=== PATIENT | female | born 1990 | race Caucasian/White ===

== ENCOUNTER → 2017-08-26 13:34 | Outpatient (CLI) | payer MEDICAID, SELFPAY ==
--- NOTE | 2017-08-26 13:40 | HPBI_ITS ---
MAMMOGRAPHY - BILATERAL DIAGNOSTIC REASON FOR EXAM: Female, 27 years old. Baseline examination. Bilateral nonspecific breast pain. PERTINENT HISTORY: Non-contributory. TECHNIQUE: Digital bilateral breast brant (3D mammographic acquisition) in the CC and MLO projections. 2-D mediolateral oblique (MLO) and craniocaudad (CC) views of both breasts were obtained. CAD: Full Field Digital Mammography with Computer Added Detection was performed. COMPARISON: None. Baseline examination. FINDINGS: Breast Composition: The breasts are heterogeneously dense, which may obscure small masses. There are no dominant masses or suspicious calcifications. No other significant abnormalities are identified. HPBI/DIAG MAMM W/CAD, BILAT IMPRESSION: Negative diagnostic mammogram. Yearly followup mammogram recommended. (A) ASSESSMENT CATEGORY: BIRADS Category 1: Negative. A letter regarding these results will be sent to the patient by the facility within 30 days. Approximately 10% of breast cancers are not detected by mammography. A normal mammogram should not delay biopsy of a clinically suspicious abnormality. Electronically Signed: Hang Velasquez MD at 15:01 EST Tel [phone], Service support ,
== END ==
PROVIDERS: Visit Provider Nurse Practitioner Family
DX: N60.19 Diffuse cystic mastopathy of unspecified breast (principal); N64.4 Mastodynia
CPT/HCPCS: 77063; 77066

== ENCOUNTER 2018-09-21 17:03 | Emergency (ER) | payer MEDICAID, SELFPAY ==
[2018-09-21 17:04] VITALS: BP 123/70; PULSE 89; RESP 18; TEMP 36.5; O2SAT 99; BMI 35.9
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
== END 2018-09-21 18:23 | disposition home or self-care (01) ==
PROVIDERS: Emergency Provider Emergency Medicine; Family Provider Internal Medicine; PCP Internal Medicine
DX: S16.1XXA Strain of muscle, fascia and tendon at neck level, initial encounter (principal); V43.52XA Car driver injured in collision with other type car in traffic accident, initial encounter; Y93.89 Activity, other specified; Y92.9 Unspecified place or not applicable
CPT/HCPCS: 72040; 99282

== ENCOUNTER 2018-10-31 12:29 | Emergency (ER) | payer MEDICAID, SELFPAY ==
[2018-10-31 12:30] VITALS: BP 101/59; PULSE 67; RESP 16; TEMP 36; O2SAT 99; BMI 34.2
--- NOTE | 2018-10-31 12:40 | RAD_ITS ---
STUDY: X-RAY CHEST REASON FOR EXAM: Female, 28 years old. Chest pain TECHNIQUE: PA and lateral views of the chest. COMPARISON: None. FINDINGS: The lungs are clear and expanded. There is no demonstrated pleural abnormality. Normal size heart. Normal mediastinum and faizan. Normal visualized pulmonary arteries. Normal visualized aortic arch and descending thoracic aorta. Normal visualized thoracic spine. Normal visualized ribs, clavicles, and shoulders. There is no demonstrated abnormality of the visualized soft tissue structures of the upper abdomen. RAD/Chest PA and Lateral IMPRESSION: Normal x-ray examination of the chest. Electronically Signed: Fer Greenwood, at 13:11 EDT Tel , Service support ,
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
== END 2018-10-31 13:24 | disposition home or self-care (01) ==
PROVIDERS: Emergency Provider Emergency Medicine; Family Provider Internal Medicine; PCP Internal Medicine
DX: R07.89 Other chest pain (principal); Z87.891 Personal history of nicotine dependence; Y92.410 Unspecified street and highway as the place of occurrence of the external cause; V89.2XXA Person injured in unspecified motor-vehicle accident, traffic, initial encounter; Y93.9 Activity, unspecified; Y99.9 Unspecified external cause status
CPT/HCPCS: 71046; 99283

== ENCOUNTER → 2019-06-30 08:14 | Outpatient (CLI) | payer MEDICAID, SELFPAY ==
--- NOTE | 2019-06-30 08:18 | RAD_ITS ---
STUDY: AIR-CONTRAST UPPER GI SERIES. REASON FOR EXAM: Female, 29 years old. Altered bowel function, functional diarrhea -- pt states diarrhea x years FLUOROSCOPY TIME (if supplied): ( 46 seconds ) minutes/seconds TECHNIQUE: The patient ingested barium. Multiple images of the esophagus stomach and duodenum were obtained. COMPARISON: None. FINDINGS: The esophagus is unremarkable. No evidence of obstruction. No evidence of gas of reflux. The stomach and duodenum are unremarkable. IMPRESSION: Unremarkable air-contrast upper GI series. Electronically Signed: Hang Velasquez, at 15:14 EST , Service support , PROCEDURE: SMALL BOWEL SERIES DATE OF EXAMINATION: June 30, 2019. INDICATION: Female, 29 years old. Abnormal bowel function. Diarrhea. PHYSICIAN: Hang Velasquez M.D. FLUOROSCOPY TIME (if supplied): (0:13) minutes/seconds TECHNIQUE: Radiographic and fluoroscopic images were taken of the small intestine following the ingestion of barium. COMPARISON: None. FINDINGS: A preliminary supine KUB was obtained. There is an unremarkable bowel gas pattern. Fecal material is present throughout the colon. Phleboliths are present within the pelvis. The lung bases are unremarkable. The osseous structures are normal. The patient orally ingested approximately 12 ounces of thin barium Normal visualized fundus, body, and antrum of the stomach. Normal duodenal bulb, C-loop, and proximal jejunum. Normal visualized mucosal folds of the jejunum and ileum. There are no demonstrated dilatations, strictures, or masses of the small intestine. There is no mass displacement of the loops of small intestine. There is a normal motor pattern with barium reaching the colon within approximately 30 minutes. Spot films under fluoroscopic observation demonstrated a normal terminal ileum and ileocecal valve. RAD/Upper GI/w Small Bowel IMPRESSION: Normal small bowel series. Electronically Signed: Hang Velasquez, at 15:16 EST , Service support ,
== END ==
PROVIDERS: Family Provider Internal Medicine; PCP Internal Medicine; Referring Provider Nurse Practitioner Adult Health; Visit Provider Nurse Practitioner Adult Health
DX: K59.1 Functional diarrhea (principal); R11.0 Nausea
CPT/HCPCS: 74246; 74248

== ENCOUNTER 2019-11-09 02:07 | Emergency (ER) | payer MEDICAID, SELFPAY ==
[2019-11-09 02:07] VITALS: BP 122/73; PULSE 115; RESP 16; TEMP 36.9; O2SAT 93; BMI 39.0
--- NOTE | 2019-11-09 02:37 | RAD_ITS ---
STUDY: X-RAY - RIGHT FOOT CLINICAL: Female, 29 years old. PT WAS DOING YARD WORK AND FELL OFF A BRICK AND INJURED HER RIGHT ANKLE/FOOT TECHNIQUE: 3 view(s) of the foot. COMPARISON: None. FINDINGS: Normal talus, calcaneus, and tarsal bones. Normal visualized subtalar, talonavicular, calcaneocuboid, tarsal and tarsometatarsal articulations. Normal metatarsi. Normal metatarsophalangeal joint of the great toe. Normal tibial and fibular sesamoid bones. Normal interphalangeal joint of the great toe. Normal phalanges of the great toe. Normal second through fifth metatarsophalangeal joints. Normal interphalangeal joints and phalanges of the lesser toes. The soft tissue structures are unremarkable. RAD/Foot min 3 Views IMPRESSION: Normal x-ray examination of the foot. Electronically Signed: Sushil Berry MD at 2:58 EDT , Service support ,
--- NOTE | 2019-11-09 02:37 | ED.DCSUM_ITS ---
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 Timing: Continuous Quality of Pain: Aching Location: Right ankle Current Severity: Moderate Maximum Severity: Severe Worsened by: Trying to bear weight which she is unable to do Relieved by: Remaining still/rest Associated Symptoms: Negative for: Parasthesia, Weakness Past Medical History - Allergies and Home Meds Allergies/Adverse Reactions: Allergies No Known Allergies Allergy (Verified 11/09/19 02:09) Primary Care Physician: Misha Cespedes MD [Primary Care Provider] - Past Medical History: None Smoking Status: Former smoker Review of Systems Musculoskeletal: Reports: Extremity Pain Skin: Denies: Rash, Wounds Neurological: Denies: Headache, Weakness, Numbness Physical Exam Vital Signs/Narrative: Vital Signs Temp Pulse Resp BP Pulse Ox 11/09/19 02:07 98.4 F 115 H 16 122/73 H 93 Inital Vital Signs reviewed: Yes - Extremity Exam Right Ankle: Limited ROM, - - Tender right lateral malleolus and base of the fifth metatarsal. No deformities. Nontender medial malleolus, fibular head, rest of the foot and right lower extremity. General: Well nourished, Well developed, Obese, - - nad Head: Normocephalic, Atraumatic Skin: Normal color, No rash, No Trauma - Right lateral malleolus swollen, skin intact Neurological: Alert, Oriented x3, Cranial nerves II-XII grossly intact, Normal Strength, Normal Sensation Psychological: Normal affect, Normal Mood Diagnostic/Tx/Re-eval Impressions Foot X-Ray 11/09/19 02:37 IMPRESSION: Normal x-ray examination of the foot. Electronically Signed: Sushil Berry MD at 2:58 EDT , Service support , Ankle X-Ray 11/09/19 02:40 IMPRESSION: Normal x-ray examination of the ankle. Electronically Signed: Sushil Berry MD at 2:59 EDT , Service support , 11/09/19 02:37 Foot min 3 Views [RAD] Stat 11/09/19 02:40 Ankle min 3 Views [RAD] Stat - Medical Decision Making X-rays unremarkable as above. Consistent with a sprain. Will be placed in an Aircast, given anti-inflammatories, offered crutches, and provided with outpatient follow-up. ED Disposition - Plan for ED Patient: Disposition: Home or Assisted Living Diagnosis: Right ankle sprain Instructions: ED Sprain Ankle W X Ray Prescriptions: Naproxen [Naprosyn] 500 mg PO BID PRN #20 tab Transmission Status: [facility] to [id number] Referrals: Misha Cespedes MD [Primary Care Provider] - 1-2 Weeks (If not improving and able to walk on foot without crutches)
--- NOTE | 2019-11-09 02:40 | RAD_ITS ---
STUDY: X-RAY - RIGHT ANKLE REASON FOR EXAM: Female, 29 years old. PT WAS DOING YARD WORK AND FELL OFF A BRICK AND INJURED HER RIGHT ANKLE/FOOT TECHNIQUE: 3 view(s) of the ankle. COMPARISON: None. FINDINGS: Normal visualized distal tibia and fibula. Normal medial and lateral malleoli. Normal tibiotalar articulation and ankle mortise. Normal visualized talus and calcaneus. The visualized subtalar, talonavicular, calcaneocuboid and tarsal articulations are normal. The soft tissue structures are unremarkable. RAD/Ankle min 3 Views IMPRESSION: Normal x-ray examination of the ankle. Electronically Signed: Sushil Berry MD at 2:59 EDT , Service support ,
[2019-11-09] MEDS: Naproxen 250 MG Tablet 500 MG PO (03:50)
[2019-11-09 03:52] VITALS: BP 118/60; PULSE 90; RESP 16; O2SAT 98
== END 2019-11-09 03:53 | disposition home or self-care (01) ==
PROVIDERS: Emergency Provider Emergency Medicine; PCP Internal Medicine
DX: S93.401A Sprain of unspecified ligament of right ankle, initial encounter (principal); X50.1XXA Overexertion from prolonged static or awkward postures, initial encounter; Z87.891 Personal history of nicotine dependence; E66.9 Obesity, unspecified
CPT/HCPCS: 73610; 73630; 99284

== ENCOUNTER 2021-03-13 13:17 | Emergency (ER) | payer MEDICAID, SELFPAY ==
[2021-03-13 13:18] VITALS: BP 124/85; PULSE 83; RESP 16; TEMP 36.6; O2SAT 100; BMI 38.4
--- NOTE | 2021-03-13 13:37 | RAD_ITS ---
STUDY: X-RAY - LEFT HAND REASON FOR EXAM: Female, 31 years old. Trauma TECHNIQUE: 3 view(s) of the hand. COMPARISON: None. FINDINGS: Normal radiocarpal articulation. Normal distal radioulnar joint. Normal visualized carpal bones. Normal carpal articulations Normal carpometacarpal articulation of the thumb. Normal second through fifth carpometacarpal joints. Normal metacarpi. Normal metacarpophalangeal joint of the thumb. Normal interphalangeal joint of the thumb. Normal proximal and distal phalanges of the thumb. Normal metacarpophalangeal joints of the second through fifth fingers. Normal proximal and distal interphalangeal joints of the second through fifth fingers. Normal phalanges of the second through fifth fingers. Soft tissue swelling involving the third and fourth digits. No radiopaque foreign body is seen. RAD/Hand Min 3 Views IMPRESSION: Soft tissue swelling. No radiopaque foreign body is seen. Electronically Signed: Hang Velasquez MD at 14:18 EDT , Service support ,
--- NOTE | 2021-03-13 13:41 | EDS_ITS ---
HPI History of Present Illness Chief Complaint: Upper Extremity Injury Informant: patient Occured/Mechanism Mechanism/Context: Yes injury Onset/Context/Timing Onset: Today and Hours Context: Sudden Onset Timing: Continuous Quality of Pain: Sharp Current Severity: Mild Maximum Severity: Mild Associated Symptoms Associated Symptoms: Negative for Parasthesia Narrative Narrative: 31-year-old female history of hypertension and seizures. Patient states she was using a log splitter when she accidentally got her left hand injured she has a laceration to the left ring finger that will need to be repaired and minor laceration that will not need to be repaired of the left long finger. She is right-hand dominant. Her tetanus is up-to-date. She denies any other injuries. Tetanus Immunization: 5-10 years Prior similar symptoms: No Recent Illness/Hospitalization: No [facility] Medical History (Updated 03/13/21 @ 15:[address] Abiodun Scott MD) Anxiety Depression Irregular heart beat Seizures Home Medications gabapentin 600 mg PO QHS 11/09/19 [History Last Taken Unknown] levetiracetam 750 mg PO BID 11/09/19 [History Last Taken Unknown] metoprolol tartrate 25 mg PO BID 11/09/19 [History Last Taken Unknown] Allergy/AdvReac Type Severity Reaction Status Date / Time No Known Allergies Allergy Verified 03/13/21 13:20 Social History Smoking Status: Current every day smoker tobacco type: cigarettes ROS ROS ED ROS Narrative Denies recent illness. Review of Systems ROS Unobtainable: Denies due to encephalopathy Constitutional Constitutional ED: Denies frequent falls Eyes Eyes: Denies change in vision ENT ENT ED: Denies ear pain Cardiovascular Cardiovascular: Denies chest pain Respiratory/Chest Respiratory/Chest: Denies dyspnea Gastrointestinal Gastrointestinal: Reports diarrhea; Denies abdominal pain, nausea or vomiting Genitourinary Genitourinary ED: Denies dysuria Musculoskeletal Musculoskeletal: Denies myalgias Integumentary Denies rash Neurologic Neurologic: Denies headache(s) Psychiatric Psychiatric: Denies depression Endocrine Endocrinology: Denies polyuria Hematologic/Lymphatic Hematologic/Lymphatic: Denies easy bruising Allergic/Immunologic Allergic/Immunologic ED: Denies urticaria EXAM Physical Exam Narrative Exam Narrative: 31 female no acute distress vital signs stable afebrile. Lungs clear. Heart regular rate and rhythm. Left hand left ring finger there is a laceration approximately 2-1/2 to 3 cm on the palmar aspect. That will need to be repaired. There are some superficial abrasions lacerations on the long and ring finger that do not need to be repaired. She has normal touch sensation and cap refill to all digits. She has limited flexion of the PIP on the left long finger. Otherwise exam unremarkable. Const Vital Signs: 03/13/21 13:18 Temperature 97.8 F Temperature Source Temporal Pulse Rate 83 Respiratory Rate 16 Blood Pressure 124/85 H Blood Pressure Mean 98 Pulse Ox 100 Oxygen Delivery Method Room Air Positive well nourished and well developed; Negative for cachectic, contractures or unkempt General Appearance ED: well developed and NAD; Negative for unkempt, cachectic or contractures Nutritional Appearance: Negative for cachectic HEENT Reports moist mucous membranes normocephalic and atraumatic; Negative for trauma or tenderness Eyes PERRL and EOMs intact bilaterally Neck full ROM and supple Chest Wall inspection of chest normal and palpation of chest normal Resp clear to auscultation bilaterally Cardio regular rate, regular rhythm, S1 normal heart sound, S2 normal heart sound and no murmurs GI non-tender, non-distended and no masses Auscultation: normoactive bowel sounds Palpation: soft Back/Spine no CVA tenderness Extremity Extremity Narrative: Left hand laceration palmar aspect left ring finger. Normal touch sensation normal cap refill no bony deformity. Limited flexion of the PIP. Also some minor abrasions that do not need to be repaired of the left ring and long finger. Neuro oriented x3 and moves all extremities Sensorium / Orientation: alert, oriented to person, oriented to place and oriented to time Motor Exam: strength 5/5 throughout Psych mental status grossly normal Appearance: Negative for unkempt Skin Lesions: no lesions Rashes: no rashes Trauma: laceration; Negative for no lacerations or abrasions MDM MDM MDM Narrative Medical decision making narrative: 31-year-old female laceration left ring finger that will need to be x-rayed, explored, washed out and repaired. Tetanus is already up-to-date. Repeat exam patient is doing well at 330. Procedure note: Right ring finger palmar laceration almost 3 cm. Digital block performed. Proper anesthetic obtained. Wound was cleaned with Shur-Clens. Copiously irrigated and washed. Explored I did not feel or see any obvious foreign body discussed that with the patient. Closed using 4 simple interrupted 4-0 Ethilon sutures. Proper hemostasis and wound closure is obtained. Patient was instructed on wound care ice and elevate. To decrease pain and swelling. Watch for any signs of infection. Suture removal in 14 days. Radiography Diagnostic Testing: X-ray left hand 3 views interpreted by myself shows no acute abnormality. No fracture. No foreign body. Interpreted both by the radiologist and myself. Procedures Lacerations Right ring finger palmar laceration: Length: 1.18 in Shape: Linear Prep: Sterile Conditions and Shure-Clens Laceration repair: Digital block, Irrigated, Lidocaine, Nerve block and Skin sutures Irrigated (ml): 200 Number of Sutures/Diana: 4 Suture Information: Ethilon and 4-0 Comment: 4 4-0 simple interrupted sutures. Proper hemostasis wound closure obtained. Patient tolerated procedure well. Discharge Plan Triage Chief Complaint: Upper Extremity Injury ED Provider: Abiodun Scott Dx/Rx/DC Orders Clinical Impression: Finger laceration Instructions: ED Laceration, Hand: All Closures Prescriptions: No Action gabapentin 600 MG tablet 600 mg PO QHS RF: 0 levetiracetam 750 MG tablet 750 mg PO BID RF: 0 metoprolol tartrate 25 MG tablet 25 mg PO BID RF: 0 Primary Care Provider: Misha Cespedes Referrals: Misha Cespedes MD [Primary Care Provider] - 10-14 Days suture removal Activity Restrictions/Additional Instructions: Ice and elevate your left hand to decrease pain and swelling. Do it at least 5 times a day for 30 minutes at a time the next 2 to 3 days Tylenol and Motrin for pain and swelling. Leave our dressing on for the next 4 days. Then begin changing it daily. Wash it well each day with soap and water or peroxide and water. Watch for any signs of infection such as redness, pus, streaks or fever or significant swelling is seen return. Stitches out in 14 days. Disposition Disposition: Home, Self Care
[2021-03-13] MEDS: Lidocaine 1% (20 ml mdv) 20 ML Vial 6 ML INFILT (15:08)
== END 2021-03-13 15:46 | disposition home or self-care (01) ==
PROVIDERS: Emergency Provider Emergency Medicine; PCP Internal Medicine
DX: S61.411A Laceration without foreign body of right hand, initial encounter (principal); S69.92XA Unspecified injury of left wrist, hand and finger(s), initial encounter; W31.9XXA Contact with unspecified machinery, initial encounter; Y93.89 Activity, other specified; Y92.9 Unspecified place or not applicable; Y99.9 Unspecified external cause status; I10 Essential (primary) hypertension; F32.9 Major depressive disorder, single episode, unspecified; F41.9 Anxiety disorder, unspecified; G40.909 Epilepsy, unspecified, not intractable, without status epilepticus; F17.210 Nicotine dependence, cigarettes, uncomplicated
CPT/HCPCS: 12002; 73130; 99284; J7030

== ENCOUNTER 2021-05-07 17:18 | Emergency (ER) | payer MEDICAID, SELFPAY ==
[2021-05-07 17:19] VITALS: BP 125/79; PULSE 71; RESP 18; TEMP 36.4; O2SAT 100; BMI 39.4
--- NOTE | 2021-05-07 19:54 | EX.ED.VIS.HA ---
HPI History of Present Illness Chief Complaint: Headache Informant: patient Onset/Context/Timing Onset: Weeks (1) Context: Gradual Timing: Continuous Quality -Headache: Positive for Similar Prior Headaches and Throbbing Location: Frontal Worsened by: Nothing Relieved by: Nothing Associated Symptoms/Injury Associated Symptoms: Positive for Fever, Nausea and Vomiting; Negative for Sore Throat, Sinus Pressure, Numbness, Tingling, Preceding Aura, Visual Changes, Blurred Vision, Photophobia and Visual Loss Injury - SHANNON: Negative for Direct Trauma Narrative Narrative: Patient presents with migraine headache that has been getting worse for the past week. Patient states it is similar to prior migraine headaches. Patient states that over the frontal area. Patient describes it as throbbing. Patient denies any head injury. Patient admits to some fever at home of 102.4. Patient admits to some nausea and vomiting. Patient denies any sore throat or sinus pressure. Patient denies any paresthesias or weakness. Patient denies any photophobia, blurred vision, or scotoma. [facility] Medical History Anxiety Depression Irregular heart beat Seizures Home Medications gabapentin 600 mg PO QHS 11/09/19 [History Last Taken Unknown] levetiracetam 750 mg PO BID 11/09/19 [History Last Taken Unknown] metoprolol tartrate 25 mg PO BID 11/09/19 [History Last Taken Unknown] Allergy/AdvReac Type Severity Reaction Status Date / Time No Known Allergies Allergy Verified 05/07/21 17:20 Surgical History (Updated 05/08/21 @ 01:[address] Nasir Hall DO) Hx of dilation and curettage Social History Smoking Status: Current every day smoker tobacco type: cigarettes ROS ROS ED Constitutional Constitutional ED: Reports fever(s); Denies chills Eyes Eyes: Denies blurry vision or change in vision ENT ENT ED: Denies rhinorrhea or sore throat Cardiovascular Cardiovascular: Denies chest pain or palpitations Respiratory/Chest Respiratory/Chest: Denies cough or dyspnea Gastrointestinal Gastrointestinal: Reports diarrhea, nausea and vomiting Genitourinary Genitourinary ED: Denies dysuria or hematuria Musculoskeletal Musculoskeletal: Reports back pain; Denies neck pain Integumentary Denies abscess or rash Neurologic Neurologic: Reports headache(s); Denies weakness Allergic/Immunologic Allergic/Immunologic ED: Denies mouth swelling or urticaria EXAM Physical Exam Const Vital Signs: 05/07/21 17:19 05/07/21 21:39 05/07/21 22:15 Temperature 97.6 F L Temperature Source Temporal Pulse Rate 71 62 Respiratory Rate 18 15 18 Blood Pressure 125/79 H 134/77 H Blood Pressure Mean 94 96 Pulse Ox 100 98 Oxygen Delivery Method Room Air Room Air Positive well nourished and well developed General Appearance ED: well developed HEENT Reports moist mucous membranes Neck supple and no JVD Resp normal respiratory effort and clear to auscultation bilaterally Cardio regular rate, regular rhythm and no murmurs GI normal to inspection, nondistended, normoactive bowel sounds and non-tender Palpation: soft Extremity normal to inspection General Extremety ED: Negative for edema or tenderness General Extremity: Negative for edema Neuro oriented x3, CN's II-XII intact bilaterally and no sensory deficits noted Sensorium / Orientation: alert Motor Exam: strength 5/5 throughout Psych mental status grossly normal Skin no rashes or lesions noted MDM MDM MDM Narrative Medical decision making narrative: 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 Because of this, CT scan of the brain was obtained. There is no acute intracranial abnormality. Patient was given IV fluids, Compazine, and Benadryl. Patient states her headache has resolved after this. Patient was instructed to rest in a dark quiet room. Patient was instructed to drink plenty of fluids. Patient was instructed to follow-up with her primary care physician in 5 to 7 days. Patient understood and was agreeable with the plan. All questions were answered. Radiography Diagnostic Testing: Clinical Impression(s) from Imaging Studies Brain CT 05/07/21 20:12 IMPRESSION: 1. Normal CT brain. Electronically Signed: Francesca Tamayo MD at 20:32 EST Tel , Service support , Discharge Plan Triage Chief Complaint: Headache ED Provider: Nasir Hall Dx/Rx/DC Orders Clinical Impression: Migraine headache Instructions: ED Headache Unspecified Prescriptions: No Action gabapentin 600 MG tablet 600 mg PO QHS RF: 0 levetiracetam 750 MG tablet 750 mg PO BID RF: 0 metoprolol tartrate 25 MG tablet 25 mg PO BID RF: 0 Primary Care Provider: Misha Cespedes Referrals: Misha Cespedes MD [Primary Care Provider] - 3-5 Days Disposition Disposition: Home, Self Care Discharge Date/Time: 05/07/21 22:16
--- NOTE | 2021-05-07 20:12 | CT_ITS ---
STUDY: CT BRAIN WITHOUT CONTRAST REASON FOR EXAM: Female, 31 years old. Pain RADIATION DOSAGE (If Supplied By Facility): CTDIvol = ( 44.99 ) mGy, DLP = ( 762.36 ) mGycm TECHNIQUE: Transaxial CT imaging of the brain was performed without administration of intravenous contrast material. Individualized dose optimization techniques were used for this CT. COMPARISON: No relevant priors. FINDINGS: Brain parenchyma is without focal lesions, mass effect, acute intracranial hemorrhage, extra parenchymal fluid collections, hydrocephalus or herniation. 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 Corpus callosum is fully formed. The skull is intact. CT/Brain/Head without Contrast IMPRESSION: 1. Normal CT brain. Electronically Signed: Francesca Tamayo MD at 20:32 EST Tel , Service support ,
[2021-05-07] MEDS: 0.9% Normal Saline 1,000 ML 999 ML IV (20:22)
[2021-05-07] MEDS: DiphenhydrAMINE 50 MG/ML Syringe 25 MG IV (20:22)
[2021-05-07] MEDS: proCHLORPERazine 10 MG/2 ML Vial IV (20:22)
[2021-05-07 21:39] VITALS: BP 134/77; PULSE 62; RESP 15; O2SAT 98
[2021-05-07 22:15] VITALS: RESP 18
== END 2021-05-07 22:16 | disposition home or self-care (01) ==
PROVIDERS: Emergency Provider Emergency Medicine; PCP Internal Medicine
DX: G43.909 Migraine, unspecified, not intractable, without status migrainosus (principal); F17.210 Nicotine dependence, cigarettes, uncomplicated
CPT/HCPCS: 70450; 96361; 96374; 96375; 99283; J7030; A4216

== ENCOUNTER 2021-10-20 17:30 | Outpatient (RCR) | payer MEDICAID, SELFPAY ==
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
== END 2021-10-20 19:00 | disposition home or self-care (01) ==
LOC: PT 17:30
PROVIDERS: PCP Internal Medicine; Visit Provider Nurse Practitioner
DX: M54.17 Radiculopathy, lumbosacral region (principal); M54.50 Low back pain, unspecified
CPT/HCPCS: 97110; 97162; 97164

== ENCOUNTER → 2022-09-04 | Outpatient (CLI) | payer MEDICAID, SELFPAY ==
[2022-09-04 15:05] LABS: Absolute Lymphocyte Count 1.41 X10^3/uL (0.83-4.51); Basophil# 0.03 X10^3/uL; Basophil% 0.5 % (0-1); Eosinophil# 0.09 X10^3/uL; Eosinophils% 1.5 % (0-5); Hematocrit 40.3 % (37-47); Hemoglobin 13.3 g/dL (12.0-15.0); Lymphocyte # 1.41 X10^3/ul (0.83-4.51); Mean Corpuscular Hgb 30.7 pg (27.0-32.0); Mean Corpuscular Volume 93.1 fL (81-99); Mean Platelet Vol. 11.7 fl (6.2-12.0); Monocyte# 0.33 X10^3/uL; Monocyte% 5.6 % (0-10); NRBC Flagged by Analyzer 0 % (0-5); Neutrophil % 68.1 % (47-70); Platelet Count 225 K/mm3 (150-450); RBC Distribution Width CV 11.8 % (11.6-14.6); RBC Distribution Width SD 40.1 fl (35.1-43.9); Red Blood Count 4.33 M/mm3 (4.2-5.4); White Blood Count 5.9 K/mm3 (4.4-11.0)
[2022-09-04 16:05] LABS: Vitamin B12 295 pg/mL (211-911); Vitamin D,25 Hydroxy 30.1 ng/mL
[2022-09-04 16:36] LABS: AST(SGOT) 9 U/L (15-37); Alanine Aminotransfer ALT/SGPT 18 U/L (13-56); Albumin, Serum 3.3 g/dL (3.2-5.0); Alkaline Phosphatase 39 U/L (45-117); Anion Gap 5 (5-15); BUN 15 mg/dL (7-18); BUN/Creat Ratio 21.2 RATIO (10-20); CRP < 2.90 mg/L (0.0-3.0); Calcium,Total 8.6 mg/dL (8.5-10.1); Chloride 113 mmol/L (98-107); Creatinine, Serum 0.71 mg/dL (0.55-1.02); EST Glomerular Filtration Rate 100 mL/min (>60); Est Glom Filt Rate - Afr Amer 121 mL/min (>60); Free T3 1.9 pg/mL (2.18-3.98); Globulin 3.2 g/dL (2.2-4.2); Glucose 88 mg/dL (74-106); Magnesium 2.3 mg/dL (1.6-2.6); Phosphorus 2.9 mg/dL (2.5-4.9); Potassium 3.4 mmol/L (3.5-5.1); Protein, Total 6.5 g/dL (6.4-8.2); Sodium Level 145 mmol/L (136-145); T4 Free Direct 0.84 ng/dL (0.76-1.46); Thyroid Stim Hormone (TSH) 1.62 uIU/mL (0.358-3.74)
[2022-09-04 16:39] LABS: Erythrocyte Sedimentation Rate 2 mm/hr (0-30)
[2022-09-07 15:08] LABS: Endomysial Antibody IgA Negative (Negative)
[2022-09-07 16:26] LABS: Immunoglobulin A 124 mg/dL (87-352); t-Transglutaminase IgA <2 U/mL (0-3)
[2022-09-08 13:07] LABS: Anti-Centromere B Ab <0.2 AI (0.0-0.9); Anti-Chromatin <0.2 AI (0.0-0.9); Anti-Jo <0.2 AI (0.0-0.9); Anti-Scleroderma-70 AB <0.2 AI (0.0-0.9); RNP Ab 0.3 AI (0.0-0.9); SJOGREN'S Anti-SS-A test < 0.2 AI (0.0-0.9); SJOGREN'S Anti-SS-B test < 0.2 AI (0.0-0.9); Smith Ab <0.2 AI (0.0-0.9)
[2022-09-08 15:50] LABS: Anti-dsDNA Ab <1 IU/mL (0-9); Vitamin D 1,25-Dihydroxy 49.4 pg/mL (24.8-81.5)
[2022-09-09 04:07] LABS: Albumin 3.6 g/dL (2.9-4.4); Alpha-1-Globulins 0.3 g/dL (0.0-0.4); Alpha-2-Globulins 0.7 g/dL (0.4-1.0); Cytoplasmic Ab (C-ANCA) <1:20 titer (Neg:<1:20); Gamma Globulin 0.8 g/dL (0.4-1.8); HEPATITIS B SURFACE AG Negative (Negative); Hep C Antibodies Non Reactive (Non Reactive); Hepatitis A IgM Antibody Negative (Negative); Hepatitis B Core AB IgM Negative (Negative); Immunoglobulin A 121 mg/dL (87-352); Immunoglobulin G 896 mg/dL (586-1602); Immunoglobulin M 106 mg/dL (26-217); PROEL- TOTAL PROTEIN 6.3 g/dL (6.0-8.5)
[2022-09-09 10:39] LABS: Immunoglobulin E 14 IU/mL (6-495); Perinuclear Ab (P-ANCA) <1:20 titer (Neg:<1:20)
== END | disposition home or self-care (01) ==
PROVIDERS: PCP Internal Medicine; Referring Provider Internal Medicine Gastroenterology; Visit Provider Internal Medicine Gastroenterology
DX: R11.2 Nausea with vomiting, unspecified (principal); R19.7 Diarrhea, unspecified
CPT/HCPCS: 36415; 80053; 80074; 82306; 82607; 82652; 82746; 82784; 82785; 83516; 83735; 84100; 84165; 84439; 84443; 84481; 85025; 85652; 86140; 86225; 86235; 86255; 86256; 86334

== ENCOUNTER → 2022-09-05 | Outpatient (CLI) | payer MEDICAID, SELFPAY ==
[2022-09-10 13:05] LABS: Calprotectin, Stool <16 ug/g (0-120); Fats, Neutral Normal (.); Fats, Total Normal (.)
[2022-09-12 08:54] LABS: Pancreatic Elastase, Fecal 198 (>200)
== END | disposition home or self-care (01) ==
LOC: LABSPEC 16:04
PROVIDERS: PCP Internal Medicine; Visit Provider Internal Medicine Gastroenterology
DX: K58.9 Irritable bowel syndrome, unspecified (principal); R11.2 Nausea with vomiting, unspecified; R19.7 Diarrhea, unspecified
CPT/HCPCS: 82274; 82653; 82705; 83630; 83993; 87177; 87209; 87329; 87493; 87506

== ENCOUNTER → 2022-12-21 | Outpatient (CLI) | payer MEDICAID, SELFPAY ==
--- NOTE | 2022-12-21 10:21 | NM_ITS ---
CLINICAL: 32-year-old female with history of clinical gastroparesis. SEMI-SOLID PHASE 99m Tc SULFUR COLLOID GASTRIC EMPTYING STUDY COMPARISON: None available FINDINGS: The patient was administered 1.0 mCi of 99m Tc sulfur colloid mixed with oatmeal and consumed per os. Image acquisitions in the anterior -posterior projections were obtained for 60 minutes. There is prompt visualization of the stomach. There is no gastroesophageal reflux identified. There is no visualized emptying of the gastric contents. The T ? raw data emptying was not calculable, (Normal: 12-56 minutes). NM/Gastric Emptying Study IMPRESSION: 1. ABNORMAL 99m Tc sulfur colloid semi-solid phase (oatmeal) gastric emptying imaging examination. A. There is markedly delayed semi-solid phase gastric emptying compared to normal controls. (Dat et al, J Nucl Med Tech 38: 186, 2010). Electronically Signed: Brice Kelly, at 9:37 EDT ,
== END | disposition home or self-care (01) ==
LOC: NM 10:18
PROVIDERS: PCP Internal Medicine; Referring Provider Internal Medicine Gastroenterology; Visit Provider Internal Medicine Gastroenterology
DX: R11.2 Nausea with vomiting, unspecified (principal); R19.7 Diarrhea, unspecified
CPT/HCPCS: 78264; A9541

== ENCOUNTER → 2023-01-01 | Outpatient (CLI) | payer MEDICAID, SELFPAY ==
--- NOTE | 2023-01-01 11:04 | US_ITS ---
STUDY: ABDOMINAL ULTRASOUND REASON FOR EXAM: Female, 32 years old. Nausea and Vomiting, Diarrhea TECHNIQUE: Transabdominal ultrasound was performed with real-time and static lucero scale imaging. TECHNICAL QUALITY: Adequate. COMPARISON: None. FINDINGS: Liver: The liver is enlarged and measures 18.3 cm. There is increased echogenicity consistent with fatty infiltration. The bile ducts are within normal limits. There is hepatic color flow. The direction of portal flow is hepatopetal. There is no demonstrated mass lesion. Portal vein measurement: Gallbladder: Normal distended gallbladder. The gallbladder wall measures 2 mm. There is a negative sonographic Javed''s sign. There is no pericholecystic fluid. There are no gallstones. Common Bile Duct (C.B.D.): The common bile duct measures 3 mm. Pancreas: Normal size of the head, body and tail of the pancreas. There is normal echogenicity of the pancreas. There is no demonstrated pancreatic mass or cyst. Spleen: Normal size of the spleen. The spleen measures 11.4 cm x 4.5 cm x 4.8 cm. 1.3 cm x 1.6 x 1.6 cm cluster of cysts is seen along the lateral margin of the spleen. Right Kidney: Normal size of the right kidney. The right kidney measures 9.9 cm x 3.8 x 3.5 cm. Normal renal cortex. The right cortex measures 1.0 cm. There is no demonstrated renal mass or cyst. There is no right hydronephrosis. Left Kidney: Normal size of the left kidney. The left kidney measures 10.4 cm x 5.1 cm x 5.2 cm. Normal renal cortex. The left cortex measures 1.3 cm. There is no demonstrated renal mass or cyst. There is no left hydronephrosis. Aorta: Unremarkable I.V.C.: The IVC is patent. There is no ascites. US/Abdomen Complete IMPRESSION: Hepatomegaly and fatty infiltration of the liver. Small cluster of cysts in the lateral margin of the spleen. Electronically Signed: Hang Velasquez MD at 13:01 EDT ,
== END | disposition home or self-care (01) ==
LOC: US 11:00
PROVIDERS: PCP Internal Medicine; Referring Provider Internal Medicine Gastroenterology; Visit Provider Internal Medicine Gastroenterology
DX: R11.2 Nausea with vomiting, unspecified (principal); R19.7 Diarrhea, unspecified
CPT/HCPCS: 76700

== ENCOUNTER → 2023-01-11 | Outpatient (CLI) | payer MEDICAID, SELFPAY ==
[2023-01-11 15:22] LABS: Absolute Lymphocyte Count 1.11 X10^3/uL (0.83-4.51); Absolute Neutrophil Count 3.9 X10^3/uL (2.0-7.7); Basophil# 0.02 X10^3/uL; Basophil% 0.4 % (0-1); Eosinophil# 0.05 X10^3/uL; Eosinophils% 0.9 % (0-5); Hematocrit 41.3 % (37-47); Hemoglobin 13.4 g/dL (12.0-15.0); Lymphocyte # 1.11 X10^3/ul (0.83-4.51); Lymphocyte % 20.3 % (19-41); Mean Corp Hgb Conc 32.4 g/dL (32-36); Mean Corpuscular Hgb 30.6 pg (27.0-32.0); Mean Corpuscular Volume 94.3 fL (81-99); Mean Platelet Vol. 11.1 fl (6.2-12.0); Monocyte# 0.37 X10^3/uL; Monocyte% 6.8 % (0-10); NRBC Flagged by Analyzer 0 % (0-5); Neutrophil # 3.92 X10^3/uL (2.7-7.7); Neutrophil % 71.4 % (47-70); Platelet Count 267 K/mm3 (150-450); RBC Distribution Width CV 11.9 % (11.6-14.6); RBC Distribution Width SD 41.8 fl (35.1-43.9); Red Blood Count 4.38 M/mm3 (4.2-5.4); White Blood Count 5.5 K/mm3 (4.4-11.0)
[2023-01-11 15:45] LABS: Erythrocyte Sedimentation Rate 5 mm/hr (0-30)
[2023-01-11 15:46] LABS: International Normalized Ratio 0.9; Prothrombin Time (Protime)PT. 12.1 SECONDS (11.7-14.9)
[2023-01-11 16:19] LABS: Hemoglobin A1c 4.9 % (3.8-5.6)
[2023-01-11 16:30] LABS: ALB/GLOB Ratio 0.8 RATIO (0.9-2.4); AST(SGOT) 11 U/L (15-37); Alanine Aminotransfer ALT/SGPT 15 U/L (13-56); Albumin, Serum 3.1 g/dL (3.2-5.0); Alkaline Phosphatase 46 U/L (45-117); Anion Gap 3 (5-15); BUN 18 mg/dL (7-18); BUN/Creat Ratio 17.8 RATIO (10-20); CRP < 2.90 mg/L (0.0-3.0); Calcium,Total 8.7 mg/dL (8.5-10.1); Chloride 112 mmol/L (98-107); Creatinine, Serum 1.01 mg/dL (0.55-1.02); EST Glomerular Filtration Rate 66 mL/min (>60); Est Glom Filt Rate - Afr Amer 80 mL/min (>60); Ferritin 17 ng/mL (8-252); Globulin 3.7 g/dL (2.2-4.2); Glucose 87 mg/dL (74-106); LDH 170 U/L (84-246); Protein, Total 6.8 g/dL (6.4-8.2); Sodium Level 141 mmol/L (136-145)
[2023-01-11 16:42] LABS: HIV - WCH Non-Reactive (Nonreactive)
[2023-01-13 16:14] LABS: Anti-Mitochondrial AB <20.0 Units (0.0-20.0)
[2023-01-15 18:07] LABS: AFP, Tumor Marker 2.1 ng/mL (0.0-6.4); Angiotensin Convert Enzyme 50 U/L (14-82); Anti-Smooth Muscle ABS 8 Units (0-19); Ceruloplasmin 44.8 mg/dL (19.0-39.0); Copper, Serum or Plasma 206 ug/dL (80-158); HEPATITIS B SURFACE AG Negative (Negative); Haptoglobin 68 mg/dL (33-278); Hep C Antibodies Non Reactive (Non Reactive); Hepatitis A IgM Antibody Negative (Negative); Hepatitis B Core AB IgM Negative (Negative)
== END | disposition home or self-care (01) ==
LOC: LAB 14:51
PROVIDERS: PCP Internal Medicine; Referring Provider Internal Medicine Gastroenterology; Visit Provider Internal Medicine Gastroenterology
DX: K76.0 Fatty (change of) liver, not elsewhere classified (principal)
CPT/HCPCS: 36415; 80053; 80074; 82105; 82140; 82164; 82390; 82525; 82728; 83010; 83036; 83516; 83615; 85025; 85610; 85652; 86140; 86703

== ENCOUNTER → 2023-01-12 | Outpatient (CLI) | payer MEDICAID, SELFPAY ==
--- NOTE | 2023-01-12 08:54 | US_ITS ---
STUDY: ABDOMINAL ULTRASOUND - ELASTOGRAPHY REASON FOR VISIT: Female, 32 years old. Fatty infiltration of the liver. TECHNIQUE: Liver stiffness measurements were obtained on a ArrayComm RS 85 ultrasound machine using a CA 1-7 probe following the SRU guidelines. 3 measurements were obtained using a 2-D-SWE method. TheIQR/M was 15% suggesting a quality data set. TECHNICAL QUALITY: Adequate. COMPARISON: None. FINDINGS: Liver: There is no demonstrated mass lesion. Median liver stiffness measured 5.8 kPa. Abdomen: There is no demonstrated mass lesion. US/Elastography Parenchyma/Organ IMPRESSION: Liver stiffness measures 5.8 kPa compatible with F2-F3 (Mild to moderate liver fibrosis) Metavir score. Electronically Signed: Hang Velasquez MD at 11:02 EDT ,
== END | disposition home or self-care (01) ==
LOC: US 08:53
PROVIDERS: PCP Internal Medicine; Referring Provider Internal Medicine Gastroenterology; Visit Provider Internal Medicine Gastroenterology
DX: K76.0 Fatty (change of) liver, not elsewhere classified (principal)
CPT/HCPCS: 76981

== ENCOUNTER → 2023-01-22 | Outpatient (CLI) | payer MEDICAID, SELFPAY ==
--- NOTE | 2023-01-22 18:50 | CT_ITS ---
INDICATION: N/V/D A radiation dose optimization technique was used for this scan. COMPARISON: Abdominal ultrasound 01/01/2023. IV Contrast dosage and agent: 100mL Isovue-300 Radiation CTDIvol 14.96 Radiation DLP 826.02 FINDINGS: Contrast enhanced serial CT axial images through the abdomen and pelvis with coronal and sagittal reformatted series. PANCREAS: No peripancreatic fat stranding. BOWEL/MESENTERY: No dilated bowel loops. No significant free fluid. No free air. GALLBLADDER: No pericholecystic fat stranding. LIVER/STOMACH: No obvious abnormality. URINARY COLLECTING SYSTEM/ KIDNEYS: No obstructing ureteral calculus. No significant renal parenchymal abnormality. APPENDIX: Normal caliber appendix. UTERUS/ADNEXA: Likely Nuvaring in place. Bilateral Essure devices. SPLEEN: 16 mm posterolateral splenic hypoattenuating lesion. LUNG BASES: Unremarkable. BONES: Unremarkable for age. CT/Abdomen/Pelvis WITH Contrast IMPRESSION: No acute abdominal abnormality is identified, to include normal appendix and no evidence of obstructing ureteral calculus. 16 mm posterolateral splenic hypoattenuating lesion. Recommend comparison with previous imaging to document long-term stability versus follow-up evaluation as neoplastic process is not excluded. Electronically Signed: Cody Varela MD at 5:15 EDT ,
== END | disposition home or self-care (01) ==
LOC: CT 18:48
PROVIDERS: PCP Internal Medicine; Referring Provider Internal Medicine Gastroenterology; Visit Provider Internal Medicine Gastroenterology
DX: R11.2 Nausea with vomiting, unspecified (principal); R19.7 Diarrhea, unspecified
CPT/HCPCS: 74177; Q9967

== ENCOUNTER → 2023-03-18 | Outpatient (CLI) | payer MEDICAID, SELFPAY ==
--- NOTE | 2023-03-18 08:53 | US_ITS ---
STUDY: ABDOMINAL ULTRASOUND -left upper QUADRANT REASON FOR VISIT: Female, 33 years old splenic lesion TECHNIQUE: Ultrasound evaluation of the right upper quadrant was performed with real-time and static lucero-scale imaging. TECHNICAL QUALITY: Very limited exam-only the left upper quadrant was evaluated. COMPARISON: CT scan 01/22/2023, ultrasound 01/01/2023, CT scan 07/21/2008 FINDINGS: Spleen measures 11.2 x 4.9 x 4.1 cm. There is a stable complex 1.9 cm cyst which has been present on all prior exams as far back as 2008 and needs no further evaluation or follow-up. Left Kidney: Normal size of the left kidney. The last kidney measures 11.4 x 5.2 x 5.4 cm. Normal renal cortex. The right cortex measures 1.3 cm. 1.3 cm probable cyst. There is no right hydronephrosis. US/Abdomen Limited IMPRESSION: Very limited as above. Stable appearance of cyst in the spleen. This has been stable as far back as 2008 and no further evaluation or follow-up is indicated. Electronically Signed: Shady Mcmullen MD at 17:21 EDT ,
== END | disposition home or self-care (01) ==
LOC: US 08:52
PROVIDERS: PCP Internal Medicine; Referring Provider Internal Medicine Gastroenterology; Visit Provider Internal Medicine Gastroenterology
DX: D73.89 Other diseases of spleen (principal)
CPT/HCPCS: 76705

== ENCOUNTER → 2023-05-18 | Outpatient (CLI) | payer MEDICAID, SELFPAY ==
--- NOTE | 2023-05-18 11:21 | NEURO ---
NCS and/or EMG Patient Report Ordering Doctor: Paulina Girard DATE OF SERVICE: 05/18/23 Clinical Summary: This is a 33 year old female presenting with complaints of numbness in the right hand. Symptoms are present in the medial fingers of the right hand. This EMG/NCS was performed to evaluate for right ulnar mononeuropathy. Nerve Conduction Studies Summary: Nerve conduction studies in the right upper extremity were normal. Needle Examination Summary: Needle examination of select muscles of the right upper extremity was normal. Impression: This is a normal study. There is no electrodiagnostic evidence of a right ulnar mononeuropathy or other nerve entrapment such as carpal tunnel syndrome in the right upper extremity. Multi Select Codes Neurology Neurology Interp Codes: 09334-10 Musc test done w/n test comp (interp) (1) and 33995-16 Nrv cndj test 7-8 studies (interp)
== END | disposition home or self-care (01) ==
LOC: PSN 10:40
PROVIDERS: PCP Internal Medicine
DX: R20.0 Anesthesia of skin (principal)
CPT/HCPCS: 95886; 95910

== ENCOUNTER 2023-06-09 16:00 | Outpatient (RCR) | payer MEDICAID, SELFPAY ==
--- NOTE | 2023-05-05 09:44 | HP.PTEVAL_ITS ---
Patient's Visit Information Visit Information Visit Information: JALEEL ZURITA is a 33 year old F referred to Physical Therapy by CAMILLE DUONG with a diagnosis of cervical stenosis, radiculopathy. Date of Evaluation: 05/05/23 Physical Therapist: Nasir Vasques, DPT, OCS, CSCS Visit Plan Frequency: 2x /Week Duration: 4 Weeks Plan: 2x/week for 4 weeks for 1. stretch chest and upper cervical flexors, ROM thoracic extension , mobs to upper thoracic spine. 2. strength posture and cervical area including deep cervical flexors to I HEP Postural focus Subjective Subjective: R hand keeps going numb(last two fingers). has minor neck pain chronically. Hand has been going numb for 3 months. It goes numb a few times per week for a couple seconds. happens peeling potatoes. happens with her using her hand. Can happen at times without reason. neck pain [id number] to 3/10 worse with activity and turning neck. No previous neck treatment. Comfortable at rest. Did x rays. Sleep is fine. Not employed, has heart problems and brain cyst and is on SSI. Spends day doing laundry and cleaning house and taking care of cats/dogs. Able to do basic ADLS but can cause transient numbness. Pain neck pain: Pain Intensity (Out of 10): 0 Pain Intensity Range: 0 and 3 Objective Objective: Posture is extreme protracted scapula and max FW head causing max kyphosis in lower cervical and upper thoracic spine and max extension in upper cervical region. cervical aROM is full with postural problems and without pain except end range retraction. rotations are full and painfree. SB full and painfree, Flexion feels tight but no pain. Scap AROM is full but depressiona dn retraction are tight. shoulder elbow and wrist and thumb arom is full and without pain. Strength in these tissues is 3+ and without pain. reflexes 1'3 biceps and triceps Sensation UE WNL to gross light touch today. - nerve tapping to ulnar nerve. - nerve root stretches UE median, ulnar and radial Balance/Special Test Scores Oswestry Neck Score: 10 Goals Goal 1:: Patient sit with straight spine posture 75% of time without cues Goal Time Frame: 2-4 Weeks Goal 2:: patinet state neck pain and tingling in 4/5 digit R hand 80% improved and manageable. Goal Time Frame: 2-4 Weeks Goal 3:: i appropriate HEP to minimize future problems Goal Time Frame: 2-4 Weeks Goal 4:: oswestry neck 1 or better Goal Time Frame: 2-4 Weeks Rehabilitation Potential Physical Therapy Diagnosis: Intermittent pain and tingling likely posturall related causing discomfort. Rehabilitation Potential: Fair Anticipated Interventions Patient/Client Instruction: Educate patient on: Condition and Risk Factors For the Purpose of:: To decrease pain, To increase ROM, To improve nutrient delivery to tissue, To improve muscle performance and motor function and To improve ability of physical actions for home/community/work/leisure Therapeutic Exercise to Include: Strength training, Postural training, Fl exibilty training, Passive ROM and Active ROM For the Purpose of:: To decrease pain, To increase ROM, To improve nutrient delivery to tissue, To improve muscle performance and motor function, To increase tolerance to activity/condition/position and To improve ability of physical actions for home/community/work/leisure Manual Therapy Techniques to Include: Mobilization For the Purpose of:: To increase ROM Text: Thank you for the opportunity to evaluate your patient. For Medicare and Medicare HMO plans, please review the plan of care and approve it. It will need to be FAXED BACK to us at [phone] for Medicare purposes. For Medicare only, by signing this I certify the plan of care. Please let me know if there are questions or concerns regarding this plan of care. Physician Signature: Date:
--- NOTE | 2023-06-09 16:15 | HP.PTDCSUM ---
Discharge Summary D/C summary: It has been my pleasure to treat JALEEL ZURITA referred by CAMILLE DUONG, with the diagnosis of cervical stenosis, radiculopathy for a total of 9 visit(s). Discharge Date: 06/09/23 Please see the following information for a summary of their discharge status. Subjective Subjective: Ready to be done. Sore when she leaves with exercises. pain is better than what it was. still gets neck pain at times. Neck pain 3/10 intermittently with turning head transiently. No activities effected with this. No f/u with doctor. Doing exercises at home. Only got tingling 2x since started for 5 seconds. Pain neck pain: Pain Intensity (Out of 10): 0 SHOULDERS: Pain Intensity (Out of 10): 0 Overall Improvement % Improvement: 85 Objective Objective/Function: Full cervical aROM without pain, 85 rotations and 85 extension. UE AROM full and strength 4/5 without pain. Goals Goal 1:: Patient sit with straight spine posture 75% of time without cues Goal Progress: Goal Met Goal 2:: patinet state neck pain and tingling in 4/5 digit R hand 80% improved and manageable. Goal Progress: Goal Met Goal 3:: i appropriate HEP to minimize future problems Goal Progress: Goal Met Goal 4:: oswestry neck 1 or better Goal Progress: Progressing Plan Plan: d/c to HEP D/C Information d/c sentence: If there are questions or concerns regarding this patient's physical therapy, please feel free to call me at [phone]. Thank you for the referral of this patient. Sincerely, Nasir Vasques, DPT, OCS, CSCS Balance/Gait/Functional tests Balance/Special Test Scores Oswestry Neck Score: 6 Improvement % Improvement: 85
== END 2023-06-09 19:00 | disposition home or self-care (01) ==
LOC: PT 16:00
PROVIDERS: PCP Internal Medicine
DX: M48.02 Spinal stenosis, cervical region (principal); M54.12 Radiculopathy, cervical region
CPT/HCPCS: 97110; 97140; 97161; 97164

== ENCOUNTER → 2023-06-18 | Outpatient (CLI) | payer MEDICAID, SELFPAY ==
--- OUTSIDE RECORDS SUMMARY | 2023-06-18 15:02 | XMS RPT_ITS | CCD ---
Author Name Unknown Address [address] [place] [address] Organization [facility] Care Team Providers Care Operations Research Director Name Role Phone Rasheeda Dave LPN Unavailable Socorro Sutton LPN Unavailable Unavailab KANDIS Kat Unavailable Unavailable KANDIS CARDOZO Unavailable Unavailable Misha Cespedes Unavailable Unavailable KANDIS CARDOZO Unavailable Unavailable KANDIS CARDOZO Unavailable Unavailable Misha Cespedes Unavailable Unavailable Roberto Fowler (Historic) Unavailable Misha Cespedes MD Primary Care Provider [facility], [place] Unavailable Roberto Fowler (Historic) Unavailable Misha Cespedes MD Primary Care Provider [facility] [place] Unavailable Roberto Fowler (Historic) Unavailable Misha Cespedes MD Primary Care Provider [facility] [place] Unavailable AZZAM, RAED H Admitting Unavailable AZZAM, RAED H Attending Unavailable NEETUM, RAED H Referring Unavailable MISHA CESPEDES Primary Care Unavailable AZZAM, RAED H Attending Unavailable ANGELES BRYANT Referring Unavailable MISHA CESPEDES Primary Care Unavailable [facility], [place] Unavailable Justin Mccain MD Unavailable JUSTIN MCCAIN Attending Unavailable JUSTIN MCCAIN Admitting Unavailable CESPEDES, MISHA Crawford Primary Care Unavailable CESPEDES, MISHA Crawford Primary Care Unavailable JUSTIN MCCAIN Attending Unavailable JUSTIN MCCAIN Admitting Unavailable CESPEDES, MISHA Crawford Attending Unavailable CESPEDES, MISHA Crawford Primary Care Unavailable CESPEDES, MISHA Crawford Attending Unavailable CESPEDES, MISHA Crawford Primary Care Unavailable MIHAELA PAIGE Attending Unavailable CESPEDES, MISHA Crawford Primary Care Unavailable CESPEDES, MISHA Crawford Primary Care Unavailable CAROLA COHEN Attending Unavailable CESPEDES, MISHA Crawford Primary Care Unavailable CESPEDES, LORENZO Primary Care Unavailable JUSTIN MCCAIN Attending Unavailable CESPEDES, MISHA Crawford Primary Care Unavailable CESPEDES, MISHA Crawford Primary Care Unavailable JUSTIN MCCAIN Attending Unavailable PAULINA DUONG Attending Unavailable CESPEDES, MISHA Crawford Primary Care Unavailable VETOPAULINA AGGARWAL Referring Unavailable CESPEDES, MISHA Crawford Primary Care Unavailable VETOPAULINA AGGARWAL Referring Unavailable CESPEDES, MISHA Crawford Primary Care Unavailable CESPEDES, MISHA Crawford Primary Care Unavailable CESPEDES, MISHA Crawford Referring Unavailable CESPEDES, MISHA Crawford Primary Care Unavailable PAULINA DUONG Attending Unavailable CESPEDES, MISHA Crawford Primary Care Unavailable VETOPAULINA AGGARWAL Referring Unavailable CESPEDES, MISHA Crawford Primary Care Unavailable CESPEDES, MISHA Crawford Primary Care Unavailable JUSTIN MCCAIN Attending Unavailable PAULINA DUONG Referring Unavailable CESPEDES, MISHA Crawford Primary Care Unavailable JUSTIN MCCAIN Referring Unavailable CESPEDES, MISHA Crawford Primary Care Unavailable MERYL CALLE Referring Unavailab MERYL May Attending Unavailab le CESPEDES, LORENZO Primary Care Unavailable JUSTIN MCCAIN Attending Unavailable JUSTIN MCCAIN Referring Unavailable CESPEDES, LORENZO Attending Unavailable CESPEDES, MISHA Crawford Primary Care Unavailable ADILIA CONTRERAS Referring Unavailable CESPEDES, LORENZO Primary Care Unavailable CESPEDES, MISHA Crawford Primary Care Unavailable MIHAELA DE LEON Attending Unavailable CESPEDES, MISHA Crawford Referring Unavailable BEVERLY BABIN Attending Unavailable CESPEDES, MISHA Crawford Primary Care Unavailable CESPEDES, MISHA Crawford Primary Care Unavailable PAULINA DUONG Attending Unavailable JUSTIN MCCAIN Referring Unavailable CESPEDES, LORENZO Attending Unavailable CESPEDES, LORENZO Primary Care Unavailable MISHA CESPEDES Primary Care Unavailable ANGELES BRYANT Attending Unavailable MISHA CESPEDES Primary Care Unavailable MERYL CALLE Attending Unavailab le MISHA CESPEDES Attending Unavailable MISHA CESPEDES Primary Care Unavailable PAULINA UDONG Referring Unavailable MISHA CESPEDES Primary Care Unavailable QUIQUETOERIN AGGARWALDRA Referring Unavailable MISHA CESPEDES Primary Care Unavailable Medications Current Medications Medication Drug Class(es) Dates Sig (Normalized) Sig (Original) acetaminophen 325 mg / HYDROcodone bitartrate 5 mg oral tablet (5 sources) Opioid Agonist Start: 02-12-2023 End: 02-19-2023 take 1 tablet by mouth every six hours as needed for pain HYDROcodone-aceta minophen (NORCO) 5-325 mg per tablet Indications: Acute medial meniscus tear of right knee, initial encounter Take 1 tablet by mouth every 6 hours as needed for pain for up to 7 days. 28 tablet 0 02/12/2023 02/19/2023 Active Completed/Discontinued Medications Medication Drug Class(es) Dates Sig (Normalized) Sig (Original) amylase 269586 unt / lipase 93985 unt / protease [id number] unt delayed release oral capsule (15 sources) Start: 09-21-2022 End: 01-15-2023 CREON 36,000-114,000- 180,000 unit delayed release capsule Take by mouth once daily. 0 09/21/2022 01/15/2023 Discontinued Problems Active Problems Problem Classification Problem Date Documented Da te Episodic/Chronic Anal and rectal conditions (1 source) Perineal irritation; Translations: [Other specified diseases of anus and rectum] Episodic Anxiety disorders (20 sources) Anxiety; Translations: [Anxiety disorder, unspecified] Onset: 3 Chronic Anxiety disorders (2 sources) Difficulty controlling anger; Translations: [Irritability and anger] 04-28-2023 Episodic Cardiac dysrhythmias (20 sources) Nonsustained ventricular tachycardia ; Translations: [Ventricular tachycardia] Onset: 2 08-14-2015 Chronic Cardiac dysrhythmias (2 sources) Palpitations; Translations: [Palpitations] Episodic Conditions associated with dizziness or vertigo (1 source) Lightheadedness; Translations: [Dizziness and giddiness] 06-02-2023 Episodic Epilepsy; convulsions (4 sources) Refractory epilepsy; Translations: [Epilepsy, unspecified, intractable, without status epilepticus] Onset: 3 Chronic Esophageal disorders (20 sources) Gastroesophageal reflux disease; Translations: [Gastro-esophageal reflux disease without esophagitis] Onset: 1 09-27-2020 Chronic Essential hypertension (2 sources) Essential hypertension; Translations: [Essential (primary) hypertension] Chronic Fracture of lower limb (1 source) Avulsion of tibial tuberosity; Translations: [Displaced fracture of unspecified tibial tuberosity, initial encounter for closed fracture] Episodic Headache; including migraine (20 sources) Migraine without aura, not refractory ; Translations: [Migraine without aura, not intractable, without status migrainosus] Onset: 8 04-16-2018 Chronic Headache; including migraine (2 sources) Headache; Translations: [Chronic intractable headache, unspecified headache type] Episodic Immunizations and screening for infectious disease (3 sources) Patient encounter status; Translations: [Encounter for screening for infections with a predominantly sexual mode of transmission] Episodic Intestinal infection (1 source) Viral gastroenteritis; Translations: [Viral intestinal infection, unspecified] Episodic Joint disorders and dislocations; trauma-related (1 source) Loose body in left knee joint; Translations: [Loose body in knee, left knee] Chronic Joint disorders and dislocations; trauma-related (3 sources) Acute tear of medial meniscus of left knee; Translations: [Other tear of medial meniscus, current injury, left knee, subsequent encounter] Onset: 3 Episodic Menstrual disorders (20 sources) Irregular periods; Translations: [Irregular menstruation, unspecified] Onset: 9 09-09-2018 Chronic Mood disorders (20 sources) Depressive disorder; Translations: [Depressive disorder] Onset: 8 01-30-2018 Chronic Other connective tissue disease (1 source) Pain in right hand; Translations: [Pain in right hand] 04-13-2023 Episodic Other connective tissue disease (1 source) Pain in right hand; Translations: [Right hand pain] Onset: 3 Episodic Other ear and sense organ disorders (1 source) Impacted cerumen in right ear; Translations: [Impacted cerumen, right ear] 02-24-2023 Episodic Other female genital disorders (1 source) Vaginal discharge; Translations: [Other specified noninflammatory disorders of vagina] Episodic Other gastrointestinal disorders (2 sources) Diarrhea; Translations: [Diarrhea, unspecified] Episodic Other hematologic conditions (2 sources) Other diseases of spleen; Translations: [Other diseases of spleen] Onset: 3 Episodic Other hereditary and degenerative nervous system conditions (20 sources) Restless legs; Translations: [Restless legs syndrome] Chronic Other liver diseases (15 sources) Fatty (change of) liver, not elsewhere classified; Translations: [Other chronic nonalcoholic liver disease] Onset: 3 02-03-2023 Chronic Other nervous system disorders (1 source) Cerebral cyst; Translations: [Cerebral cysts] Chronic Other nervous system disorders (1 source) Other chronic pain; Translations: [Chronic pain of left knee] Onset: 3 Chronic Other nervous system disorders (1 source) Numbness of hand; Translations: [Anesthesia of skin] 04-20-2023 Episodic Other nervous system disorders (1 source) Anesthesia of skin; Translations: [Numbness of right hand] Onset: 3 Episodic Other nutritional; endocrine; and metabolic disorders (20 sources) Body mass index 40+ - severely obese; Translations: [Morbid (severe) obesity due to excess calories] Onset: 1 08-29-2020 Chronic Other nutritional; endocrine; and metabolic disorders (20 sources) Obese class I; Translations: [Obesity, unspecified] Onset: 3 Chronic Other nutritional; endocrine; and metabolic disorders (1 source) Weight gain; Translations: [Abnormal weight gain] 04-28-2023 Episodic Residual codes; unclassified (1 source) Tobacco use and exposure - finding; Translations: [Tobacco use] 06-02-2023 Episodic Spondylosis; intervertebral disc disorders; other back problems (2 sources) Lumbosacral radiculopathy; Translations: [Radiculopathy, lumbosacral region] Episodic Unclassified (1 source) Unknown / UNK(Unknown) Onset: 8 Unclassified (1 source) NSVT (nonsustained ventricular tachycardia) (HCC); Translations: [NSVT (nonsustained ventricular tachycardia) (HCC)] Onset: 6 Past or Other Problems Problem Classification Problem Date Documented Da te Episodic/Chronic Blindness and vision defects (20 sources) Visual field defect of left eye; Translations: [Unspecified visual field defects] Onset: 12-26-2018 12-26-2018 Episodic Epilepsy; convulsions (20 sources) Seizure; Translations: [Unspecified convulsions] Onset: 08-24-2022 06-16-2021 Episodic Joint disorders and dislocations; trauma-related (6 sources) Acute tear of medial meniscus of right knee; Translations: [Other tear of medial meniscus, current injury, right knee, initial encounter] Onset: 01-05-2023 01-19-2023 Episodic Nausea and vomiting (16 sources) Nausea, vomiting and diarrhea; Translations: [Nausea with vomiting, unspecified] Onset: 02-03-2023 02-03-2023 Episodic Nonspecific chest pain (1 source) Other chest pain Onset: 08-10-2017 Episodic Other gastrointestinal disorders (16 sources) Functional diarrhea; Translations: [Functional diarrhea] Onset: 02-03-2023 02-03-2023 Episodic Other non-traumatic joint disorders (20 sources) Pain in left knee; Translations: [Pain in joint, lower leg] Onset: 07-14-2022 Episodic Other screening for suspected conditions (not mental disorders or infectious disease) (3 sources) Cancer cervix screening status; Translations: [Encounter for screening for malignant neoplasm of cervix] Onset: 07-17-2022 Episodic Other upper respiratory infections (4 sources) Upper respiratory infection; Translations: [Pharyngitis] Onset: 03-03-2017 03-03-2017 Episodic Pancreatic disorders (not diabetes) (15 sources) Pancreatic insufficiency; Translations: [Other specified diseases of pancreas] Onset: 02-03-2023 02-03-2023 Episodic Screening and history of mental health and substance abuse codes (20 sources) Ex-smoker; Translations: [Personal history of nicotine dependence] Onset: 12-21-2011 11-10-2022 Episodic Results Test Name Value Interpretation Reference Range Facil ity Vital Signs Date Time Vital Sign Value Performing Clinician Rula renee 06-02-2023 12:32-0500 Body weight 86.64 kg Carola Cohen APRN.CNP Work Phone: [facility] 06-02-2023 12:32-0500 Diastolic blood pressure 88 mm[Hg] Carola QuigleyMaciej ELECTRONIC PREPRESS TECHNICIAN.PROGRAM AND RESEARCH COORDINATOR Work Phone: [facility] 06-02-2023 12:32-0500 Heart rate 77 /min Carola Cohen ELECTRONIC PREPRESS TECHNICIAN.PROGRAM AND RESEARCH COORDINATOR Work Phone: [facility] 06-02-2023 12:32-0500 Respiratory rate 16 /min Carola Cohen ELECTRONIC PREPRESS TECHNICIAN.PROGRAM AND RESEARCH COORDINATOR Work Phone: [facility] 06-02-2023 12:32-0500 SaO2% (BldA) [Mass fraction] 99 % Carola Cohen ELECTRONIC PREPRESS TECHNICIAN.PROGRAM AND RESEARCH COORDINATOR Work Phone: [facility] 06-02-2023 12:32-0500 Systolic blood pressure 118 mm[Hg] Carola Cohen ELECTRONIC PREPRESS TECHNICIAN.PROGRAM AND RESEARCH COORDINATOR Work Phone: [facility] 05-07-2023 15:07-0500 Body height 157.5 cm Mihaela Paige APRN.PROGRAM AND RESEARCH COORDINATOR Work Phone: [facility] 05-07-2023 15:07-0500 Body weight 85.7 kg Mihaela Paige APRN.PROGRAM AND RESEARCH COORDINATOR Work Phone: [facility] 05-07-2023 15:07-0500 Diastolic blood pressure 60 mm[Hg] Mihaela Paige APRN.PROGRAM AND RESEARCH COORDINATOR Work Phone: [facility] 05-07-2023 15:07-0500 Heart rate 75 /min Mihaela Paige APRN.PROGRAM AND RESEARCH COORDINATOR Work Phone: [facility] 05-07-2023 15:07-0500 SaO2% (BldA) [Mass fraction] 99 % Mihaela aPige APRN.PROGRAM AND RESEARCH COORDINATOR Work Phone: [facility] 05-07-2023 15:07-0500 Systolic blood pressure 90 mm[Hg] Mihaela Paige APRN.PROGRAM AND RESEARCH COORDINATOR Work Phone: [facility] 04-28-2023 15:30-0500 Body temperature 98.01 [degF] Misha Cespedes MD Work Phone: [facility] 04-28-2023 15:30-0500 Body weight 84.37 kg Misha Cespedes MD Work Phone: [facility] 04-28-2023 15:30-0500 Diastolic blood pressure 64 mm[Hg] Misha Cespedes MD Work Phone: [facility] 04-28-2023 15:30-0500 Heart rate 80 /min Misha Cespedes MD Work Phone: [facility] 04-28-2023 15:30-0500 Respiratory rate 18 /min Misha Cespedes MD Work Phone: [facility] 04-28-2023 15:30-0500 Systolic blood pressure 108 mm[Hg] Misha Cespedse MD Work Phone: [facility] 01-29-2023 13:41-0400 Body height 162.6 cm Pacc 1 Work Phone: [facility] 01-29-2023 13:41-0400 Body temperature 98.29 [degF] Pacc 1 Work Phone: [facility] 01-29-2023 13:41-0400 Body weight 79.92 kg Pacc 1 Work Phone: [facility] 01-29-2023 13:41-0400 Diastolic blood pressure 70 mm[Hg] Pacc 1 Work Phone: [facility] 01-29-2023 13:41-0400 Heart rate 38 /min Pacc 1 Work Phone: [facility] 01-29-2023 13:41-0400 Respiratory rate 17 /min Pacc 1 Work Phone: [facility] 01-29-2023 13:41-0400 SaO2% (BldA) [Mass fraction] 98 % Pacc 1 Work Phone: [facility] 01-29-2023 13:41-0400 Systolic blood pressure 98 mm[Hg] Pacc 1 Work Phone: [facility] 01-18-2023 13:49-0400 Body weight 81.19 kg Misha Cespedes MD Work Phone: [facility] 01-18-2023 13:49-0400 Diastolic blood pressure 60 mm[Hg] Misha Cespdees MD Work Phone: [facility] 01-18-2023 13:49-0400 Heart rate 80 /min Misha Cespedes MD Work Phone: [facility] 01-18-2023 13:49-0400 Respiratory rate 16 /min Misha Cespedes MD Work Phone: [facility] 01-18-2023 13:49-0400 Systolic blood pressure 104 mm[Hg] Misha Cespedes MD Work Phone: [facility] 11-18-2022 09:30-0400 Diastolic blood pressure 59 mm[Hg] Justin Mccain MD Work Phone: [facility] 11-18-2022 09:30-0400 Heart rate 58 /min Justin Mccain MD Work Phone: [facility] 11-18-2022 09:30-0400 Respiratory rate 24 /min Justin Mccain MD Work Phone: [facility] 11-18-2022 09:30-0400 SaO2% (BldA) [Mass fraction] 100 % Justin Mccain MD Work Phone: [facility] 11-18-2022 09:30-0400 Systolic blood pressure 98 mm[Hg] Justin Mccain MD Work Phone: [facility] 11-18-2022 09:00-0400 Body temperature 97.2 [degF] Justin Mccain MD Work Phone: [facility] 11-18-2022 06:30-0400 Body height 162.6 cm Justin Mccain MD Work Phone: [facility] 11-18-2022 06:30-0400 Body weight 76.66 kg Justin Mccain MD Work Phone: [facility] 10-12-2022 13:37-0400 Body height 157.5 cm Meryl Calle DO Work Phone: [facility] 10-12-2022 13:37-0400 Body weight 77.11 kg Meryl Calle DO Work Phone: [facility] 10-12-2022 13:37-0400 Diastolic blood pressure 58 mm[Hg] Meryl Calle DO Work Phone: [facility] 10-12-2022 13:37-0400 Heart rate 61 /min Meryl Calle DO Work Phone: [facility] 10-12-2022 13:37-0400 SaO2% (BldA) [Mass fraction] 100 % Meryl Calle DO Work Phone: [facility] 10-12-2022 13:37-0400 Systolic blood pressure 100 mm[Hg] Meryl Calle DO Work Phone: [facility] 07-20-2022 18:28-0500 Body temperature 97.81 [degF] Misha Cespedes MD Work Phone: [facility] 07-20-2022 18:28-0500 Body weight 79.38 kg Misha Cespedes MD Work Phone: [facility] 07-20-2022 18:28-0500 Diastolic blood pressure 58 mm[Hg] Misha Cespedes MD Work Phone: [facility] 07-20-2022 18:28-0500 Heart rate 68 /min Misha Cespedes MD Work Phone: [facility] 07-20-2022 18:28-0500 Respiratory rate 16 /min Misha Cespedes MD Work Phone: [facility] 07-20-2022 18:28-0500 Systolic blood pressure 96 mm[Hg] Misha Cespedes MD Work Phone: [facility] 07-17-2022 09:27-0500 Body height 160 cm Beverly Babin APRN.CNP Work Phone: [facility] 07-17-2022 09:27-0500 Body weight 81.19 kg Beverly Babin APRN.PROGRAM AND RESEARCH COORDINATOR Work Phone: [facility] 07-17-2022 09:27-0500 Diastolic blood pressure 62 mm[Hg] Beverly Babin APRN.PROGRAM AND RESEARCH COORDINATOR Work Phone: [facility] 07-17-2022 09:27-0500 Systolic blood pressure 92 mm[Hg] Beverly Babin ELECTRONIC PREPRESS TECHNICIAN.PROGRAM AND RESEARCH COORDINATOR Work Phone: [facility] 07-14-2022 11:42-0500 Body weight 83.46 kg Misha Cespedes MD Work Phone: [facility] 07-14-2022 11:42-0500 Diastolic blood pressure 64 mm[Hg] Misha Cespedes MD Work Phone: [facility] 07-14-2022 11:42-0500 Heart rate 72 /min Misha Cespedes MD Work Phone: [facility] 07-14-2022 11:42-0500 Respiratory rate 16 /min Misha Cespedes MD Work Phone: [facility] 07-14-2022 11:42-0500 Systolic blood pressure 96 mm[Hg] Misha Cespedes MD Work Phone: [facility] 09-25-2021 12:48-0400 Body height 162.6 cm Heaven Reyes APRN.PROGRAM AND RESEARCH COORDINATOR Work Phone: [facility] 09-25-2021 12:48-0400 Body weight 91.99 kg Heaven Reyes ELECTRONIC PREPRESS TECHNICIAN.PROGRAM AND RESEARCH COORDINATOR Work Phone: [facility] 09-25-2021 12:48-0400 Diastolic blood pressure 62 mm[Hg] Heaven Reyes ELECTRONIC PREPRESS TECHNICIAN.PROGRAM AND RESEARCH COORDINATOR Work Phone: [facility] 09-25-2021 12:48-0400 Heart rate 94 /min Heaven Reyes ELECTRONIC PREPRESS TECHNICIAN.PROGRAM AND RESEARCH COORDINATOR Work Phone: [facility] 09-25-2021 12:48-0400 Systolic blood pressure 103 mm[Hg] Heaven Riverachristina ELECTRONIC PREPRESS TECHNICIAN.PROGRAM AND RESEARCH COORDINATOR Work Phone: [facility] 09-04-2021 15:37-0400 Body temperature 98.49 [degF] Jenelle Dahlhausen ELECTRONIC PREPRESS TECHNICIAN.PROGRAM AND RESEARCH COORDINATOR Work Phone: [facility] 09-04-2021 15:37-0400 Body weight 92.53 kg Jenelle Dacarrillohausen ELECTRONIC PREPRESS TECHNICIAN.PROGRAM AND RESEARCH COORDINATOR Work Phone: [facility] 09-04-2021 15:37-0400 Diastolic blood pressure 62 mm[Hg] Jenelle Dahlhausen ELECTRONIC PREPRESS TECHNICIAN.PROGRAM AND RESEARCH COORDINATOR Work Phone: [facility] 09-04-2021 15:37-0400 Heart rate 96 /min Jenelle Dacarrillohausen ELECTRONIC PREPRESS TECHNICIAN.PROGRAM AND RESEARCH COORDINATOR Work Phone: [facility] 09-04-2021 15:37-0400 Respiratory rate 18 /min Jenelle Dacarirllohausen ELECTRONIC PREPRESS TECHNICIAN.PROGRAM AND RESEARCH COORDINATOR Work Phone: [facility] 09-04-2021 15:37-0400 SaO2% (BldA) [Mass fraction] 100 % Jenelle Peñalozahausen ELECTRONIC PREPRESS TECHNICIAN.PROGRAM AND RESEARCH COORDINATOR Work Phone: [facility] 09-04-2021 15:37-0400 Systolic blood pressure 102 mm[Hg] Jenelle Dahlhausen ELECTRONIC PREPRESS TECHNICIAN.PROGRAM AND RESEARCH COORDINATOR Work Phone: [facility] 03-03-2017 10:25-0400 BMI (Body Mass Index) 30.1 kg/m2 Socorro Sutton LPN [facility] Work Phone: 03-03-2017 10:25-0400 Body Temperature 97.8 [degF] Socorro Sutton LPN [facility] Work Phone: 03-03-2017 10:25-0400 BP Diastolic 58 mm[Hg] Socorro Sutton LPN [facility] Work Phone: 03-03-2017 10:25-0400 BP Systolic 98 mm[Hg] Socorro Sutton LPN [facility] Work Phone: 03-03-2017 10:25-0400 Height 162.56 cm Socorro Sutton LPN [facility] Work Phone: 03-03-2017 10:25-0400 Pulse (Heart Rate) 85 /min Socorro Sutton LPN [facility] Work Phone: 03-03-2017 10:25-0400 Respiratory Rate 12 /min Socorro Sutton LPN [facility] Work Phone: 03-03-2017 10:25-040 Weight 79.56 kg Socorro Sutton LPN [facility] Work Phone: Encounters Encounter Date Encounter Type Care Provider Facility Start: 06-04-2023 End: 06-04-2023 [facility] Mihaela De Leon [facility] Work Phone: Psychology Procedures Date Procedure Procedure Detail Performing Clinician Start: 04-28-2023 [facility] COVI D-19 VACCINE () AGE 12+ YR Misha Cespedes MD Work Phone: Start: 01-29-2023 Ecg routine ecg w/le ast 12 lds i&r only [facility] Provider Start: 10-12-2022 Ecg routine ecg w/le ast 12 lds i&r only [facility] Provider Start: 03-03-2017 End: 03-03-2017 Rapid strep test Herbie LISA Work Phone: Plan of Treatment Date Care Activity Detail Author Start: 07-17-2027 HPV TESTING HPV TESTING [facility] Start: 07-17-2027 PAP TESTING PAP TESTING [facility] Start: 07-17-2027 Screening for malign ant neoplasm of cervix [facility] Start: 06-02-2024 Annual PCP Team Licensed Land [employer]or rufino Disease Visit Annual PCP Team [facility] [facility] Start: 05-07-2024 BP Controlled (<130/80) BP Controlle d (<130/80) [facility] Start: 04-28-2024 Annual PCP Team Licensed Land Surveyor rufino Disease Visit Annual PCP Team Chronic Disease Visit [facility] Start: 04-28-2024 BP Controlled (<130/80) BP Controlle d (<130/80) [facility] Start: 02-25-2024 ANNUAL PCP TEAM 3D ARTIST RUFINO DISEASE VISIT ANNUAL PCP TEAM CHRONIC DISEASE VISIT [facility] Start: 02-25-2024 BP CONTROLLED (<130/80) BP CONTROLLE D (<130/80) [facility] Start: 02-03-2024 BP CONTROLLED (<130/80) BP CONTROLLE D (<130/80) [facility] Start: 01-30-2024 BP CONTROLLED (<130/80) BP CONTROLLE D (<130/80) [facility] Start: 01-19-2024 ANNUAL PCP TEAM 3D ARTIST RUFINO DISEASE VISIT ANNUAL PCP TEAM CHRONIC DISEASE VISIT [facility] Start: 01-19-2024 BP CONTROLLED (<130/80) BP CONTROLLE D (<130/80) [facility] Start: 12-19-2023 Influenza vaccination Influenza Vacc ine (#1) [facility] Immunizations Immunization Date Immunization Notes Care Provider Mary cosme 04-28-2023 COVID-19 vaccine, ag e 12+ yr, season ([employer]) Misha Cespedes MD Work Phone: [facility] Work Phone: 12-06-2020 COVID-19 vaccine, fu ll dose (MODERNA) Jenelle Carson ELECTRONIC PREPRESS TECHNICIAN.PROGRAM AND RESEARCH COORDINATOR Work Phone: [facility] Work Phone: 11-08-2020 COVID-19 vaccine, fu ll dose (MODERNA) Jenelle Carson ELECTRONIC PREPRESS TECHNICIAN.PROGRAM AND RESEARCH COORDINATOR Work Phone: [facility] Work Phone: 04-16-2018 influenza virus vaccine, unspecified formulation Justin Mccain MD Work Phone: [facility] 03-11-2009 influenza virus vaccine, unspecified formulation Jenelle Carson ELECTRONIC PREPRESS TECHNICIAN.PROGRAM AND RESEARCH COORDINATOR Work Phone: [facility] Payers Date Payer Category Payer Medicaid [id number] 2011 Medicaid [id number] 2011 Medicaid [employer] [facility] [facility] [id number] 2011-Present [phone] [address] [place] [address] Medicaid [id number] 2011 Medicaid [id number] Social History Date Type Detail Facility Start: 05-21-2021 End: 09-25-2021 Tobacco smoking status NHIS Smokes tobacco daily [facility] Work Phone: Start: 02-20-1999 End: 10-28-2021 History of tobacco use Cigarette Smoker [facility] Work Phone: Start: 05-21-2021 End: 10-23-2022 Cigarettes smoked current (pack per day) - Reported 0.75 [facility] Start: 05-21-2021 End: 07-14-2022 Tobacco use and exposure Smokeless tobacco non-user [facility] Work Phone: Start: 09-04-2021 End: 06-02-2023 Alcohol intake Current non-drinker of alcohol (finding) [facility]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 PARoxetine (PAXIL) 20 mg tablet Take 1 tablet by mouth once daily. pramipexole (MIRAPEX) 0.125 mg tablet Take 2 tablets by mouth daily at bedtime. Start with one (1) tablet at bedtime for one week, then increase as prescribed. diphenoxylate-atropine (LOMOTIL) 2.5-0.025 mg per tablet Take 1 tablet by mouth twice daily as needed for diarrhea. Dr. Edwina Kitchen. Gastroenterology. dicyclomine (BENTYL) 20 mg tablet Take 1 tablet by mouth twice daily. Dr. Edwina Kitchen. Gastroenterology. levETIRAcetam (KEPPRA) 750 mg tablet Take 1 tablet by mouth twice daily. doxylamine succinate (SLEEP AID ORAL) Take 1 tablet by mouth daily at bedtime. Etonogestrel-Ethinyl Estradiol (NUVARING) 0.12-0.015 mg/24 hr vaginal ring Use 1 Each vaginally as directed. INSERT ONE(1) RING VAGINALLY AND LEAVE IN PLACE FOR THREE WEEKS, THEN REMOVE FOR 1 WEEK. (Patient not taking: Reported on 05/07/2023) hydrocortisone (ANUSOL-HC) 2.5 % rectal cream by RECTAL route twice daily. ondansetron orally disintegrating (ZOFRAN ODT) 4 mg disintegrating tablet Take 1 tablet by mouth every 8 hours as needed for nausea/vomiting. FAMILY HISTORY Problem Relation Age of Onset Heart Mother alive but 3 times and resusitated Seizures Mother Diabetes Mother Seizures Brother Cancer Maternal Grandfather ?TYPE Diabetes Maternal Grandmother Social History Tobacco Use Smoking status: Former Packs/day: 0.75 Years: 13.00 Additional pack years: 0.00 Total pack years: 9.75 Types: Cigarettes Start date: 02/20/1999 Quit date: 10/28/2021 Years since quittin.5 Smokeless tobacco: Never Vaping Use Vaping Use: Never used Substance Use Topics Alcohol use: No Drug use: Not Currently BP 118/88 Pulse 77 Resp 16 Wt 86.6 kg (191 lb) LMP 06/21/2022 (Approximate) SpO2 99% BMI 34.93 kg/m Physical Exam Vitals reviewed. Constitutional: Appearance: Normal appearance. Neurological: Mental Status: She is alert. Psychiatric: Attention and Perception: Attention normal. Mood and Affect: Mood and affect normal. Speech: Speech normal. Behavior: Behavior normal. Behavior is cooperative. Thought Content: Thought content normal. Judgment: Judgment normal. ASSESSMENT/PLAN: 1. Episodic lightheadedness - ICD9: 780.4, ICD10: R42 (primary diagnosis) Patient does not have any symptoms consistent with allergy to chemicals in cigarettes. Advised patient her symptoms are due to intolerance and/or side effects of cigarette chemicals including nicotine. Allergy testing is not indicated but I did offer to refer her to picking tech, she declined. Recommend avoidance of those smoking cigarettes and smoking cessation, see #3 2. Anxiety and depression - ICD9: 300.00, 311, ICD10: F41.9, F32.A No improvement in Paxil 20 mg daily, increase to 30 mg - Reviewed benefits of sleep hygeine, diet and exercise - Follow-up in 2 months or sooner as needed - Instructed patient to contact office or [id number] after-hours promptly should condition worsen or any new symptoms appear. - Given information regarding [facility] [employer] - PAROXETINE 30 MG TABLET 3. Tobacco use - ICD9: 305.1, ICD10: Z72.0 - Cessation encouraged. - Physiologic and physical aspects of tobacco addiction as well as strategies for quitting were discussed. - Counseling was given focusing on the harmful effects of this addiction especially given the patient's medical condition(s) which will be worsened because of the chemicals in tobacco. - no desire to quit at this time 4. Difficulty controlling anger - ICD9: 799.29, ICD10: R45.4 See #2 - PAROXETINE 30 MG TABLET Prescription instructions reviewed with patient as applicable. Potential red flag symptoms discussed with the patient. Reviewed appropriate action plan to take if red flag symptoms occur. Patient agreeable to treatment plan. During this patient visit I have spent approximately 20 minutes in counseling regarding smoking cessation, medications, and coordinating care. Carola Cohen APRN.PROGRAM AND RESEARCH COORDINATOR documented in this encounter [facility] 05-07-2023 Note HNO ID: [id number] Author: Mihaela Paige APRN.CNP Service: ? Author Type: Nurse Practitioner Type: Progress Notes Filed: 05/07/2023 4:02 PM Note Text: [facility] [place] [facility] Department of Cardiovascular Medicine SECTION OF CLINICAL CARDIOLOGY OUTPATIENT VISIT DATE May 07, 2023 OUTPATIENT VISIT TYPE ESTABLISHED PRIMARY CARE PHYSICIAN: Misha Cespedes [address] [phone] REFERRING PHYSICIAN: No referring provider defined for this encounter. CHIEF COMPLAINT: Follow Up (Denies cardiac concerns/B Knee Surgeries Completed/MARY 02/02/23 [place] Symptomatic PVC's, Ess.HTN, Meniscus Pre Op exam) HISTORY OF PRESENT ILLNESS: Ms. Zurita is a 33 year old female with PMH of palpitations/PVC's, recent bilat knee surgery who presents today for a cardiovascular medicine follow-up visit Dr Calle after visit with him in january. 3 month follow up. No complaints today. Rare palpitations. Barely noticeable. Not on beta kate any longer. She denies shortness of breath, chest pain, palpitations, dizziness, lightheadedness, lower extremity edema, PND, orthopnea, presyncope, syncope, or claudication symptoms Subjective PAST MEDICAL HISTORY Diagnosis Date Abnormal Pap smear 10/21/2009 LGSIL Anemia in 12/24/2011 Continue daily folate and Fe Monitor H/H Anxiety and depression 01/18/2023 Depressive disorder, not elsewhere classified 09/02/2007 Hx overdose Fatty liver disease, nonalcoholic 02/03/2023 Functional diarrhea 02/03/2023 Hypertension Intracranial arachnoid cysts 2008 Migraine 1998 Nausea vomiting and diarrhea chronic 02/03/2023 Dr. Edwina Kitchen, [place] [facility] NSVT (nonsustained ventricular tachycardia) 02/05/2012 Pancreatic insufficiency 02/03/2023 Patient noncompliance history of AMA/no shows PMH - PAST MEDICAL HISTORY OF LEARNING DISABILITY Pre-syncope 02/04/2012 RLS (restless legs syndrome) Seizure (HCC) Dr Morocho Seizures (HCC) PAST SURGICAL HISTORY Procedure Laterality Date ARTHRS KNE SURG W/MENISCECTOMY MED/LAT W/SHVG Left 11/18/2022 Left knee arthroscopic lateral menisectomy ARTHRS KNE SURG W/MENISCECTOMY MED/LAT W/SHVG Right 02/12/2023 Right knee arthroscopic lateral menisectomy, medial plicae excision COLONOSCOPY FLX DX W/COLLJ SPEC WHEN PFRMD 03/04/2016 Colonoscopy DILATION AND CURETTAGE DXAND/THER NONOBSTETRIC 04/15/2011 Dilation AND curettage ESOPHAGOGASTRODUODENOSCOPY TRANSORAL DIAGNOSTIC 03/04/2016 EGD ESSURE 05/25/2012 Dr Mckenzie Medrano PAST SURGICAL HISTORY OF dental extractions VAGINOSCOPY 11/19/2009 VAGINOSCOPY 11/07/2008 Social History Tobacco Use Smoking status: Former Packs/day: 0.75 Years: 13.00 Additional pack years: 0.00 Total pack years: 9.75 Types: Cigarettes Start date: 02/20/1999 Quit date: 10/28/2021 Years since quittin.5 Smokeless tobacco: Never Vaping Use Vaping Use: Never used Substance Use Topics Alcohol use: No Drug use: Not Currently FAMILY HISTORY Problem Relation Age of Onset Heart Mother alive but 3 times and resusitated Seizures Mother Diabetes Mother Seizures Brother Cancer Maternal Grandfather ?TYPE Diabetes Maternal Grandmother ALLERGIES: ALLERGIES No Known Allergies MEDICATIONS: gabapentin (NEURONTIN) 600 mg tablet Take 1 tablet by mouth daily at bedtime for 360 days. PARoxetine (PAXIL) 20 mg tablet Take 1 tablet by mouth once daily. pramipexole (MIRAPEX) 0.125 mg tablet Take 2 tablets by mouth daily at bedtime. Start with one (1) tablet at bedtime for one week, then increase as prescribed. diphenoxylate-atropine (LOMOTIL) 2.5-0.025 mg per tablet Take 1 tablet by mouth twice daily as needed for diarrhea. Dr. Edwina Kitchen. Gastroenterology. dicyclomine (BENTYL) 20 mg tablet Take 1 tablet by mouth twice daily. Dr. Edwina Kitchen. Gastroenterology. levETIRAcetam (KEPPRA) 750 mg tablet Take 1 tablet by mouth twice daily. doxylamine succinate (SLEEP AID ORAL) Take 1 tablet by mouth daily at bedtime. hydrocortisone (ANUSOL-HC) 2.5 % rectal cream by RECTAL route twice daily. ondansetron orally disintegrating (ZOFRAN ODT) 4 mg disintegrating tablet Take 1 tablet by mouth every 8 hours as needed for nausea/vomiting. Etonogestrel-Ethinyl Estradiol (NUVARING) 0.12-0.015 mg/24 hr vaginal ring Use 1 Each vaginally as directed. INSERT ONE(1) RING VAGINALLY AND LEAVE IN PLACE FOR THREE WEEKS, THEN REMOVE FOR 1 WEEK. (Patient not taking: Reported on 05/07/2023) REVIEW OF SYSTEMS: CARD: See HPI GENERAL: Negative for: Weight loss or gain, Fever and/or Chills HEENT: Negative for: Headache, Impaired Vision, Glasses, Hearing Impairment, Ringing in Ears, Nosebleeds, Bleeding Gums NECK: Negative for: Swelling, Pain, Stiffness RESPIRATORY: Negative for: Cough, Blood in Sputum, Shortness of breath, Wheezing, Apnea GASTROINTESTINAL: Neg (more content not included)... [facility] 05-07-2023 Instructions Mhiaela Paige APRN.CNP - 05/07/2023 3:21 PM EST PLAN AND RECOMMENDATIONS: No change in medications. Follow up as needed. CONTACT INFORMATION: Mihaela Paige APRN.CNP Cardiology Nurse Practitioner Section of Regional Cardiology [place] Dept of Cardiovascular Medicine [facility] [place] [address] [place] [address] Office Office documented in this encounter [facility] 05-07-2023 History of Presen t illness Narrative Images from the original note were not included. [facility] [place] [facility] Department of Cardiovascular Medicine SECTION OF CLINICAL CARDIOLOGY OUTPATIENT VISIT DATE May 07, 2023 OUTPATIENT VISIT TYPE ESTABLISHED PRIMARY CARE PHYSICIAN: Misha Cespedes [address] [place] [address] REFERRING PHYSICIAN: No referring provider defined for this encounter. CHIEF COMPLAINT: Follow Up (Denies cardiac concerns/B Knee Surgeries Completed/MARY 02/02/23 [place] Symptomatic PVC's, Ess.HTN, Meniscus Pre Op exam) HISTORY OF PRESENT ILLNESS: Ms. Zurita is a 33 year old female with PMH of palpitations/PVC's, recent bilat knee surgery who presents today for a cardiovascular medicine follow-up visit Dr Calle after visit with him in january. 3 month follow up. No complaints today. Rare palpitations. Barely noticeable. Not on beta kate any longer. She denies shortness of breath, chest pain, palpitations, dizziness, lightheadedness, lower extremity edema, PND, orthopnea, presyncope, syncope, or claudication symptoms Subjective PAST MEDICAL HISTORY Diagnosis Date Abnormal Pap smear 10/21/2009 LGSIL Anemia in 12/24/2011 Continue daily folate and Fe Monitor H/H Anxiety and depression 01/18/2023 Depressive disorder, not elsewhere classified 09/02/2007 Hx overdose Fatty liver disease, nonalcoholic 02/03/2023 Functional diarrhea 02/03/2023 Hypertension Intracranial arachnoid cysts 2008 Migraine 1998 Nausea vomiting and diarrhea chronic 02/03/2023 Dr. Edwina Kitchen, [place] [facility] NSVT (nonsustained ventricular tachycardia) 02/05/2012 Pancreatic insufficiency 02/03/2023 Patient noncompliance history of AMA/no shows PMH - PAST MEDICAL HISTORY OF LEARNING DISABILITY Pre-syncope 02/04/2012 RLS (restless legs syndrome) Seizure (HCC) Dr Morocho Seizures (HCC) PAST SURGICAL HISTORY Procedure Laterality Date ARTHRS KNE SURG W/MENISCECTOMY MED/LAT W/SHVG Left 11/18/2022 Left knee arthroscopic lateral menisectomy ARTHRS KNE SURG W/MENISCECTOMY MED/LAT W/SHVG Right 02/12/2023 Right knee arthroscopic lateral menisectomy, medial plicae excision COLONOSCOPY FLX DX W/COLLJ SPEC WHEN PFRMD 03/04/2016 Colonoscopy DILATION & CURETTAGE DX&/THER NONOBSTETRIC 04/15/2011 Dilation & curettage ESOPHAGOGASTRODUODENOSCOPY TRANSORAL DIAGNOSTIC 03/04/2016 EGD ESSURE 05/25/2012 Dr Mckenzie Medrano PAST SURGICAL HISTORY OF dental extractions VAGINOSCOPY 11/19/2009 VAGINOSCOPY 11/07/2008 Social History Tobacco Use Smoking status: Former Packs/day: 0.75 Years: 13.00 Additional pack years: 0.00 Total pack years: 9.75 Types: Cigarettes Start date: 02/20/1999 Quit date: 10/28/2021 Years since quittin.5 Smokeless tobacco: Never Vaping Use Vaping Use: Never used Substance Use Topics Alcohol use: No Drug use: Not Currently FAMILY HISTORY Problem Relation Age of Onset Heart Mother alive but 3 times and resusitated Seizures Mother Diabetes Mother Seizures Brother Cancer Maternal Grandfather ?TYPE Diabetes Maternal Grandmother ALLERGIES: ALLERGIES No Known Allergies MEDICATIONS: gabapentin (NEURONTIN) 600 mg tablet Take 1 tablet by mouth daily at bedtime for 360 days. PARoxetine (PAXIL) 20 mg tablet Take 1 tablet by mouth once daily. pramipexole (MIRAPEX) 0.125 mg tablet Take 2 tablets by mouth daily at bedtime. Start with one (1) tablet at bedtime for one week, then increase as prescribed. diphenoxylate-atropine (LOMOTIL) 2.5-0.025 mg per tablet Take 1 tablet by mouth twice daily as needed for diarrhea. Dr. Edwina Kitchen. Gastroenterology. dicyclomine (BENTYL) 20 mg tablet Take 1 tablet by mouth twice daily. Dr. Edwina Kitchen. Gastroenterology. levETIRAcetam (KEPPRA) 750 mg tablet Take 1 tablet by mouth twice daily. doxylamine succinate (SLEEP AID ORAL) Take 1 tablet by mouth daily at bedtime. hydrocortisone (ANUSOL-HC) 2.5 % rectal cream by RECTAL route twice daily. ondansetron orally disintegrating (ZOFRAN ODT) 4 mg disintegrating tablet Take 1 tablet by mouth every 8 hours as needed for nausea/vomiting. Etonogestrel-Ethinyl Estradiol (NUVARING) 0.12-0.015 mg/24 hr vaginal ring Use 1 Each vaginally as directed. INSERT ONE(1) RING VAGINALLY AND LEAVE IN PLACE FOR THREE WEEKS, THEN REMOVE FOR 1 WEEK. (Patient not taking: Reported on 05/07/2023) REVIEW OF SYSTEMS: CARD: See HPI GENERAL: Negative for: Weight loss or gain, Fever and/or Chills HEENT: Negative for: Headache, Impaired Vision, Glasses, Hearing Impairment, Ringing in Ears, Nosebleeds, Bleeding Gums NECK: Negative for: Swelling, Pain, Stiffness RESPIRATORY: Negative for: Cough, Blood in Sputum, Shortness of breath, Wheezing, Apnea GASTROINTESTINAL: Negative for: Nausea, Vomiting, Diarrhea, Blood in stool, or Dark black stools MUSCULOSKELETAL: Negative for: Muscle or joint pain, Stiffness , Joint swelling NEUROLOGIC: Negative for: focal numbness/weakness, headaches, visual changes, ataxia, speech/language loss HEMATOLOGICAL/LYMPHATIC: Negative for: Easy bruising , Easy bleeding ENDOCRINE: Negative for: Heat or cold intolerance, Excessive sweating, Frequent urination, Frequent thirst Objective PHYSICAL EXAMINATION: BP 90/60 Pulse 75 Ht 157.5 cm (5' 2 ) Wt 85.7 kg (188 lb 15 oz) LMP 06/21/2022 (Approximate) SpO2 99% BMI 34.56 kg/m General: Well appearing, in no acute distress. Skin: No clubbing, no cyanosis. Eyes: Extra ocular movements intact Oropharynx: edentulous upper teeth Neck: No jugular venous distention, no carotid bruits, carotids have a normal upstroke. Lungs: Clear to auscultation bilaterally, no wheezing or rhonchi. Heart: Regular rhythm, S1, S2 normal, no murmur. No peripheral edema . Grade 2/4 distal pulses bilaterally. Abdomen: Soft Neuro: Oriented to person, place and time, alert, cooperative, gait coordinated. CARDIOVASCULAR MEDICINE TESTING: No Cardiovascular testing perfomed today. Last EKG Result Conclusion ECG COMPLETE Collected: 02/02/2023 3:13 PM (Final result) Impression: SINUS RHYTHM WITH FREQUENT PREMATURE VENTRICULAR COMPLEXES IN A PATTERN OF BIGEMINY POSSIBLE LEFT ATRIAL ENLARGEMENT BORDERLINE ECG Confirmed by RENE CORTÉS M.D. ([id number]) on 02/08/2023 4:03:23 PM There were no tests performed for review. I personally interviewed, confirmed and edited the above information if obtained by others. Conclusion: (I49.3) Symptomatic PVCs (primary encounter diagnosis) Comment: no longer an issue Plan: no change. No need for beta kate at this time PLAN AND RECOMMENDATIONS: No change in medications. Follow up as needed. CONTACT INFORMATION: Mihaela Paige APRN.CNP Cardiology Nurse Practitioner Section of Regional Cardiology [facility] Dept of Cardiovascular Medicine [facility] [place] [address] [place] [address] Office Office documented in this encounter [facility] 04-29-2023 Miscellaneous Notes Behavioral Health Social Work Progress Note Patient identified for [facility] from: PCP Reason for referral: [facility] Assessment Behavioral Health Resources: Psychiatry med management [facility] encounter type: Telephone Encounter Attempts to Outreach: 1 attempt Patient Discharged?: No Patient reported that caregiver was able to meet their needs today?: N/A Phone call placed today that went to [employer]. Left my contact information and brief nature of call. Initial outreach also completed via [employer] sending list of in network providers with insurance. DOMINICK Montero April 29, 2023 documented in this encounter [facility] 04-28-2023 Note HNO ID: [id number] Author: Misha Cespedes MD Service: ? Author Type: Physician Type: Progress Notes Filed: 04/28/2023 11:49 PM Note Text: This note was created using [employer]. Subjective Migdalia Zurita is a 33 year old female. She complained of anger issues. She ran out of fluoxetine. She felt the medication had not been as effective. Another source of frustration was weight gain. She felt hungry all the time for unclear reasons. She had already reduced gabapentin to one tablet at bedtime. She was seeing Dr. Kitchen for gastroparesis and work up was ongoing. Review of Systems Constitutional: Positive for appetite change and unexpected weight change. Psychiatric/Behavioral: Positive for dysphoric mood. Negative for self-injury and suicidal ideas. The patient is nervous/anxious. ACTIVE PROBLEM LIST Anxiety and Depression Former Smoker NSVT (nonsustained ventricular tachycardia) Seizures (Hcc) Rls (Restless Legs Syndrome) Migraine Without Aura and Without Status Migrainosus, Not Intractable Menstrual Irregularity Visual Field Defect of Left Eye Gastroesophageal Reflux Disease Obesity, Class I, Bmi 30-34.9 Chronic Pain of Left Knee Nausea vomiting and diarrhea chronic Fatty Liver Disease, Nonalcoholic Pancreatic Insufficiency Functional Diarrhea Symptomatic Pvcs Social History Tobacco Use Smoking status: Former Packs/day: 0.75 Years: 13.00 Additional pack years: 0.00 Total pack years: 9.75 Types: Cigarettes Start date: 02/20/1999 Quit date: 10/28/2021 Years since quittin.4 Smokeless tobacco: Never Vaping Use Vaping Use: Never used Substance Use Topics Alcohol use: No Drug use: Not Currently Current Outpatient Medications Medication Sig FLUoxetine (PROZAC) 20 mg capsule Take 1 capsule by mouth once daily. pramipexole (MIRAPEX) 0.125 mg tablet Take 2 tablets by mouth daily at bedtime. Start with one (1) tablet at bedtime for one week, then increase as prescribed. diphenoxylate-atropine (LOMOTIL) 2.5-0.025 mg per tablet Take 1 tablet by mouth twice daily as needed for diarrhea. Dr. Edwina Kitchen. Gastroenterology. dicyclomine (BENTYL) 20 mg tablet Take 1 tablet by mouth twice daily. Dr. Edwina Kitchen. Gastroenterology. gabapentin (NEURONTIN) 600 mg tablet Take 2 tablets by mouth daily at bedtime for 180 days. levETIRAcetam (KEPPRA) 750 mg tablet Take 1 tablet by mouth twice daily. doxylamine succinate (SLEEP AID ORAL) Take 1 tablet by mouth daily at bedtime. Etonogestrel-Ethinyl Estradiol (NUVARING) 0.12-0.015 mg/24 hr vaginal ring Use 1 Each vaginally as directed. INSERT ONE(1) RING VAGINALLY AND LEAVE IN PLACE FOR THREE WEEKS, THEN REMOVE FOR 1 WEEK. hydrocortisone (ANUSOL-HC) 2.5 % rectal cream by RECTAL route twice daily. ondansetron orally disintegrating (ZOFRAN ODT) 4 mg disintegrating tablet Take 1 tablet by mouth every 8 hours as needed for nausea/vomiting. No current facility-administered medications for this visit. Objective BP 108/64 (BP Site: Left Arm, BP Position: Sitting, BP Cuff Size: Large Adult) Pulse 80 Temp 36.7 ?C (98 ?F) (Temporal) Resp 18 Wt 84.4 kg (186 lb) LMP 06/21/2022 (Approximate) BMI 34.02 kg/m? Physical Exam Constitutional: Appearance: She is not ill-appearing. Neurological: Mental Status: She is alert. Psychiatric: Attention and Perception: Attention normal. Mood and Affect: Affect is angry. Speech: Speech normal. Behavior: Behavior normal. Assessment and Plan 1. Anxiety and depression - ICD9: 300.00, 311, ICD10: F41.9, F32.A (primary diagnosis) - We reviewed medication history on file. - PAROXETINE 20 MG TABLET - CONSULT TO [facility] 2. RLS (restless legs syndrome) - ICD9: 333.94, ICD10: G25.81 Medication list updated. - GABAPENTIN 600 MG TABLET 3. Migraine without aura and without status migrainosus, not intractable - ICD9: 346.10, ICD10: G43.009 Stable. - GABAPENTIN 600 MG TABLET 4. Difficulty controlling anger - ICD9: 799.29, ICD10: R45.4 See above. - PAROXETINE 20 MG TABLET - CONSULT TO [facility] 5. Need for COVID-19 vaccine - ICD9: V04.89, ICD10: Z23 - [employer] COVID-19 VACCINE (2022- [place]) AGE 12+ YR 6. Weight gain - ICD9: 783.1, ICD10: R63.5 - Probably multifactorial. Mood disorder, medications. I reviewed labs done last year including TSH which were normal. - Diet. Misha Cespedes MD [facility] 04-28-2023 History of Presen t illness Narrative This note was created using Planwiseriter. Subjective Migdalia Zurita is a 33 year old female. She complained of anger issues. She ran out of fluoxetine. She felt the medication had not been as effective. Another source of frustration was weight gain. She felt hungry all the time for unclear reasons. She had already reduced gabapentin to one tablet at bedtime. She was seeing Dr. Ktichen for gastroparesis and work up was ongoing. Review of Systems Constitutional: Positive for appetite change and unexpected weight change. Psychiatric/Behavioral: Positive for dysphoric mood. Negative for self-injury and suicidal ideas. The patient is nervous/anxious. ACTIVE PROBLEM LIST Anxiety and Depression Former Smoker NSVT (nonsustained ventricular tachycardia) Seizures (Hcc) Rls (Restless Legs Syndrome) Migraine Without Aura and Without Status Migrainosus, Not Intractable Menstrual Irregularity Visual Field Defect of Left Eye Gastroesophageal Reflux Disease Obesity, Class I, Bmi 30-34.9 Chronic Pain of Left Knee Nausea vomiting and diarrhea chronic Fatty Liver Disease, Nonalcoholic Pancreatic Insufficiency Functional Diarrhea Symptomatic Pvcs Social History Tobacco Use Smoking status: Former Packs/day: 0.75 Years: 13.00 Additional pack years: 0.00 Total pack years: 9.75 Types: Cigarettes Start date: 02/20/1999 Quit date: 10/28/2021 Years since quittin.4 Smokeless tobacco: Never Vaping Use Vaping Use: Never used Substance Use Topics Alcohol use: No Drug use: Not Currently Current Outpatient Medications Medication Sig FLUoxetine (PROZAC) 20 mg capsule Take 1 capsule by mouth once daily. pramipexole (MIRAPEX) 0.125 mg tablet Take 2 tablets by mouth daily at bedtime. Start with one (1) tablet at bedtime for one week, then increase as prescribed. diphenoxylate-atropine (LOMOTIL) 2.5-0.025 mg per tablet Take 1 tablet by mouth twice daily as needed for diarrhea. Dr. Edwina Kitchen. Gastroenterology. dicyclomine (BENTYL) 20 mg tablet Take 1 tablet by mouth twice daily. Dr. Edwina Kitchen. Gastroenterology. gabapentin (NEURONTIN) 600 mg tablet Take 2 tablets by mouth daily at bedtime for 180 days. levETIRAcetam (KEPPRA) 750 mg tablet Take 1 tablet by mouth twice daily. doxylamine succinate (SLEEP AID ORAL) Take 1 tablet by mouth daily at bedtime. Etonogestrel-Ethinyl Estradiol (NUVARING) 0.12-0.015 mg/24 hr vaginal ring Use 1 Each vaginally as directed. INSERT ONE(1) RING VAGINALLY AND LEAVE IN PLACE FOR THREE WEEKS, THEN REMOVE FOR 1 WEEK. hydrocortisone (ANUSOL-HC) 2.5 % rectal cream by RECTAL route twice daily. ondansetron orally disintegrating (ZOFRAN ODT) 4 mg disintegrating tablet Take 1 tablet by mouth every 8 hours as needed for nausea/vomiting. No current facility-administered medications for this visit. Objective BP 108/64 (BP Site: Left Arm, BP Position: Sitting, BP Cuff Size: Large Adult) Pulse 80 Temp 36.7 C (98 F) (Temporal) Resp 18 Wt 84.4 kg (186 lb) LMP 06/21/2022 (Approximate) BMI 34.02 kg/m Physical Exam Constitutional: Appearance: She is not ill-appearing. Neurological: Mental Status: She is alert. Psychiatric: Attention and Perception: Attention normal. Mood and Affect: Affect is angry. Speech: Speech normal. Behavior: Behavior normal. Assessment and Plan 1. Anxiety and depression - ICD9: 300.00, 311, ICD10: F41.9, F32.A (primary diagnosis) - We reviewed medication history on file. - PAROXETINE 20 MG TABLET - CONSULT TO [facility] 2. RLS (restless legs syndrome) - ICD9: 333.94, ICD10: G25.81 Medication list updated. - GABAPENTIN 600 MG TABLET 3. Migraine without aura and without status migrainosus, not intractable - ICD9: 346.10, ICD10: G43.009 Stable. - GABAPENTIN 600 MG TABLET 4. Difficulty controlling anger - ICD9: 799.29, ICD10: R45.4 See above. - PAROXETINE 20 MG TABLET - CONSULT TO [facility] 5. Need for COVID-19 vaccine - ICD9: V04.89, ICD10: Z23 - [employer] COVID-19 VACCINE (2022- [place]) AGE 12+ YR 6. Weight gain - ICD9: 783.1, ICD10: R63.5 - Probably multifactorial. Mood disorder, medications. I reviewed labs done last year including TSH which were normal. - Diet. Misha Cespedes MD documented in this encounter [facility] 04-26-2023 Miscellaneous Notes Patient has been identified by name and date of : Yes Patient phones for refill(s): Requested Prescriptions Pending Prescriptions Disp Refills FLUoxetine (PROZAC) 20 mg capsule 30 capsule 0 Sig: Take 1 capsule by mouth once daily. Date of last office visit in primary care: 02/24/2023 Date of next office visit in primary care: 04/28/2023 Last 2 Encounter Wt Readings: Date: Wt: 02/02/2023 79.4 kg (175 lb) 01/29/2023 79.9 kg (176 lb 3.2 oz) Previous labs/tests for medication: Not applicable Please advise. Thank you. Stephy Zazueta LPN. documented in this encounter [facility] 04-19-2023 Note HNO ID: [id number] Author: Paulina Duong PA-C Service: ? Author Type: Physician Bulk Sugar Handler Type: Progress Notes Filed: 04/20/2023 8:47 AM Note Text: Paulina Duong PA-C Department of Orthopaedics Orthopaedics [address] [place] [address] Dept: [phone] Dept April 19, 2023 CHIEF COMPLAINT: Established Patient and Pain of the Right Wrist Ms. Migdalia Zurita is a 33 year old female who presents with multiple complaints. First she is having pain in her right wrist. She states that she awakens in the morning and that her middle, ring and pinky finger are locked up . She had similar issues if she is using the hand for kitchen tasks. She also has numbness in her right index finger and right pinky digit. Numbness is somewhat random and does not occur at any particular time or with any particular activities. She denies any locking or catching of any of the digits on the right hand. No known right hand or wrist injuries. ASSESSMENT: R20.0 Numbness of right hand (primary encounter diagnosis) M25.531 Pain in right wrist M24.849 Locking finger joint PLAN: Sort of an odd presentation, I would like to start with some cervical films, not sure if her numbness is radicular in nature. We also discussed getting an EMG to rule out carpal tunnel syndrome and/or ulnar neuropathy. Patient agrees to plan. Ms. Migdalia Zurita was advised as to contrast therapies and/or to take analgesics/anti-inflammatories as needed and all contraindications were reviewed. OBJECTIVE: Ms. Migdalia Zurita is a pleasant 33 year old in no apparent distress. Gen:LMP 06/21/2022 nl development, non obese, no deformities ENT: Normocephalic, normal hearing, moist mucosa CV: Pulses:Radial= 2+ and symmetric, capillary refill < 2 secs, no peripheral edema/varicosities Skin: no rash, bruising or lesions. Good turgor. Psych: cooperative and appropriate, alert and oriented x 3, good mood and affect. Musculoskeletal: Right hand with no locking or catching of any of the digits with flexion or extension, no palpable nodules at the A1 cesar site of any of the digits is appreciated. Sensation is intact in the radial 3 digits, negative Tinel's at the right wrist and negative right wrist Liz testing. Thenar eminence is robust and without atrophy. Sensations intact in the ulnar 2 digits, negative Tinel's at the right elbow, no subluxation of the right ulnar nerve with flexion or extension of the elbow. Imaging: * * *Final Report* * * DATE OF EXAM: Apr 19 2023 10:12AM [id number] - XR HAND 3V PA/LAT/OBL RT / PROCEDURE REASON: Right hand pain * * * * Physician Interpretation * * * * EXAMINATION: XR HAND 3V PA/LAT/OBL RT CLINICAL HISTORY: Right hand pain Technique: XR HAND 3V PA/LAT/OBL RT -- RIGHT with 3 views on 3 images Comparison: None RESULT: No acute fracture or dislocation. Joint spaces are maintained. No periarticular erosions. IMPRESSION IMPRESSION: No acute osseous abnormality Cylinder Press Operator: [facility] Transcribe Date/Time: Apr 20 2023 8:32A Dictated by : MARIYA BISWAS MD This examination was interpreted and the report reviewed and electronically signed by: MARIYA BISWAS MD on Apr 20 2023 8:33AM EST IMPRESSION: Moderate foraminal encroachment on the right at C3-4. OTHERWISE NORMAL CERVICAL SPINE Cylinder Press Operator: [facility] Transcribe Date/Time: Apr 19 2023 4:13P Dictated by : NAHUM SHEPPARD MD This examination was interpreted and the report reviewed and electronically signed by: NAHUM SHEPPARD MD on Apr 19 2023 4:15PM EST Results-Findings * * *Final Report* * * DATE OF EXAM: Apr 19 2023 10:43AM [id number] - XR CERVICAL 4V AP/LAT/OBL / PROCEDURE REASON: Numbness of right hand * * * * Physician Interpretation * * * * Examination: XR CERVICAL 4V AP/LAT/OBL History: Numbness of right hand Technique: XR CERVICAL 4V AP/LAT/OBL Comparison: None RESULT: Vertebral bodies are well aligned and the disc spaces are well-maintained. No fracture or prevertebral swelling is seen. Normal lordosis. Normal mineralization. Moderate foraminal encroachment on the right at C3-4. Neural foramina are otherwise widely patent. Supporting Subjective Information Below: Past Surgical History: PAST SURGICAL HISTORY Procedure Laterality Date ARTHRS KNE SURG W/MENISCECTOMY MED/LAT W/SHVG Left 11/18/2022 Left knee arthroscopic lateral menisectomy ARTHRS KNE SURG W/MENISCECTOMY MED/LAT W/SHVG Right 02/12/2023 Right knee arthroscopic lateral menisectomy, medial plicae excision COLONOSCOPY FLX DX W/COLLJ SPEC WHEN PFRMD 03/04/2016 Colonoscopy DILATION AND CURETTAGE DXAND/THER NONOBSTETRIC 04/15/2011 Dilation AND curettage ESOPHAGOGASTRODUODENOSCOPY TRANSORAL DIAGNOSTIC 03/04/2016 EGD ESSURE 05/25/2012 Dr Mckenzie Medrano PAST SURGICAL HISTORY OF dental extractions VAGINOSCOPY 11/19/2009 VAGIN (more content not included)... [facility] 04-19-2023 Note HNO ID: [id number] Author: Jami Loo RT(R) Service: ? Author Type: Nuclear Medical Technologist Type: Progress Notes Filed: 04/19/2023 10:41 AM Note Text: Radiology Service Progress Note PATIENT NAME: Migdalia Zurita DATE OF SERVICE: April 19, 2023 TIME: 10:31 AM PATIENT IDENTITY VERIFICATION COMPLETED USING TWO (2) IDENTIFIERS: Name and Date of confirmed by patient verbally. FALL SCREENING: Has the patient had 2 falls in the last year or 1 fall with injury or currently using an Ambulatory Assistive Device (Walker, Cane, Wheelchair, Crutches, etc.)? No PATIENT GENDER DATA: Female. status: : No status: NO. PATIENT RELEVANT IMPLANT DATA REVIEWED: Yes RADIOLOGY DEPARTMENT: General X-ray: Exam(s) Completed: Spine X-Ray(s): Cervical AP / LAT / OBL PERIPHERAL IV DATA: Not applicable SIGNED BY: Jami Loo RT(R) April 19, 2023 10:31 AM [facility] 04-19-2023 Note HNO ID: [id number] Author: Leonor Roman RN Service: ? Author Type: Registered Nurse Type: Progress Notes Filed: 04/20/2023 8:47 AM Note Text: Patient presents with: Right Wrist - Established Patient, Pain Pt here for right wrist into finger pain. Pt denies having pain currently. Pt is right hand dominant. [facility] 04-19-2023 Note HNO ID: [id number] Author: Laly Roman RT(R) Service: ? Author Type: Technologist Type: Progress Notes Filed: 04/19/2023 10:15 AM Note Text: Radiology Service Progress Note PATIENT NAME: Migdalia Zurita DATE OF SERVICE: April 19, 2023 TIME: 10:15 AM PATIENT IDENTITY VERIFICATION COMPLETED USING TWO (2) IDENTIFIERS: Name and Date of confirmed by patient verbally. FALL SCREENING: Has the patient had 2 falls in the last year or 1 fall with injury or currently using an Ambulatory Assistive Device (Walker, Cane, Wheelchair, Crutches, etc.)? No PATIENT GENDER DATA: Female. status: : No status: NO. PATIENT RELEVANT IMPLANT DATA REVIEWED: Not Applicable RADIOLOGY DEPARTMENT: General X-ray: Exam(s) Completed: Upper Extremity X-Ray(s): Hand, right PERIPHERAL IV DATA: Not applicable SIGNED BY: Laly Roman RT(R) April 19, 2023 10:15 AM [facility] 03-25-2023 Note HNO ID: [id number] Author: Justin Mccain MD Service: ? Author Type: Physician Type: Progress Notes Filed: 03/25/2023 11:59 PM Note Text: Justin Mccain MD Department of Orthopaedics Orthopaedics [address] [facility] [address] Dept: [phone] Dept March 25, 2023 CHIEF COMPLAINT: Established Patient and Post Op of the Right Knee. HPI Patient here today for 5 weeks 6 days post op right knee arthroscopic lateral menisectomy, medial plicae excision. Patient is still having pain with activity. She has been taking Tylenol for relief. ASSESSMENT: M25.561, G89.29 Chronic pain of right knee (primary encounter diagnosis) SUMMARY/PLAN: SHe is doing better. Some mild and appropriate pain occasionally. Getting stronger. Supporting Information Below: Medications: Current Outpatient Medications Medication Sig FLUoxetine (PROZAC) 20 mg capsule Take 1 capsule by mouth once daily. pramipexole (MIRAPEX) 0.125 mg tablet Take 2 tablets by mouth daily at bedtime. Start with one (1) tablet at bedtime for one week, then increase as prescribed. diphenoxylate-atropine (LOMOTIL) 2.5-0.025 mg per tablet Take 1 tablet by mouth twice daily as needed for diarrhea. Dr. Edwina Kitchen. Gastroenterology. dicyclomine (BENTYL) 20 mg tablet Take 1 tablet by mouth twice daily. Dr. Edwina Kitchen. Gastroenterology. gabapentin (NEURONTIN) 600 mg tablet Take 2 tablets by mouth daily at bedtime for 180 days. levETIRAcetam (KEPPRA) 750 mg tablet Take 1 tablet by mouth twice daily. doxylamine succinate (SLEEP AID ORAL) Take 1 tablet by mouth daily at bedtime. Etonogestrel-Ethinyl Estradiol (NUVARING) 0.12-0.015 mg/24 hr vaginal ring Use 1 Each vaginally as directed. INSERT ONE(1) RING VAGINALLY AND LEAVE IN PLACE FOR THREE WEEKS, THEN REMOVE FOR 1 WEEK. hydrocortisone (ANUSOL-HC) 2.5 % rectal cream by RECTAL route twice daily. ondansetron orally disintegrating (ZOFRAN ODT) 4 mg disintegrating tablet Take 1 tablet by mouth every 8 hours as needed for nausea/vomiting. No current facility-administered medications for this visit. Allergies: Patient has no known allergies. Justin Mccain MD [facility] 03-25-2023 History of Presen t illness Narrative Justin Mccain MD Department of Orthopaedics Orthopaedics [address] [facility] [address] Dept: [phone] Dept March 25, 2023 CHIEF COMPLAINT: Established Patient and Post Op of the Right Knee. HPI Patient here today for 5 weeks 6 days post op right knee arthroscopic lateral menisectomy, medial plicae excision. Patient is still having pain with activity. She has been taking Tylenol for relief. ASSESSMENT: M25.561, G89.29 Chronic pain of right knee (primary encounter diagnosis) SUMMARY/PLAN: SHe is doing better. Some mild and appropriate pain occasionally. Getting stronger. Supporting Information Below: Medications: Current Outpatient Medications Medication Sig FLUoxetine (PROZAC) 20 mg capsule Take 1 capsule by mouth once daily. pramipexole (MIRAPEX) 0.125 mg tablet Take 2 tablets by mouth daily at bedtime. Start with one (1) tablet at bedtime for one week, then increase as prescribed. diphenoxylate-atropine (LOMOTIL) 2.5-0.025 mg per tablet Take 1 tablet by mouth twice daily as needed for diarrhea. Dr. Edwina Kitchen. Gastroenterology. dicyclomine (BENTYL) 20 mg tablet Take 1 tablet by mouth twice daily. Dr. Edwina Kitchen. Gastroenterology. gabapentin (NEURONTIN) 600 mg tablet Take 2 tablets by mouth daily at bedtime for 180 days. levETIRAcetam (KEPPRA) 750 mg tablet Take 1 tablet by mouth twice daily. doxylamine succinate (SLEEP AID ORAL) Take 1 tablet by mouth daily at bedtime. Etonogestrel-Ethinyl Estradiol (NUVARING) 0.12-0.015 mg/24 hr vaginal ring Use 1 Each vaginally as directed. INSERT ONE(1) RING VAGINALLY AND LEAVE IN PLACE FOR THREE WEEKS, THEN REMOVE FOR 1 WEEK. hydrocortisone (ANUSOL-HC) 2.5 % rectal cream by RECTAL route twice daily. ondansetron orally disintegrating (ZOFRAN ODT) 4 mg disintegrating tablet Take 1 tablet by mouth every 8 hours as needed for nausea/vomiting. No current facility-administered medications for this visit. Allergies: Patient has no known allergies. Justin Mccain MD documented in this encounter [facility] 02-25-2023 Note HNO ID: [id number] Author: Justin Mccain MD Service: ? Author Type: Physician Type: Progress Notes Filed: 03/23/2023 9:46 AM Note Text: Justin Mccain MD Department of Orthopaedics Orthopaedics [address] [place] [address] Dept: [phone] Dept February 25, 2023 CHIEF COMPLAINT: Post Op and Follow Up of the Right Knee. HPI AMB ROOMING INTAKE FLOWSHEET DATA Pain Pain Level: 5 Pain Location: Knee-Right Description: Dull, Aching Duration Amount of Time: 13 Duration Units: Days Frequency: Intermittent Intervention/Comfort measure: Reposition, Relaxation, Medication (Tylenol) Patient presents with: Right Knee - Post Op, Follow Up Patient is 1 week 6 days post op R knee arthroscopic lateral menisectomy. C/o intermittent pain that occurs if she is too active. Patient states she has been overly active as she has been miguelito vegetables, mowing her yard and frequently going up and down stairs. ASSESSMENT: S83.241D Acute medial meniscus tear of right knee, subsequent encounter (primary encounter diagnosis) SUMMARY/PLAN: About 2 weeks after her knee scope. She is doing well. Minor and appropriate discomfort as well as swelling. She has been has been on her feet quite a bit of mowing her yard. I would expect a bit of soreness. She can continue activities as tolerated. Exam: Incisions. Minor swelling, appropriate for postop. Supporting Information Below: Medications: Current Outpatient Medications Medication Sig FLUoxetine (PROZAC) 20 mg capsule Take 1 capsule by mouth once daily. diphenoxylate-atropine (LOMOTIL) 2.5-0.025 mg per tablet Take 1 tablet by mouth twice daily as needed for diarrhea. Dr. Edwina Kitchen. Gastroenterology. dicyclomine (BENTYL) 20 mg tablet Take 1 tablet by mouth twice daily. Dr. Edwina Kitchen. Gastroenterology. gabapentin (NEURONTIN) 600 mg tablet Take 2 tablets by mouth daily at bedtime for 180 days. pramipexole (MIRAPEX) 0.125 mg tablet Take 2 tablets by mouth daily at bedtime. Start with one (1) tablet at bedtime for one week, then increase as prescribed. levETIRAcetam (KEPPRA) 750 mg tablet Take 1 tablet by mouth twice daily. doxylamine succinate (SLEEP AID ORAL) Take 1 tablet by mouth daily at bedtime. Etonogestrel-Ethinyl Estradiol (NUVARING) 0.12-0.015 mg/24 hr vaginal ring Use 1 Each vaginally as directed. INSERT ONE(1) RING VAGINALLY AND LEAVE IN PLACE FOR THREE WEEKS, THEN REMOVE FOR 1 WEEK. hydrocortisone (ANUSOL-HC) 2.5 % rectal cream by RECTAL route twice daily. ondansetron orally disintegrating (ZOFRAN ODT) 4 mg disintegrating tablet Take 1 tablet by mouth every 8 hours as needed for nausea/vomiting. No current facility-administered medications for this visit. Allergies: Patient has no known allergies. Justin Mccain MD [facility] 02-25-2023 History of Presen t illness Narrative Justin Mccain MD Department of Orthopaedics Orthopaedics [address] [facility] [address] Dept: [phone] Dept February 25, 2023 CHIEF COMPLAINT: Post Op and Follow Up of the Right Knee. HPI AMB ROOMING INTAKE FLOWSHEET DATA Pain Pain Level: 5 Pain Location: Knee-Right Description: Dull, Aching Duration Amount of Time: 13 Duration Units: Days Frequency: Intermittent Intervention/Comfort measure: Reposition, Relaxation, Medication (Tylenol) Patient presents with: Right Knee - Post Op, Follow Up Patient is 1 week 6 days post op R knee arthroscopic lateral menisectomy. C/o intermittent pain that occurs if she is too active. Patient states she has been overly active as she has been miguelito vegetables, mowing her yard and frequently going up and down stairs. ASSESSMENT: S83.241D Acute medial meniscus tear of right knee, subsequent encounter (primary encounter diagnosis) SUMMARY/PLAN: About 2 weeks after her knee scope. She is doing well. Minor and appropriate discomfort as well as swelling. She has been has been on her feet quite a bit of mowing her yard. I would expect a bit of soreness. She can continue activities as tolerated. Exam: Incisions. Minor swelling, appropriate for postop. Supporting Information Below: Medications: Current Outpatient Medications Medication Sig FLUoxetine (PROZAC) 20 mg capsule Take 1 capsule by mouth once daily. diphenoxylate-atropine (LOMOTIL) 2.5-0.025 mg per tablet Take 1 tablet by mouth twice daily as needed for diarrhea. Dr. Edwina Kitchen. Gastroenterology. dicyclomine (BENTYL) 20 mg tablet Take 1 tablet by mouth twice daily. Dr. Edwina Kitchen. Gastroenterology. gabapentin (NEURONTIN) 600 mg tablet Take 2 tablets by mouth daily at bedtime for 180 days. pramipexole (MIRAPEX) 0.125 mg tablet Take 2 tablets by mouth daily at bedtime. Start with one (1) tablet at bedtime for one week, then increase as prescribed. levETIRAcetam (KEPPRA) 750 mg tablet Take 1 tablet by mouth twice daily. doxylamine succinate (SLEEP AID ORAL) Take 1 tablet by mouth daily at bedtime. Etonogestrel-Ethinyl Estradiol (NUVARING) 0.12-0.015 mg/24 hr vaginal ring Use 1 Each vaginally as directed. INSERT ONE(1) RING VAGINALLY AND LEAVE IN PLACE FOR THREE WEEKS, THEN REMOVE FOR 1 WEEK. hydrocortisone (ANUSOL-HC) 2.5 % rectal cream by RECTAL route twice daily. ondansetron orally disintegrating (ZOFRAN ODT) 4 mg disintegrating tablet Take 1 tablet by mouth every 8 hours as needed for nausea/vomiting. No current facility-administered medications for this visit. Allergies: Patient has no known allergies. Justin Mccain MD documented in this encounter [facility] 02-24-2023 Note HNO ID: [id number] Author: Misha Cespedes MD Service: ? Author Type: Physician Type: Progress Notes Filed: 02/24/2023 3:37 PM Note Text: This note was created using Planwiser[employer]. Subjective Migdalia Zurita is a 33 year old female. She's felt she had cotton stuck in her right ear for a few months, from trying to clean with a Q tip. Review of Systems Constitutional: Negative for chills and fever. HENT: Positive for ear pain and hearing loss. Negative for congestion, ear discharge and sore throat. Respiratory: Negative for cough. ACTIVE PROBLEM LIST Anxiety and Depression Former Smoker NSVT (nonsustained ventricular tachycardia) Seizures (Hcc) Rls (Restless Legs Syndrome) Migraine Without Aura and Without Status Migrainosus, Not Intractable Menstrual Irregularity Visual Field Defect of Left Eye Gastroesophageal Reflux Disease Obesity, Class I, Bmi 30-34.9 Chronic Pain of Left Knee Nausea vomiting and diarrhea chronic Fatty Liver Disease, Nonalcoholic Pancreatic Insufficiency Functional Diarrhea Symptomatic Pvcs Social History Tobacco Use Smoking status: Former Packs/day: 0.75 Years: 13.00 Additional pack years: 0.00 Total pack years: 9.75 Types: Cigarettes Start date: 02/20/1999 Quit date: 10/28/2021 Years since quittin.3 Smokeless tobacco: Never Vaping Use Vaping Use: Never used Substance Use Topics Alcohol use: No Drug use: Not Currently Current Outpatient Medications Medication Sig FLUoxetine (PROZAC) 20 mg capsule Take 1 capsule by mouth once daily. diphenoxylate-atropine (LOMOTIL) 2.5-0.025 mg per tablet Take 1 tablet by mouth twice daily as needed for diarrhea. Dr. Edwina Kitchen. Gastroenterology. dicyclomine (BENTYL) 20 mg tablet Take 1 tablet by mouth twice daily. Dr. Edwina Kitchen. Gastroenterology. gabapentin (NEURONTIN) 600 mg tablet Take 2 tablets by mouth daily at bedtime for 180 days. pramipexole (MIRAPEX) 0.125 mg tablet Take 2 tablets by mouth daily at bedtime. Start with one (1) tablet at bedtime for one week, then increase as prescribed. levETIRAcetam (KEPPRA) 750 mg tablet Take 1 tablet by mouth twice daily. doxylamine succinate (SLEEP AID ORAL) Take 1 tablet by mouth daily at bedtime. Etonogestrel-Ethinyl Estradiol (NUVARING) 0.12-0.015 mg/24 hr vaginal ring Use 1 Each vaginally as directed. INSERT ONE(1) RING VAGINALLY AND LEAVE IN PLACE FOR THREE WEEKS, THEN REMOVE FOR 1 WEEK. hydrocortisone (ANUSOL-HC) 2.5 % rectal cream by RECTAL route twice daily. ondansetron orally disintegrating (ZOFRAN ODT) 4 mg disintegrating tablet Take 1 tablet by mouth every 8 hours as needed for nausea/vomiting. No current facility-administered medications for this visit. Objective BP (P) 104/62 (BP Site: Left Arm, BP Position: Sitting, BP Cuff Size: Large Adult) Pulse (P) 84 Temp (P) 37.3 ?C (99.1 ?F) (Temporal) Resp (P) 16 Wt (P) 81.2 kg (179 lb) LMP 06/21/2022 (Approximate) BMI (P) 32.74 kg/m? Physical Exam Constitutional: Appearance: She is not ill-appearing. HENT: Right Ear: Ear canal and external ear normal. There is impacted cerumen. Left Ear: Ear canal and external ear normal. There is no impacted cerumen. Cardiovascular: Heart sounds: Normal heart sounds. Pulmonary: Breath sounds: No wheezing or rales. Neurological: Mental Status: She is alert. Repeat exam: Canal clean. TM normal. Cerumen and wad of cotton removed. Patient had instant relief. Assessment and Plan 1. Impacted cerumen of right ear - ICD9: 380.4, ICD10: H61.21 - AMBULATORY EAR LAVAGE/IRRIGATION Misha Cespedes MD [facility] 02-24-2023 Nurse Note Ambulatory Ear Lavage Pre-treatment: No pre-treatment Treatment: Right ear Equipment and Irrigation solution and Volume used: Single use syringe with single use irrigation tip Water Total Irrigation Volume: 500 mL Return flow appearance: Brown Debris Patient tolerated procedure: yes Tympanic membrane assessment: Tympanic membrane assessed by LIP pre and post procedure documented in this encounter [facility] 02-24-2023 History of Presen t illness Narrative This note was created using Planwiseriter. Subjective Migdalia Zurita is a 33 year old female. She's felt she had cotton stuck in her right ear for a few months, from trying to clean with a Q tip. Review of Systems Constitutional: Negative for chills and fever. HENT: Positive for ear pain and hearing loss. Negative for congestion, ear discharge and sore throat. Respiratory: Negative for cough. ACTIVE PROBLEM LIST Anxiety and Depression Former Smoker NSVT (nonsustained ventricular tachycardia) Seizures (Hcc) Rls (Restless Legs Syndrome) Migraine Without Aura and Without Status Migrainosus, Not Intractable Menstrual Irregularity Visual Field Defect of Left Eye Gastroesophageal Reflux Disease Obesity, Class I, Bmi 30-34.9 Chronic Pain of Left Knee Nausea vomiting and diarrhea chronic Fatty Liver Disease, Nonalcoholic Pancreatic Insufficiency Functional Diarrhea Symptomatic Pvcs Social History Tobacco Use Smoking status: Former Packs/day: 0.75 Years: 13.00 Additional pack years: 0.00 Total pack years: 9.75 Types: Cigarettes Start date: 02/20/1999 Quit date: 10/28/2021 Years since quittin.3 Smokeless tobacco: Never Vaping Use Vaping Use: Never used Substance Use Topics Alcohol use: No Drug use: Not Currently Current Outpatient Medications Medication Sig FLUoxetine (PROZAC) 20 mg capsule Take 1 capsule by mouth once daily. diphenoxylate-atropine (LOMOTIL) 2.5-0.025 mg per tablet Take 1 tablet by mouth twice daily as needed for diarrhea. Dr. Edwina Kitchen. Gastroenterology. dicyclomine (BENTYL) 20 mg tablet Take 1 tablet by mouth twice daily. Dr. Edwina Kitchen. Gastroenterology. gabapentin (NEURONTIN) 600 mg tablet Take 2 tablets by mouth daily at bedtime for 180 days. pramipexole (MIRAPEX) 0.125 mg tablet Take 2 tablets by mouth daily at bedtime. Start with one (1) tablet at bedtime for one week, then increase as prescribed. levETIRAcetam (KEPPRA) 750 mg tablet Take 1 tablet by mouth twice daily. doxylamine succinate (SLEEP AID ORAL) Take 1 tablet by mouth daily at bedtime. Etonogestrel-Ethinyl Estradiol (NUVARING) 0.12-0.015 mg/24 hr vaginal ring Use 1 Each vaginally as directed. INSERT ONE(1) RING VAGINALLY AND LEAVE IN PLACE FOR THREE WEEKS, THEN REMOVE FOR 1 WEEK. hydrocortisone (ANUSOL-HC) 2.5 % rectal cream by RECTAL route twice daily. ondansetron orally disintegrating (ZOFRAN ODT) 4 mg disintegrating tablet Take 1 tablet by mouth every 8 hours as needed for nausea/vomiting. No current facility-administered medications for this visit. Objective BP (P) 104/62 (BP Site: Left Arm, BP Position: Sitting, BP Cuff Size: Large Adult) Pulse (P) 84 Temp (P) 37.3 C (99.1 F) (Temporal) Resp (P) 16 Wt (P) 81.2 kg (179 lb) LMP 06/21/2022 (Approximate) BMI (P) 32.74 kg/m Physical Exam Constitutional: Appearance: She is not ill-appearing. HENT: Right Ear: Ear canal and external ear normal. There is impacted cerumen. Left Ear: Ear canal and external ear normal. There is no impacted cerumen. Cardiovascular: Heart sounds: Normal heart sounds. Pulmonary: Breath sounds: No wheezing or rales. Neurological: Mental Status: She is alert. Repeat exam: Canal clean. TM normal. Cerumen and wad of cotton removed. Patient had instant relief. Assessment and Plan 1. Impacted cerumen of right ear - ICD9: 380.4, ICD10: H61.21 - AMBULATORY EAR LAVAGE/IRRIGATION Misha Cespedes MD documented in this encounter [facility] 02-19-2023 Miscellaneous Notes MARY: 01/18/2023 Last refill: 01/18/2023 QTY: 30 Refills: 0 documented in this encounter [facility] 02-12-2023 Note HNO ID: [id number] Author: Addison Hoffman APRN.ENTERPRISE INTEGRATION DEVELOPER Service: Anesthesiology Author Type: Nurse Access Representative Type: Anesthesia Procedure Notes Filed: 02/12/2023 4:32 PM Note Text: ANESTHESIOLOGY PROCEDURE NOTE Airway General Information Procedure Start Time/Medication Administration: 02/12/2023 4:12 PM Patient location during procedure: OR Timeout Performed Pre-procedure: timeout performed Consent Obtained: Yes Patient identity confirmed: arm band and patient Staffing ENTERPRISE INTEGRATION DEVELOPER: Addison Hoffman APRN.ENTERPRISE INTEGRATION DEVELOPER Performed by: ENTERPRISE INTEGRATION DEVELOPER Indications and Patient Condition Indications for airway management: anesthesia Preoxygenated: yes anesthesia circuit Patient position: sniffing Method: asleep Final Airway Details Final airway type: supraglottic airway Number of attempts at approach: 1 Final Supraglottic Airway: i-gel Size 3 Seal Adequate: yes Medications Administered lidocaine topical gel 2% urojet (XYLOCAINE, GLYDO) - MUCOUS MEMBRANE 1 mL - 02/12/2023 4:12:00 PM Comments Lady weiss, 1 ml on LMA. SIGNATURE: Addison Hoffman APRN.CRNA PATIENT NAME: Migdalia Zurita DATE: February 12, 2023 TIME: 4:30 PM CSN: [id number] [facility] 02-02-2023 Note HNO ID: [id number] Author: Meryl Calle, DO Service: ? Author Type: Physician Type: Progress Notes Filed: 02/02/2023 3:40 PM Note Text: [facility] SE[facility] OUTPATIENT VISIT DATE February 02, 2023 PRIMARY CARE PHYSICIAN: Misha Cespedes [address] [place] [address] HISTORY OF PRESENT ILLNESS: Ms. Zurita is a 32 year old female. The patient presents for early follow-up due to the need for preoperative recommendations and treatment options prior to proposed surgery on her meniscus. As part of preparation she was noted to have a possible low heart rate. She has a known history of previous symptomatic PVCs for which at one point she was on beta-blockade. She was evaluated electrophysiology and beta-blockers were eventually weaned and recent telemetry monitoring demonstrated PVCs but no significant runs nor symptoms associated with such. She at one point did have nonsustained ventricular tachycardia which was short burst as well. This occurred mainly during . She had a structurally normal heart by echocardiography and a normal stress echo. More recently she has unfortunately retorn probably both knees meniscus. She additionally needs a biopsy of her spleen she states as well. She is fatigued but otherwise denies chest discomfort, dyspnea, orthopnea, paroxysmal nocturnal dyspnea, palpitations, near-syncope or syncope. An EKG was performed await which showed sinus rhythm with PVCs noted in a bigeminal pattern approximately 80 bpm and possible left atrial enlargement. PLAN AND RECOMMENDATIONS: The patient does not have symptoms that suggest angina, cardiac, station nor that which would require thoughts in regards to her pacemaker. Her low heart rates appear to be due to nonconducted PVCs to pulse. Her EKG otherwise shows an appropriate heart rate. She is of low cardiac risk and therefore acceptable risk and may proceed with her proposed surgery or surgeries. We will follow-up with her in 3 months time regardless and at which time we will decide whether or not we will place another property assessment monitor. Should she develop any symptoms in the interim, she is to contact us immediately. Dietary lifestyle medication was reemphasized to facilitate risk factor reduction. Vitals: BP 102/56 Pulse 79 Ht 157.5 cm (5' 2 ) Wt 79.4 kg (175 lb) LMP 06/21/2022 (Approximate) SpO2 99% BMI 32.01 kg/m? Physical Exam Vitals reviewed. Constitutional: General: She is not in acute distress. Appearance: Normal appearance. She is well-developed. HENT: Head: Normocephalic and atraumatic. Nose: Nose normal. Eyes: General: No scleral icterus. Right eye: No discharge. Left eye: No discharge. Pupils: Pupils are equal, round, and reactive to light. Neck: Thyroid: No thyromegaly. Vascular: No carotid bruit or JVD. Cardiovascular: Rate and Rhythm: Normal rate and regular rhythm. Heart sounds: Normal heart sounds. No murmur heard. No friction rub. No gallop. Pulmonary: Effort: Pulmonary effort is normal. No respiratory distress. Breath sounds: Normal breath sounds. No wheezing or rales. Abdominal: General: Bowel sounds are normal. Palpations: Abdomen is soft. Musculoskeletal: General: Normal range of motion. Cervical back: Normal range of motion and neck supple. Skin: General: Skin is warm and dry. Capillary Refill: Capillary refill takes less than 2 seconds. Coloration: Skin is not pale. Neurological: Mental Status: She is alert and oriented to person, place, and time. Cranial Nerves: No cranial nerve deficit. Psychiatric: Behavior: Behavior normal. Thought Content: Thought content normal. Judgment: Judgment normal. Review of Systems Constitutional: Negative for activity change and fatigue. HENT: Negative for ear pain and facial swelling. Eyes: Negative for pain and discharge. Respiratory: Negative for chest tightness and shortness of breath. Cardiovascular: Negative for chest pain, palpitations and leg swelling. Gastrointestinal: Negative for abdominal pain, blood in stool, nausea and vomiting. Endocrine: Negative for cold intolerance and heat intolerance. Genitourinary: Negative for frequency and hematuria. Musculoskeletal: Negative for arthralgias and gait problem. Skin: Negative for color change, pallor and rash. Allergic/Immunologic: Negative for immunocompromised state. Neurological: Negative for dizziness, syncope, light-headedness and headaches. Hematological: Negative for adenopathy. Does not bruise/bleed easily. Psychiatric/Behavioral: Negative for confusion. The patient is not nervous/anxious. PAST MEDICAL HISTORY Diagnosis Date Abnormal Pap smear 10/21/2009 LGSIL Anemia in 12/24/2011 Continue daily folate and Fe Monitor H/H Anxiety and depression 01/18/2023 Depressive disorder, (more content not included)... [facility] 01-29-2023 Instructions Adilia Contreras APRN.DEREK - 01/29/2023 1:57 PM EDT PATIENT PREOPERATIVE INSTRUCTIONS No ref. provider found has scheduled you for your procedure at this surgery center: [facility]: [phone] -- [address] [facility] [address]. Please read below carefully for your personalized instructions. Dietary Restrictions: - No solid food after midnight. - You may have 12 ounces of clear liquids (water, clear juices such as apple juice or gatorade, carbonated beverages, clear tea, black coffee, jello) until 2 hours before scheduled arrival at facility. No red/purple coloring and no creamer/sugar Medications: Unless instructed differently below, stay on all of your medications until your surgery. Approved medications to take the morning of surgery with a sip of water: All rx meds are okay If you start any new medications after today's visit, please contact the surgeon's office. Blood Thinning Medications: - Stop NSAIDS (Ibuprofen, Advil, Aleve, Motrin, Celebrex, Mobic, etc.) 7 days before surgery, as directed by your surgeon. - Stop Aspirin 7 days before surgery, as directed by your surgeon. - Stop Vitamin E, ALL multi-vitamins, herbals and dietary supplements 7 days before surgery. - You may take Tylenol (Acetaminophen) or any of your pain medications that do not contain aspirin or NSAIDS as needed. Important Reminders: - Candy, mints, and tobacco products are NOT permitted the morning of surgery. - Hearing aids, dentures and glasses may be worn the morning of surgery. - NO jewelry, body piercings, makeup, hairpins or contacts are to be worn the day of surgery. If you develop symptoms such as a fever, cold, or flu, or have other changes to your health within TWO DAYS of scheduled surgery or the morning of surgery, please contact the surgery center above. Personal Belongings: -Please have photo ID and insurance cards. -If you do not have a copy of advance directives on file with us, please bring a copy with you on the day of surgery. - Leave ALL valuables and money at home or with family members. For Outpatient Procedures: - YOU MUST HAVE A RESPONSIBLE MINI SHIFTER TAKE YOU HOME. A CONVEYANCER OR KETTLE SKIMMER CANNOT BE MADE A RESPONSIBLE MINI SHIFTER. - We recommend that a responsible person stays with you overnight to take care of you. - You cannot stay in a hotel alone after outpatient surgery. You will not be permitted to have your surgery, if you do not have someone to take care of you. Arrival Time for Surgery: - The Surgery Center or hospital where you are having surgery will call the afternoon before surgery (or Wednesday for Wednesday surgery) with a scheduled arrival time. - If you have not heard by 4 pm, please contact the surgery center above. Please be aware that emergency situations arise, which may delay or change your surgical time. If this happens, we will notify you as soon as possible and regret any inconvenience. If you already have an Advance Directive, please fax a copy to [phone] or email to for it to be added to your chart. If you do not have an Advance Directive, you can find the appropriate form and more information at [email or web address]. We recommend that you complete the Advance Directive form found on the website and bring it with you the day of your surgery. It can be witnessed and scanned into your chart that day. Adilia Contreras APRN.CNP documented in this encounter [facility] 01-29-2023 History and physical note Images from the original note were not included. HISTORY AND PHYSICAL EXAMINATION SERVICE DATE: 01/29/2023 SERVICE TIME: 5:59 AM PRIMARY CARE PHYSICIAN: Misha Cespedes MD REASON FOR VISIT: Migdalia Zurita is a 32 year old female who is scheduled for Procedure(s): ARTHROSCOPY KNEE MENISCECTOMY MEDIAL OR LATERAL (Right) at the request of Justin Shetty MD for consultation. My final recommendation will be communicated back to the requesting physician by way of shared medical record or letter. Subjective The patient has the following: ACTIVE PROBLEM LIST Anxiety and Depression Former Smoker NSVT (nonsustained ventricular tachycardia) Seizures (Hcc) Rls (Restless Legs Syndrome) Migraine Without Aura and Without Status Migrainosus, Not Intractable Menstrual Irregularity Visual Field Defect of Left Eye Gastroesophageal Reflux Disease Obesity, Class I, Bmi 30-34.9 Chronic Pain of Left Knee COVID-19 Immunization Status Postponed - COVID-19 VACCINE (4 - Moderna series) Postponed until 07/14/2023 07/14/2022 Postponed until 07/14/2023 by Stephy Zazueta LPN (Declined at this time) 06/03/2021 Imm Admin: COVID-19 original vaccine, full dose, monovalent (MODERNA) 12/06/2020 Imm Admin: COVID-19 original vaccine, full dose, monovalent (MODERNA) Only the first 3 history entries have been loaded, but more history exists. CHIEF COMPLAINT: Pre-op exam HPI: Migdalia Zurita is a 32 year old seen for PAC due to scheduled above surgery because of medial meniscus tear. 09/21/2022, Parish Duong CHIEF COMPLAINT: New Patient and Knee Pain of the Left Knee Ms. Migdalia Zurita is a 32 year old female who presents with pain and popping in her left knee for the past 6 months. Patient tells me this has been going on for several years but has been getting worse. Pain today is a 4 out of 10 sore, stiffness. She often has to go soak in a warm bath when her knee locks . She is wearing a brace which add support and is somewhat helpful. She tells me that she had a remote left knee injury but cannot recall the exact mechanism. She also gets swelling in unexplained bruising on her knee. REVIEW OF SYSTEMS: General: No weight loss, malaise or fevers. Neurological: +RLS, on rx Positive for: headaches (otc analgesics as needed) and seizures (on rx). Negative for: cerebral palsy, EMR TRAINER tumor, dementia, multiple sclerosis, Parkinson's disease, peripheral neuropathy, TIA and strokes. Respiratory: No history of current cough or dyspnea, or pneumonia in the past 6 weeks. No history of respiratory/pulmonary symptoms or problems. Cardiovascular: Positive for: arrhythmia (NSVT, currently has Zio patch in place, to be removed 11/06/22) Negative for: angina, anticoagulation therapy, atrial fibrillation, CAD, chest pain, congenital heart defect, DVT/PE, hyperlipidemia, hypertension, murmur/valvular heart disease, open heart surgery and valve surgery. GI: +diarrhea, on rx Positive for: GERD (diet controlled) and nausea (rx as needed) Negative for: abdominal pain, dysphagia, hepatitis, irritable bowel syndrome, inflammatory bowel disease, liver disease, pancreatitis, vomiting and ETOH >2 drinks/day. : No history of dysuria, frequency or incontinence, stones or chronic kidney disease. No difficulty urinating, nocturia > 1 time per night or hematuria. 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 Endocrine: No history of diabetes. Has not taken steroids within the past 30 days. No history of endocrinological symptoms or problems. Hematology: No history of bleeding or clotting disorder. Patient is not taking anti-coagulation or platelet medications. No history of hematological symptoms or problems. Oncology: No history of CA metastasis, chemo within 30 days, or radiotherapy within 90 days. No history of oncological symptoms or problems. Psych: Positive for: anxiety and depression (on rx). Musculoskeletal: See HPI. Skin: Negative for lesions, rash and itching. PAST MEDICAL HISTORY Diagnosis Date Abnormal Pap smear 10/21/2009 LGSIL Anemia in 12/24/2011 Continue daily folate and Fe Monitor H/H Anxiety and depression 01/18/2023 Depressive disorder, not elsewhere classified 09/02/2007 Hx overdose Hypertension Intracranial arachnoid cysts 2008 Migraine 1997 NSVT (nonsustained ventricular tachycardia) 02/05/2012 Patient noncompliance history of AMA/no shows PMH - PAST MEDICAL HISTORY OF LEARNING DISABILITY Pre-syncope 02/04/2012 RLS (restless legs syndrome) Seizure (HCC) Dr Morocho Seizures (HCC) PAST SURGICAL HISTORY Procedure Laterality Date ARTHRS KNE SURG W/MENISCECTOMY MED/LAT W/SHVG Left 11/18/2022 Left knee arthroscopic lateral menisectomy COLONOSCOPY FLX DX W/COLLJ SPEC WHEN PFRMD 03/04/2016 Colonoscopy DILATION & CURETTAGE DX&/THER NONOBSTETRIC 04/15/2011 Dilation & curettage ESOPHAGOGASTRODUODENOSCOPY TRANSORAL DIAGNOSTIC 03/04/2016 EGD ESSURE 05/25/2012 Dr Mckenzie Medrano PAST SURGICAL HISTORY OF dental extractions VAGINOSCOPY 11/19/2009 VAGINOSCOPY 11/07/2008 FAMILY HISTORY Problem Relation Age of Onset Heart Mother alive but 3 times and resusitated Seizures Mother Diabetes Mother Seizures Brother Cancer Maternal Grandfather ?TYPE Diabetes Maternal Grandmother Social History Tobacco Use Smoking status: Former Packs/day: 0.75 Years: 13.00 Additional pack years: 0.00 Total pack years: 9.75 Types: Cigarettes Start date: 02/20/1999 Quit date: 10/28/2021 Years since quittin.2 Smokeless tobacco: Never Vaping Use Vaping Use: Never used Substance Use Topics Alcohol use: No Drug use: Not Currently Prior to Admission medications as of 01/29/23 1356 Medication Sig Last Dose Taking gabapentin (NEURONTIN) 600 mg tablet Take 2 tablets by mouth daily at bedtime for 180 days. Taking Yes FLUoxetine (PROZAC) 20 mg capsule Take 1 capsule by mouth once daily. Taking Yes pramipexole (MIRAPEX) 0.125 mg tablet Take 2 tablets by mouth daily at bedtime. Start with one (1) tablet at bedtime for one week, then increase as prescribed. Taking Yes levETIRAcetam (KEPPRA) 750 mg tablet Take 1 tablet by mouth twice daily. Taking Yes doxylamine succinate (SLEEP AID ORAL) Take 1 tablet by mouth daily at bedtime. Taking Yes Etonogestrel-Ethinyl Estradiol (NUVARING) 0.12-0.015 mg/24 hr vaginal ring Use 1 Each vaginally as directed. INSERT ONE(1) RING VAGINALLY AND LEAVE IN PLACE FOR THREE WEEKS, THEN REMOVE FOR 1 WEEK. Taking Yes hydrocortisone (ANUSOL-HC) 2.5 % rectal cream by RECTAL route twice daily. Taking Yes ondansetron orally disintegrating (ZOFRAN ODT) 4 mg disintegrating tablet Take 1 tablet by mouth every 8 hours as needed for nausea/vomiting. Taking Yes No medication comments found. ALLERGIES No Known Allergies Objective PHYSICAL EXAM: General: alert and oriented (x3), healthy appearance and obese. Pertinent negatives noted - not distressed. Skin: normal color, no rash or lesions. HEENT: EOM intact and pupils equal round. Pertinent negatives noted - no carotid bruit. Cardiovascular: Pulse characterized as regular.Pertinent negatives noted - no murmur, no rub and no gallop. Respiratory: normal breath sounds, no wheezes or crackles. No chest wall deformity or tenderness. Abdomen: soft. Pertinent negatives noted - not tender. Extremities: no deformity, no edema or tenderness, no joint swelling or clubbing. Neurological: normal cognition and motor skills. Gait normal. No weakness or sensory deficit. PAIN ASSESSMENT: VITALS: BP 98/70 Pulse 38 Temp (Src) 98.3 (Temporal) Resp 17 Ht 5' 4 (1.63m) Wt 176 lb 3.2 oz (79.9kg) SpO2 98% LMP 06/21/2022 BMI 30.23 kg/(m^2). Diagnostic tests reviewed for today's visit: Lab Value Units Date High Low HB 13.6 g/dL 08/24/2022 15.5 11.5 HCT 40.6 % 08/24/2022 46.0 36.0 WBC 3.92 k/uL 08/24/2022 11.00 3.70 PLT 200 k/uL 08/24/2022 400 150 NA 140 mmol/L 08/24/2022 144 136 K 4.1 mmol/L 08/24/2022 5.1 3.7 GLUC 92 mg/dL 08/24/2022 99 74 BUN 10 mg/dL 08/24/2022 21 7 CREAT 0.89 mg/dL 08/24/2022 0.96 0.58 PTSEC No results within date range. INR No results within date range. APTT No results within date range. ALT 9 U/L 08/24/2022 38 7 AST 14 U/L 08/24/2022 35 13 TBILI 0.3 mg/dL 08/24/2022 1.3 0.2 TSH No results within date range. Lab Value Units Date High Low HCGQT No results within date range. UHCG No results within date range. HCG, BODY* No results within date range. Lab Value Units Date High Low ABORHD No results within date range. ABSCREEN No results within date range. No results found for: HBA1C Recent Results (from the past 8760 hour(s)) ECG COMPLETE Collection Time: 01/29/23 2:20 PM Result Value Ventricular Rate 70 Atrial Rate 70 P-R Interval 144 QRS Duration 76 QT Interval 396 QTC Calculation (Bazett) 427 Calculated P [place] 36 Calculated R [place] 28 Calculated T [place] 55 Impression SINUS RHYTHM WITH FREQUENT PREMATURE VENTRICULAR COMPLEXES IN A PATTERN OF BIGEMINY POSSIBLE LEFT ATRIAL ENLARGEMENT BORDERLINE ECG Recent Results (from the past 87009 hour(s)) ECHO Collection Time: 06/12/21 8:25 AM Impression CONCLUSIONS: - Technically difficult exam due to body habitus. - Exam indication: Chest Pain - The left ventricle is normal in size. Left ventricular systolic function is normal. EF = 62 5% (2D biplane) Normal left ventricular diastolic function. - The right ventricle is normal in size. Right ventricular systolic function is normal. - There are no significant valvular abnormalities. - The patient has not had a prior CC echocardiographic exam for comparison. * * * Final * * * Assessment Patient has the following medical conditions which may affect aram-operative course: Obesity, Class I, BMI 30-34.9 Assessment: Body mass index is 30.24 kg/m . Anxiety and depression Assessment: stable on rx per pt Former smoker Assessment: 0.75ppd/13 years, denies asthma or COPD Gastroesophageal reflux disease Assessment: otc rx as needed Migraine without aura and without status migrainosus, not intractable Assessment: otc rx as needed RLS (restless legs syndrome) Assessment: controlled on rx Seizures (HCC) Assessment: controlled on rx, following [facility] neuro NSVT (nonsustained ventricular tachycardia) Assessment: s/p Zio monitor, following cardiology, TE to oracle application consultant for cardiac optimization 11/06/2022 Zio patch 10/12/2022 Dr. Calle HISTORY OF PRESENT ILLNESS: Ms. Zurita is a 32 year old female. The patient returns for follow-up second history of nonsustained ventricular tachycardia with a history of hypertension as well. She recently has had increasing episodes of palpitations lasting minutes occurring a couple times weekly. The plan previously through electrophysiology was to wean off of beta-kate and wait if symptoms were to return. She denies chest comfort, dyspnea portion usual, orthopnea, paroxysmal nocturnal dyspnea, near-syncope or syncope. PLAN AND RECOMMENDATIONS: Patient has return of her palpitations for which we will place a 14-day property assessment monitor. We will review this independently and should there be rhythms of concern, she will need to follow-up with electrophysiology. Dietary and lifestyle modification was otherwise reemphasized to facilitate risk factor reduction. We will look forward to reevaluate her in 3 months time regardless. [place] Activity Status Index: METS: Climb a flight of stairs or walk up a hill (5.50 METs) DASI Score: 5.5 Patient denies any chest pain or undue shortness of breath with the above physical activity. Clinical Frailty Scale: 3. Well, with treated comorbid disease STOP-Bang Score: Denies snoring loudly Denies feeling tired, fatigued, or sleepy during the daytime Has not been observed to stop breathing or choking/gasping during sleep Denies having high blood pressure BMI less than or equal to 35 kg/m^2 Patient 50 years old or younger Does not have a large neck Non-male patient STOP-Bang Score: 0 [id number] Score: Age: <65 Sex: female CHF history: No Hypertension history: No Stroke/TIA/thromboembolism history: No Vascular disease history: No Diabetes history: No [id number] Score: 1 ARISCAT Score: Age: <=50 Preoperative SpO2: >=96% Respiratory infection in the last month: No Preoperative anemia: Yes Surgical incision: peripheral Duration of surgery: <2 hrs Emergency procedure: No ARISCAT Score: 11 ASA Class: 2 ANESTHESIA FINDINGS: Intubation History: No history of difficult intubation Significant Anesthesia Considerations: none Airway History: No history of difficult airway I - PHYSICAL EVALUATION AIRWAY Patient intubated: No. Tracheostomy tube not present Mallampati: II. TM distance: >3 FB. Neck ROM: full ROM without neurological symptoms. Mouth opening: adequate. Short neck: no. Thick neck: no Garcia present: no Lip Bite Test: II Microretrognathia/Micronagthia/R ecessed Chin: No DENTAL Dental findings: teeth intact. II - ANESTHESIA PLAN ASA Score: 2 Anesthetic Plan: other Anesthetic plan additional comments: *PACC/TCI - anesthesia choice. Beta Kate Monitoring Plan Post Procedure Analgesic Plan Informed Consent Anesthetic risks, benefits, alternatives, personnel and consent discussed: yes. Patient / Responsible Democrat agrees to proceed: yes Patient / Surrogate agrees to blood products: blood products not planned Discussed the possibility of lip / dental damage: yes Prepared for Surgery: optimally prepared for surgery, pending [see comment]. ekg CONSULTS: Patient does not require consults for optimization at this time Planned Anesthetic: other anesthesia choice The Following Tests/Procedures Have Been Initiated: Orders Placed This Encounter ECG COMPLETE Standing Status: Future Number of Occurrences: 1 Standing Expiration Date: 01/30/2024 ECG COMPLETE Order Comments: Ordered by an unspecified provider Instructions Given to Patient: Instructions located in the after visit summary. Patient given verbal and written preop instructions and voices comprehension and compliance. SIGNATURE: Adilia Contreras APRN.CNP PATIENT NAME: Migdalia Zurita DATE: January 29, 2023 TIME: 1:56 PM PAGER/CONTACT #: documented in this encounter [facility] 01-18-2023 Note HNO ID: [id number] Author: Misha Cespedes MD Service: ? Author Type: Physician Type: Progress Notes Filed: 01/18/2023 2:29 PM Note Text: This note was created using [employer]. Subjective Patient presents with: Discussion Migdalia Zurita is a 32 year old female. See message 01/14/23. She weaned off venlafaxine which was not helping her mood and she was also now having increased irritability and anger. She denied any actual physical altercation, but indicated she felt like hitting somebody. This was due to stress and increased doctor's appointments and surgeries. Weight was also increasing. Restless leg was better. Review of Systems Constitutional: Positive for appetite change and unexpected weight change. Neurological: Negative. Psychiatric/Behavioral: Positive for agitation and dysphoric mood. The patient is nervous/anxious. ACTIVE PROBLEM LIST Depressive Disorder Former Smoker NSVT (nonsustained ventricular tachycardia) Seizures (Hcc) Rls (Restless Legs Syndrome) Migraine Without Aura and Without Status Migrainosus, Not Intractable Menstrual Irregularity Visual Field Defect of Left Eye Obesity, Class III, BMI >= 40 Gastroesophageal Reflux Disease Obesity, Class I, Bmi 30-34.9 Chronic Pain of Left Knee Current Outpatient Medications Medication Sig gabapentin (NEURONTIN) 600 mg tablet Take 2 tablets by mouth daily at bedtime for 60 days. pramipexole (MIRAPEX) 0.125 mg tablet Take 2 tablets by mouth daily at bedtime. Start with one (1) tablet at bedtime for one week, then increase as prescribed. levETIRAcetam (KEPPRA) 750 mg tablet Take 1 tablet by mouth twice daily. doxylamine succinate (SLEEP AID ORAL) Take 1 tablet by mouth daily at bedtime. Etonogestrel-Ethinyl Estradiol (NUVARING) 0.12-0.015 mg/24 hr vaginal ring Use 1 Each vaginally as directed. INSERT ONE(1) RING VAGINALLY AND LEAVE IN PLACE FOR THREE WEEKS, THEN REMOVE FOR 1 WEEK. hydrocortisone (ANUSOL-HC) 2.5 % rectal cream by RECTAL route twice daily. ondansetron orally disintegrating (ZOFRAN ODT) 4 mg disintegrating tablet Take 1 tablet by mouth every 8 hours as needed for nausea/vomiting. No current facility-administered medications for this visit. Objective BP 104/60 (BP Site: Left Arm, BP Position: Sitting, BP Cuff Size: Large Adult) Pulse 80 Resp 16 Wt 81.2 kg (179 lb) LMP 06/21/2022 (Approximate) BMI 30.73 kg/m? Physical Exam Constitutional: General: She is not in acute distress. Appearance: She is not ill-appearing. Pulmonary: Effort: Pulmonary effort is normal. Neurological: Mental Status: She is alert. Psychiatric: Attention and Perception: Attention normal. Mood and Affect: Mood is anxious. Speech: Speech is rapid and pressured. Behavior: Behavior normal. Thought Content: Thought content normal. CP PHQ9 01/18/2023 Little interest or pleasure 2 - More than half the days Feeling down, depressed, hopeless 2 - More than half the days Trouble falling or staying asleep, sleeping too much 2 - More than half the days Feeling tired, having little energy 3 - Nearly every day Poor appetite or overeating 3 - Nearly every day Feeling bad about yourself, failure or you have let yourself/family down 0 - Not at all Trouble concentrating on things 1 - Several days Moving or speaking so slowly, or fidgety or restless 0 - Not at all Thoughts that you would be better off , or of hurting yourself in some way 0 - Not at all How difficult have these problems made things Not difficult at all Interpretation of Total Score 10-14 Moderate depression JASMEET-7 ANXIETY SCALE 01/18/2023 FEELING NERVOUS,ANXIOUS,OR ON EDGE 1 Several days NOT BEING ABLE TO STOP OR CONTROL WORRYING 1 Several days WORRYING TOO MUCH ABOUT DIFFERENT THINGS 2 Over half the days TROUBLE RELAXING 2 Over half the days BEING SO RESTLESS THAT IT'S HARD TO SIT STILL 2 Over half the days BEING EASILY ANNOYED OR IRRITABLE 3 Nearly every day FEELING AFRAID IF SOMETHING AWFUL MIGHT HAPPEN 1 Several days GAD7 SCORE 12 IF YOU CHECKED OFF ANY PROBLEMS Somewhat difficult Assessment and Plan 1. Anxiety and depression - ICD9: 300.00, 311, ICD10: F41.9, F32.A (primary diagnosis) New medication. Discussed medication dosage, usage, goals of therapy, and side effects. - FLUOXETINE 20 MG CAPSULE - She declined referral for counseling. They don't work . - She will call for refills or dose increase in 2-3 weeks if with no side effects. 2. RLS (restless legs syndrome) - ICD9: 333.94, ICD10: G25.81 Controlled. - GABAPENTIN 600 MG TABLET 3. Migraine without aura and without status migrainosus, not intractable - ICD9: 346.10, ICD10: G43.009 Controlled. - GABAPENTIN 600 MG TABLET 4. Obesity, Class I, BMI 30-34.9 - ICD9: 278.00, ICD10: E66.9 Weight increasing - Behavioral intervention - She ordered a supplement called LivePure, and was asking for an opinion about this. (more content not included)... [facility] 01-18-2023 History of Presen t illness Narrative This note was created using [employer]. Subjective Patient presents with: Discussion Migdalia Zurita is a 32 year old female. See message 01/14/23. She weaned off venlafaxine which was not helping her mood and she was also now having increased irritability and anger. She denied any actual physical altercation, but indicated she felt like hitting somebody. This was due to stress and increased doctor's appointments and surgeries. Weight was also increasing. Restless leg was better. Review of Systems Constitutional: Positive for appetite change and unexpected weight change. Neurological: Negative. Psychiatric/Behavioral: Positive for agitation and dysphoric mood. The patient is nervous/anxious. ACTIVE PROBLEM LIST Depressive Disorder Former Smoker NSVT (nonsustained ventricular tachycardia) Seizures (Hcc) Rls (Restless Legs Syndrome) Migraine Without Aura and Without Status Migrainosus, Not Intractable Menstrual Irregularity Visual Field Defect of Left Eye Obesity, Class III, BMI >= 40 Gastroesophageal Reflux Disease Obesity, Class I, Bmi 30-34.9 Chronic Pain of Left Knee Current Outpatient Medications Medication Sig gabapentin (NEURONTIN) 600 mg tablet Take 2 tablets by mouth daily at bedtime for 60 days. pramipexole (MIRAPEX) 0.125 mg tablet Take 2 tablets by mouth daily at bedtime. Start with one (1) tablet at bedtime for one week, then increase as prescribed. levETIRAcetam (KEPPRA) 750 mg tablet Take 1 tablet by mouth twice daily. doxylamine succinate (SLEEP AID ORAL) Take 1 tablet by mouth daily at bedtime. Etonogestrel-Ethinyl Estradiol (NUVARING) 0.12-0.015 mg/24 hr vaginal ring Use 1 Each vaginally as directed. INSERT ONE(1) RING VAGINALLY AND LEAVE IN PLACE FOR THREE WEEKS, THEN REMOVE FOR 1 WEEK. hydrocortisone (ANUSOL-HC) 2.5 % rectal cream by RECTAL route twice daily. ondansetron orally disintegrating (ZOFRAN ODT) 4 mg disintegrating tablet Take 1 tablet by mouth every 8 hours as needed for nausea/vomiting. No current facility-administered medications for this visit. Objective BP 104/60 (BP Site: Left Arm, BP Position: Sitting, BP Cuff Size: Large Adult) Pulse 80 Resp 16 Wt 81.2 kg (179 lb) LMP 06/21/2022 (Approximate) BMI 30.73 kg/m Physical Exam Constitutional: General: She is not in acute distress. Appearance: She is not ill-appearing. Pulmonary: Effort: Pulmonary effort is normal. Neurological: Mental Status: She is alert. Psychiatric: Attention and Perception: Attention normal. Mood and Affect: Mood is anxious. Speech: Speech is rapid and pressured. Behavior: Behavior normal. Thought Content: Thought content normal. CP PHQ9 01/18/2023 Little interest or pleasure 2 - More than half the days Feeling down, depressed, hopeless 2 - More than half the days Trouble falling or staying asleep, sleeping too much 2 - More than half the days Feeling tired, having little energy 3 - Nearly every day Poor appetite or overeating 3 - Nearly every day Feeling bad about yourself, failure or you have let yourself/family down 0 - Not at all Trouble concentrating on things 1 - Several days Moving or speaking so slowly, or fidgety or restless 0 - Not at all Thoughts that you would be better off , or of hurting yourself in some way 0 - Not at all How difficult have these problems made things Not difficult at all Interpretation of Total Score 10-14 Moderate depression JASMEET-7 ANXIETY SCALE 01/18/2023 FEELING NERVOUS,ANXIOUS,OR ON EDGE 1 Several days NOT BEING ABLE TO STOP OR CONTROL WORRYING 1 Several days WORRYING TOO MUCH ABOUT DIFFERENT THINGS 2 Over half the days TROUBLE RELAXING 2 Over half the days BEING SO RESTLESS THAT IT'S HARD TO SIT STILL 2 Over half the days BEING EASILY ANNOYED OR IRRITABLE 3 Nearly every day FEELING AFRAID IF SOMETHING AWFUL MIGHT HAPPEN 1 Several days GAD7 SCORE 12 IF YOU CHECKED OFF ANY PROBLEMS Somewhat difficult Assessment and Plan 1. Anxiety and depression - ICD9: 300.00, 311, ICD10: F41.9, F32.A (primary diagnosis) New medication. Discussed medication dosage, usage, goals of therapy, and side effects. - FLUOXETINE 20 MG CAPSULE - She declined referral for counseling. They don't work . - She will call for refills or dose increase in 2-3 weeks if with no side effects. 2. RLS (restless legs syndrome) - ICD9: 333.94, ICD10: G25.81 Controlled. - GABAPENTIN 600 MG TABLET 3. Migraine without aura and without status migrainosus, not intractable - ICD9: 346.10, ICD10: G43.009 Controlled. - GABAPENTIN 600 MG TABLET 4. Obesity, Class I, BMI 30-34.9 - ICD9: 278.00, ICD10: E66.9 Weight increasing - Behavioral intervention - She ordered a supplement called LivePure, and was asking for an opinion about this. We reviewed limitations of supplements. The website was checked and ingredients were multiple as expected so it will be hard to assess pros and cons. Misha Cespedes MD documented in this encounter [facility] 01-05-2023 Note HNO ID: [id number] Author: Roxanne Boateng RT(Cristian) Service: ? Author Type: Technologist Type: Progress Notes Filed: 01/05/2023 2:55 PM Note Text: Radiology Service Progress Note PATIENT NAME: Migdalia Zurita DATE OF SERVICE: January 05, 2023 TIME: 2:55 PM PATIENT IDENTITY VERIFICATION COMPLETED USING TWO (2) IDENTIFIERS: Name and Date of confirmed by patient verbally. FALL SCREENING: Has the patient had 2 falls in the last year or 1 fall with injury or currently using an Ambulatory Assistive Device (Walker, Cane, Wheelchair, Crutches, etc.)? No PATIENT GENDER DATA: Female. status: : No status: NO. PATIENT RELEVANT IMPLANT DATA REVIEWED: Yes RADIOLOGY DEPARTMENT: MR; Exam(s) Completed: Lower MSK: Knee, right PERIPHERAL IV DATA: Not applicable SIGNED BY: RT Vu(R) January 05, 2023 2:55 PM [facility] 12-28-2022 Note HNO ID: [id number] Author: Justin Mccain MD Service: ? Author Type: Physician Type: Progress Notes Filed: 01/19/2023 5:17 PM Note Text: Addendum: MRI from January 05, 2023 is suggestive of a tear of the lateral meniscus, right knee, nondisplaced with diminutive appearance consistent with early changes in the tear already. Do to this finding, further physical therapy is contraindicated with concern for displacing her tear and propagating to open large bucket handle like she had on the left side. Recommendation would be for knee arthroscopy of the right knee, especially considering how well she has done on her left. Justin Mccain MD Department of Orthopaedics Orthopaedics [address] [facility] [address] Dept: [phone] Dept December 28, 2022 CHIEF COMPLAINT: Post Op of the Left Knee. HPI Patient here for 5 week 5 days post op Left knee arthroscopic lateral menisectomy. Patient states she is continuing to have some swelling in her knee. Taking no med's for the pain. ASSESSMENT: S83.212D Bucket-handle tear of medial meniscus of left knee as current injury, subsequent encounter (primary encounter diagnosis) S83.241A Acute medial meniscus tear of right knee, initial encounter SUMMARY/PLAN: She is just shy of 6 weeks after her left knee and is doing very well. She has had a little bit of swelling in the knee appropriate after surgery but markedly improved with and without any mechanical symptoms in the left knee. However, the right knee has been giving her troubles and as documented in her last visit or symptoms on the right than she was having on the left after surgery. She does have an MRI pending for the right knee. We will take a look at that and if she has any mechanical meniscus similar to the left I would likely recommend another knee scope based on her already significant improvement from her left knee arthroscopy. Exam: Left knee with healed incisions and full range of motion. Some very minor swelling but no effusion. Right knee with a mild effusion and motion from 5-120 degrees with a positive lateral Timi's without a mechanical block. Imaging: IMPRESSION: LATERAL MENISCAL TEAR OF THE RIGHT KNEE. Cylinder Press Operator: ROSE Transcribe Date/Time: Jan 05 2023 3:38P Dictated by : ASHLEY BRADSHAW MD This examination was interpreted and the report reviewed and electronically signed by: ASHLEY BRADSHAW MD on Jan 05 2023 3:58PM EST Results-Findings * * *Final Report* * * DATE OF EXAM: Jan 05 2023 3:17PM [facility] 0213 - MRI KNEE WO IVCON RT / PROCEDURE REASON: Acute medial meniscus tear of right knee, initial encounter * * * * Physician Interpretation * * * * EXAMINATION: MR RIGHT KNEE WITHOUT CONTRAST CLINICAL HISTORY: Acute medial meniscus tear of right knee, initial encounter TECHNIQUE: Routine non-contrast MRI of the right knee MQ: MRK_2B COMPARISON: Correlation with radiographs 11/11/2021 RESULT: MENISCI: Medial Meniscus: Nonspecific changes in the body without a definite tear. Lateral Meniscus: Non-displaced tear in the posterior horn and body reaching the inferior articular surface. The entire meniscus appears diminutive, unclear if this is from chronic wear or postsurgical. LIGAMENTS: ACL: Intact PCL: Intact MCL: Intact LCL Complex: Intact CARTILAGE: Medial Femoral Condyle: Normal Medial Tibial Plateau: Normal Lateral Femoral Condyle: Normal Lateral Tibial Plateau: Normal Patella: Normal Trochlea: Normal TENDONS: The distal quadriceps and patellar tendons are intact. The popliteus tendon is intact. BONES AND MARROW: No evidence of fracture or bone marrow replacing process. MUSCLES: Muscle bulk and signal intensity are normal. JOINT FLUID AND SYNOVIUM: Small joint effusion. No synovitis. Small Sanchez's cyst. Localizer images: Non-diagnostic. Ms. Migdalia Zurita was advised as to contrast therapies and/or to take analgesics/anti-inflammatories as needed and all contraindications were reviewed. Supporting Information Below: Medications: Current Outpatient Medications Medication Sig gabapentin (NEURONTIN) 600 mg tablet Take 2 tablets by mouth daily at bedtime for 60 days. pramipexole (MIRAPEX) 0.125 mg tablet Take 2 tablets by mouth daily at bedtime. Start with one (1) tablet at bedtime for one week, then increase as prescribed. CREON 36,000-114,000- 180,000 unit delayed release capsule Take by mouth once daily. levETIRAcetam (KEPPRA) 750 mg tablet Take 1 tablet by mouth twice daily. doxylamine succinate (SLEEP AID ORAL) Take 1 tablet by mouth daily at bedtime. Etonogestrel-Ethinyl Estradiol (NUVARING) 0.12-0.015 mg/24 hr vaginal ring Use 1 Each vaginally as directed. INSERT ONE(1) RING VAGINALLY AND LEAVE IN PLACE FOR THREE WEEKS, THEN REMOVE FOR 1 WEEK. hydrocortisone (ANUSOL-HC) 2.5 % rectal cream by RECTAL route twice daily. ondansetron oral (more content not included)... [facility] 12-28-2022 History of Presen t illness Narrative Addendum: MRI from January 05, 2023 is suggestive of a tear of the lateral meniscus, right knee, nondisplaced with diminutive appearance consistent with early changes in the tear already. Do to this finding, further physical therapy is contraindicated with concern for displacing her tear and propagating to open large bucket handle like she had on the left side. Recommendation would be for knee arthroscopy of the right knee, especially considering how well she has done on her left. Justin Mccain MD Department of Orthopaedics Orthopaedics [address] [facility] [address] Dept: [phone] Dept December 28, 2022 CHIEF COMPLAINT: Post Op of the Left Knee. HPI Patient here for 5 week 5 days post op Left knee arthroscopic lateral menisectomy. Patient states she is continuing to have some swelling in her knee. Taking no med's for the pain. ASSESSMENT: S83.212D Bucket-handle tear of medial meniscus of left knee as current injury, subsequent encounter (primary encounter diagnosis) S83.241A Acute medial meniscus tear of right knee, initial encounter SUMMARY/PLAN: She is just shy of 6 weeks after her left knee and is doing very well. She has had a little bit of swelling in the knee appropriate after surgery but markedly improved with and without any mechanical symptoms in the left knee. However, the right knee has been giving her troubles and as documented in her last visit or symptoms on the right than she was having on the left after surgery. She does have an MRI pending for the right knee. We will take a look at that and if she has any mechanical meniscus similar to the left I would likely recommend another knee scope based on her already significant improvement from her left knee arthroscopy. Exam: Left knee with healed incisions and full range of motion. Some very minor swelling but no effusion. Right knee with a mild effusion and motion from 5-120 degrees with a positive lateral Timi's without a mechanical block. Imaging: IMPRESSION: LATERAL MENISCAL TEAR OF THE RIGHT KNEE. Cylinder Press Operator: PSCSandeep Transcribe Date/Time: Jan 05 2023 3:38P Dictated by : ASHLEY BRADSHAW MD This examination was interpreted and the report reviewed and electronically signed by: ASHLEY BRADSHAW MD on Jan 05 2023 3:58PM EST Results-Findings * * *Final Report* * * DATE OF EXAM: Jan 05 2023 3:17PM [facility] 0213 - MRI KNEE WO IVCON RT / PROCEDURE REASON: Acute medial meniscus tear of right knee, initial encounter * * * * Physician Interpretation * * * * EXAMINATION: MR RIGHT KNEE WITHOUT CONTRAST CLINICAL HISTORY: Acute medial meniscus tear of right knee, initial encounter TECHNIQUE: Routine non-contrast MRI of the right knee MQ: MRK_2B COMPARISON: Correlation with radiographs 11/11/2021 RESULT: MENISCI: Medial Meniscus: Nonspecific changes in the body without a definite tear. Lateral Meniscus: Non-displaced tear in the posterior horn and body reaching the inferior articular surface. The entire meniscus appears diminutive, unclear if this is from chronic wear or postsurgical. LIGAMENTS: ACL: Intact PCL: Intact MCL: Intact LCL Complex: Intact CARTILAGE: Medial Femoral Condyle: Normal Medial Tibial Plateau: Normal Lateral Femoral Condyle: Normal Lateral Tibial Plateau: Normal Patella: Normal Trochlea: Normal TENDONS: The distal quadriceps and patellar tendons are intact. The popliteus tendon is intact. BONES AND MARROW: No evidence of fracture or bone marrow replacing process. MUSCLES: Muscle bulk and signal intensity are normal. JOINT FLUID AND SYNOVIUM: Small joint effusion. No synovitis. Small Sanchez's cyst. Localizer images: Non-diagnostic. Ms. Migdalia Zurita was advised as to contrast therapies and/or to take analgesics/anti-inflammatories as needed and all contraindications were reviewed. Supporting Information Below: Medications: Current Outpatient Medications Medication Sig gabapentin (NEURONTIN) 600 mg tablet Take 2 tablets by mouth daily at bedtime for 60 days. pramipexole (MIRAPEX) 0.125 mg tablet Take 2 tablets by mouth daily at bedtime. Start with one (1) tablet at bedtime for one week, then increase as prescribed. CREON 36,000-114,000- 180,000 unit delayed release capsule Take by mouth once daily. levETIRAcetam (KEPPRA) 750 mg tablet Take 1 tablet by mouth twice daily. doxylamine succinate (SLEEP AID ORAL) Take 1 tablet by mouth daily at bedtime. Etonogestrel-Ethinyl Estradiol (NUVARING) 0.12-0.015 mg/24 hr vaginal ring Use 1 Each vaginally as directed. INSERT ONE(1) RING VAGINALLY AND LEAVE IN PLACE FOR THREE WEEKS, THEN REMOVE FOR 1 WEEK. hydrocortisone (ANUSOL-HC) 2.5 % rectal cream by RECTAL route twice daily. ondansetron orally disintegrating (ZOFRAN ODT) 4 mg disintegrating tablet Take 1 tablet by mouth every 8 hours as needed for nausea/vomiting. No current facility-administered medications for this visit. Allergies: Patient has no known allergies. Justin Mccian MD documented in this encounter [facility] 11-30-2022 Note HNO ID: [id number] Author: Paulina Duong PA-C Service: ? Author Type: Physician Bulk Sugar Handler Type: Progress Notes Filed: 11/30/2022 4:04 PM Note Text: Paulina Duong PA-C Department of Orthopaedics [facility] [address] [facility] [address] Dept: [phone] Dept November 30, 2022 CHIEF COMPLAINT: Established Patient and Post Op of the Left Knee. ASSESSMENT: S83.241A Acute medial meniscus tear of right knee, initial encounter (primary encounter diagnosis) SUMMARY/PLAN: Patient presents 1 week and 5 days status post left knee arthroscopy with lateral meniscectomy. Patient states that she is feeling great, denies any pain in the left knee. We discussed continuing with activities as tolerated, we also discussed some gentle scar massage. We will see her back next month as planned. Patient is now complaining of locking in her right knee. She states that since having her left knee scope she has been relying on her right knee quite a bit. Has had several episodes where the knee locks, very painful 10/10 pain. She states this is identical to how her left knee felt prior to her knee arthroscopy. She is very eager to discuss getting a MRI for the right knee so that she can pursue another knee arthroscopy. Exam: Left knee incision sites are well approximated without erythema or drainage, there is no effusion of the knee, no ecchymosis is noted. Patient has full extension of the knee with flexion to 120 degrees. KNEE EXAM: Right: Alignment: Neutral Range of motion is 0 degrees in extension and 120 degrees of flexion. Extension La degrees Pain with ROM: Yes Effusion: Slight Tender to the palpation of Posterior Knee Pain with patellar compression: Yes Mc Lombardo+ Thessaly+ Stability: Anterior/Posterior stable and Varus/Valgus stable Hip Exam: flexion to 100+ degrees, full extension, internal/external rotation adequate, and no pain with log roll Neurovascular Status: Sensation Intact, Moves foot and ankle up AND down, and 2+ dorsalis pedis Imaging: Ms. Migdalia Zurita was advised as to contrast therapies and/or to take analgesics/anti-inflammatories as needed and all contraindications were reviewed. Supporting Information Below: Medications: Current Outpatient Medications Medication Sig gabapentin (NEURONTIN) 600 mg tablet Take 2 tablets by mouth daily at bedtime for 60 days. pramipexole (MIRAPEX) 0.125 mg tablet Take 2 tablets by mouth daily at bedtime. Start with one (1) tablet at bedtime for one week, then increase as prescribed. levETIRAcetam (KEPPRA) 750 mg tablet Take 1 tablet by mouth twice daily. doxylamine succinate (SLEEP AID ORAL) Take 1 tablet by mouth daily at bedtime. Etonogestrel-Ethinyl Estradiol (NUVARING) 0.12-0.015 mg/24 hr vaginal ring Use 1 Each vaginally as directed. INSERT ONE(1) RING VAGINALLY AND LEAVE IN PLACE FOR THREE WEEKS, THEN REMOVE FOR 1 WEEK. hydrocortisone (ANUSOL-HC) 2.5 % rectal cream by RECTAL route twice daily. CREON 36,000-114,000- 180,000 unit delayed release capsule Take by mouth once daily. ondansetron orally disintegrating (ZOFRAN ODT) 4 mg disintegrating tablet Take 1 tablet by mouth every 8 hours as needed for nausea/vomiting. No current facility-administered medications for this visit. Allergies: Patient has no known allergies. This note was partially generated using [employer] voice recognition system, and there may be some incorrect words, spellings, and punctuation that were not noted in checking the note before saving. Paulina Duong PA-C [facility] 11-30-2022 Note HNO ID: [id number] Author: Beverly Llamas Ma Service: ? Author Type: ? Type: Progress Notes Filed: 11/30/2022 4:04 PM Note Text: AMB ROOMING INTAKE FLOWSHEET DATA Pain Pain Level: 4 Pain Location: Knee-Left Description: Aching, Burning, Sharp Duration Units: Days Frequency: Intermittent Intervention/Comfort measure: Medication, Cold Patient here today 1 week 5 days post op Left knee arthroscopic lateral menisectomy. [facility] 11-25-2022 Miscellaneous Notes Per message yesterday from Hardik Hensley RN. PT brought her unused mailed Zio into the office I called [facility] gave them the ID number [id number] the PT will not be charged. They said just mail it back, I put in our outgoing mail to be sent back to [facility]. documented in this encounter [facility] 11-24-2022 Miscellaneous Notes PT brought her unused mailed Zio into the office I called [facility] gave them the ID number [id number] the PT will not be charged. They said just mail it back, I put in our outgoing mail to be sent back to [facility]. documented in this encounter [facility] 11-23-2022 Miscellaneous Notes This patient gave consent to this Medical Advice Message and is aware that it may result in a bill to their insurance, as well as the possibility of receiving a bill for a copay and/or deductible. They are an established patient, but are not seeking information exclusively about a problem treated during an in person or video visit in the last seven days. I did not recommend an in person or video visit within seven days of my reply. See the [employer] message reply for my assessment and plan. I spent a total of 12 minutes reviewing the patient's prior medical records and current request for medical advice, prescribing medications or ordering tests (if applicable), replying to the patient, and documenting the encounter. ASSESSMENT/PLAN: 1. RLS (restless legs syndrome) - ICD9: 333.94, ICD10: G25.81 (primary diagnosis) - GABAPENTIN 600 MG TABLET. Dose reduced, plan to wean off. - PRAMIPEXOLE 0.125 MG TABLET. New medication. 2. Migraine without aura and without status migrainosus, not intractable - ICD9: 346.10, ICD10: G43.009 See above. - GABAPENTIN 600 MG TABLET Misha Cespedes MD documented in this encounter [facility] 11-18-2022 Note HNO ID: [id number] Author: Emilee Edwards APRN.ENTERPRISE INTEGRATION DEVELOPER Service: Anesthesiology Author Type: Nurse Access Representative Type: Anesthesia Procedure Notes Filed: 11/18/2022 7:49 AM Note Text: ANESTHESIOLOGY PROCEDURE NOTE Airway General Information Procedure Start Time/Medication Administration: 11/18/2022 7:39 AM Patient location during procedure: OR Timeout Performed Pre-procedure: timeout performed Consent Obtained: Yes Patient identity confirmed: arm band and patient Staffing ENTERPRISE INTEGRATION DEVELOPER: Emilee Edwards APRN.ENTERPRISE INTEGRATION DEVELOPER Performed by: BRIAN Indications and Patient Condition Indications for airway management: anesthesia Preoxygenated: yes anesthesia circuit Patient position: sniffing Method: asleep Cricoid Pressure: No Manual In-Line Stabilization: No Difficult Mask: No Final Airway Details Final airway type: supraglottic airway Number of attempts at approach: 1 Ventilation between attempts: none Final Supraglottic Airway: i-gel Size 4 Seal Adequate: yes Failed airway: no Unrecognized esophageal intubation: no Airway not difficult SIGNATURE: Emilee Edwards APRN.ENTERPRISE INTEGRATION DEVELOPER PATIENT NAME: Migdalia Zurita DATE: November 18, 2022 TIME: 7:49 AM CSN: [id number] [facility] 11-18-2022 Nurse Note 0912 Patient noted to have multiple missed beats on property assessment monitor. Strip printed and presented to Dr. Virgen who stated patient has known arrhythmia. No new orders at this time patient denies CP will continue to monitor. documented in this encounter [facility] 11-18-2022 Surgical operatio n note OPERATIVE/PROCEDURE REPORT LOG ID: [id number] Surgery/Procedure Date: 11/18/2022 Incision/Procedure Start Time: 8:02 AM Incision Close/Procedure End Time: Surgeon(s)/Proceduralist(s) and Bulk Sugar Handler(s): Surgeon(s) and Role: * Justin Mccain MD - Primary Physician Bulk Sugar Handler: Paulina Duong PA-C Registered Nurse Agricultural Equipment Salesperson: Elizabeth Saleh RN Procedure(s): left knee, arthroscopic lateral meniscectomy. Anesthesia: General with Intraarticular analgesia. OPERATIVE INDICATIONS: This is a pleasant 32 year old year-old female, who had an injury to the knee causing mechanical symptoms, recurrent swelling and pain. Patient attempted conservative management with activity modification, medications, and an MRI reported a meniscus tear laterally, displaced, buckethandle. I discussed with her multiple options including the risks, benefits, alternatives, and potential complications involving surgery and she wished to pursue surgical intervention. Procedure Details: On 11/18/2022, the patient was clearly identified in the preoperative area and marked accordingly on the left knee by myself. She received 2g of Ancef in the IV within 1 hour incision or tourniquet. Patient was taken to the operative suite and placed in the supine position. Anesthesia assumed care of the head and neck for the remainder of the case and began a general anesthetic. All other bony landmarks were appropriately padded in standard fashion. The well lower extremity was placed in a semi-lithotomy position, again with neurovascular bundles appropriately padded. The surgical lower extremity had a well-padded upper thigh tourniquet placed with Webril padding and set at 250 mmHg, but not yet inflated. After a betadine swab, the patient was provided a intra-articular injection with 20 mL of 0.5% ropivacaine plain and 2 mg of morphine sulfate at the superior lateral knee joint. Patient was then placed in a well-padded arthroscopic leg hernandez. Patient was sterilely prepped and draped in standard fashion. Appropriate time-out was conducted and all in the room were in agreement, signed consent form was on the chart and images were available for viewing. The lower extremity was then exsanguinated with an Esmarch bandage and the tourniquet was applied at 250 mmHg. Next, the portal incisions were injected with 1% lidocaine with 1:100,000 epinephrine and 0.5% ropivacaine for total of 10 mL. A stab incision was then made with an #11 blade at the inferolateral, parapatellar area and I entered into the joint atraumatically with 1 pass with blunt trocar and camera. A stab incision was made at the superomedial joint for placement of an outflow cannulae. Arthroscopic diagnostic exam was completed that showed Pristine cartilage on the undersurface of the both medial and lateral patellar facets as well as in the trochlea. I came down in the medial and lateral gutters, which were free of any debris. I entered into the medial joint line and under spinal needle identification, made my standard working portal at the inferomedial, parapatellar tendon location. I entered in with a hooked probe and explored the joint. The medial distal femoral condyle was showing Pristine cartilage. The medial tibial plateau surface appeared with Pristine cartilage. The ACL and PCL were found to be intact and rather alexis. The lateral joint line showed Pristine cartilage of the lateral distal femoral condyle. The lateral tibial plateau surface appeared with Pristine cartilage. I next identified a tear of the lateral meniscus; characterized as lateral, bucket-handle, complex, and posterior. I worked my way with both arthroscopic biter tools as well as the 4.5mm resector shaver and made a stable rim in the meniscus, without any fragments or flaps noted. I was able to maintain a bridge of meniscus across the hiatus. Again, the entire meniscus was taken to a stable base without any further concerns. No chondroplasty was necessary and I just smoothen out any areas of fibrillation from instrumentation. I then explored the three compartments one last time for any loose debris and suction irrigated. The arthroscopic fluid was suctioned out through the outflow cannula and the arthroscopic portals were closed with 4-0 monocryl suture in buried fashion. Steri-Strips were applied to all 3 incision sites. Xeroform gauze, sterile 4 x 4 gauze, ABD and a thigh-high ARIANA hose was applied for final bandage. Tourniquet was taken down. There were no complications during the procedure. The patient was safely awoken and transferred to the Postanesthetic Care Unit in stable condition. Pre-Op/Pre-Procedure Diagnosis: left knee, lateral meniscus tear, bucket-handle. Post-Op/Post-Procedure Diagnosis: same Estimated Blood Loss: None. Specimens: None Implantable Devices: None Drains: None Complications: None I performed the entire procedure. SIGNATURE: Justin Mccain MD PATIENT NAME: Migdalia Zurita DATE: November 18, 2022 TIME: 8:54 AM PAGER/CONTACT #: documented in this encounter [facility] 11-18-2022 History and physical note UPDATED HISTORY AND PHYSICAL EXAMINATION SERVICE DATE: 11/18/2022 SERVICE TIME: 7:29 AM PHYSICAL EXAM MUST BE COMPLETED ON ADMISSION The History and Physical (completed in the past 30 days) has been reviewed and the patient has been examined. The contents accurately reflect the patient's condition with the following additions or revisions since the H&P was completed. Examination indicates no changes. This H&P can be found in the Electronic Medical Record dated 11/02/22. SIGNATURE: Paulina Duong PA-C PATIENT NAME: Migdalia Zurita DATE: November 18, 2022 TIME: 7:29 AM Source Note - Adilia Contreras APRN.PROGRAM AND RESEARCH COORDINATOR - 11/02/2022 3:01 PM EDT Images from the original note were not included. HISTORY AND PHYSICAL EXAMINATION SERVICE DATE: 11/02/2022 SERVICE TIME: 8:39 AM PRIMARY CARE PHYSICIAN: Misha Cespedes MD REASON FOR VISIT: Migdalia Zurita is a 32 year old female who is scheduled for Procedure(s): ARTHROSCOPY KNEE MENISCECTOMY MEDIAL OR LATERAL (Left) at the request of Dr. Justin Mccain for consultation. My final recommendation will be communicated back to the requesting physician by way of shared medical record or letter. Subjective The patient has the following: ACTIVE PROBLEM LIST Depressive Disorder Former Smoker NSVT (nonsustained ventricular tachycardia) Seizures (Hcc) Rls (Restless Legs Syndrome) Migraine Without Aura and Without Status Migrainosus, Not Intractable Menstrual Irregularity Visual Field Defect of Left Eye Obesity, Class III, BMI >= 40 Gastroesophageal Reflux Disease Obesity, Class I, Bmi 30-34.9 Chronic Pain of Left Knee COVID-19 Immunization Status Postponed - COVID-19 VACCINE (4 - Booster for Moderna series) Postponed until 07/14/2023 07/14/2022 Postponed until 07/14/2023 by Stephy Zazueta LPN (Declined at this time) 06/03/2021 Outside Immunization: COVID-19, mRNA, LNP-S, PF, 100 mcg/0.5mL dose or 50 mcg/0.25mL dose 12/06/2020 Imm Admin: COVID-19 vaccine, full dose (MODERNA) Only the first 3 history entries have been loaded, but more history exists. CHIEF COMPLAINT: Pre-op exam HPI: Migdalia Zurita is a 32 year old seen for PAC due to scheduled above surgery because of medial meniscus tear. 09/21/2022, Parish Duong CHIEF COMPLAINT: New Patient and Knee Pain of the Left Knee Ms. Migdalia Zurita is a 32 year old female who presents with pain and popping in her left knee for the past 6 months. Patient tells me this has been going on for several years but has been getting worse. Pain today is a 4 out of 10 sore, stiffness. She often has to go soak in a warm bath when her knee locks . She is wearing a brace which add support and is somewhat helpful. She tells me that she had a remote left knee injury but cannot recall the exact mechanism. She also gets swelling in unexplained bruising on her knee. REVIEW OF SYSTEMS: General: No weight loss, malaise or fevers. Neurological: +RLS, on rx Positive for: headaches (otc analgesics as needed) and seizures (on rx). Negative for: cerebral palsy, EMR TRAINER tumor, dementia, multiple sclerosis, Parkinson's disease, peripheral neuropathy, TIA and strokes. Respiratory: No history of current cough or dyspnea, or pneumonia in the past 6 weeks. No history of respiratory/pulmonary symptoms or problems. Cardiovascular: Positive for: arrhythmia (NSVT, currently has Zio patch in place, to be removed 11/06/22) Negative for: angina, anticoagulation therapy, atrial fibrillation, CAD, chest pain, CHF, congenital heart defect, DVT/PE, hyperlipidemia, hypertension, recent HI, murmur/valvular heart disease, open heart surgery and valve surgery. GI: +diarrhea, on rx Positive for: GERD (otc rx as needed) and nausea (rx as needed) Negative for: abdominal pain, dysphagia, hepatitis, irritable bowel syndrome, inflammatory bowel disease, liver disease, pancreatitis, vomiting and ETOH >2 drinks/day. : No history of dysuria, frequency or incontinence, stones or chronic kidney disease. No difficulty urinating, nocturia > 1 time per night or hematuria. 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 Endocrine: No history of diabetes. Has not taken steroids within the past 30 days. No history of endocrinological symptoms or problems. Hematology: No history of bleeding or clotting disorder. Patient is not taking anti-coagulation or platelet medications. No history of hematological symptoms or problems. Oncology: No history of CA metastasis, chemo within 30 days, or radiotherapy within 90 days. No history of oncological symptoms or problems. Psych: Positive for: depression. Musculoskeletal: See HPI. Skin: Negative for lesions, rash and itching. PAST MEDICAL HISTORY Diagnosis Date Abnormal Pap smear 10/21/2009 LGSIL Anemia in 12/24/2011 Continue daily folate and Fe Monitor H/H Depressive disorder, not elsewhere classified 09/02/2007 Hx overdose Hypertension Intracranial arachnoid cysts 2008 Migraine 1998 NSVT (nonsustained ventricular tachycardia) 02/05/2012 Patient noncompliance history of AMA/no shows PMH - PAST MEDICAL HISTORY OF LEARNING DISABILITY Pre-syncope 02/04/2012 RLS (restless legs syndrome) Seizure ([facility]) Dr Morocho Seizures ([facility]) PAST SURGICAL HISTORY Procedure Laterality Date COLONOSCOPY FLX DX W/COLLJ SPEC WHEN PFRMD 03/04/2016 Colonoscopy DILATION & CURETTAGE DX&/THER NONOBSTETRIC 04/15/2011 Dilation & curettage ESOPHAGOGASTRODUODENOSCOPY TRANSORAL DIAGNOSTIC 03/04/2016 EGD ESSURE 05/25/2012 Dr Mckenzie Medrano PAST SURGICAL HISTORY OF dental extractions VAGINOSCOPY November 19, 2009 VAGINOSCOPY November 07, 2008 FAMILY HISTORY Problem Relation Age of Onset Heart Mother alive but 3 times and resusitated Seizures Mother Diabetes Mother Seizures Brother Cancer Maternal Grandfather ?TYPE Diabetes Maternal Grandmother Social History Tobacco Use Smoking status: Former Packs/day: 0.75 Years: 13.00 Pack years: 9.75 Types: Cigarettes Start date: 02/20/1999 Quit date: 10/28/2021 Years since quittin.0 Smokeless tobacco: Never Vaping Use Vaping Use: Never used Substance Use Topics Alcohol use: No Drug use: Not Currently Prior to Admission medications as of 11/02/22 1501 Medication Sig Last Dose Taking CREON 36,000-114,000- 180,000 unit delayed release capsule Take by mouth once daily. Taking Yes levETIRAcetam (KEPPRA) 750 mg tablet Take 1 tablet by mouth twice daily. Taking Yes doxylamine succinate (SLEEP AID ORAL) Take 1 tablet by mouth daily at bedtime. Taking Yes Etonogestrel-Ethinyl Estradiol (NUVARING) 0.12-0.015 mg/24 hr vaginal ring Use 1 Each vaginally as directed. INSERT ONE(1) RING VAGINALLY AND LEAVE IN PLACE FOR THREE WEEKS, THEN REMOVE FOR 1 WEEK. Taking Yes hydrocortisone (ANUSOL-HC) 2.5 % rectal cream by RECTAL route twice daily. Taking Yes gabapentin (NEURONTIN) 600 mg tablet Take 1 tablet by mouth every morning AND 2 tablets daily at bedtime. Do all this for 180 days. Do not start before August 14, 2022. Taking Yes ondansetron orally disintegrating (ZOFRAN ODT) 4 mg disintegrating tablet Take 1 tablet by mouth every 8 hours as needed for nausea/vomiting. Taking Yes No medication comments found. ALLERGIES No Known Allergies Objective PHYSICAL EXAM: General: alert and oriented (x3) and healthy appearance. Pertinent negatives noted - not distressed. Skin: normal color, no rash or lesions. HEENT: EOM intact and pupils equal round. Pertinent negatives noted - no carotid bruit. Cardiovascular: regular rate and rhythm, normal S1 and S2, no rub, murmurs, or gallop. Respiratory: normal breath sounds, no wheezes or crackles. No chest wall deformity or tenderness. Abdomen: soft. Pertinent negatives noted - not tender. Extremities: no deformity, no edema or tenderness, no joint swelling or clubbing. Neurological: normal cognition and motor skills. Gait normal. No weakness or sensory deficit. PAIN ASSESSMENT: Pain Pain Level: 5 Pain Location: Knee-Left Description: Radiating Duration Amount of Time: 5 Duration Units: Months Frequency: Intermittent Intervention/Comfort measure: Cold VITALS: BP 128/82 Pulse 80 Temp 99 Resp 16 Ht 5' 4 (1.63m) Wt 169 lb 3.2 oz (76.7kg) SpO2 98% LMP 06/21/2022 BMI 29.03 kg/(m^2). Diagnostic tests reviewed for today's visit: Lab Value Units Date High Low HB 13.6 g/dL 08/24/2022 15.5 11.5 HCT 40.6 % 08/24/2022 46.0 36.0 WBC 3.92 k/uL 08/24/2022 11.00 3.70 PLT 200 k/uL 08/24/2022 400 150 NA 140 mmol/L 08/24/2022 144 136 K 4.1 mmol/L 08/24/2022 5.1 3.7 GLUC 92 mg/dL 08/24/2022 99 74 BUN 10 mg/dL 08/24/2022 21 7 CREAT 0.89 mg/dL 08/24/2022 0.96 0.58 PTSEC No results within date range. INR No results within date range. APTT No results within date range. ALT 9 U/L 08/24/2022 38 7 AST 14 U/L 08/24/2022 35 13 TBILI 0.3 mg/dL 08/24/2022 1.3 0.2 TSH No results within date range. Lab Value Units Date High Low HCGQT No results within date range. UHCG No results within date range. HCG, BODY* No results within date range. Lab Value Units Date High Low ABORHD No results within date range. ABSCREEN No results within date range. No results found for: HBA1C Recent Results (from the past 8760 hour(s)) ECG COMPLETE Collection Time: 10/12/22 1:41 PM Result Value Ventricular Rate 61 Atrial Rate 61 P-R Interval 148 QRS Duration 84 QT Interval 390 QTC Calculation (Bazett) 392 Calculated P [place] 33 Calculated R [place] 51 Calculated T [place] 35 Impression NORMAL SINUS RHYTHM NORMAL ECG Confirmed by MD ALVA, MERYL () on 10/15/2022 4:16:59 PM Recent Results (from the past 22017 hour(s)) ECHO Collection Time: 06/12/21 8:25 AM Impression CONCLUSIONS: - Technically difficult exam due to body habitus. - Exam indication: Chest Pain - The left ventricle is normal in size. Left ventricular systolic function is normal. EF = 62 5% (2D biplane) Normal left ventricular diastolic function. - The right ventricle is normal in size. Right ventricular systolic function is normal. - There are no significant valvular abnormalities. - The patient has not had a prior echocardiographic exam for comparison. * * * Final * * * Assessment Patient has the following medical conditions which may affect aram-operative course: NSVT (nonsustained ventricular tachycardia) Assessment: Zio patch currently in place 10/12/2022 Dr. Calle, [facility] Cardiology HISTORY OF PRESENT ILLNESS: Ms. Zurita is a 32 year old female. The patient returns for follow-up second history of nonsustained ventricular tachycardia with a history of hypertension as well. She recently has had increasing episodes of palpitations lasting minutes occurring a couple times weekly. The plan previously through electrophysiology was to wean off of beta-kate and wait if symptoms were to return. She denies chest comfort, dyspnea portion usual, orthopnea, paroxysmal nocturnal dyspnea, near-syncope or syncope. PLAN AND RECOMMENDATIONS: Patient has return of her palpitations for which we will place a 14-day property assessment monitor. We will review this independently and should there be rhythms of concern, she will need to follow-up with electrophysiology. Dietary and lifestyle modification was otherwise reemphasized to facilitate risk factor reduction. We will look forward to reevaluate her in 3 months time regardless. Seizures (HCC) Assessment: controlled on rx, following [facility] neuro RLS (restless legs syndrome) Assessment: controlled on rx Gastroesophageal reflux disease Assessment: otc rx as needed Migraine without aura and without status migrainosus, not intractable Assessment: otc analgesics as needed Depressive disorder Assessment: not current tx Former smoker Assessment: 0.75ppd/13 years, denies asthma or COPD [place] Activity Status Index: METS: Climb a flight of stairs or walk up a hill (5.50 METs) DASI Score: 5.5 Patient denies any chest pain or undue shortness of breath with the above physical activity. Clinical Frailty Scale: 3. Well, with treated comorbid disease STOP-Bang Score: Denies snoring loudly Denies feeling tired, fatigued, or sleepy during the daytime Has not been observed to stop breathing or choking/gasping during sleep Denies having high blood pressure BMI less than or equal to 35 kg/m^2 Patient 50 years old or younger Does not have a large neck Non-male patient STOP-Bang Score: 0 [id number] Score: Age: <65 Sex: female CHF history: No Hypertension history: No Stroke/TIA/thromboembolism history: No Vascular disease history: No Diabetes history: No [id number] Score: 1 ARISCAT Score: Age: <=50 Preoperative SpO2: >=96% Respiratory infection in the last month: No Preoperative anemia: Yes Surgical incision: peripheral Duration of surgery: <2 hrs Emergency procedure: No ARISCAT Score: 11 ASA Class: 2 ANESTHESIA FINDINGS: Intubation History: No history of difficult intubation Significant Anesthesia Considerations: none Airway History: No history of difficult airway I - PHYSICAL EVALUATION AIRWAY Patient intubated: No. Tracheostomy tube not present Mallampati: II. TM distance: >3 FB. Neck ROM: full ROM without neurological symptoms. Mouth opening: adequate. Short neck: no. Thick neck: no Garcia present: no Lip Bite Test: II Microretrognathia/Micronagthia/R ecessed Chin: No DENTAL Dental findings: teeth intact. II - ANESTHESIA PLAN ASA Score: 2 Anesthetic Plan: other Anesthetic plan additional comments: *PACC/TCI - anesthesia choice. Beta Kate Monitoring Plan Post Procedure Analgesic Plan Informed Consent Anesthetic risks, benefits, alternatives, personnel and consent discussed: yes. Patient / Responsible Democrat agrees to proceed: yes Patient / Surrogate agrees to blood products: blood products not planned Discussed the possibility of lip / dental damage: yes Prepared for Surgery: optimally prepared for surgery. CONSULTS: Patient does not require consults for optimization at this time Planned Anesthetic: other anesthesia choice The Following Tests/Procedures Have Been Initiated: No orders of the defined types were placed in this encounter. Instructions Given to Patient: Instructions located in the after visit summary. Patient given verbal and written preop instructions and voices comprehension and compliance. SIGNATURE: Adilia Contreras APRN.CNP PATIENT NAME: Migdalia Zurita DATE: November 02, 2022 TIME: 3:01 PM PAGER/CONTACT #: documented in this encounter [facility] 11-13-2022 Note HNO ID: [id number] Author: Meryl Calle DO Service: ? Author Type: Physician Type: Procedures Filed: 12/04/2022 8:03 AM Note Text: Patient Name: Migdalia Zurita : 1990 Ordering Provider: MERYL CALLE Indication: I10 Essential (primary) hypertension Type of Monitor: Extended Monitoring-Zio Patch Enrollment Dates: 10/23/2022-11/06/2022 Patient had a min HR of 42 bpm, max HR of 182 bpm, and avg HR of 75 bpm. Predominant underlying rhythm was Sinus Rhythm. Isolated SVEs were rare (<1.0%), and no SVE Couplets or SVE Triplets were present. Isolated VEs were occasional (3.1%, 59559), VE Couplets were rare (<1.0%, 94), and no VE Triplets were present. Ventricular Bigeminy and Trigeminy were present. Conclusion: 1. Average heart rate of 75 bpm with a minimum of 42 bpm, predominant sinus rhythm. 2. Rare PACs and occasional PVCs were present. 3. Symptoms associated with sinus rhythm or sinus tachycardia with PVCs. [facility] 11-13-2022 Note HNO ID: [id number] Author: Altagracia Kaur Service: ? Author Type: ? Type: Progress Notes Filed: 11/13/2022 10:13 AM Note Text: [id number] [facility] 10-29-2022 Note HNO ID: [id number] Author: Justin Mccain MD Service: ? Author Type: Physician Type: Progress Notes Filed: 11/10/2022 6:36 PM Note Text: Justin Mccain MD Department of Orthopaedics Orthopaedics [address] [facility] [address] Dept: [phone] Dept October 29, 2022 CHIEF COMPLAINT: Pre-Op Visit and New of the Left Knee HPI Pt here for L knee meniscus tear, referred by Paulina. Pt had MRI 10/15/22. Pt twisted her knee in 2009, but has progressively worsened in the last few months. Pt would like to discuss surgery. ASSESSMENT: S83.252A Bucket-handle tear of lateral meniscus of left knee as current injury, initial encounter (primary encounter diagnosis) PLAN: Patient has a symptomatic knee with a bucket-handle tear identified on her MRI. Clearly, indications for arthroscopic meniscectomy. The risks, benefits, alternatives and potential complications were discussed. FOLLOW UP INSTRUCTIONS: We will get her scheduled for surgery Ms. Migdalia Zurita was advised as to contrast therapies and/or to take analgesics/anti-inflammatories as needed and all contraindications were reviewed. OBJECTIVE: Ms. Migdalia Zurita is a pleasant 32 year old in no apparent distress. Gen:LMP 06/21/2022 nl development, non obese, no deformities ENT: Normocephalic, normal hearing, moist mucosa CV: Pulses:DP/PT= 2+ and symmetric, capillary refill < 2 secs, no peripheral edema/varicosities Skin: no rash, bruising or lesions. Good turgor. Psych: cooperative and appropriate, alert and oriented x 3, good mood and affect. Musculoskeletal: Patient walks with antalgia, normal station. Hip motion without pain. Knee with mild effusion. Patella tracks normally. There is no patellar crepitance. No pain along the medial or lateral facets. Range of motion 10-110 degrees. No medial positive lateral joint line pain on palpation. Ligamentous exam stable on varus and valgus stress testing at 0 and 30 degrees. Kyler's examination is negative. Posterior drawer is negative. Negative McMurrays, without palpable click. Attempt with a lateral Timi's with pain. Extremity is warm and well perfused. Sensation is grossly intact to light touch, subjectively. IMAGING: IMPRESSION: LATERAL MENISCUS BUCKET-HANDLE TEAR. INTACT LIGAMENTS. Cylinder Press Operator: PSCB Transcribe Date/Time: Oct 15 2022 12:41P Dictated by : WILMER NAVARRETE MD This examination was interpreted and the report reviewed and electronically signed by: MIAH BETTENCOURT MD on Oct 15 2022 2:40PM EST Results-Findings * * *Final Report* * * DATE OF EXAM: Oct 15 2022 12:08PM [facility] 0212 - MRI KNEE WO IVCON LT / PROCEDURE REASON: multiple diagnoses * * * * Physician Interpretation * * * * EXAMINATION: MRI LEFT KNEE WITHOUT CONTRAST CLINICAL HISTORY: Pain and popping in her left knee for the past 6 months. ? TECHNIQUE: Routine non-contrast MRI of the knee MQ: [id number] COMPARISON: Bilateral knee radiographs 11/11/2021 RESULT: MENISCI: Medial Meniscus: Intact. Lateral Meniscus: Bucket handle tear in the anterior horn, body and posterior horn LIGAMENTS: ACL: Intact PCL: Intact MCL: Intact LCL Complex: Intact CARTILAGE: Medial Femoral Condyle: Normal Medial Tibial Plateau: Normal Lateral Femoral Condyle: Normal Lateral Tibial Plateau: Normal Patella: Normal Trochlea: Normal TENDONS: The distal quadriceps and patellar tendons are intact. The popliteus tendon is intact. BONES AND MARROW: No evidence of fracture or bone marrow replacing process. Chronic ununited tibial tuberosity ossicle. MUSCLES: Muscle bulk and signal intensity are normal. JOINT FLUID AND SYNOVIUM: No joint effusion. No synovitis. Moderate Sanchez's cyst. OTHER: No other significant abnormality identified. Localizer images: No additional findings. Supporting Subjective Information Below: Past Medical History: PAST MEDICAL HISTORY Diagnosis Date Abnormal Pap smear 10/21/2009 LGSIL Anemia in 12/24/2011 Continue daily folate and Fe Monitor H/H Depressive disorder, not elsewhere classified 09/02/2007 Hx overdose Hypertension Intracranial arachnoid cysts 2008 Migraine 1998 NSVT (nonsustained ventricular tachycardia) 02/05/2012 Patient noncompliance history of AMA/no shows PMH - PAST MEDICAL HISTORY OF LEARNING DISABILITY Pre-syncope 02/04/2012 RLS (restless legs syndrome) Seizure (HCC) Dr Morocho Seizures (HCC) Past Surgical History: PAST SURGICAL HISTORY Procedure Laterality Date COLONOSCOPY FLX DX W/COLLJ SPEC WHEN PFRMD 03/04/2016 Colonoscopy DILATION AND CURETTAGE DXAND/THER NONOBSTETRIC 04/15/2011 Dilation AND curettage ESOPHAGOGASTRODUODENOSCOPY TRANSORAL DIAGNOSTIC 03/04/2016 EGD ESSURE 05/25/2012 Dr Mckenzie Medrano PAST SURGICAL HISTORY OF dental extractions VAGINOSCOPY November 19, 2009 VAGINOSCOPY November 07, 2008 Family History: FAMILY HISTORY (more content not included)... [facility] 10-26-2022 Miscellaneous Notes Notified by STEVEN Diehl, in need of Zio order. 10/12/22-1st Zio-malfunctions 10/16/22- Zio -ordered and mailed to pt-lost? 10/23/22- Zio -Nurse visit to place monitor documented in this encounter [facility] 10-23-2022 Nurse Note Patient came in for replacement ZIO. Patient was not able to placed previously ZIO on properly, so a new one was applied today in office. EVENT MONITOR DISPOSABLE PATCH INSTRUCTIONS Patient Name: Migdalia Zurita [facility] Number: [id number] Skin prepped and cleansed with alcohol Patch secured to prepped area Monitor Activated Serial #: [id number] Patient Instructed: Prescribed order timeframe Bathing guidelines Usage of event button and diary documentation Return of monitor at the end of prescribed order Call with problems [phone] or [phone]. [phone] Patient expresses a good understanding of instructions Charu Garcia MA documented in this encounter [facility] 10-19-2022 Miscellaneous Notes Patient has been scheduled Patient messaging asking about what next steps are based on MRI results. Maribel Goldstein MA October 16, 2022 11:36 AM documented in this encounter [facility] 10-16-2022 Miscellaneous Notes Patient is scheduled Patient called back to schedule. Patient states she does not know what is a good day to schedule since she lives in [place]. Advised to call [place] to see if they can do it there and said she didn't care . States that she will call back when she knows First attempt; left voicemail for patient to call back and schedule appointment Order placed Dona Mitchell APRN.DEREK Pended a replacement order for Zio Called PT she states the adhesive would not stick at all said the light started blinking green, but now blinks red. It has no recording time. Patient called stating that she thinks her Zio was defective and did not start. please advise documented in this encounter [facility] 10-15-2022 Note HNO ID: [id number] Author: RT Vu(Cristian) Service: ? Author Type: Technologist Type: Progress Notes Filed: 10/15/2022 11:54 AM Note Text: Radiology Service Progress Note PATIENT NAME: Migdalia Zurita DATE OF SERVICE: October 15, 2022 TIME: 11:53 AM PATIENT IDENTITY VERIFICATION COMPLETED USING TWO (2) IDENTIFIERS: Name and Date of confirmed by patient verbally. FALL SCREENING: Has the patient had 2 falls in the last year or 1 fall with injury or currently using an Ambulatory Assistive Device (Walker, Cane, Wheelchair, Crutches, etc.)? No PATIENT GENDER DATA: Female. status: : No status: NO. PATIENT RELEVANT IMPLANT DATA REVIEWED: Yes RADIOLOGY DEPARTMENT: MR; Exam(s) Completed: Lower MSK: Knee, left PERIPHERAL IV DATA: Not applicable SIGNED BY: RT Vu(R) October 15, 2022 11:53 AM [facility] 10-12-2022 Note HNO ID: [id number] Author: Meryl Calle, Service: ? Author Type: Physician Type: Progress Notes Filed: 10/12/2022 2:41 PM Note Text: [facility] OUTPATIENT VISIT DATE October 12, 2022 PRIMARY CARE PHYSICIAN: Misha Cespedes [address] [id number] HISTORY OF PRESENT ILLNESS: Ms. Zurita is a 32 year old female. The patient returns for follow-up second history of nonsustained ventricular tachycardia with a history of hypertension as well. She recently has had increasing episodes of palpitations lasting minutes occurring a couple times weekly. The plan previously through electrophysiology was to wean off of beta-kate and wait if symptoms were to return. She denies chest comfort, dyspnea portion usual, orthopnea, paroxysmal nocturnal dyspnea, near-syncope or syncope. PLAN AND RECOMMENDATIONS: Patient has return of her palpitations for which we will place a 14-day property assessment monitor. We will review this independently and should there be rhythms of concern, she will need to follow-up with electrophysiology. Dietary and lifestyle modification was otherwise reemphasized to facilitate risk factor reduction. We will look forward to reevaluate her in 3 months time regardless. Vitals: BP 100/58 Pulse 61 Ht 157.5 cm (5' 2 ) Wt 77.1 kg (170 lb) LMP 06/21/2022 (Approximate) SpO2 100% BMI 31.09 kg/m? Physical Exam Vitals reviewed. Constitutional: General: She is not in acute distress. Appearance: Normal appearance. She is well-developed. HENT: Head: Normocephalic and atraumatic. Nose: Nose normal. Eyes: General: No scleral icterus. Right eye: No discharge. Left eye: No discharge. Pupils: Pupils are equal, round, and reactive to light. Neck: Thyroid: No thyromegaly. Vascular: No carotid bruit or JVD. Cardiovascular: Rate and Rhythm: Normal rate and regular rhythm. Heart sounds: Normal heart sounds. No murmur heard. No friction rub. No gallop. Pulmonary: Effort: Pulmonary effort is normal. No respiratory distress. Breath sounds: Normal breath sounds. No wheezing or rales. Abdominal: General: Bowel sounds are normal. Palpations: Abdomen is soft. Musculoskeletal: General: Normal range of motion. Cervical back: Normal range of motion and neck supple. Skin: General: Skin is warm and dry. Capillary Refill: Capillary refill takes less than 2 seconds. Coloration: Skin is not pale. Neurological: Mental Status: She is alert and oriented to person, place, and time. Cranial Nerves: No cranial nerve deficit. Psychiatric: Behavior: Behavior normal. Thought Content: Thought content normal. Judgment: Judgment normal. Review of Systems Constitutional: Negative for activity change and fatigue. HENT: Negative for ear pain and facial swelling. Eyes: Negative for pain and discharge. Respiratory: Negative for chest tightness and shortness of breath. Cardiovascular: Negative for chest pain, palpitations and leg swelling. Gastrointestinal: Negative for abdominal pain, blood in stool, nausea and vomiting. Endocrine: Negative for cold intolerance and heat intolerance. Genitourinary: Negative for frequency and hematuria. Musculoskeletal: Negative for arthralgias and gait problem. Skin: Negative for color change, pallor and rash. Allergic/Immunologic: Negative for immunocompromised state. Neurological: Negative for dizziness, syncope, light-headedness and headaches. Hematological: Negative for adenopathy. Does not bruise/bleed easily. Psychiatric/Behavioral: Negative for confusion. The patient is not nervous/anxious. PAST MEDICAL HISTORY Diagnosis Date Abnormal Pap smear 10/21/2009 LGSIL Anemia in 12/24/2011 Continue daily folate and Fe Monitor H/H Depressive disorder, not elsewhere classified 09/02/2007 Hx overdose Hypertension Intracranial arachnoid cysts 2008 Migraine 1998 NSVT (nonsustained ventricular tachycardia) 02/05/2012 Patient noncompliance history of AMA/no shows PMH - PAST MEDICAL HISTORY OF LEARNING DISABILITY Pre-syncope 02/04/2012 RLS (restless legs syndrome) Seizure ([facility]) Dr Morocho Seizures (HCC) PAST SURGICAL HISTORY Procedure Laterality Date COLONOSCOPY FLX DX W/COLLJ SPEC WHEN PFRMD 03/04/2016 Colonoscopy DILATION AND CURETTAGE DXAND/THER NONOBSTETRIC 04/15/2011 Dilation AND curettage ESOPHAGOGASTRODUODENOSCOPY TRANSORAL DIAGNOSTIC 03/04/2016 EGD ESSURE 05/25/2012 Dr Mckenzie Medrano PAST SURGICAL HISTORY OF dental extractions VAGINOSCOPY November 19, 2009 VAGINOSCOPY November 07, 2008 Social History Tobacco Use Smoking status: Former Packs/day: 0.75 Years: 13.00 Pack years: 9.75 Types: Cigarettes Start date: 02/20/1999 Quit date: 10/28/2021 Years since quittin.9 Smokeless tobacco: Never Vaping Use Vaping Use: Never used (more content not included)... [facility] 10-12-2022 Nurse Note EVENT MONITOR DISPOSABLE PATCH INSTRUCTIONS Patient Name: Migdalia Zurita [facility] Number: [id number] Serial #: [id number] Patient Instructed: Prescribed order timeframe Bathing guidelines Usage of event button and diary documentation Return of monitor at the end of prescribed order Call with problems [phone] or [phone]. [phone] Patient expresses a good understanding of instructions Laly Ramirez MA Pt to place monitor after MRI on 10/15/22. documented in this encounter [facility] 10-12-2022 History of Presen t illness Narrative Images from the original note were not included. [facility] OUTPATIENT VISIT DATE October 12, 2022 PRIMARY CARE PHYSICIAN: Misha Cespedes [address] [place] [address] HISTORY OF PRESENT ILLNESS: Ms. Zurita is a 32 year old female. The patient returns for follow-up second history of nonsustained ventricular tachycardia with a history of hypertension as well. She recently has had increasing episodes of palpitations lasting minutes occurring a couple times weekly. The plan previously through electrophysiology was to wean off of beta-kate and wait if symptoms were to return. She denies chest comfort, dyspnea portion usual, orthopnea, paroxysmal nocturnal dyspnea, near-syncope or syncope. PLAN AND RECOMMENDATIONS: Patient has return of her palpitations for which we will place a 14-day property assessment monitor. We will review this independently and should there be rhythms of concern, she will need to follow-up with electrophysiology. Dietary and lifestyle modification was otherwise reemphasized to facilitate risk factor reduction. We will look forward to reevaluate her in 3 months time regardless. Vitals: BP 100/58 Pulse 61 Ht 157.5 cm (5' 2 ) Wt 77.1 kg (170 lb) LMP 06/21/2022 (Approximate) SpO2 100% BMI 31.09 kg/m Physical Exam Vitals reviewed. Constitutional: General: She is not in acute distress. Appearance: Normal appearance. She is well-developed. HENT: Head: Normocephalic and atraumatic. Nose: Nose normal. Eyes: General: No scleral icterus. Right eye: No discharge. Left eye: No discharge. Pupils: Pupils are equal, round, and reactive to light. Neck: Thyroid: No thyromegaly. Vascular: No carotid bruit or JVD. Cardiovascular: Rate and Rhythm: Normal rate and regular rhythm. Heart sounds: Normal heart sounds. No murmur heard. No friction rub. No gallop. Pulmonary: Effort: Pulmonary effort is normal. No respiratory distress. Breath sounds: Normal breath sounds. No wheezing or rales. Abdominal: General: Bowel sounds are normal. Palpations: Abdomen is soft. Musculoskeletal: General: Normal range of motion. Cervical back: Normal range of motion and neck supple. Skin: General: Skin is warm and dry. Capillary Refill: Capillary refill takes less than 2 seconds. Coloration: Skin is not pale. Neurological: Mental Status: She is alert and oriented to person, place, and time. Cranial Nerves: No cranial nerve deficit. Psychiatric: Behavior: Behavior normal. Thought Content: Thought content normal. Judgment: Judgment normal. Review of Systems Constitutional: Negative for activity change and fatigue. HENT: Negative for ear pain and facial swelling. Eyes: Negative for pain and discharge. Respiratory: Negative for chest tightness and shortness of breath. Cardiovascular: Negative for chest pain, palpitations and leg swelling. Gastrointestinal: Negative for abdominal pain, blood in stool, nausea and vomiting. Endocrine: Negative for cold intolerance and heat intolerance. Genitourinary: Negative for frequency and hematuria. Musculoskeletal: Negative for arthralgias and gait problem. Skin: Negative for color change, pallor and rash. Allergic/Immunologic: Negative for immunocompromised state. Neurological: Negative for dizziness, syncope, light-headedness and headaches. Hematological: Negative for adenopathy. Does not bruise/bleed easily. Psychiatric/Behavioral: Negative for confusion. The patient is not nervous/anxious. PAST MEDICAL HISTORY Diagnosis Date Abnormal Pap smear 10/21/2009 LGSIL Anemia in 12/24/2011 Continue daily folate and Fe Monitor H/H Depressive disorder, not elsewhere classified 09/02/2007 Hx overdose Hypertension Intracranial arachnoid cysts 2008 Migraine 1998 NSVT (nonsustained ventricular tachycardia) 02/05/2012 Patient noncompliance history of AMA/no shows PMH - PAST MEDICAL HISTORY OF LEARNING DISABILITY Pre-syncope 02/04/2012 RLS (restless legs syndrome) Seizure ([facility]) Dr Morocho Seizures ([facility]) PAST SURGICAL HISTORY Procedure Laterality Date COLONOSCOPY FLX DX W/COLLJ SPEC WHEN PFRMD 03/04/2016 Colonoscopy DILATION & CURETTAGE DX&/THER NONOBSTETRIC 04/15/2011 Dilation & curettage ESOPHAGOGASTRODUODENOSCOPY TRANSORAL DIAGNOSTIC 03/04/2016 EGD ESSURE 05/25/2012 Dr Mckenzie Medrano PAST SURGICAL HISTORY OF dental extractions VAGINOSCOPY November 19, 2009 VAGINOSCOPY November 07, 2008 Social History Tobacco Use Smoking status: Former Packs/day: 0.75 Years: 13.00 Pack years: 9.75 Types: Cigarettes Start date: 02/20/1999 Quit date: 10/28/2021 Years since quittin.9 Smokeless tobacco: Never Vaping Use Vaping Use: Never used Substance Use Topics Alcohol use: No Drug use: Never FAMILY HISTORY Problem Relation Age of Onset Heart Mother alive but 3 times and resusitated Seizures Mother Diabetes Mother Seizures Brother Cancer Maternal Grandfather ?TYPE Diabetes Maternal Grandmother ALLERGIES No Known Allergies CURRENT MEDICATIONS: CREON 36,000-114,000- 180,000 unit delayed release capsule Take by mouth once daily. levETIRAcetam (KEPPRA) 750 mg tablet Take 1 tablet by mouth twice daily. doxylamine succinate (SLEEP AID ORAL) Take 1 tablet by mouth daily at bedtime. Etonogestrel-Ethinyl Estradiol (NUVARING) 0.12-0.015 mg/24 hr vaginal ring Use 1 Each vaginally as directed. INSERT ONE(1) RING VAGINALLY AND LEAVE IN PLACE FOR THREE WEEKS, THEN REMOVE FOR 1 WEEK. hydrocortisone (ANUSOL-HC) 2.5 % rectal cream by RECTAL route twice daily. gabapentin (NEURONTIN) 600 mg tablet Take 1 tablet by mouth every morning AND 2 tablets daily at bedtime. Do all this for 180 days. Do not start before August 14, 2022. ondansetron orally disintegrating (ZOFRAN ODT) 4 mg disintegrating tablet Take 1 tablet by mouth every 8 hours as needed for nausea/vomiting. venlafaxine ER (EFFEXOR XR) 150 mg 24 hr capsule Take 1 capsule by mouth once daily. ECG: NSR Meryl Calle DO, FACC, FACOI Clinical and Preventive Cardiology Department of Medicine and Division of Cardiology, [facility] Soaping Department Supervisorwrist liner [facility] Soaping Department Supervisor of Congestive Heart Failure Clinic [facility] Cardiology Office Soaping Department Supervisor [facility] Staff Mold Mover, Myah Greene Department of Cardiovascular Medicine/Heart and Vascular [place], [facility] Clinical Bulk Sugar Handler Profressor of Medicine, [facility] Please note: This note has been produced using speech recognition software and may contain errors related to that system including bird, punctuation, spelling, words, gender and phrases that may be inappropriate. documented in this encounter [facility] 09-21-2022 Note HNO ID: [id number] Author: Paulina Duong PA-C Service: ? Author Type: Physician Bulk Sugar Handler Type: Progress Notes Filed: 09/21/2022 2:25 PM Note Text: Paulina Duong PA-C Department of Orthopaedics Orthopaedics [address] [place] [address] Dept: [phone] Dept September 21, [address] Misha Cespedes for an opinion regarding left knee pain. My final recommendations will be communicated back to the requesting physician by way of shared Medical record or letter to requesting physician via US mail. CHIEF COMPLAINT: New Patient and Knee Pain of the Left Knee Ms. Migdalia Zurita is a 32 year old female who presents with pain and popping in her left knee for the past 6 months. Patient tells me this has been going on for several years but has been getting worse. Pain today is a 4 out of 10 sore, stiffness. She often has to go soak in a warm bath when her knee locks . She is wearing a brace which add support and is somewhat helpful. She tells me that she had a remote left knee injury but cannot recall the exact mechanism. She also gets swelling in unexplained bruising on her knee. ASSESSMENT: S82.153A Avulsion fracture of tibial tuberosity (primary encounter diagnosis) M25.562, G89.29 Chronic pain of left knee M23.42 Loose body in knee, left knee PLAN: She certainly has quite a bit of fullness over the tibial tuberosity and a bony fragment in the patellar tendon. Upon exam she did have a palpable loose body over the patellar tendon area, on further exam loose body appears to have moved and is no longer palpable. Loose body is not appreciated on recent knee x-rays, only the tibial fragment. At this point I would like to get an MRI for further evaluation. Ms. Migdalia Zurita was advised as to contrast therapies and/or to take analgesics/anti-inflammatories as needed and all contraindications were reviewed. OBJECTIVE: Ms. Migdalia Zurita is a pleasant 32 year old in no apparent distress. Gen:LMP 06/21/2022 nl development, obese, no deformities ENT: Normocephalic, normal hearing, moist mucosa CV: Pulses:DP/PT= 2+ and symmetric, capillary refill < 2 secs, no peripheral edema/varicosities Skin: no rash, bruising or lesions. Good turgor. Psych: cooperative and appropriate, alert and oriented x 3, good mood and affect. Musculoskeletal: KNEE EXAM: Left: Alignment: Neutral Range of motion is 0 degrees in extension and 130 degrees of flexion. Extension La degrees Pain with ROM: No Effusion: fullness over tibial tuberosity Tender to the palpation over the tibial tuberosity, loose body appreciated at the start of exam, no longer palpable later on exam. Pain with patellar compression: yes Stability: Anterior/Posterior stable and Varus/Valgus stable Hip Exam: flexion to 100+ degrees, full extension, internal/external rotation adequate and no pain with log roll Neurovascular Status: Sensation Intact and Moves foot and ankle up AND down Imaging: IMPRESSION: Negative. Cylinder Press Operator: ROSE Transcribe Date/Time: Nov 11 2021 10:23A Dictated by : MACIE COLEMAN MD This examination was interpreted and the report reviewed and electronically signed by: MACIE COLEMAN MD on Nov 11 2021 10:24AM EST Results-Findings * * *Final Report* * * DATE OF EXAM: Nov 11 2021 10:20AM WOX [id number] - XR KNEE 4V AP/PA/LAT/MERCH JEANINE / PROCEDURE REASON: multiple diagnoses * * * * Physician Interpretation * * * * PROCEDURE: Bilateral knees INDICATION: Bilateral chronic knee pain .Chronic diffuse bilateral knee pain since she was a teenager. Left knee is worse than the right. TECHNIQUE: XR KNEE 4V AP/PA/LAT/MERCH JEANINE COMPARISON: None FINDINGS: No fractures or dislocations are seen. No significant joint effusion or joint body is evident. The joint spaces are maintained without evidence for significant degenerative or arthritic change. Chronic fragmentation of the left tibial tuberosity. Supporting Subjective Information Below: Past Surgical History: PAST SURGICAL HISTORY Procedure Laterality Date COLONOSCOPY FLX DX W/COLLJ SPEC WHEN PFRMD 03/04/2016 Colonoscopy DILATION AND CURETTAGE DXAND/THER NONOBSTETRIC 04/15/2011 Dilation AND curettage ESOPHAGOGASTRODUODENOSCOPY TRANSORAL DIAGNOSTIC 03/04/2016 EGD ESSURE 05/25/2012 Dr Mckenzie Medrano PAST SURGICAL HISTORY OF dental extractions VAGINOSCOPY November 19, 2009 VAGINOSCOPY November 07, 2008 Medications: Current Outpatient Medications Medication Sig levETIRAcetam (KEPPRA) 750 mg tablet Take 1 tablet by mouth twice daily. doxylamine succinate (SLEEP AID ORAL) Take 1 tablet by mouth daily at bedtime. Etonogestrel-Ethinyl Estradiol (NUVARING) 0.12-0.015 mg/24 hr vaginal ring Use 1 Each vaginally as directed. INSERT ONE(1) RING VAGINALLY AND LEAVE IN PLACE FOR THREE WEEKS, THEN REMOVE FOR 1 WEEK. hydrocortisone (ANUSOL-HC) 2.5 (more content not included)... [facility] 09-21-2022 Note HNO ID: [id number] Author: Paradise Muse RN Service: ? Author Type: ? Type: Progress Notes Filed: 09/21/2022 2:25 PM Note Text: AMB ROOMING INTAKE FLOWSHEET DATA Pain Pain Level: 4 Pain Location: Knee-Left Description: Sore, Stiffness Duration Units: Hours Intervention/Comfort measure: Medication Patient presents with: Left Knee - New Patient, Knee Pain Patient referred by Dr. Cespedes for L knee pain. Painful for the past 6 months. States knee will pop out of place with activity. Reports pain when this happens and an audible pop. Ongoing for several years but worse within the past 6 months. No recent injury. XR on 11/11/21. [facility] 09-21-2022 History of Presen t illness Narrative Paulina Duong PA-C Department of Orthopaedics Orthopaedics [address] [facility] [address] Dept: [phone] Dept September 21, [address] Misha Cespedes for an opinion regarding left knee pain. My final recommendations will be communicated back to the requesting physician by way of shared Medical record or letter to requesting physician via US mail. CHIEF COMPLAINT: New Patient and Knee Pain of the Left Knee Ms. Migdalia Zurita is a 32 year old female who presents with pain and popping in her left knee for the past 6 months. Patient tells me this has been going on for several years but has been getting worse. Pain today is a 4 out of 10 sore, stiffness. She often has to go soak in a warm bath when her knee locks . She is wearing a brace which add support and is somewhat helpful. She tells me that she had a remote left knee injury but cannot recall the exact mechanism. She also gets swelling in unexplained bruising on her knee. ASSESSMENT: S82.153A Avulsion fracture of tibial tuberosity (primary encounter diagnosis) M25.562, G89.29 Chronic pain of left knee M23.42 Loose body in knee, left knee PLAN: She certainly has quite a bit of fullness over the tibial tuberosity and a bony fragment in the patellar tendon. Upon exam she did have a palpable loose body over the patellar tendon area, on further exam loose body appears to have moved and is no longer palpable. Loose body is not appreciated on recent knee x-rays, only the tibial fragment. At this point I would like to get an MRI for further evaluation. Ms. Migdalia Zurita was advised as to contrast therapies and/or to take analgesics/anti-inflammatories as needed and all contraindications were reviewed. OBJECTIVE: Ms. Migdalia Zurita is a pleasant 32 year old in no apparent distress. Gen:LMP 06/21/2022 nl development, obese, no deformities ENT: Normocephalic, normal hearing, moist mucosa CV: Pulses:DP/PT= 2+ and symmetric, capillary refill < 2 secs, no peripheral edema/varicosities Skin: no rash, bruising or lesions. Good turgor. Psych: cooperative and appropriate, alert and oriented x 3, good mood and affect. Musculoskeletal: KNEE EXAM: Left: Alignment: Neutral Range of motion is 0 degrees in extension and 130 degrees of flexion. Extension La degrees Pain with ROM: No Effusion: fullness over tibial tuberosity Tender to the palpation over the tibial tuberosity, loose body appreciated at the start of exam, no longer palpable later on exam. Pain with patellar compression: yes Stability: Anterior/Posterior stable and Varus/Valgus stable Hip Exam: flexion to 100+ degrees, full extension, internal/external rotation adequate and no pain with log roll Neurovascular Status: Sensation Intact and Moves foot and ankle up & down Imaging: IMPRESSION: Negative. Cylinder Press Operator: ROSE Transcribe Date/Time: Nov 11 2021 10:23A Dictated by : MACIE COLEMAN MD This examination was interpreted and the report reviewed and electronically signed by: MACIE COLEMAN MD on Nov 11 2021 10:24AM EST Results-Findings * * *Final Report* * * DATE OF EXAM: Nov 11 2021 10:20AM WOX [id number] - XR KNEE 4V AP/PA/LAT/MERCH JEANINE / PROCEDURE REASON: multiple diagnoses * * * * Physician Interpretation * * * * PROCEDURE: Bilateral knees INDICATION: Bilateral chronic knee pain .Chronic diffuse bilateral knee pain since she was a teenager. Left knee is worse than the right. TECHNIQUE: XR KNEE 4V AP/PA/LAT/MERCH JEANINE COMPARISON: None FINDINGS: No fractures or dislocations are seen. No significant joint effusion or joint body is evident. The joint spaces are maintained without evidence for significant degenerative or arthritic change. Chronic fragmentation of the left tibial tuberosity. Supporting Subjective Information Below: Past Surgical History: PAST SURGICAL HISTORY Procedure Laterality Date COLONOSCOPY FLX DX W/COLLJ SPEC WHEN PFRMD 03/04/2016 Colonoscopy DILATION & CURETTAGE DX&/THER NONOBSTETRIC 04/15/2011 Dilation & curettage ESOPHAGOGASTRODUODENOSCOPY TRANSORAL DIAGNOSTIC 03/04/2016 EGD ESSURE 05/25/2012 Dr Mckenzie Medrano PAST SURGICAL HISTORY OF dental extractions VAGINOSCOPY November 19, 2009 VAGINOSCOPY November 07, 2008 Medications: Current Outpatient Medications Medication Sig levETIRAcetam (KEPPRA) 750 mg tablet Take 1 tablet by mouth twice daily. doxylamine succinate (SLEEP AID ORAL) Take 1 tablet by mouth daily at bedtime. Etonogestrel-Ethinyl Estradiol (NUVARING) 0.12-0.015 mg/24 hr vaginal ring Use 1 Each vaginally as directed. INSERT ONE(1) RING VAGINALLY AND LEAVE IN PLACE FOR THREE WEEKS, THEN REMOVE FOR 1 WEEK. hydrocortisone (ANUSOL-HC) 2.5 % rectal cream by RECTAL route twice daily. gabapentin (NEURONTIN) 600 mg tablet Take 1 tablet by mouth every morning AND 2 tablets daily at bedtime. Do all this for 180 days. Do not start before August 14, 2022. venlafaxine ER (EFFEXOR XR) 150 mg 24 hr capsule Take 1 capsule by mouth once daily. ondansetron orally disintegrating (ZOFRAN ODT) 4 mg disintegrating tablet Take 1 tablet by mouth every 8 hours as needed for nausea/vomiting. No current facility-administered medications for this visit. Allergies: Patient has no known allergies. ROS: General (negative for fatigue, malaise, weight loss/gain) HEENT (negative for headache, earache, recent vision changes, sinus pain, sore throat) Respiratory (no recent shortness of breath, hemoptysis) CV (negative for chest tightness, palpitations) Musculoskeletal (see HPI) Psych (no depression, anxiety) This note was partially generated using [employer]bee voice recognition system, and there may be some incorrect words, spellings, and punctuation that were not noted in checking the note before saving. Paulina Duong PA-C AMB ROOMING INTAKE FLOWSHEET DATA Pain Pain Level: 4 Pain Location: Knee-Left Description: Sore, Stiffness Duration Units: Hours Intervention/Comfort measure: Medication Patient presents with: Left Knee - New Patient, Knee Pain Patient referred by Dr. Cespedes for L knee pain. Painful for the past 6 months. States knee will pop out of place with activity. Reports pain when this happens and an audible pop. Ongoing for several years but worse within the past 6 months. No recent injury. XR on 11/11/21. documented in this encounter [facility] 09-09-2022 Miscellaneous Notes Please see similar My Chart message from 09/07, closing this one Carola Blandon APRN.CNP documented in this encounter [facility] 08-28-2022 Note HNO ID: [id number] Author: Rogelio Vazquez RN Service: ? Author Type: Registered Nurse Type: Progress Notes Filed: 08/28/2022 3:40 PM Note Text: TRANSITIONAL CARE MANAGEMENT (TCM) COMMUNITY MONITORING PROGRAM Provider Action/FYI: 2nd attempt Called patient, no answer. Message was left on VM- encouraged to scheduled PCP follow up appt Transitions of Care Critical Issues: SPECIALIST FOLLOW-UP: Dr. Waqar GRADY SCHEDULED: [facility] 3 day EEG SUMMARY: Pt discharged from [facility] on 08/27/2022. Admitted for : Continuous EEG Contact made with patient: No - 2nd unsuccessful attempt - end outreach and close encounter Outreach ended [facility] 08-28-2022 History of Presen t illness Narrative TRANSITIONAL CARE MANAGEMENT ([facility]) COMMUNITY MONITORING PROGRAM Provider Action/FYI: 2nd attempt Called patient, no answer. Message was left on VM- encouraged to scheduled PCP follow up appt Transitions of Care Critical Issues: SPECIALIST FOLLOW-UP: Dr. Waqar GRADY SCHEDULED: [facility] 3 day EEG SUMMARY: Pt discharged from [facility] on 08/27/2022. Admitted for : Continuous EEG Contact made with patient: No - 2nd unsuccessful attempt - end outreach and close encounter Outreach ended TRANSITIONAL CARE MANAGEMENT ([facility]) COMMUNITY MONITORING PROGRAM Provider Action/FYI: Called patient, no answer. Message was left on VM informing I will try reaching out again later today or tomorrow. CB# provided. Black outs? Questions regarding effexor - needs to follow up with PCP Transitions of Care Critical Issues: SPECIALIST FOLLOW-UP: Dr. Zavaleta PROCEDURES SCHEDULED: [facility] 3 day EEG SUMMARY: Pt discharged from [facility] on 08/27/2022. Admitted for : Continuous EEG Contact made with patient: No - next outreach attempt will be on next day Outreach ended TCM Home Visit Referral Source of Stratification: [facility] Hospital Admission Status: Discharged Readmission Risk Score: 8 BRENDA Score: 2 Patient meets program referral criteria: No documented in this encounter [facility] 08-28-2022 Note Patient Outreach ([facility]) MIGDALIA ZURITA ([id number]) 1990 F Date Time Provider Department 08/28/22 ROGELIO VAZQUEZ During your visit today, we recorded the following information about you: Rogelio Vazquez RN 08/28/2022 11:35 AM Signed TRANSITIONAL CARE MANAGEMENT ([facility]) COMMUNITY MONITORING PROGRAM Provider Action/FYI: Called patient, no answer. Message was left on VM informing I will try reaching out again later today or tomorrow. CB# provided. Black outs? Questions regarding effexor - needs to follow up with PCP Transitions of Care Critical Issues: SPECIALIST FOLLOW-UP: Dr. Zavaleta PROCEDURES SCHEDULED: [facility] home 3 day EEG SUMMARY: Pt discharged from [facility] on 08/27/2022. Admitted for : Continuous EEG Contact made with patient: No - next outreach attempt will be on next business day Outreach ended TCM Home Visit Referral Source of Stratification: [facility] Admission Status: Discharged Readmission Risk Score: 8 BRENDA Score: 2 Patient meets program referral criteria: No Rogelio Vazquez RN 08/28/2022 3:40 PM Signed TRANSITIONAL CARE MANAGEMENT ([facility]) COMMUNITY MONITORING PROGRAM Provider Action/FYI: 2nd attempt Called patient, no answer. Message was left on VM- encouraged to scheduled PCP follow up appt Transitions of Care Critical Issues: SPECIALIST FOLLOW-UP: Dr. Zavaleta PROCEDURES SCHEDULED: [facility] home 3 day EEG SUMMARY: Pt discharged from [facility] on 08/27/2022. Admitted for : Continuous EEG Contact made with patient: No - 2nd unsuccessful attempt - end outreach and close encounter Outreach ended Allergies As of Date: 08/28/2022 (No Known Allergies) Date Reviewed: 08/27/2022 Reviewed by: Chris Crowder RN - Fully Assessed Reason for Visit: Transition Of Care [6774] Cmt: Hospital Discharge 08/27/2022 Prescriptions as of 08/28/2022 - levETIRAcetam (KEPPRA) 750 mg tablet Take 1 tablet by mouth twice daily. - doxylamine succinate (SLEEP AID ORAL) Take 1 tablet by mouth daily at bedtime. - Etonogestrel-Ethinyl Estradiol (NUVARING) 0.12-0.015 mg/24 hr vaginal ring Use 1 Each vaginally as directed. INSERT ONE(1) RING VAGINALLY AND LEAVE IN PLACE FOR THREE WEEKS, THEN REMOVE FOR 1 WEEK. - hydrocortisone (ANUSOL-HC) 2.5 % rectal cream by RECTAL route twice daily. - gabapentin (NEURONTIN) 600 mg tablet Take 1 tablet by mouth every morning AND 2 tablets daily at bedtime. Do all this for 180 days. Do not start before August 14, 2022. - venlafaxine ER (EFFEXOR XR) 150 mg 24 hr capsule Take 1 capsule by mouth once daily. - ondansetron orally disintegrating (ZOFRAN ODT) 4 mg disintegrating tablet Take 1 tablet by mouth every 8 hours as needed for nausea/vomiting. Problem List As Of Date 08/28/2022 Noted Resolved SUPERVIS NORMAL 1ST PREG [Z34.00] 08/13/2006 02/16/2007 Supervision of other high-risk [O09.8*07/29/2007 04/08/2010 Chlamydia trachomatis infection of lower genito*09/02/2007 04/08/2010 Poor grth-antepart [O36.5990] 09/02/2007 04/08/2010 Depressive disorder [F32.A] 09/02/2007 Trichomonal vulvovaginitis [A59.01] 11/09/2007 04/08/2010 Anemia, antepartum [O99.019] 02/18/2009 04/08/2010 Complete spontaneous without mention o*05/16/2010 11/27/2010 Unspecified symptom associated with female flori*05/16/2010 10/22/2011 Backache, unspecified [M54.9] 07/29/2010 08/14/2015 SUPRF HIGH RISK NEC [V23.89] [O09.899]09/17/2011 07/14/2013 Quit smoking [Z87.891] 12/21/2011 08/14/2015 Anemia in [O99.019] 12/24/2011 09/03/2015 Pre-syncope [R55] 02/04/2012 08/14/2015 Pre-syncope [R55] 02/04/2012 02/05/2012 NSVT (nonsustained ventricular tachycardia) [I4*02/05/2012 SUMMARY [V999.95] 02/05/2012 08/14/2015 Patient noncompliance [Z91.199] 08/28/2021 Seizures (HCC) [R56.9] RLS (restless legs syndrome) [G25.81] Mastodynia, female [N64.4] 09/25/2015 08/28/2021 Moderate persistent asthma with acute exacerbat*02/28/2016 12/16/2017 Migraine without aura and without status migrai*04/16/2018 Menstrual irregularity [N92.6] 09/09/2018 Dysuria [R30.0] 09/09/2018 08/28/2021 Obesity, Class II, BMI 35-39.9 [E66.9] 09/09/2018 08/28/2021 Visual field defect of left eye [H53.40] 12/26/2018 Acute pain of left knee [M25.562] 12/15/2019 08/29/2020 Acute pain of right knee [M25.561] 12/15/2019 08/29/2020 Obesity, Class III, BMI >= 40 [E66.01] 08/29/2020 Gastroesophageal reflux disease [K21.9] 09/27/2020 Obesity, Class I, BMI 30-34.9 [E66.9] 07/14/2022 Chronic pain of left knee [M25.562, G89.29] 07/14/2022 Seizure (HCC) [R56.9] 08/26/2022 08/27/2022 Encounter Status:Closed by ROGELIO VAZQUEZ on 08/28/22 [facility] 08-28-2022 Note HNO ID: [id number] Author: Rogelio Vazquez RN Service: ? Author Type: Registered Nurse Type: Progress Notes Filed: 08/28/2022 11:35 AM Note Text: TRANSITIONAL CARE MANAGEMENT (TCM) COMMUNITY MONITORING PROGRAM Provider Action/FYI: Called patient, no answer. Message was left on VM informing I will try reaching out again later today or tomorrow. CB# provided. Black outs? Questions regarding effexor - needs to follow up with PCP Transitions of Care Critical Issues: SPECIALIST FOLLOW-UP: Dr. Zavaleta PROCEDURES SCHEDULED: [facility] home 3 day EEG SUMMARY: Pt discharged from Main on 08/27/2022. Admitted for : Continuous EEG Contact made with patient: No - next outreach attempt will be on next business day Outreach ended TCM Home Visit Referral Source of Stratification: [facility] Admission Status: Discharged Readmission Risk Score: 8 BRENDA Score: 2 Patient meets program referral criteria: No [facility] 08-27-2022 Miscellaneous Notes Home EEG request sent to [employer] for scheduling documented in this encounter [facility] 08-27-2022 Note HNO ID: [id number] Author: Carlene Javed RN Service: Care Management Author Type: Registered Nurse Type: Care Mgt Progress Note Filed: 08/27/2022 12:38 PM Note Text: CARE MANAGEMENT DISCHARGE NOTE SERVICE DATE: 08/27/2022 SERVICE TIME: 12:34 PM LOS: 1 day Admission Date: 08/24/2022 DISCHARGE ARRANGEMENT (list agency and phone number) Discharge Arrangement: Home with Self Care Provider Name: Na Phone: NA CAREGIVER ASSESSMENT: Caregiver is ready, willing and able to meet the patient's needs as recommended by the inter-professional team:: No Caregiver needed HANDOFF COMMUNICATION: Handoff to: Primary Care Physician Primary Care Physician Name/Phone: Dr Cespedes [phone] TRANSPORTATION ARRANGEMENTS: Transportation Arrangements: Car Destination: home ADDITIONAL CONTACT RESOURCES: NA Patient is being discharged home with self care. Family to transport at discharge. SIGNATURE: Carlene Javed RN PATIENT NAME: Migdalia Zurita DATE: August 27, 2022 TIME: 12:34 PM PAGER/CONTACT #: [phone] [facility] documented as of this encounter (statuses as of 08/27/2022) [facility]03-08[facility]2023 History of Past illness Narrative* Problem Noted Date Resolved Date Seizure 08/26/2022 08/27/2022 Acute pain of left knee 12/15/2019 08/30/19 21 Acute pain of right knee 12/15/2019 021 Dysuria 09/09/2018 08/28/2021 Obesity, Class II, BMI 35-39.9 09/09/2018 0 08/28/2021 Moderate persistent asthma with acute exacerbati on 02/28/2016 12/16/2017 Mastodynia, female 09/25/2015 08/28/2021 SUMMARY 02/05/2012 08/14/2015 Overview: Ms. Zurita is a 21 year old female (, EGA 33w4d, JOSIE 03/21/2012, LMP c/w 19 wk US) transferred from [place] ED for evaluation of NSVT. Patient reports having a three year history of black out episodes with lightheadness but no loss of consciousness, falls, syncope or collapse. She seen by Dr. Cardozo and echocardiogram was performed and she was placed on Holter monitor. 48 hour Holter was returned and analysis showed frequent ventricular ectopy as mostly monomorphic singles, couplets, bigeminal and trigeminal cycles, non-sustained ventricular tachycardia runs up to 5 beats in length. Ventricular tachycardia rates range from 189 BPM to 234 BPM. TTE completed at the [facility] on 02/02/12 showed EF 55-60%, trivial MR, trivial TR, trivial -1+ PI. She was instructed to present to her local ED. She is transferred to [facility] for further evaluation. 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 05/16/2010 11/27/2010 Unspecified symptom associated with female genit al organs 05/16/2010 10/22/2011 Anemia, antepartum(648.23) 02/18/200904/08 Trichomonal vulvovaginitis 11/09/200704/08 Chlamydia trachomatis infection of lower genitou rinary sites 09/02/2007 04/08/2010 Poor growth, affecting management of mother, antepartum condition or complication 09/02/2007 04/08/2010 Supervision of other high-risk (V23.89) 07/29/2007 04/08/2010 Supervision of normal first 08/13/2006 02/16/2007 Patient noncompliance 08/28/2021 Overview: history of AMA/no shows documented as of this encounter (statuses as of 08/28/2022) [facility]03-08-2023 History of Past illness Narrative* Problem Noted Date Resolved Date Seizure 08/26/2022 08/27/2022 Acute pain of left knee 12/15/2019 08/30/19 21 Acute pain of right knee 12/15/2019 021 Dysuria 09/09/2018 08/28/2021 Obesity, Class II, BMI 35-39.9 09/09/2018 0 08/28/2021 Moderate persistent asthma with acute exacerbati on 02/28/2016 12/16/2017 Mastodynia, female 09/25/2015 08/28/2021 SUMMARY 02/05/2012 08/14/2015 Overview: Ms. Zurita is a 21 year old female (, EGA 33w4d, JOSIE 03/21/2012, LMP c/w 19 wk US) transferred from [place] [facility] for evaluation of NSVT. Patient reports having a three year history of black out episodes with lightheadness but no loss of consciousness, falls, syncope or collapse. She seen by Dr. Cardozo and echocardiogram was performed and she was placed on Holter monitor. 48 hour Holter was returned and analysis showed frequent ventricular ectopy as mostly monomorphic singles, couplets, bigeminal and trigeminal cycles, non-sustained ventricular tachycardia runs up to 5 beats in length. Ventricular tachycardia rates range from 189 BPM to 234 BPM. TTE completed at the [facility] on 02/02/12 showed EF 55-60%, trivial MR, trivial TR, trivial -1+ PI. She was instructed to present to her local ED. She is transferred to [facility] for further evaluation. 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 05/16/2010 11/27/2010 Unspecified symptom associated with female genit al organs 05/16/2010 10/22/2011 Anemia, antepartum(648.23) 02/18/200904/08 Trichomonal vulvovaginitis 11/09/200704/08 Chlamydia trachomatis infection of lower genitou rinary sites 09/02/2007 04/08/2010 Poor growth, affecting management of mother, antepartum condition or complication 09/02/2007 04/08/2010 Supervision of other high-risk (V23.89) 07/29/2007 04/08/2010 Supervision of normal first 08/13/2006 02/16/2007 Patient noncompliance 08/28/2021 Overview: history of AMA/no shows documented as of this encounter (statuses as of 09/02/2022) [facility]03-08-2023 History of Past illness Narrative* Problem Noted Date Resolved Date Seizure 08/26/2022 08/27/2022 Acute pain of left knee 12/15/2019 08/30/19 21 Acute pain of right knee 12/15/2019 021 Dysuria 09/09/2018 08/28/2021 Obesity, Class II, BMI 35-39.9 09/09/2018 0 08/28/2021 Moderate persistent asthma with acute exacerbati on 02/28/2016 12/16/2017 Mastodynia, female 09/25/2015 08/28/2021 SUMMARY 02/05/2012 08/14/2015 Overview: Ms. Zurita is a 21 year old female (, EGA 33w4d, JOSIE 03/21/2012, LMP c/w 19 wk US) transferred from [place] [facility] for evaluation of NSVT. Patient reports having a three year history of black out episodes with lightheadness but no loss of consciousness, falls, syncope or collapse. She seen by Dr. Cardozo and echocardiogram was performed and she was placed on Holter monitor. 48 hour Holter was returned and analysis showed frequent ventricular ectopy as mostly monomorphic singles, couplets, bigeminal and trigeminal cycles, non-sustained ventricular tachycardia runs up to 5 beats in length. Ventricular tachycardia rates range from 189 BPM to 234 BPM. TTE completed at the [facility] on 02/02/12 showed EF 55-60%, trivial MR, trivial TR, trivial -1+ PI. She was instructed to present to her local ED. She is transferred to [facility] for further evaluation. 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 05/16/2010 11/27/2010 Unspecified symptom associated with female genit al organs 05/16/2010 10/22/2011 Anemia, antepartum(648.23) 02/18/200904/08 Trichomonal vulvovaginitis 11/09/200704/08 Chlamydia trachomatis infection of lower genitou rinary sites 09/02/2007 04/08/2010 Poor growth, affecting management of mother, antepartum condition or complication 09/02/2007 04/08/2010 Supervision of other high-risk (V23.89) 07/29/2007 04/08/2010 Supervision of normal first 08/13/2006 02/16/2007 Patient noncompliance 08/28/2021 Overview: history of AMA/no shows documented as of this encounter (statuses as of 09/04/2022) [facility]03-08-2023 History of Past illness Narrative* Problem Noted Date Resolved Date Seizure 08/26/2022 08/27/2022 Acute pain of left knee 12/15/2019 08/30/19 21 Acute pain of right knee 12/15/2019 021 Dysuria 09/09/2018 08/28/2021 Obesity, Class II, BMI 35-39.9 09/09/2018 0 08/28/2021 Moderate persistent asthma with acute exacerbati on 02/28/2016 12/16/2017 Mastodynia, female 09/25/2015 08/28/2021 SUMMARY 02/05/2012 08/14/2015 Overview: Ms. Zurita is a 21 year old female (, EGA 33w4d, JOSIE 03/21/2012, LMP c/w 19 wk US) transferred from [place] [facility] for evaluation of NSVT. Patient reports having a three year history of black out episodes with lightheadness but no loss of consciousness, falls, syncope or collapse. She seen by Dr. Cardozo and echocardiogram was performed and she was placed on Holter monitor. 48 hour Holter was returned and analysis showed frequent ventricular ectopy as mostly monomorphic singles, couplets, bigeminal and trigeminal cycles, non-sustained ventricular tachycardia runs up to 5 beats in length. Ventricular tachycardia rates range from 189 BPM to 234 BPM. TTE completed at the [facility] on 02/02/12 showed EF 55-60%, trivial MR, trivial TR, trivial -1+ PI. She was instructed to present to her local ED. She is transferred to [facility] for further evaluation. 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 05/16/2010 11/27/2010 Unspecified symptom associated with female genit al organs 05/16/2010 10/22/2011 Anemia, antepartum(648.23) 02/18/200904/08 Trichomonal vulvovaginitis 11/09/200704/08 Chlamydia trachomatis infection of lower genitou rinary sites 09/02/2007 04/08/2010 Poor growth, affecting management of mother, antepartum condition or complication 09/02/2007 04/08/2010 Supervision of other high-risk (V23.89) 07/29/2007 04/08/2010 Supervision of normal first 08/13/2006 02/16/2007 Patient noncompliance 08/28/2021 Overview: history of AMA/no shows documented as of this encounter (statuses as of 09/09/2022) [facility]03-08-2023 History of Past illness Narrative* Problem Noted Date Resolved Date Seizure 08/26/2022 08/27/2022 Acute pain of left knee 12/15/2019 08/30/19 21 Acute pain of right knee 12/15/2019 021 Dysuria 09/09/2018 08/28/2021 Obesity, Class II, BMI 35-39.9 09/09/2018 0 08/28/2021 Moderate persistent asthma with acute exacerbati on 02/28/2016 12/16/2017 Mastodynia, female 09/25/2015 08/28/2021 SUMMARY 02/05/2012 08/14/2015 Overview: Ms. Zurita is a 21 year old female (, EGA 33w4d, JOSIE 03/21/2012, LMP c/w 19 wk US) transferred from [place] [facility] for evaluation of NSVT. Patient reports having a three year history of black out episodes with lightheadness but no loss of consciousness, falls, syncope or collapse. She seen by Dr. Cardozo and echocardiogram was performed and she was placed on Holter monitor. 48 hour Holter was returned and analysis showed frequent ventricular ectopy as mostly monomorphic singles, couplets, bigeminal and trigeminal cycles, non-sustained ventricular tachycardia runs up to 5 beats in length. Ventricular tachycardia rates range from 189 BPM to 234 BPM. TTE completed at the [facility] on 02/02/12 showed EF 55-60%, trivial MR, trivial TR, trivial -1+ PI. She was instructed to present to her local ED. She is transferred to [facility] for further evaluation. 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 05/16/2010 11/27/2010 Unspecified symptom associated with female genit al organs 05/16/2010 10/22/2011 Anemia, antepartum(648.23) 02/18/200904/08 Trichomonal vulvovaginitis 11/09/200704/08 Chlamydia trachomatis infection of lower genitou rinary sites 09/02/2007 04/08/2010 Poor growth, affecting management of mother, antepartum condition or complication 09/02/2007 04/08/2010 Supervision of other high-risk (V23.89) 07/29/2007 04/08/2010 Supervision of normal first 08/13/2006 02/16/2007 Patient noncompliance 08/28/2021 Overview: history of AMA/no shows documented as of this encounter (statuses as of 09/21/2022) [facility]03-08-2023 History of Past illness Narrative* Problem Noted Date Resolved Date Seizure 08/26/2022 08/27/2022 Acute pain of left knee 12/15/2019 08/30/19 21 Acute pain of right knee 12/15/2019 021 Dysuria 09/09/2018 08/28/2021 Obesity, Class II, BMI 35-39.9 09/09/2018 0 08/28/2021 Moderate persistent asthma with acute exacerbati on 02/28/2016 12/16/2017 Mastodynia, female 09/25/2015 08/28/2021 SUMMARY 02/05/2012 08/14/2015 Overview: Ms. Zurita is a 21 year old female (, EGA 33w4d, JOSIE 03/21/2012, LMP c/w 19 wk US) transferred from [place] [facility] for evaluation of NSVT. Patient reports having a three year history of black out episodes with lightheadness but no loss of consciousness, falls, syncope or collapse. She seen by Dr. Cardozo and echocardiogram was performed and she was placed on Holter monitor. 48 hour Holter was returned and analysis showed frequent ventricular ectopy as mostly monomorphic singles, couplets, bigeminal and trigeminal cycles, non-sustained ventricular tachycardia runs up to 5 beats in length. Ventricular tachycardia rates range from 189 BPM to 234 BPM. TTE completed at the [place] [facility] on 02/02/12 showed EF 55-60%, trivial MR, trivial TR, trivial -1+ PI. She was instructed to present to her local ED. She is transferred to [facility] for further evaluation. 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 05/16/2010 11/27/2010 Unspecified symptom associated with female genit al organs 05/16/2010 10/22/2011 Anemia, antepartum(648.23) 02/18/200904/08 Trichomonal vulvovaginitis 11/09/200704/08 Chlamydia trachomatis infection of lower genitou rinary sites 09/02/2007 04/08/2010 Poor growth, affecting management of mother, antepartum condition or complication 09/02/2007 04/08/2010 Supervision of other high-risk (V23.89) 07/29/2007 04/08/2010 Supervision of normal first 08/13/2006 02/16/2007 Patient noncompliance 08/28/2021 Overview: history of AMA/no shows documented as of this encounter (statuses as of 09/23/2022) [facility]03-08[facility]2023 History of Past illness Narrative* Problem Noted Date Resolved Date Seizure 08/26/2022 08/27/2022 Acute pain of left knee 12/15/2019 08/30/19 21 Acute pain of right knee 12/15/2019 021 Dysuria 09/09/2018 08/28/2021 Obesity, Class II, BMI 35-39.9 09/09/2018 0 08/28/2021 Moderate persistent asthma with acute exacerbati on 02/28/2016 12/16/2017 Mastodynia, female 09/25/2015 08/28/2021 SUMMARY 02/05/2012 08/14/2015 Overview: Ms. Zurita is a 21 year old female (, EGA 33w4d, JOSIE 03/21/2012, LMP c/w 19 wk US) transferred from [place] [facility] for evaluation of NSVT. Patient reports having a three year history of black out episodes with lightheadness but no loss of consciousness, falls, syncope or collapse. She seen by Dr. Cardozo and echocardiogram was performed and she was placed on Holter monitor. 48 hour Holter was returned and analysis showed frequent ventricular ectopy as mostly monomorphic singles, couplets, bigeminal and trigeminal cycles, non-sustained ventricular tachycardia runs up to 5 beats in length. Ventricular tachycardia rates range from 189 BPM to 234 BPM. TTE completed at the [place] [facility] on 02/02/12 showed EF 55-60%, trivial MR, trivial TR, trivial -1+ PI. She was instructed to present to her local ED. She is transferred to [facility] for further evaluation. 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 05/16/2010 11/27/2010 Unspecified symptom associated with female genit al organs 05/16/2010 10/22/2011 Anemia, antepartum(648.23) 02/18/200904/08 Trichomonal vulvovaginitis 11/09/200704/08 Chlamydia trachomatis infection of lower genitou rinary sites 09/02/2007 04/08/2010 Poor growth, affecting management of mother, antepartum condition or complication 09/02/2007 04/08/2010 Supervision of other high-risk (V23.89) 07/29/2007 04/08/2010 Supervision of normal first 08/13/2006 02/16/2007 Patient noncompliance 08/28/2021 Overview: history of AMA/no shows documented as of this encounter (statuses as of 10/13/2022) [facility] History of Past illness Narrative* Problem Noted Date Resolved Date Seizure 08/26/2022 08/27/2022 Acute pain of left knee 12/15/2019 08/30/19 21 Acute pain of right knee 12/15/2019 021 Dysuria 09/09/2018 08/28/2021 Obesity, Class II, BMI 35-39.9 09/09/2018 0 08/28/2021 Moderate persistent asthma with acute exacerbati on 02/28/2016 12/16/2017 Mastodynia, female 09/25/2015 08/28/2021 SUMMARY 02/05/2012 08/14/2015 Overview: Ms. Zurita is a 21 year old female (, EGA 33w4d, JOSIE 03/21/2012, LMP c/w 19 wk US) transferred from [place] [facility] for evaluation of NSVT. Patient reports having a three year history of black out episodes with lightheadness but no loss of consciousness, falls, syncope or collapse. She seen by Dr. Cardozo and echocardiogram was performed and she was placed on Holter monitor. 48 hour Holter was returned and analysis showed frequent ventricular ectopy as mostly monomorphic singles, couplets, bigeminal and trigeminal cycles, non-sustained ventricular tachycardia runs up to 5 beats in length. Ventricular tachycardia rates range from 189 BPM to 234 BPM. TTE completed at the [place] [facility] on 02/02/12 showed EF 55-60%, trivial MR, trivial TR, trivial -1+ PI. She was instructed to present to her local ED. She is transferred to [facility] for further evaluation. 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 05/16/2010 11/27/2010 Unspecified symptom associated with female genit al organs 05/16/2010 10/22/2011 Anemia, antepartum(648.23) 02/18/200904/08 Trichomonal vulvovaginitis 11/09/200704/08 Chlamydia trachomatis infection of lower genitou rinary sites 09/02/2007 04/08/2010 Poor growth, affecting management of mother, antepartum condition or complication 09/02/2007 04/08/2010 Supervision of other high-risk (V23.89) 07/29/2007 04/08/2010 Supervision of normal first 08/13/2006 02/16/2007 Patient noncompliance 08/28/2021 Overview: history of AMA/no shows documented as of this encounter (statuses as of 10/13/2022) [facility] History of Past illness Narrative* Problem Noted Date Resolved Date Seizure 08/26/2022 08/27/2022 Acute pain of left knee 12/15/2019 08/30/19 21 Acute pain of right knee 12/15/2019 021 Dysuria 09/09/2018 08/28/2021 Obesity, Class II, BMI 35-39.9 09/09/2018 0 08/28/2021 Moderate persistent asthma with acute exacerbati on 02/28/2016 12/16/2017 Mastodynia, female 09/25/2015 08/28/2021 SUMMARY 02/05/2012 08/14/2015 Overview: Ms. Zurita is a 21 year old female (, EGA 33w4d, JOSIE 03/21/2012, LMP c/w 19 wk US) transferred from [place] [facility] for evaluation of NSVT. Patient reports having a three year history of black out episodes with lightheadness but no loss of consciousness, falls, syncope or collapse. She seen by Dr. Cardozo and echocardiogram was performed and she was placed on Holter monitor. 48 hour Holter was returned and analysis showed frequent ventricular ectopy as mostly monomorphic singles, couplets, bigeminal and trigeminal cycles, non-sustained ventricular tachycardia runs up to 5 beats in length. Ventricular tachycardia rates range from 189 BPM to 234 BPM. TTE completed at the [place] [facility] on 02/02/12 showed EF 55-60%, trivial MR, trivial TR, trivial -1+ PI. She was instructed to present to her local ED. She is transferred to [facility] for further evaluation. 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 05/16/2010 11/27/2010 Unspecified symptom associated with female genit al organs 05/16/2010 10/22/2011 Anemia, antepartum(648.23) 02/18/200904/08 Trichomonal vulvovaginitis 11/09/200704/08 Chlamydia trachomatis infection of lower genitou rinary sites 09/02/2007 04/08/2010 Poor growth, affecting management of mother, antepartum condition or complication 09/02/2007 04/08/2010 Supervision of other high-risk (V23.89) 07/29/2007 04/08/2010 Supervision of normal first 08/13/2006 02/16/2007 Patient noncompliance 08/28/2021 Overview: history of AMA/no shows documented as of this encounter (statuses as of 10/16/2022) [facility] History of Past illness Narrative* Problem Noted Date Resolved Date Seizure 08/26/2022 08/27/2022 Acute pain of left knee 12/15/2019 08/30/19 21 Acute pain of right knee 12/15/2019 021 Dysuria 09/09/2018 08/28/2021 Obesity, Class II, BMI 35-39.9 09/09/2018 0 08/28/2021 Moderate persistent asthma with acute exacerbati on 02/28/2016 12/16/2017 Mastodynia, female 09/25/2015 08/28/2021 SUMMARY 02/05/2012 08/14/2015 Overview: Ms. Zurita is a 21 year old female (, EGA 33w4d, JOSIE 03/21/2012, LMP c/w 19 wk US) transferred from [place] [facility] for evaluation of NSVT. Patient reports having a three year history of black out episodes with lightheadness but no loss of consciousness, falls, syncope or collapse. She seen by Dr. Cardozo and echocardiogram was performed and she was placed on Holter monitor. 48 hour Holter was returned and analysis showed frequent ventricular ectopy as mostly monomorphic singles, couplets, bigeminal and trigeminal cycles, non-sustained ventricular tachycardia runs up to 5 beats in length. Ventricular tachycardia rates range from 189 BPM to 234 BPM. TTE completed at the [place] [facility] on 02/02/12 showed EF 55-60%, trivial MR, trivial TR, trivial -1+ PI. She was instructed to present to her local ED. She is transferred to [facility] for further evaluation. 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 05/16/2010 11/27/2010 Unspecified symptom associated with female genit al organs 05/16/2010 10/22/2011 Anemia, antepartum(648.23) 02/18/200904/08 Trichomonal vulvovaginitis 11/09/200704/08 Chlamydia trachomatis infection of lower genitou rinary sites 09/02/2007 04/08/2010 Poor growth, affecting management of mother, antepartum condition or complication 09/02/2007 04/08/2010 Supervision of other high-risk (V23.89) 07/29/2007 04/08/2010 Supervision of normal first 08/13/2006 02/16/2007 Patient noncompliance 08/28/2021 Overview: history of AMA/no shows documented as of this encounter (statuses as of 10/19/2022) [facility] History of Past illness Narrative* Problem Noted Date Resolved Date Seizure 08/26/2022 08/27/2022 Acute pain of left knee 12/15/2019 08/30/19 21 Acute pain of right knee 12/15/2019 021 Dysuria 09/09/2018 08/28/2021 Obesity, Class II, BMI 35-39.9 09/09/2018 0 08/28/2021 Moderate persistent asthma with acute exacerbati on 02/28/2016 12/16/2017 Mastodynia, female 09/25/2015 08/28/2021 SUMMARY 02/05/2012 08/14/2015 Overview: Ms. Zurita is a 21 year old female (, EGA 33w4d, JOSIE 03/21/2012, LMP c/w 19 wk US) transferred from [place] ED for evaluation of NSVT. Patient reports having a three year history of black out episodes with lightheadness but no loss of consciousness, falls, syncope or collapse. She seen by Dr. Cardozo and echocardiogram was performed and she was placed on Holter monitor. 48 hour Holter was returned and analysis showed frequent ventricular ectopy as mostly monomorphic singles, couplets, bigeminal and trigeminal cycles, non-sustained ventricular tachycardia runs up to 5 beats in length. Ventricular tachycardia rates range from 189 BPM to 234 BPM. TTE completed at the [place] [facility] on 02/02/12 showed EF 55-60%, trivial MR, trivial TR, trivial -1+ PI. She was instructed to present to her local ED. She is transferred to [facility] for further evaluation. 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 05/16/2010 11/27/2010 Unspecified symptom associated with female genit al organs 05/16/2010 10/22/2011 Anemia, antepartum(648.23) 02/18/200904/08 Trichomonal vulvovaginitis 11/09/200704/08 Chlamydia trachomatis infection of lower genitou rinary sites 09/02/2007 04/08/2010 Poor growth, affecting management of mother, antepartum condition or complication 09/02/2007 04/08/2010 Supervision of other high-risk (V23.89) 07/29/2007 04/08/2010 Supervision of normal first 08/13/2006 02/16/2007 Patient noncompliance 08/28/2021 Overview: history of AMA/no shows documented as of this encounter (statuses as of 10/23/2022) [facility]03-08-2023 History of Past illness Narrative* Problem Noted Date Resolved Date Seizure 08/26/2022 08/27/2022 Acute pain of left knee 12/15/2019 08/30/19 21 Acute pain of right knee 12/15/2019 021 Dysuria 09/09/2018 08/28/2021 Obesity, Class II, BMI 35-39.9 09/09/2018 0 08/28/2021 Moderate persistent asthma with acute exacerbati on 02/28/2016 12/16/2017 Mastodynia, female 09/25/2015 08/28/2021 SUMMARY 02/05/2012 08/14/2015 Overview: Ms. Zurita is a 21 year old female (, EGA 33w4d, JOSIE 03/21/2012, LMP c/w 19 wk US) transferred from [place] ED for evaluation of NSVT. Patient reports having a three year history of black out episodes with lightheadness but no loss of consciousness, falls, syncope or collapse. She seen by Dr. Cardozo and echocardiogram was performed and she was placed on Holter monitor. 48 hour Holter was returned and analysis showed frequent ventricular ectopy as mostly monomorphic singles, couplets, bigeminal and trigeminal cycles, non-sustained ventricular tachycardia runs up to 5 beats in length. Ventricular tachycardia rates range from 189 BPM to 234 BPM. TTE completed at the [place] [facility] on 02/02/12 showed EF 55-60%, trivial MR, trivial TR, trivial -1+ PI. She was instructed to present to her local ED. She is transferred to [facility] for further evaluation. Pre-syncope 02/04/2012 08/14/2015 Pre-syncope 02/04/2012 02/05/2012 Anemia in 12/24/2011 09/03/2015 Overview: Continue daily folate and Fe Monitor H/H [facility] HIGH RISK NEC [V23.89] 2 07/14/2013 Overview: packager hand has been consulted and will also follow patient Plan: - monitoring per [employer]. 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 05/16/2010 11/27/2010 Unspecified symptom associated with female genit al organs 05/16/2010 10/22/2011 Anemia, antepartum(648.23) 02/18/200904/08 Trichomonal vulvovaginitis 11/09/200704/08 Chlamydia trachomatis infection of lower genitou rinary sites 09/02/2007 04/08/2010 Poor growth, affecting management of mother, antepartum condition or complication 09/02/2007 04/08/2010 Supervision of other high-risk (V23.89) 07/29/2007 04/08/2010 Supervision of normal first 08/13/2006 02/16/2007 Patient noncompliance 08/28/2021 Overview: history of AMA/no shows documented as of this encounter (statuses as of 11/19/2022) [facility]03-08-2023 History of Past illness Narrative* Problem Noted Date Resolved Date Seizure 08/26/2022 08/27/2022 Acute pain of left knee 12/15/2019 08/30/19 21 Acute pain of right knee 12/15/2019 021 Dysuria 09/09/2018 08/28/2021 Obesity, Class II, BMI 35-39.9 09/09/2018 0 08/28/2021 Moderate persistent asthma with acute exacerbati on 02/28/2016 12/16/2017 Mastodynia, female 09/25/2015 08/28/2021 SUMMARY 02/05/2012 08/14/2015 Overview: Ms. Zurita is a 21 year old female (, EGA 33w4d, JOSIE 03/21/2012, LMP c/w 19 wk US) transferred from [place] ED for evaluation of NSVT. Patient reports having a three year history of black out episodes with lightheadness but no loss of consciousness, falls, syncope or collapse. She seen by Dr. Cardozo and echocardiogram was performed and she was placed on Holter monitor. 48 hour Holter was returned and analysis showed frequent ventricular ectopy as mostly monomorphic singles, couplets, bigeminal and trigeminal cycles, non-sustained ventricular tachycardia runs up to 5 beats in length. Ventricular tachycardia rates range from 189 BPM to 234 BPM. TTE completed at the [place] [facility] on 02/02/12 showed EF 55-60%, trivial MR, trivial TR, trivial -1+ PI. She was instructed to present to her local ED. She is transferred to [facility] for further evaluation. Pre-syncope 02/04/2012 08/14/2015 Pre-syncope 02/04/2012 02/05/2012 Anemia in 12/24/2011 09/03/2015 Overview: Continue daily folate and Fe Monitor H/H [facility] HIGH RISK NEC [V23.89] 2 07/14/2013 Overview: packager hand has been consulted and will also follow patient Plan: - monitoring per [employer]. 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 05/16/2010 11/27/2010 Unspecified symptom associated with female genit al organs 05/16/2010 10/22/2011 Anemia, antepartum(648.23) 02/18/200904/08 Trichomonal vulvovaginitis 11/09/200704/08 Chlamydia trachomatis infection of lower genitou rinary sites 09/02/2007 04/08/2010 Poor growth, affecting management of mother, antepartum condition or complication 09/02/2007 04/08/2010 Supervision of other high-risk (V23.89) 07/29/2007 04/08/2010 Supervision of normal first 08/13/2006 02/16/2007 Patient noncompliance 08/28/2021 Overview: history of AMA/no shows documented as of this encounter (statuses as of 11/19/2022) [facility]03-08-2023 History of Past illness Narrative* Problem Noted Date Resolved Date Seizure 08/26/2022 08/27/2022 Acute pain of left knee 12/15/2019 08/30/19 21 Acute pain of right knee 12/15/2019 021 Dysuria 09/09/2018 08/28/2021 Obesity, Class II, BMI 35-39.9 09/09/2018 0 08/28/2021 Moderate persistent asthma with acute exacerbati on 02/28/2016 12/16/2017 Mastodynia, female 09/25/2015 08/28/2021 SUMMARY 02/05/2012 08/14/2015 Overview: Ms. Zurita is a 21 year old female (, EGA 33w4d, JOSIE 03/21/2012, LMP c/w 19 wk US) transferred from [place] ED for evaluation of NSVT. Patient reports having a three year history of black out episodes with lightheadness but no loss of consciousness, falls, syncope or collapse. She seen by Dr. Cardozo and echocardiogram was performed and she was placed on Holter monitor. 48 hour Holter was returned and analysis showed frequent ventricular ectopy as mostly monomorphic singles, couplets, bigeminal and trigeminal cycles, non-sustained ventricular tachycardia runs up to 5 beats in length. Ventricular tachycardia rates range from 189 BPM to 234 BPM. TTE completed at the [facility] on 02/02/12 showed EF 55-60%, trivial MR, trivial TR, trivial -1+ PI. She was instructed to present to her local ED. She is transferred to [facility] for further evaluation. Pre-syncope 02/04/2012 08/14/2015 Pre-syncope 02/04/2012 02/05/2012 Anemia in 12/24/2011 09/03/2015 Overview: Continue daily folate and Fe Monitor H/H [facility] HIGH RISK NEC [V23.89] 2 07/14/2013 Overview: packager hand has been consulted and will also follow patient Plan: - monitoring per [employer]. 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 05/16/2010 11/27/2010 Unspecified symptom associated with female genit al organs 05/16/2010 10/22/2011 Anemia, antepartum(648.23) 02/18/200904/08 Trichomonal vulvovaginitis 11/09/200704/08 Chlamydia trachomatis infection of lower genitou rinary sites 09/02/2007 04/08/2010 Poor growth, affecting management of mother, antepartum condition or complication 09/02/2007 04/08/2010 Supervision of other high-risk (V23.89) 07/29/2007 04/08/2010 Supervision of normal first 08/13/2006 02/16/2007 Patient noncompliance 08/28/2021 Overview: history of AMA/no shows documented as of this encounter (statuses as of 11/23/2022) [facility]03-08-2023 History of Past illness Narrative* Problem Noted Date Resolved Date Seizure 08/26/2022 08/27/2022 Acute pain of left knee 12/15/2019 08/30/19 21 Acute pain of right knee 12/15/2019 021 Dysuria 09/09/2018 08/28/2021 Obesity, Class II, BMI 35-39.9 09/09/2018 0 08/28/2021 Moderate persistent asthma with acute exacerbati on 02/28/2016 12/16/2017 Mastodynia, female 09/25/2015 08/28/2021 SUMMARY 02/05/2012 08/14/2015 Overview: Ms. Zurita is a 21 year old female (, EGA 33w4d, JOSIE 03/21/2012, LMP c/w 19 wk US) transferred from [place] ED for evaluation of NSVT. Patient reports having a three year history of black out episodes with lightheadness but no loss of consciousness, falls, syncope or collapse. She seen by Dr. Cardozo and echocardiogram was performed and she was placed on Holter monitor. 48 hour Holter was returned and analysis showed frequent ventricular ectopy as mostly monomorphic singles, couplets, bigeminal and trigeminal cycles, non-sustained ventricular tachycardia runs up to 5 beats in length. Ventricular tachycardia rates range from 189 BPM to 234 BPM. TTE completed at the [facility] on 02/02/12 showed EF 55-60%, trivial MR, trivial TR, trivial -1+ PI. She was instructed to present to her local ED. She is transferred to [facility] for further evaluation. Pre-syncope 02/04/2012 08/14/2015 Pre-syncope 02/04/2012 02/05/2012 Anemia in 12/24/2011 09/03/2015 Overview: Continue daily folate and Fe Monitor H/H [facility] HIGH RISK NEC [V23.89] 2 07/14/2013 Overview: packager hand has been consulted and will also follow patient Plan: - monitoring per [employer]. 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 05/16/2010 11/27/2010 Unspecified symptom associated with female genit al organs 05/16/2010 10/22/2011 Anemia, antepartum(648.23) 02/18/200904/08 Trichomonal vulvovaginitis 11/09/200704/08 Chlamydia trachomatis infection of lower genitou rinary sites 09/02/2007 04/08/2010 Poor growth, affecting management of mother, antepartum condition or complication 09/02/2007 04/08/2010 Supervision of other high-risk (V23.89) 07/29/2007 04/08/2010 Supervision of normal first 08/13/2006 02/16/2007 Patient noncompliance 08/28/2021 Overview: history of AMA/no shows documented as of this encounter (statuses as of 11/24/2022) [facility]03-08-2023 History of Past illness Narrative* Problem Noted Date Resolved Date Seizure 08/26/2022 08/27/2022 Acute pain of left knee 12/15/2019 08/30/19 21 Acute pain of right knee 12/15/2019 021 Dysuria 09/09/2018 08/28/2021 Obesity, Class II, BMI 35-39.9 09/09/2018 0 08/28/2021 Moderate persistent asthma with acute exacerbati on 02/28/2016 12/16/2017 Mastodynia, female 09/25/2015 08/28/2021 SUMMARY 02/05/2012 08/14/2015 Overview: Ms. Zurita is a 21 year old female (, EGA 33w4d, JOSIE 03/21/2012, LMP c/w 19 wk US) transferred from [place] ED for evaluation of NSVT. Patient reports having a three year history of black out episodes with lightheadness but no loss of consciousness, falls, syncope or collapse. She seen by Dr. Cardozo and echocardiogram was performed and she was placed on Holter monitor. 48 hour Holter was returned and analysis showed frequent ventricular ectopy as mostly monomorphic singles, couplets, bigeminal and trigeminal cycles, non-sustained ventricular tachycardia runs up to 5 beats in length. Ventricular tachycardia rates range from 189 BPM to 234 BPM. TTE completed at the [place] [facility] on 02/02/12 showed EF 55-60%, trivial MR, trivial TR, trivial -1+ PI. She was instructed to present to her local ED. She is transferred to [facility] for further evaluation. Pre-syncope 02/04/2012 08/14/2015 Pre-syncope 02/04/2012 02/05/2012 Anemia in 12/24/2011 09/03/2015 Overview: Continue daily folate and Fe Monitor H/H [facility] HIGH RISK NEC [V23.89] 2 07/14/2013 Overview: packager hand has been consulted and will also follow patient Plan: - monitoring per [employer]. 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 05/16/2010 11/27/2010 Unspecified symptom associated with female genit al organs 05/16/2010 10/22/2011 Anemia, antepartum(648.23) 02/18/200904/08 Trichomonal vulvovaginitis 11/09/200704/08 Chlamydia trachomatis infection of lower genitou rinary sites 09/02/2007 04/08/2010 Poor growth, affecting management of mother, antepartum condition or complication 09/02/2007 04/08/2010 Supervision of other high-risk (V23.89) 07/29/2007 04/08/2010 Supervision of normal first 08/13/2006 02/16/2007 Patient noncompliance 08/28/2021 Overview: history of AMA/no shows documented as of this encounter (statuses as of 11/25/2022) [facility]03-08[facility]2023 History of Past illness Narrative* Problem Noted Date Resolved Date Seizure 08/26/2022 08/27/2022 Acute pain of left knee 12/15/2019 08/30/19 21 Acute pain of right knee 12/15/2019 021 Dysuria 09/09/2018 08/28/2021 Obesity, Class II, BMI 35-39.9 09/09/2018 0 08/28/2021 Moderate persistent asthma with acute exacerbati on 02/28/2016 12/16/2017 Mastodynia, female 09/25/2015 08/28/2021 SUMMARY 02/05/2012 08/14/2015 Overview: Ms. Zurita is a 21 year old female (, EGA 33w4d, JOSIE 03/21/2012, LMP c/w 19 wk US) transferred from [place] ED for evaluation of NSVT. Patient reports having a three year history of black out episodes with lightheadness but no loss of consciousness, falls, syncope or collapse. She seen by Dr. Cardozo and echocardiogram was performed and she was placed on Holter monitor. 48 hour Holter was returned and analysis showed frequent ventricular ectopy as mostly monomorphic singles, couplets, bigeminal and trigeminal cycles, non-sustained ventricular tachycardia runs up to 5 beats in length. Ventricular tachycardia rates range from 189 BPM to 234 BPM. TTE completed at the [facility] on 02/02/12 showed EF 55-60%, trivial MR, trivial TR, trivial -1+ PI. She was instructed to present to her local ED. She is transferred to [facility] for further evaluation. Pre-syncope 02/04/2012 08/14/2015 Pre-syncope 02/04/2012 02/05/2012 Anemia in 12/24/2011 09/03/2015 Overview: Continue daily folate and Fe Monitor H/H [facility] HIGH RISK NEC [V23.89] 2 07/14/2013 Overview: packager hand has been consulted and will also follow patient Plan: - monitoring per [employer]. 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 05/16/2010 11/27/2010 Unspecified symptom associated with female genit al organs 05/16/2010 10/22/2011 Anemia, antepartum(648.23) 02/18/200904/08 Trichomonal vulvovaginitis 11/09/200704/08 Chlamydia trachomatis infection of lower genitou rinary sites 09/02/2007 04/08/2010 Poor growth, affecting management of mother, antepartum condition or complication 09/02/2007 04/08/2010 Supervision of other high-risk (V23.89) 07/29/2007 04/08/2010 Supervision of normal first 08/13/2006 02/16/2007 Patient noncompliance 08/28/2021 Overview: history of AMA/no shows documented as of this encounter (statuses as of 12/14/2022) [facility]03-08-2023 History of Past illness Narrative* Problem Noted Date Resolved Date Seizure 08/26/2022 08/27/2022 Acute pain of left knee 12/15/2019 08/30/19 21 Acute pain of right knee 12/15/2019 021 Dysuria 09/09/2018 08/28/2021 Obesity, Class II, BMI 35-39.9 09/09/2018 0 08/28/2021 Moderate persistent asthma with acute exacerbati on 02/28/2016 12/16/2017 Mastodynia, female 09/25/2015 08/28/2021 SUMMARY 02/05/2012 08/14/2015 Overview: Ms. Zurita is a 21 year old female (, EGA 33w4d, JOSIE 03/21/2012, LMP c/w 19 wk US) transferred from [place] ED for evaluation of NSVT. Patient reports having a three year history of black out episodes with lightheadness but no loss of consciousness, falls, syncope or collapse. She seen by Dr. Cardozo and echocardiogram was performed and she was placed on Holter monitor. 48 hour Holter was returned and analysis showed frequent ventricular ectopy as mostly monomorphic singles, couplets, bigeminal and trigeminal cycles, non-sustained ventricular tachycardia runs up to 5 beats in length. Ventricular tachycardia rates range from 189 BPM to 234 BPM. TTE completed at the [place] [facility] on 02/02/12 showed EF 55-60%, trivial MR, trivial TR, trivial -1+ PI. She was instructed to present to her local ED. She is transferred to [facility] for further evaluation. Pre-syncope 02/04/2012 08/14/2015 Pre-syncope 02/04/2012 02/05/2012 Anemia in 12/24/2011 09/03/2015 Overview: Continue daily folate and Fe Monitor H/H [facility] HIGH RISK NEC [V23.89] 2 07/14/2013 Overview: packager hand has been consulted and will also follow patient Plan: - monitoring per [employer]. 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 05/16/2010 11/27/2010 Unspecified symptom associated with female genit al organs 05/16/2010 10/22/2011 Anemia, antepartum(648.23) 02/18/200904/08 Trichomonal vulvovaginitis 11/09/200704/08 Chlamydia trachomatis infection of lower genitou rinary sites 09/02/2007 04/08/2010 Poor growth, affecting management of mother, antepartum condition or complication 09/02/2007 04/08/2010 Supervision of other high-risk (V23.89) 07/29/2007 04/08/2010 Supervision of normal first 08/13/2006 02/16/2007 Patient noncompliance 08/28/2021 Overview: history of AMA/no shows documented as of this encounter (statuses as of 12/16/2022) [facility] History of Past illness Narrative* Problem Noted Date Diagnosed Date Resolved Date Seizure 08/26/2022 08/27/2022 Acute pain of left knee 12/15/201908/19 Acute pain of right knee 12/15/201904/2021 Dysuria 09/09/2018 08/28/2021 Obesity, Class II, BMI 35-39.9 09/09/2018 08/28/2021 Moderate persistent asthma w ith acute exacerbation 02/28/2016 12/16/2017 Mastodynia, female 09/25/2015 2 SUMMARY 02/05/2012 08/14/2015 Overview: Ms. Zurita is a 21 year old female (, EGA 33w4d, JOSIE 03/21/2012, LMP c/w 19 wk US) transferred from [place] ED for evaluation of NSVT. Patient reports having a three year history of black out episodes with lightheadness but no loss of consciousness, falls, syncope or collapse. She seen by Dr. Cardozo and echocardiogram was performed and she was placed on Holter monitor. 48 hour Holter was returned and analysis showed frequent ventricular ectopy as mostly monomorphic singles, couplets, bigeminal and trigeminal cycles, non-sustained ventricular tachycardia runs up to 5 beats in length. Ventricular tachycardia rates range from 189 BPM to 234 BPM. TTE completed at the [place] [facility] on 02/02/12 showed EF 55-60%, trivial MR, trivial TR, trivial -1+ PI. She was instructed to present to her local ED. She is transferred to [facility] for further evaluation. Pre-syncope 02/04/2012 08/14/2015 Pre-syncope 02/04/2012 02/05/2012 Anemia in 12/24/2011 09/03/19 16 Overview: Continue daily folate and Fe Monitor H/H [facility] HIGH RISK NEC [V23.89] 09/17/2011 07/14/2013 Overview: packager hand has been consulted and will also follow patient Plan: - monitoring per [employer]. 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 05/16/2010 11/27/2010 Unspecified symptom associat ed with female genital organs 05/16/2010 10/22/2011 Anemia, antepartum(648.23) 02/18/2009 1 Trichomonal vulvovaginitis 11/09/2007 1 Chlamydia trachomatis infect ion of lower genitourinary sites 09/02/2007 04/08/2010 Poor growth, affecting management of mother, antepartum condition or complication 09/02/2007 04/08/2010 Supervision of other high-ri sk (V23.89) 07/29/2007 04/08/2010 Supervision of normal first 08/13/2006 02/16/2007 Patient noncompliance 2021 Overview: history of AMA/no shows documented as of this encounter (statuses as of 12/29/2022) [facility] History of Past illness Narrative* Problem Noted Date Diagnosed Date Resolved Date Seizure 08/26/2022 08/27/2022 Obesity, Class III, BMI >= 40 08/29/2020 01/18/2023 Acute pain of left knee 12/15/201908/19 Acute pain of right knee 12/15/201904/2021 Dysuria 09/09/2018 08/28/2021 Obesity, Class II, BMI 35-39.9 09/09/2018 08/28/2021 Moderate persistent asthma w ith acute exacerbation 02/28/2016 12/16/2017 Mastodynia, female 09/25/2015 2 SUMMARY 02/05/2012 08/14/2015 Overview: Ms. Zurita is a 21 year old female (, EGA 33w4d, JOSIE 03/21/2012, LMP c/w 19 wk US) transferred from [place] ED for evaluation of NSVT. Patient reports having a three year history of black out episodes with lightheadness but no loss of consciousness, falls, syncope or collapse. She seen by Dr. Cardozo and echocardiogram was performed and she was placed on Holter monitor. 48 hour Holter was returned and analysis showed frequent ventricular ectopy as mostly monomorphic singles, couplets, bigeminal and trigeminal cycles, non-sustained ventricular tachycardia runs up to 5 beats in length. Ventricular tachycardia rates range from 189 BPM to 234 BPM. TTE completed at the [place] [facility] on 02/02/12 showed EF 55-60%, trivial MR, trivial TR, trivial -1+ PI. She was instructed to present to her local ED. She is transferred to [facility] for further evaluation. Pre-syncope 02/04/2012 08/14/2015 Pre-syncope 02/04/2012 02/05/2012 Anemia in 12/24/2011 09/03/19 16 Overview: Continue daily folate and Fe Monitor H/H [facility] HIGH RISK NEC [V23.89] 09/17/2011 07/14/2013 Overview: packager hand has been consulted and will also follow patient Plan: - monitoring per [employer]. 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 05/16/2010 11/27/2010 Unspecified symptom associat ed with female genital organs 05/16/2010 10/22/2011 Anemia, antepartum(648.23) 02/18/2009 1 Trichomonal vulvovaginitis 11/09/2007 1 Chlamydia trachomatis infect ion of lower genitourinary sites 09/02/2007 04/08/2010 Poor growth, affecting management of mother, antepartum condition or complication 09/02/2007 04/08/2010 Supervision of other high-ri sk (V23.89) 07/29/2007 04/08/2010 Supervision of normal first 08/13/2006 02/16/2007 Patient noncompliance 2021 Overview: history of AMA/no shows documented as of this encounter (statuses as of 01/19/2023) [facility] History of Past illness Narrative* Problem Noted Date Diagnosed Date Resolved Date Seizure 08/26/2022 08/27/2022 Obesity, Class III, BMI >= 40 08/29/2020 01/18/2023 Acute pain of left knee 12/15/201908/19 Acute pain of right knee 12/15/201904/2021 Dysuria 09/09/2018 08/28/2021 Obesity, Class II, BMI 35-39.9 09/09/2018 08/28/2021 Moderate persistent asthma w ith acute exacerbation 02/28/2016 12/16/2017 Mastodynia, female 09/25/2015 2 SUMMARY 02/05/2012 08/14/2015 Overview: Ms. Zurita is a 21 year old female (, EGA 33w4d, JOSIE 03/21/2012, LMP c/w 19 wk US) transferred from [place] ED for evaluation of NSVT. Patient reports having a three year history of black out episodes with lightheadness but no loss of consciousness, falls, syncope or collapse. She seen by Dr. Cardozo and echocardiogram was performed and she was placed on Holter monitor. 48 hour Holter was returned and analysis showed frequent ventricular ectopy as mostly monomorphic singles, couplets, bigeminal and trigeminal cycles, non-sustained ventricular tachycardia runs up to 5 beats in length. Ventricular tachycardia rates range from 189 BPM to 234 BPM. TTE completed at the [place] [facility] on 02/02/12 showed EF 55-60%, trivial MR, trivial TR, trivial -1+ PI. She was instructed to present to her local ED. She is transferred to [facility] for further evaluation. Pre-syncope 02/04/2012 08/14/2015 Pre-syncope 02/04/2012 02/05/2012 Anemia in 12/24/2011 09/03/19 16 Overview: Continue daily folate and Fe Monitor [facility] RISK NEC [V23.89] 09/17/2011 07/14/2013 Overview: packager hand has been consulted and will also follow patient Plan: - monitoring per [employer]. 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 05/16/2010 11/27/2010 Unspecified symptom associat ed with female genital organs 05/16/2010 10/22/2011 Anemia, antepartum(648.23) 02/18/2009 1 Trichomonal vulvovaginitis 11/09/2007 1 Chlamydia trachomatis infect ion of lower genitourinary sites 09/02/2007 04/08/2010 Poor growth, affecting management of mother, antepartum condition or complication 09/02/2007 04/08/2010 Supervision of other high-ri sk (V23.89) 07/29/2007 04/08/2010 Supervision of normal first 08/13/2006 02/16/2007 Patient noncompliance 2021 Overview: history of AMA/no shows documented as of this encounter (statuses as of 01/20/2023) [facility]03-08-2023 History of Past illness Narrative* Problem Noted Date Diagnosed Date Resolved Date Seizure 08/26/2022 08/27/2022 Obesity, Class III, BMI >= 40 08/29/2020 01/18/2023 Acute pain of left knee 12/15/201908/19 Acute pain of right knee 12/15/201904/2021 Dysuria 09/09/2018 08/28/2021 Obesity, Class II, BMI 35-39.9 09/09/2018 08/28/2021 Moderate persistent asthma w ith acute exacerbation 02/28/2016 12/16/2017 Mastodynia, female 09/25/2015 2 SUMMARY 02/05/2012 08/14/2015 Overview: Ms. Zurita is a 21 year old female (, EGA 33w4d, JOSIE 03/21/2012, LMP c/w 19 wk US) transferred from [place] ED for evaluation of NSVT. Patient reports having a three year history of black out episodes with lightheadness but no loss of consciousness, falls, syncope or collapse. She seen by Dr. Cardozo and echocardiogram was performed and she was placed on Holter monitor. 48 hour Holter was returned and analysis showed frequent ventricular ectopy as mostly monomorphic singles, couplets, bigeminal and trigeminal cycles, non-sustained ventricular tachycardia runs up to 5 beats in length. Ventricular tachycardia rates range from 189 BPM to 234 BPM. TTE completed at the [facility] on 02/02/12 showed EF 55-60%, trivial MR, trivial TR, trivial -1+ PI. She was instructed to present to her local ED. She is transferred to [facility] for further evaluation. Pre-syncope 02/04/2012 08/14/2015 Pre-syncope 02/04/2012 02/05/2012 Anemia in 12/24/2011 09/03/19 16 Overview: Continue daily folate and Fe Monitor [facility] R[facility]K [facility]EC [V23.89] 09/17/2011 07/14/2013 Overview: packager hand has been consulted and will also follow patient Plan: - monitoring per [employer]. 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 05/16/2010 11/27/2010 Unspecified symptom associat ed with female genital organs 05/16/2010 10/22/2011 Anemia, antepartum(648.23) 02/18/2009 1 Trichomonal vulvovaginitis 11/09/2007 1 Chlamydia trachomatis infect ion of lower genitourinary sites 09/02/2007 04/08/2010 Poor growth, affecting management of mother, antepartum condition or complication 09/02/2007 04/08/2010 Supervision of other high-ri sk (V23.89) 07/29/2007 04/08/2010 Supervision of normal first 08/13/2006 02/16/2007 Patient noncompliance 2021 Overview: history of AMA/no shows documented as of this encounter (statuses as of 02/01/2023) [facility]03-08-2023 History of Past illness Narrative* Problem Noted Date Diagnosed Date Resolved Date Seizure 08/26/2022 08/27/2022 Obesity, Class III, BMI >= 40 08/29/2020 01/18/2023 Acute pain of left knee 12/15/201908/19 Acute pain of right knee 12/15/201904/2021 Dysuria 09/09/2018 08/28/2021 Obesity, Class II, BMI 35-39.9 09/09/2018 08/28/2021 Moderate persistent asthma w ith acute exacerbation 02/28/2016 12/16/2017 Mastodynia, female 09/25/2015 2 SUMMARY 02/05/2012 08/14/2015 Overview: Ms. Zurita is a 21 year old female (, EGA 33w4d, JOSIE 03/21/2012, LMP c/w 19 wk US) transferred from [place] ED for evaluation of NSVT. Patient reports having a three year history of black out episodes with lightheadness but no loss of consciousness, falls, syncope or collapse. She seen by Dr. Cardozo and echocardiogram was performed and she was placed on Holter monitor. 48 hour Holter was returned and analysis showed frequent ventricular ectopy as mostly monomorphic singles, couplets, bigeminal and trigeminal cycles, non-sustained ventricular tachycardia runs up to 5 beats in length. Ventricular tachycardia rates range from 189 BPM to 234 BPM. TTE completed at the [facility] on 02/02/12 showed EF 55-60%, trivial MR, trivial TR, trivial -1+ PI. She was instructed to present to her local ED. She is transferred to [facility] for further evaluation. Pre-syncope 02/04/2012 08/14/2015 Pre-syncope 02/04/2012 02/05/2012 Anemia in 12/24/2011 09/03/19 16 Overview: Continue daily folate and Fe Monitor [facility] R[facility]EC [V23.89] 09/17/2011 07/14/2013 Overview: packager hand has been consulted and will also follow patient Plan: - monitoring per [employer]. 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 05/16/2010 11/27/2010 Unspecified symptom associat ed with female genital organs 05/16/2010 10/22/2011 Anemia, antepartum(648.23) 02/18/2009 1 Trichomonal vulvovaginitis 11/09/2007 1 Chlamydia trachomatis infect ion of lower genitourinary sites 09/02/2007 04/08/2010 Poor growth, affecting management of mother, antepartum condition or complication 09/02/2007 04/08/2010 Supervision of other high-ri sk (V23.89) 07/29/2007 04/08/2010 Supervision of normal first 08/13/2006 02/16/2007 Patient noncompliance 2021 Overview: history of AMA/no shows documented as of this encounter (statuses as of 02/01/2023) [facility]03-08-2023 History of Past illness Narrative* Problem Noted Date Diagnosed Date Resolved Date Seizure 08/26/2022 08/27/2022 Obesity, Class III, BMI >= 40 08/29/2020 01/18/2023 Acute pain of left knee 12/15/201908/19 Acute pain of right knee 12/15/201904/2021 Dysuria 09/09/2018 08/28/2021 Obesity, Class II, BMI 35-39.9 09/09/2018 08/28/2021 Moderate persistent asthma w ith acute exacerbation 02/28/2016 12/16/2017 Mastodynia, female 09/25/2015 2 SUMMARY 02/05/2012 08/14/2015 Overview: Ms. Zurita is a 21 year old female (, EGA 33w4d, JOSIE 03/21/2012, LMP c/w 19 wk US) transferred from [place] ED for evaluation of NSVT. Patient reports having a three year history of black out episodes with lightheadness but no loss of consciousness, falls, syncope or collapse. She seen by Dr. Cardozo and echocardiogram was performed and she was placed on Holter monitor. 48 hour Holter was returned and analysis showed frequent ventricular ectopy as mostly monomorphic singles, couplets, bigeminal and trigeminal cycles, non-sustained ventricular tachycardia runs up to 5 beats in length. Ventricular tachycardia rates range from 189 BPM to 234 BPM. TTE completed at the [facility] on 02/02/12 showed EF 55-60%, trivial MR, trivial TR, trivial -1+ PI. She was instructed to present to her local ED. She is transferred to [facility] for further evaluation. Pre-syncope 02/04/2012 08/14/2015 Pre-syncope 02/04/2012 02/05/2012 Anemia in 12/24/2011 09/03/19 16 Overview: Continue daily folate and Fe Monitor [facility] R[facility] [V23.89] 09/17/2011 07/14/2013 Overview: packager hand has been consulted and will also follow patient Plan: - monitoring per [employer]. 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 05/16/2010 11/27/2010 Unspecified symptom associat ed with female genital organs 05/16/2010 10/22/2011 Anemia, antepartum(648.23) 02/18/2009 1 Trichomonal vulvovaginitis 11/09/2007 1 Chlamydia trachomatis infect ion of lower genitourinary sites 09/02/2007 04/08/2010 Poor growth, affecting management of mother, antepartum condition or complication 09/02/2007 04/08/2010 Supervision of other high-ri sk (V23.89) 07/29/2007 04/08/2010 Supervision of normal first 08/13/2006 02/16/2007 Patient noncompliance 2021 Overview: history of AMA/no shows documented as of this encounter (statuses as of 02/04/2023) [facility]03-08-2023 History of Past illness Narrative* Problem Noted Date Diagnosed Date Resolved Date Seizure 08/26/2022 08/27/2022 Obesity, Class III, BMI >= 40 08/29/2020 01/18/2023 Acute pain of left knee 12/15/201908/19 Acute pain of right knee 12/15/201904/2021 Dysuria 09/09/2018 08/28/2021 Obesity, Class II, BMI 35-39.9 09/09/2018 08/28/2021 Moderate persistent asthma w ith acute exacerbation 02/28/2016 12/16/2017 Mastodynia, female 09/25/2015 2 SUMMARY 02/05/2012 08/14/2015 Overview: Ms. Zurita is a 21 year old female (, EGA 33w4d, JOSIE 03/21/2012, LMP c/w 19 wk US) transferred from [place] ED for evaluation of NSVT. Patient reports having a three year history of black out episodes with lightheadness but no loss of consciousness, falls, syncope or collapse. She seen by Dr. Cardozo and echocardiogram was performed and she was placed on Holter monitor. 48 hour Holter was returned and analysis showed frequent ventricular ectopy as mostly monomorphic singles, couplets, bigeminal and trigeminal cycles, non-sustained ventricular tachycardia runs up to 5 beats in length. Ventricular tachycardia rates range from 189 BPM to 234 BPM. TTE completed at the [place] [facility] on 02/02/12 showed EF 55-60%, trivial MR, trivial TR, trivial -1+ PI. She was instructed to present to her local ED. She is transferred to [facility] for further evaluation. Pre-syncope 02/04/2012 08/14/2015 Pre-syncope 02/04/2012 02/05/2012 Anemia in 12/24/2011 09/03/19 16 Overview: Continue daily folate and Fe Monitor [facility] R[facility]K [facility]EC [V23.89] 09/17/2011 07/14/2013 Overview: packager hand has been consulted and will also follow patient Plan: - monitoring per [employer]. 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 05/16/2010 11/27/2010 Unspecified symptom associat ed with female genital organs 05/16/2010 10/22/2011 Anemia, antepartum(648.23) 02/18/2009 1 Trichomonal vulvovaginitis 11/09/2007 1 Chlamydia trachomatis infect ion of lower genitourinary sites 09/02/2007 04/08/2010 Poor growth, affecting management of mother, antepartum condition or complication 09/02/2007 04/08/2010 Supervision of other high-ri sk (V23.89) 07/29/2007 04/08/2010 Supervision of normal first 08/13/2006 02/16/2007 Patient noncompliance 2021 Overview: history of AMA/no shows documented as of this encounter (statuses as of 02/13/2023) [facility]03-08-2023 History of Past illness Narrative* Problem Noted Date Diagnosed Date Resolved Date Seizure 08/26/2022 08/27/2022 Obesity, Class III, BMI >= 40 08/29/2020 01/18/2023 Acute pain of left knee 12/15/201908/19 Acute pain of right knee 12/15/201904/2021 Dysuria 09/09/2018 08/28/2021 Obesity, Class II, BMI 35-39.9 09/09/2018 08/28/2021 Moderate persistent asthma w ith acute exacerbation 02/28/2016 12/16/2017 Mastodynia, female 09/25/2015 2 SUMMARY 02/05/2012 08/14/2015 Overview: Ms. Zurita is a 21 year old female (, EGA 33w4d, JOSIE 03/21/2012, LMP c/w 19 wk US) transferred from [place] ED for evaluation of NSVT. Patient reports having a three year history of black out episodes with lightheadness but no loss of consciousness, falls, syncope or collapse. She seen by Dr. Cardozo and echocardiogram was performed and she was placed on Holter monitor. 48 hour Holter was returned and analysis showed frequent ventricular ectopy as mostly monomorphic singles, couplets, bigeminal and trigeminal cycles, non-sustained ventricular tachycardia runs up to 5 beats in length. Ventricular tachycardia rates range from 189 BPM to 234 BPM. TTE completed at the [facility] on 02/02/12 showed EF 55-60%, trivial MR, trivial TR, trivial -1+ PI. She was instructed to present to her local ED. She is transferred to [facility] for further evaluation. Pre-syncope 02/04/2012 08/14/2015 Pre-syncope 02/04/2012 02/05/2012 Anemia in 12/24/2011 09/03/19 16 Overview: Continue daily folate and Fe Monitor [facility] RISK [facility]EC [V23.89] 09/17/2011 07/14/2013 Overview: packager hand has been consulted and will also follow patient Plan: - monitoring per [employer]. 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 05/16/2010 11/27/2010 Unspecified symptom associat ed with female genital organs 05/16/2010 10/22/2011 Anemia, antepartum(648.23) 02/18/2009 1 Trichomonal vulvovaginitis 11/09/2007 1 Chlamydia trachomatis infect ion of lower genitourinary sites 09/02/2007 04/08/2010 Poor growth, affecting management of mother, antepartum condition or complication 09/02/2007 04/08/2010 Supervision of other high-ri sk (V23.89) 07/29/2007 04/08/2010 Supervision of normal first 08/13/2006 02/16/2007 Patient noncompliance 2021 Overview: history of AMA/no shows documented as of this encounter (statuses as of 02/23/2023) [facility]03-08-2023 History of Past illness Narrative* Problem Noted Date Diagnosed Date Resolved Date Seizure 08/26/2022 08/27/2022 Obesity, Class III, BMI >= 40 08/29/2020 01/18/2023 Acute pain of left knee 12/15/201908/19 Acute pain of right knee 12/15/201904/2021 Dysuria 09/09/2018 08/28/2021 Obesity, Class II, BMI 35-39.9 09/09/2018 08/28/2021 Moderate persistent asthma w ith acute exacerbation 02/28/2016 12/16/2017 Mastodynia, female 09/25/2015 2 SUMMARY 02/05/2012 08/14/2015 Overview: Ms. Zurita is a 21 year old female (, EGA 33w4d, JOSIE 03/21/2012, LMP c/w 19 wk US) transferred from [place] ED for evaluation of NSVT. Patient reports having a three year history of black out episodes with lightheadness but no loss of consciousness, falls, syncope or collapse. She seen by Dr. Cardozo and echocardiogram was performed and she was placed on Holter monitor. 48 hour Holter was returned and analysis showed frequent ventricular ectopy as mostly monomorphic singles, couplets, bigeminal and trigeminal cycles, non-sustained ventricular tachycardia runs up to 5 beats in length. Ventricular tachycardia rates range from 189 BPM to 234 BPM. TTE completed at the [place] [facility] on 02/02/12 showed EF 55-60%, trivial MR, trivial TR, trivial -1+ PI. She was instructed to present to her local ED. She is transferred to [facility] for further evaluation. Pre-syncope 02/04/2012 08/14/2015 Pre-syncope 02/04/2012 02/05/2012 Anemia in 12/24/2011 09/03/19 16 Overview: Continue daily folate and Fe Monitor [facility] [V23.89] 09/17/2011 07/14/2013 Overview: packager hand has been consulted and will also follow patient Plan: - monitoring per [employer]. 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 05/16/2010 11/27/2010 Unspecified symptom associat ed with female genital organs 05/16/2010 10/22/2011 Anemia, antepartum(648.23) 02/18/2009 1 Trichomonal vulvovaginitis 11/09/2007 1 Chlamydia trachomatis infect ion of lower genitourinary sites 09/02/2007 04/08/2010 Poor growth, affecting management of mother, antepartum condition or complication 09/02/2007 04/08/2010 Supervision of other high-ri sk (V23.89) 07/29/2007 04/08/2010 Supervision of normal first 08/13/2006 02/16/2007 Patient noncompliance 2021 Overview: history of AMA/no shows documented as of this encounter (statuses as of 02/25/2023) [facility]03-08[facility]2023 History of Past illness Narrative* Problem Noted Date Diagnosed Date Resolved Date Seizure 08/26/2022 08/27/2022 Obesity, Class III, BMI >= 40 08/29/2020 01/18/2023 Acute pain of left knee 12/15/201908/19 Acute pain of right knee 12/15/201904/2021 Dysuria 09/09/2018 08/28/2021 Obesity, Class II, BMI 35-39.9 09/09/2018 08/28/2021 Moderate persistent asthma w ith acute exacerbation 02/28/2016 12/16/2017 Mastodynia, female 09/25/2015 2 SUMMARY 02/05/2012 08/14/2015 Overview: Ms. Zurita is a 21 year old female (, EGA 33w4d, JOSIE 03/21/2012, LMP c/w 19 wk US) transferred from [place] ED for evaluation of NSVT. Patient reports having a three year history of black out episodes with lightheadness but no loss of consciousness, falls, syncope or collapse. She seen by Dr. Cardozo and echocardiogram was performed and she was placed on Holter monitor. 48 hour Holter was returned and analysis showed frequent ventricular ectopy as mostly monomorphic singles, couplets, bigeminal and trigeminal cycles, non-sustained ventricular tachycardia runs up to 5 beats in length. Ventricular tachycardia rates range from 189 BPM to 234 BPM. TTE completed at the [facility] on 02/02/12 showed EF 55-60%, trivial MR, trivial TR, trivial -1+ PI. She was instructed to present to her local ED. She is transferred to [facility] for further evaluation. Pre-syncope 02/04/2012 08/14/2015 Pre-syncope 02/04/2012 02/05/2012 Anemia in 12/24/2011 09/03/19 16 Overview: Continue daily folate and Fe Monitor [facility] RISK [facility]EC [V23.89] 09/17/2011 07/14/2013 Overview: packager hand has been consulted and will also follow patient Plan: - monitoring per [employer]. 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 05/16/2010 11/27/2010 Unspecified symptom associat ed with female genital organs 05/16/2010 10/22/2011 Anemia, antepartum(648.23) 02/18/2009 1 Trichomonal vulvovaginitis 11/09/2007 1 Chlamydia trachomatis infect ion of lower genitourinary sites 09/02/2007 04/08/2010 Poor growth, affecting management of mother, antepartum condition or complication 09/02/2007 04/08/2010 Supervision of other high-ri sk (V23.89) 07/29/2007 04/08/2010 Supervision of normal first 08/13/2006 02/16/2007 Patient noncompliance 2021 Overview: history of AMA/no shows documented as of this encounter (statuses as of 03/08/2023) [facility] History of Past illness Narrative* Problem Noted Date Diagnosed Date Resolved Date Seizure 08/26/2022 08/27/2022 Obesity, Class III, BMI >= 40 08/29/2020 01/18/2023 Acute pain of left knee 12/15/201908/19 Acute pain of right knee 12/15/201904/2021 Dysuria 09/09/2018 08/28/2021 Obesity, Class II, BMI 35-39.9 09/09/2018 08/28/2021 Moderate persistent asthma w ith acute exacerbation 02/28/2016 12/16/2017 Mastodynia, female 09/25/2015 2 SUMMARY 02/05/2012 08/14/2015 Overview: Ms. Zurita is a 21 year old female (, EGA 33w4d, JOSIE 03/21/2012, LMP c/w 19 wk US) transferred from [place] ED for evaluation of NSVT. Patient reports having a three year history of black out episodes with lightheadness but no loss of consciousness, falls, syncope or collapse. She seen by Dr. Cardozo and echocardiogram was performed and she was placed on Holter monitor. 48 hour Holter was returned and analysis showed frequent ventricular ectopy as mostly monomorphic singles, couplets, bigeminal and trigeminal cycles, non-sustained ventricular tachycardia runs up to 5 beats in length. Ventricular tachycardia rates range from 189 BPM to 234 BPM. TTE completed at the [place] [facility] on 02/02/12 showed EF 55-60%, trivial MR, trivial TR, trivial -1+ PI. She was instructed to present to her local ED. She is transferred to [facility] for further evaluation. Pre-syncope 02/04/2012 08/14/2015 Pre-syncope 02/04/2012 02/05/2012 Anemia in 12/24/2011 09/03/19 16 Overview: Continue daily folate and Fe Monitor [facility] RISK [facility]EC [V23.89] 09/17/2011 07/14/2013 Overview: packager hand has been consulted and will also follow patient Plan: - monitoring per [employer]. 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 05/16/2010 11/27/2010 Unspecified symptom associat ed with female genital organs 05/16/2010 10/22/2011 Anemia, antepartum(648.23) 02/18/2009 1 Trichomonal vulvovaginitis 11/09/2007 1 Chlamydia trachomatis infect ion of lower genitourinary sites 09/02/2007 04/08/2010 Poor growth, affecting management of mother, antepartum condition or complication 09/02/2007 04/08/2010 Supervision of other high-ri sk (V23.89) 07/29/2007 04/08/2010 Supervision of normal first 08/13/2006 02/16/2007 Patient noncompliance 2021 Overview: history of AMA/no shows documented as of this encounter (statuses as of 03/24/2023) [facility] History of Past illness Narrative* Problem Noted Date Diagnosed Date Resolved Date Seizure 08/26/2022 08/27/2022 Obesity, Class III, BMI >= 40 08/29/2020 01/18/2023 Acute pain of left knee 12/15/201908/19 Acute pain of right knee 12/15/201904/2021 Dysuria 09/09/2018 08/28/2021 Obesity, Class II, BMI 35-39.9 09/09/2018 08/28/2021 Moderate persistent asthma w ith acute exacerbation 02/28/2016 12/16/2017 Mastodynia, female 09/25/2015 2 SUMMARY 02/05/2012 08/14/2015 Overview: Ms. Zurita is a 21 year old female (, EGA 33w4d, JOSIE 03/21/2012, LMP c/w 19 wk US) transferred from [place] ED for evaluation of NSVT. Patient reports having a three year history of black out episodes with lightheadness but no loss of consciousness, falls, syncope or collapse. She seen by Dr. Cardozo and echocardiogram was performed and she was placed on Holter monitor. 48 hour Holter was returned and analysis showed frequent ventricular ectopy as mostly monomorphic singles, couplets, bigeminal and trigeminal cycles, non-sustained ventricular tachycardia runs up to 5 beats in length. Ventricular tachycardia rates range from 189 BPM to 234 BPM. TTE completed at the [facility] on 02/02/12 showed EF 55-60%, trivial MR, trivial TR, trivial -1+ PI. She was instructed to present to her local ED. She is transferred to [facility] for further evaluation. Pre-syncope 02/04/2012 08/14/2015 Pre-syncope 02/04/2012 02/05/2012 Anemia in 12/24/2011 09/03/19 16 Overview: Continue daily folate and Fe Monitor [facility] RISK [facility]EC [V23.89] 09/17/2011 07/14/2013 Overview: packager hand has been consulted and will also follow patient Plan: - monitoring per [employer]. 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 05/16/2010 11/27/2010 Unspecified symptom associat ed with female genital organs 05/16/2010 10/22/2011 Anemia, antepartum(648.23) 02/18/2009 1 Trichomonal vulvovaginitis 11/09/2007 1 Chlamydia trachomatis infect ion of lower genitourinary sites 09/02/2007 04/08/2010 Poor growth, affecting management of mother, antepartum condition or complication 09/02/2007 04/08/2010 Supervision of other high-ri sk (V23.89) 07/29/2007 04/08/2010 Supervision of normal first 08/13/2006 02/16/2007 Patient noncompliance 2021 Overview: history of AMA/no shows documented as of this encounter (statuses as of 03/27/2023) [facility]03-08-2023 History of Past illness Narrative* Problem Noted Date Diagnosed Date Resolved Date Seizure 08/26/2022 08/27/2022 Obesity, Class III, BMI >= 40 08/29/2020 01/18/2023 Acute pain of left knee 12/15/201908/19 Acute pain of right knee 12/15/201904/2021 Dysuria 09/09/2018 08/28/2021 Obesity, Class II, BMI 35-39.9 09/09/2018 08/28/2021 Moderate persistent asthma w ith acute exacerbation 02/28/2016 12/16/2017 Mastodynia, female 09/25/2015 2 SUMMARY 02/05/2012 08/14/2015 Overview: Ms. Zurita is a 21 year old female (, EGA 33w4d, JOSIE 03/21/2012, LMP c/w 19 wk US) transferred from [place] ED for evaluation of NSVT. Patient reports having a three year history of black out episodes with lightheadness but no loss of consciousness, falls, syncope or collapse. She seen by Dr. Cardozo and echocardiogram was performed and she was placed on Holter monitor. 48 hour Holter was returned and analysis showed frequent ventricular ectopy as mostly monomorphic singles, couplets, bigeminal and trigeminal cycles, non-sustained ventricular tachycardia runs up to 5 beats in length. Ventricular tachycardia rates range from 189 BPM to 234 BPM. TTE completed at the [place] [facility] on 02/02/12 showed EF 55-60%, trivial MR, trivial TR, trivial -1+ PI. She was instructed to present to her local ED. She is transferred to [facility] for further evaluation. Pre-syncope 02/04/2012 08/14/2015 Pre-syncope 02/04/2012 02/05/2012 Anemia in 12/24/2011 09/03/19 16 Overview: Continue daily folate and Fe Monitor H/H [facility] R[facility]K NEC [V23.89] 09/17/2011 07/14/2013 Overview: packager hand has been consulted and will also follow patient Plan: - monitoring per [employer]ING [employer]ARD [employer]. 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 05/16/2010 11/27/2010 Unspecified symptom associat ed with female genital organs 05/16/2010 10/22/2011 Anemia, antepartum(648.23) 02/18/2009 1 Trichomonal vulvovaginitis 11/09/2007 1 Chlamydia trachomatis infect ion of lower genitourinary sites 09/02/2007 04/08/2010 Poor growth, affecting management of mother, antepartum condition or complication 09/02/2007 04/08/2010 Supervision of other high-ri sk (V23.89) 07/29/2007 04/08/2010 Supervision of normal first 08/13/2006 02/16/2007 Patient noncompliance 2021 Overview: history of AMA/no shows documented as of this encounter (statuses as of 04/13/2023) [facility]03-08-2023 History of Past illness Narrative* Problem Noted Date Diagnosed Date Resolved Date Seizure 08/26/2022 08/27/2022 Obesity, Class III, BMI >= 40 08/29/2020 01/18/2023 Acute pain of left knee 12/15/201908/19 Acute pain of right knee 12/15/201904/2021 Dysuria 09/09/2018 08/28/2021 Obesity, Class II, BMI 35-39.9 09/09/2018 08/28/2021 Moderate persistent asthma w ith acute exacerbation 02/28/2016 12/16/2017 Mastodynia, female 09/25/2015 2 SUMMARY 02/05/2012 08/14/2015 Overview: Ms. Zurita is a 21 year old female (, EGA 33w4d, JOSIE 03/21/2012, LMP c/w 19 wk US) transferred from [place] ED for evaluation of NSVT. Patient reports having a three year history of black out episodes with lightheadness but no loss of consciousness, falls, syncope or collapse. She seen by Dr. Cardozo and echocardiogram was performed and she was placed on Holter monitor. 48 hour Holter was returned and analysis showed frequent ventricular ectopy as mostly monomorphic singles, couplets, bigeminal and trigeminal cycles, non-sustained ventricular tachycardia runs up to 5 beats in length. Ventricular tachycardia rates range from 189 BPM to 234 BPM. TTE completed at the [place] [facility] on 02/02/12 showed EF 55-60%, trivial MR, trivial TR, trivial -1+ PI. She was instructed to present to her local ED. She is transferred to [facility] for further evaluation. Pre-syncope 02/04/2012 08/14/2015 Pre-syncope 02/04/2012 02/05/2012 Anemia in 12/24/2011 09/03/19 16 Overview: Continue daily folate and Fe Monitor H/[facility] NEC [V23.89] 09/17/2011 07/14/2013 Overview: packager hand has been consulted and will also follow patient Plan: - monitoring per [employer]. 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 05/16/2010 11/27/2010 Unspecified symptom associat ed with female genital organs 05/16/2010 10/22/2011 Anemia, antepartum(648.23) 02/18/2009 1 Trichomonal vulvovaginitis 11/09/2007 1 Chlamydia trachomatis infect ion of lower genitourinary sites 09/02/2007 04/08/2010 Poor growth, affecting management of mother, antepartum condition or complication 09/02/2007 04/08/2010 Supervision of other high-ri sk (V23.89) 07/29/2007 04/08/2010 Supervision of normal first 08/13/2006 02/16/2007 Patient noncompliance 2021 Overview: history of AMA/no shows documented as of this encounter (statuses as of 04/20/2023) [facility]03-08-2023 History of Past illness Narrative* Problem Noted Date Diagnosed Date Resolved Date Seizure 08/26/2022 08/27/2022 Obesity, Class III, BMI >= 40 08/29/2020 01/18/2023 Acute pain of left knee 12/15/201908/19 Acute pain of right knee 12/15/201904/2021 Dysuria 09/09/2018 08/28/2021 Obesity, Class II, BMI 35-39.9 09/09/2018 08/28/2021 Moderate persistent asthma w ith acute exacerbation 02/28/2016 12/16/2017 Mastodynia, female 09/25/2015 2 SUMMARY 02/05/2012 08/14/2015 Overview: Ms. Zurita is a 21 year old female (, EGA 33w4d, JOSIE 03/21/2012, LMP c/w 19 wk US) transferred from [place] ED for evaluation of NSVT. Patient reports having a three year history of black out episodes with lightheadness but no loss of consciousness, falls, syncope or collapse. She seen by Dr. Cardozo and echocardiogram was performed and she was placed on Holter monitor. 48 hour Holter was returned and analysis showed frequent ventricular ectopy as mostly monomorphic singles, couplets, bigeminal and trigeminal cycles, non-sustained ventricular tachycardia runs up to 5 beats in length. Ventricular tachycardia rates range from 189 BPM to 234 BPM. TTE completed at the [place] [facility] on 02/02/12 showed EF 55-60%, trivial MR, trivial TR, trivial -1+ PI. She was instructed to present to her local ED. She is transferred to [facility] for further evaluation. Pre-syncope 02/04/2012 08/14/2015 Pre-syncope 02/04/2012 02/05/2012 Anemia in 12/24/2011 09/03/19 16 Overview: Continue daily folate and Fe Monitor H/[facility] NEC [V23.89] 09/17/2011 07/14/2013 Overview: packager hand has been consulted and will also follow patient Plan: - monitoring per [employer]. 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 05/16/2010 11/27/2010 Unspecified symptom associat ed with female genital organs 05/16/2010 10/22/2011 Anemia, antepartum(648.23) 02/18/2009 1 Trichomonal vulvovaginitis 11/09/2007 1 Chlamydia trachomatis infect ion of lower genitourinary sites 09/02/2007 04/08/2010 Poor growth, affecting management of mother, antepartum condition or complication 09/02/2007 04/08/2010 Supervision of other high-ri sk (V23.89) 07/29/2007 04/08/2010 Supervision of normal first 08/13/2006 02/16/2007 Patient noncompliance 2021 Overview: history of AMA/no shows documented as of this encounter (statuses as of 04/27/2023) [facility]03-08-2023 History of Past illness Narrative* Problem Noted Date Diagnosed Date Resolved Date Seizure 08/26/2022 08/27/2022 Obesity, Class III, BMI >= 40 08/29/2020 01/18/2023 Acute pain of left knee 12/15/201908/19 Acute pain of right knee 12/15/201904/2021 Dysuria 09/09/2018 08/28/2021 Obesity, Class II, BMI 35-39.9 09/09/2018 08/28/2021 Moderate persistent asthma w ith acute exacerbation 02/28/2016 12/16/2017 Mastodynia, female 09/25/2015 2 SUMMARY 02/05/2012 08/14/2015 Overview: Ms. Zurita is a 21 year old female (, EGA 33w4d, JOSIE 03/21/2012, LMP c/w 19 wk US) transferred from [place] ED for evaluation of NSVT. Patient reports having a three year history of black out episodes with lightheadness but no loss of consciousness, falls, syncope or collapse. She seen by Dr. Cardozo and echocardiogram was performed and she was placed on Holter monitor. 48 hour Holter was returned and analysis showed frequent ventricular ectopy as mostly monomorphic singles, couplets, bigeminal and trigeminal cycles, non-sustained ventricular tachycardia runs up to 5 beats in length. Ventricular tachycardia rates range from 189 BPM to 234 BPM. TTE completed at the [place] [facility] on 02/02/12 showed EF 55-60%, trivial MR, trivial TR, trivial -1+ PI. She was instructed to present to her local ED. She is transferred to [facility] for further evaluation. Pre-syncope 02/04/2012 08/14/2015 Pre-syncope 02/04/2012 02/05/2012 Anemia in 12/24/2011 09/03/19 16 Overview: Continue daily folate and Fe Monitor H/H [facility] HIGH RISK NEC [V23.89] 09/17/2011 07/14/2013 Overview: packager hand has been consulted and will also follow patient Plan: - monitoring per [employer]. 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 05/16/2010 11/27/2010 Unspecified symptom associat ed with female genital organs 05/16/2010 10/22/2011 Anemia, antepartum(648.23) 02/18/2009 1 Trichomonal vulvovaginitis 11/09/2007 1 Chlamydia trachomatis infect ion of lower genitourinary sites 09/02/2007 04/08/2010 Poor growth, affecting management of mother, antepartum condition or complication 09/02/2007 04/08/2010 Supervision of other high-ri sk (V23.89) 07/29/2007 04/08/2010 Supervision of normal first 08/13/2006 02/16/2007 Patient noncompliance 2021 Overview: history of AMA/no shows documented as of this encounter (statuses as of 04/27/2023) [facility]03-08[facility]2023 History of Past illness Narrative* Problem Noted Date Diagnosed Date Resolved Date Seizure 08/26/2022 08/27/2022 Obesity, Class III, BMI >= 40 08/29/2020 01/18/2023 Acute pain of left knee 12/15/201908/19 Acute pain of right knee 12/15/201904/2021 Dysuria 09/09/2018 08/28/2021 Obesity, Class II, BMI 35-39.9 09/09/2018 08/28/2021 Moderate persistent asthma w ith acute exacerbation 02/28/2016 12/16/2017 Mastodynia, female 09/25/2015 2 SUMMARY 02/05/2012 08/14/2015 Overview: Ms. Zurita is a 21 year old female (, EGA 33w4d, JOSIE 03/21/2012, LMP c/w 19 wk US) transferred from [place] ED for evaluation of NSVT. Patient reports having a three year history of black out episodes with lightheadness but no loss of consciousness, falls, syncope or collapse. She seen by Dr. Cardozo and echocardiogram was performed and she was placed on Holter monitor. 48 hour Holter was returned and analysis showed frequent ventricular ectopy as mostly monomorphic singles, couplets, bigeminal and trigeminal cycles, non-sustained ventricular tachycardia runs up to 5 beats in length. Ventricular tachycardia rates range from 189 BPM to 234 BPM. TTE completed at the [place] [facility] on 02/02/12 showed EF 55-60%, trivial MR, trivial TR, trivial -1+ PI. She was instructed to present to her local ED. She is transferred to [facility] for further evaluation. Pre-syncope 02/04/2012 08/14/2015 Pre-syncope 02/04/2012 02/05/2012 Anemia in 12/24/2011 09/03/19 16 Overview: Continue daily folate and Fe Monitor H/H [facility] NEC [V23.89] 09/17/2011 07/14/2013 Overview: packager hand has been consulted and will also follow patient Plan: - monitoring per [employer]. 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 05/16/2010 11/27/2010 Unspecified symptom associat ed with female genital organs 05/16/2010 10/22/2011 Anemia, antepartum(648.23) 02/18/2009 1 Trichomonal vulvovaginitis 11/09/2007 1 Chlamydia trachomatis infect ion of lower genitourinary sites 09/02/2007 04/08/2010 Poor growth, affecting management of mother, antepartum condition or complication 09/02/2007 04/08/2010 Supervision of other high-ri sk (V23.89) 07/29/2007 04/08/2010 Supervision of normal first 08/13/2006 02/16/2007 Patient noncompliance 2021 Overview: history of AMA/no shows documented as of this encounter (statuses as of 04/29/2023) [facility]03-08-2023 History of Past illness Narrative* Problem Noted Date Diagnosed Date Resolved Date Seizure 08/26/2022 08/27/2022 Obesity, Class III, BMI >= 40 08/29/2020 01/18/2023 Acute pain of left knee 12/15/201908/19 Acute pain of right knee 12/15/201904/2021 Dysuria 09/09/2018 08/28/2021 Obesity, Class II, BMI 35-39.9 09/09/2018 08/28/2021 Moderate persistent asthma w ith acute exacerbation 02/28/2016 12/16/2017 Mastodynia, female 09/25/2015 2 SUMMARY 02/05/2012 08/14/2015 Overview: Ms. Zurita is a 21 year old female (, EGA 33w4d, JOSIE 03/21/2012, LMP c/w 19 wk US) transferred from [place] ED for evaluation of NSVT. Patient reports having a three year history of black out episodes with lightheadness but no loss of consciousness, falls, syncope or collapse. She seen by Dr. Cardozo and echocardiogram was performed and she was placed on Holter monitor. 48 hour Holter was returned and analysis showed frequent ventricular ectopy as mostly monomorphic singles, couplets, bigeminal and trigeminal cycles, non-sustained ventricular tachycardia runs up to 5 beats in length. Ventricular tachycardia rates range from 189 BPM to 234 BPM. TTE completed at the [place] [facility] on 02/02/12 showed EF 55-60%, trivial MR, trivial TR, trivial -1+ PI. She was instructed to present to her local ED. She is transferred to [facility] for further evaluation. Pre-syncope 02/04/2012 08/14/2015 Pre-syncope 02/04/2012 02/05/2012 Anemia in 12/24/2011 09/03/19 16 Overview: Continue daily folate and Fe Monitor H/H [facility] HIGH RISK NEC [V23.89] 09/17/2011 07/14/2013 Overview: packager hand has been consulted and will also follow patient Plan: - monitoring per [employer]ING [employer]. 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 05/16/2010 11/27/2010 Unspecified symptom associat ed with female genital organs 05/16/2010 10/22/2011 Anemia, antepartum(648.23) 02/18/2009 1 Trichomonal vulvovaginitis 11/09/2007 1 Chlamydia trachomatis infect ion of lower genitourinary sites 09/02/2007 04/08/2010 Poor growth, affecting management of mother, antepartum condition or complication 09/02/2007 04/08/2010 Supervision of other high-ri sk (V23.89) 07/29/2007 04/08/2010 Supervision of normal first 08/13/2006 02/16/2007 Patient noncompliance 2021 Overview: history of AMA/no shows documented as of this encounter (statuses as of 04/29/2023) [facility]03-08-[facility]23 History of Past illness Narrative* Problem Noted Date Diagnosed Date Resolved Date Seizure 08/26/2022 08/27/2022 Obesity, Class III, BMI >= 40 08/29/2020 01/18/2023 Acute pain of left knee 12/15/201908/19 Acute pain of right knee 12/15/201904/2021 Dysuria 09/09/2018 08/28/2021 Obesity, Class II, BMI 35-39.9 09/09/2018 08/28/2021 Moderate persistent asthma w ith acute exacerbation 02/28/2016 12/16/2017 Mastodynia, female 09/25/2015 2 SUMMARY 02/05/2012 08/14/2015 Overview: Ms. Zurita is a 21 year old female (, EGA 33w4d, JOSIE 03/21/2012, LMP c/w 19 wk US) transferred from [place] ED for evaluation of NSVT. Patient reports having a three year history of black out episodes with lightheadness but no loss of consciousness, falls, syncope or collapse. She seen by Dr. Cardozo and echocardiogram was performed and she was placed on Holter monitor. 48 hour Holter was returned and analysis showed frequent ventricular ectopy as mostly monomorphic singles, couplets, bigeminal and trigeminal cycles, non-sustained ventricular tachycardia runs up to 5 beats in length. Ventricular tachycardia rates range from 189 BPM to 234 BPM. TTE completed at the [place] [facility] on 02/02/12 showed EF 55-60%, trivial MR, trivial TR, trivial -1+ PI. She was instructed to present to her local ED. She is transferred to [facility] for further evaluation. Pre-syncope 02/04/2012 08/14/2015 Pre-syncope 02/04/2012 02/05/2012 Anemia in 12/24/2011 09/03/19 16 Overview: Continue daily folate and Fe Monitor H/H [facility] NEC [V23.89] 09/17/2011 07/14/2013 Overview: packager hand has been consulted and will also follow patient Plan: - monitoring per [employer]ING [employer]ARD [employer]. 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 05/16/2010 11/27/2010 Unspecified symptom associat ed with female genital organs 05/16/2010 10/22/2011 Anemia, antepartum(648.23) 02/18/2009 1 Trichomonal vulvovaginitis 11/09/2007 1 Chlamydia trachomatis infect ion of lower genitourinary sites 09/02/2007 04/08/2010 Poor growth, affecting management of mother, antepartum condition or complication 09/02/2007 04/08/2010 Supervision of other high-ri sk (V23.89) 07/29/2007 04/08/2010 Supervision of normal first 08/13/2006 02/16/2007 Patient noncompliance 2021 Overview: history of AMA/no shows documented as of this encounter (statuses as of 05/07/2023) [facility]03[facility] History of Past illness Narrative* Problem Noted Date Diagnosed Date Resolved Date Seizure 08/26/2022 08/27/2022 Obesity, Class III, BMI >= 40 08/29/2020 01/18/2023 Acute pain of left knee 12/15/201908/19 Acute pain of right knee 12/15/201904/2021 Dysuria 09/09/2018 08/28/2021 Obesity, Class II, BMI 35-39.9 09/09/2018 08/28/2021 Moderate persistent asthma w ith acute exacerbation 02/28/2016 12/16/2017 Mastodynia, female 09/25/2015 2 SUMMARY 02/05/2012 08/14/2015 Overview: Ms. Zurita is a 21 year old female (, EGA 33w4d, JOSIE 03/21/2012, LMP c/w 19 wk US) transferred from [place] ED for evaluation of NSVT. Patient reports having a three year history of black out episodes with lightheadness but no loss of consciousness, falls, syncope or collapse. She seen by Dr. Cardozo and echocardiogram was performed and she was placed on Holter monitor. 48 hour Holter was returned and analysis showed frequent ventricular ectopy as mostly monomorphic singles, couplets, bigeminal and trigeminal cycles, non-sustained ventricular tachycardia runs up to 5 beats in length. Ventricular tachycardia rates range from 189 BPM to 234 BPM. TTE completed at the [facility] on 02/02/12 showed EF 55-60%, trivial MR, trivial TR, trivial -1+ PI. She was instructed to present to her local ED. She is transferred [facility] further evaluation. Pre-syncope 02/04/2012 08/14/2015 Pre-syncope 02/04/2012 02/05/2012 Anemia in 12/24/2011 09/03/19 16 Overview: Continue daily folate and Fe Monitor H/H [facility] NEC [V23.89] 09/17/2011 07/14/2013 Overview: packager hand has been consulted and will also follow patient Plan: - monitoring per [employer]ING [employer]. 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 05/16/2010 11/27/2010 Unspecified symptom associat ed with female genital organs 05/16/2010 10/22/2011 Anemia, antepartum(648.23) 02/18/2009 1 Trichomonal vulvovaginitis 11/09/2007 1 Chlamydia trachomatis infect ion of lower genitourinary sites 09/02/2007 04/08/2010 Poor growth, affecting management of mother, antepartum condition or complication 09/02/2007 04/08/2010 Supervision of other high-ri sk (V23.89) 07/29/2007 04/08/2010 Supervision of normal first 08/13/2006 02/16/2007 Patient noncompliance 2021 Overview: history of AMA/no shows documented as of this encounter (statuses as of 06/03/2023) [facility] History of Past illness Narrative* Problem Noted Date Diagnosed Date Resolved Date Seizure 08/26/2022 08/27/2022 Obesity, Class III, BMI >= 40 08/29/2020 01/18/2023 Acute pain of left knee 12/15/201908/19 Acute pain of right knee 12/15/201904/2021 Dysuria 09/09/2018 08/28/2021 Obesity, Class II, BMI 35-39.9 09/09/2018 08/28/2021 Moderate persistent asthma w ith acute exacerbation 02/28/2016 12/16/2017 Mastodynia, female 09/25/2015 2 SUMMARY 02/05/2012 08/14/2015 Overview: Ms. Zurita is a 21 year old female (, EGA 33w4d, JOSIE 03/21/2012, LMP c/w 19 wk US) transferred from [place] ED for evaluation of NSVT. Patient reports having a three year history of black out episodes with lightheadness but no loss of consciousness, falls, syncope or collapse. She seen by Dr. Cardozo and echocardiogram was performed and she was placed on Holter monitor. 48 hour Holter was returned and analysis showed frequent ventricular ectopy as mostly monomorphic singles, couplets, bigeminal and trigeminal cycles, non-sustained ventricular tachycardia runs up to 5 beats in length. Ventricular tachycardia rates range from 189 BPM to 234 BPM. TTE completed at the [facility] on 02/02/12 showed EF 55-60%, trivial MR, trivial TR, trivial -1+ PI. She was instructed to present to her local ED. She is transferred to [facility] for further evaluation. Pre-syncope 02/04/2012 08/14/2015 Pre-syncope 02/04/2012 02/05/2012 Anemia in 12/24/2011 09/03/19 16 Overview: Continue daily folate and Fe Monitor H/H [facility] NEC [V23.89] 09/17/2011 07/14/2013 Overview: packager hand has been consulted and will also follow patient Plan: - monitoring per [employer]. 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 05/16/2010 11/27/2010 Unspecified symptom associat ed with female genital organs 05/16/2010 10/22/2011 Anemia, antepartum(648.23) 02/18/2009 1 Trichomonal vulvovaginitis 11/09/2007 1 Chlamydia trachomatis infect ion of lower genitourinary sites 09/02/2007 04/08/2010 Poor growth, affecting management of mother, antepartum condition or complication 09/02/2007 04/08/2010 Supervision of other high-ri sk (V23.89) 07/29/2007 04/08/2010 Supervision of normal first 08/13/2006 02/16/2007 Patient noncompliance 2021 Overview: history of AMA/no shows documented as of this encounter (statuses as of 06/05/2023) [place] [address]-08-2023 NoteHNO ID: [id number] Author: Dixie Brannon APRN.CNP Service: Neurology Adult Epilepsy Author Type: Nurse Practitioner Type: Progress Notes Filed: 08/26/2022 11:44 AM Note Text: Attestation signed by Phoenix Zavaleta MD at 08/26/2022 1:16 PM (Updated) [facility] ATTENDING NOTE [facility] Epilepsy Monitoring Unit Progress Note Date of Service: August 26, 2022 [facility] STAFF PHYSICIAN NOTE OF PERSONAL INVOLVEMENT IN CARE Patient was interviewed and examined by me on separate attending rounds this morning with nurse practitioner, Dixie Brannon CNP. I have reviewed the history, exam, diagnosis, and plan obtained and documented by the nurse practitioner as above. I performed my own [id number] assessment and personally participated in the posey components. The following comments revise or confirm these. I have discussed the case and management of the patient's care with the care team. Clinical overnight update: No episodes. She is frustrated that she cannot get up and move because the episodes are triggered by standing. She would like to go home tomorrow. She stayed up all night except for 2 hours. Pertinent exam: Normal neurological examination Data reviewed: Continuous video EEG recording was personally reviewed by myself and the results of the evaluation to date are summarized below. Interictal findings: IS L FT Ictal findings: none IMPRESSION: A 32-year-old woman presents to the EMU for evaluation of two types of events since 2007. The first type occurred only three times in 2007 and is described as a convulsion during sleep. The second type is still occurring daily and is described as a loss of function (vision and ability to move) without LOC or MACEY. Prior EEG in 2007 reported generalized epileptiform activity but there was no tracing to review. It is not clear if this was read incorrectly or truly represents an abnormal result. MRI brain in August 2021 was essentially normal. No images to review. She is on LEV 750-750 for possible epilepsy but reports that it is not effective. She is also on GBP 1200 mg Qhs for RLS. Primary epileptologist: Waqar Admit Date: 08/24 AEDs Home: LEV 750-750, GBP 1200 mg Qhs Here: 08/24: stopped LEV, GBP reduced to 600 mg Qhs 08/25: continue to hold LEV, stop GBP tonight (patient agreed to try it) 08/26: continue to hold medications PLAN: Continuous video-EEG monitoring continues AED changes as above Seizure precautions Rescue plan in place: 2mg of lorazepam (Ativan) IV as needed for prolonged motor epileptic seizure greater than 3 minutes and or 3rd motor epileptic seizure within 8 hours. Discharge planning pending capturing episodes of concern I spoke to her nurse and asked if she could come in several times today and tomorrow to stand up with the patient to attempt and record an episode. If unsuccessful and no events are captured, then will order an outpatient home EEG WITHOUT VIDEO for three days to attempt and record the spells at home. She will resume Keppra 750 mg BID on discharge for history of convulsions and abnormal EEG in the past. She asked if we could stop Effexor, I asked her to check with her PCP Check blood glucose and blood pressure during episode Follow-up after discharge to be determined The treatment plan was discussed in detail with the patient. Time for questions was given and answers were discussed. The patient agreed with the treatment plan. Phoenix Zavaleta MD Staff Physician [facility] Personal Pager and Cell Office: [phone] For urgent EEG review, call the Epilepsy Continuous Monitoring Unit (ECMU) at [facility] [phone] or [phone]. For overnight issues, 7pm [place] 7am, [place] [phone]. For in house night coverage of emergencies, call NPCS pager [phone]. NEUROLOGY EPILEPSY MONITORING UNIT (EMU) PROGRESS NOTE NIGHT AND WEEKEND COVERAGE: After 5 pm and over the weekends, please page the epilepsy provider cad application support specialist Subjective C/O pain overnight related to her RLS No seizures/episodes overnight despite skipping meals Ready to go home HOME ANTI EPILEPTIC DRUGS: LEV 750/750 GBP 1200 mg qHS (takes for RLS) +600 every day prn ANTI EPILEPTIC DRUGS HERE: Objective 08/25/22 1831 08/25/22 2200 08/26/22 1007 08/26/22 1014 BP: 97/78 108/76 Pulse: 74 83 Resp: 11 15 Temp: 36.3 ?C (97.3 ?F) 36.3 ?C (97.4 ?F) 36.4 ?C (97.6 ?F) TempSrc: Temporal Temporal SpO2: 99% 98% EKG, TELEMETRY, EEG, MONITORS AND ALARMS ARE ON: Yes Written order: Remains standing. SEIZURE DETECTION SOFTWARE ON: Yes lead based paint technician has been notified: (more content not included)...[facility]03-08-2023 NoteHNO ID: [id number] Author: Carlene Javed RN Service: Care Management Author Type: Registered Nurse Type: Care Mgt Progress Note Filed: 08/26/2022 9:19 AM Note Text: CARE MANAGEMENT PROGRESS NOTE SERVICE DATE: 08/26/2022 SERVICE TIME: 9:18 AM LOS: 0 days Needs Prior to Discharge: To Be Determined;Discharge Prescriptions Chart reviewed. Patient from home with family. IND CARE TRAINER. Family to transport at discharge. Planned admission. No CM needs at this time. Will follow for transitional care planning. SIGNATURE: Carlene Javed RN PATIENT NAME: Migdalia Zurita DATE: August 26, 2022 TIME: 9:17 AM PAGER/CONTACT #: [phone]22 NoteHNO ID: [id number] Author: Dixie Brannon APRN.PROGRAM AND RESEARCH COORDINATOR Service: Neurology Adult Epilepsy Author Type: Nurse Practitioner Type: Progress Notes Filed: 08/25/2022 10:10 AM Note Text: Attestation signed by Phoenix Zavaleta MD at 08/25/2022 12:53 PM (Updated) EPILEPSY CENTER ATTENDING NOTE [facility] Epilepsy Monitoring Unit Progress Note Date of Service: August 25, 2022 [facility] STAFF PHYSICIAN NOTE OF PERSONAL INVOLVEMENT IN CARE Patient was interviewed and examined by me on separate attending rounds this morning with nurse practitioner, Dixie Brannon CNP. I have reviewed the history, exam, diagnosis, and plan obtained and documented by the nurse practitioner as above. I performed my own [id number] assessment and personally participated in the posey components. The following comments revise or confirm these. I have discussed the case and management of the patient's care with the care team. Clinical overnight update: No episodes. No complaints. Pertinent exam: Normal neurological examination Data reviewed: Continuous video EEG recording was personally reviewed by myself and the results of the evaluation to date are summarized below. Interictal findings: IS L FT Ictal findings: none IMPRESSION: A 32-year-old woman presents to the EMU for evaluation of two types of events since 2007. The first type occurred only three times in 2007 and is described as a convulsion during sleep. The second type is still occurring daily and is described as a loss of function (vision and ability to move) without LOC or MACEY. Prior EEG in 2007 reported generalized epileptiform activity but there was no tracing to review. It is not clear if this was read incorrectly or truly represents an abnormal result. MRI brain in August 2021 was essentially normal. No images to review. She is on LEV 750-750 for possible epilepsy but reports that it is not effective. She is also on GBP 1200 mg Qhs for RLS. Primary epileptologist: Waqar Admit Date: 08/24 AEDs Home: LEV 750-750, GBP 1200 mg Qhs Here: 08/24: stopped LEV, GBP reduced to 600 mg Qhs 08/25: continue to hold LEV, stop GBP tonight (patient agreed to try it) PLAN: Continuous video-EEG monitoring continues AED changes as above Seizure precautions Rescue plan in place: 2mg of lorazepam (Ativan) IV as needed for prolonged motor epileptic seizure greater than 3 minutes and or 3rd motor epileptic seizure within 8 hours. Discharge planning pending capturing episodes of concern Attempt sleep deprivation tonight if able She asked if we could stop Effexor, I asked her to check with her PCP Check blood glucose and blood pressure during episode Follow-up after discharge to be determined The treatment plan was discussed in detail with the patient. Time for questions was given and answers were discussed. The patient agreed with the treatment plan. Phoenix Zavaleta MD Staff Physician [facility] Personal Pager and Cell Office: [phone] For urgent EEG review, call the Epilepsy Continuous Monitoring Unit (ECMU) at [facility] [phone] or [phone]. For overnight issues, 7pm [place] 7am[place] [phone]. For in house night coverage of emergencies, call NPCS pager [phone]. NEUROLOGY EPILEPSY MONITORING UNIT (EMU) PROGRESS NOTE NIGHT AND WEEKEND COVERAGE: After 5 pm and over the weekends, please page the epilepsy provider cad application support specialist Subjective C/o pain overnight related to her RLS Feels episode/sz's are triggered by lack of food No seizures overnight. HOME ANTI EPILEPTIC DRUGS: LEV 750/750 GBP 1200 mg qHS (takes for RLS) +600 every day prn ANTI EPILEPTIC DRUGS HERE: GBP 600 mg QHS Objective 08/24/22 0900 08/24/22 1635 08/24/223 08/25/22 0600 BP: 100/69 104/74 103/85 98/65 Pulse: 80 84 78 61 Resp: 15 15 24 16 Temp: 36.5 ?C (97.7 ?F) 36.9 ?C (98.4 ?F) 36.6 ?C (97.9 ?F) 36.4 ?C (97.6 ?F) TempSrc: Oral Oral Oral SpO2: 99% 99% 98% 99% EKG, TELEMETRY, EEG, MONITORS AND ALARMS ARE ON: Yes ? Written order: Remains standing. SEIZURE DETECTION SOFTWARE ON: Yes ? lead based paint technician has been notified: Yes ? nursing faculty has been notified: Yes EXAM: Mental Status: Alert and oriented to person, place and time. Able to follow 1 and 2 step commands. Cranial Nerves: Pupils equal and reactive to light, extraocular muscles intact. No nystagmus, face symmetric. Motor: Moves all extremities equally. Sensation: Intact to light touch. Coordination: No dysmetria DATA: Diagnostic tests reviewed for today's visit: Component Latest Ref Rng AND Units 08/24/2022 Levetiracetam 12.0 - 46.0 ug/mL (more content not included)...[facility]03-06-2023 NoteHNO ID: [id number] Author: Carlene Javed RN Service: Care Management Author Type: Registered Nurse Type: Care Mgt Initial Assessment Filed: 08/24/2022 11:34 AM Note Text: CARE MANAGEMENT: ASSESSMENT AND DISCHARGE PLAN SERVICE DATE: August 24, 2022 SERVICE TIME: 11:32 AM PRIMARY CARE PHYSICIAN: Misha Cespedes MD Primary Contact: Extended Emergency Contact Information Primary Emergency Contact: Wilmer Rios Mobile Relation: Significant other ADMISSION STATUS: Observation Insurance Provider: [employer] MEDICA[employer] NEEDS PRIOR TO DISCHARGE Needs Prior to Discharge: To Be Determined, Discharge Prescriptions POTENTIAL TRANSITION PLANS To Be Determined;No Services Indicated Based on clinical judgement, Care Management will address the following needs: No transitional/discharge planning needs at this time Patient's perception of need for this admission: Seizure's ADVANCE DIRECTIVES Current Advance Directive: None Cake Cutter Machine Attempted to Assist with AD Completion: Yes Action: Education Provided MS/BEHAVIOR Baseline Mental Status Prior to this Illness what was the patient's Baseline Mental Status?: Alert AND Oriented Prior to this illness, has anyone described the patient having any of the following behaviors?: Not Applicable Relationship of the informant to the patient:: Self READMISSION Last Discharge Date: 03/04/16 Is this Within the Past 30 days? 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 scores in the EMR?: No Any potential risks related to substance abuse and/or behavioral health?: No Based on clinical judgement, Care Management will address the following needs: No transitional/discharge planning needs at this time CAREGIVER ASSESSMENT Caregiver is ready, willing and able to meet the patient's needs as recommended by the inter-professional team:: No Caregiver needed MEDICAL Medical Needs: Two or more chronic diseases Health Issues Impacting Discharge Plan: Chronic Medication Adherance I am convinced of the importance of my prescription medication: 0 - Agree Completely I worry that my prescription medication will do more harm than good to me : 0 - Disagree Mostly I feel financially burdened by my [id number] expenses for my prescription medication:: 0 - Disagree Mostly Risk Score: 0 Patient is categorized as: Low risk < 2 SOCIAL Living Arrangements: Home Lives With: Partner/Significant Other;Other: See Comment (child) Financial Resources: Disabled Supportive Patient Contact:: Yes Contact Resources: Significant Other Significant Other Name/Phone: Wilmer Rios Is Patient Psychosocially Complex?: No Contact Resources: Significant Other Health Literacy How often do you need to have someone help you when you read instructions, pamphlets, or other written material from your doctor or pharmacy? : 1 - Never How confident are you filling out medical forms by yourself?: 1 - Extremely If Patient scores > 3 on either question, the following interventions were put into place:: Patient did not score > 3 on either question. Food Insecurity: No Food Insecurity Worried About Running Out of Food in the Last Year: Never true Ran Out of Food in the Last Year: Never true Financial Resource Strain: Low Risk Difficulty of Paying Living Expenses: Not very hard Transportation Needs: No Transportation Needs Lack of Transportation (Medical): No Lack of Transportation (Non-Medical): No Housing Stability: Low Risk Unable to Pay for Housing in the Last Year: No Number of Places Lived in the Last Year: 1 Unstable Housing in the Last Year: No BEHAVIORAL/COGNITIVE Psychosocial Psychosocial Needs: None FUNCTIONAL How do you manage to accomplish the following: Independent: Ambulation;Bathe/Shower;Dress;Meals/Meal Prep;Going to the bathroom;Medication Management;Transportation to appointments/community Services/Needs//Equipment Does Patient Currently Receive Any Community Services or Home Care?: None Equipment Prior to Admission: None Has the Patient Been in a Care Home Facility in the Past 30 days?: No No medical discharge barriers identified at this time. No social discharge barriers identified at this time. No behavioral/cognitive discharge barriers identified at this time. No functional discharge barriers iden (more content not included)...[facility]03-02-2023 NoteHNO ID: [id number] Author: Phoenix Zavaleta MD Service: ? Author Type: Physician Type: Progress Notes Filed: 08/20/2022 12:56 PM Note Text: [facility] Patient Name: Migdalia HORNER Date of : 1990 Referring Provider: Angeles Bryant [address] [facility] [place] [address] INITIAL EPILEPSY CLINIC NOTE 08/20/2022 12:00 PM CHIEF COMPLAINT: New Patient (I black out) HISTORY OF PRESENT ILLNESS Ms. Zurita is a 32 year old right-handed female seen in [facility] for initial consultation. We had a visit using: Telephone I received consent from the patient to perform the visit using this platform. There is no one accompanying the patient during today's visit. Handedness: right-handed Age of onset: Seizure History and Evolution We attempted Zoom video and Doximity video but the patient's connection was poor. We switched to a telephone visit instead. 32 year old woman presents with recurrent events of blacking out. She sees everything goes black and is unable to see. She can still hear others around her and is aware without losing consciousness. She will stop doing what she is doing because she is unable to see. It lasts 30-40 seconds. She will recover with blurry vision and lightheadedness. She can fall if she is unable to see and happens to be on the stairs. She never bit her tongue or lost bladder control. It occurs daily since 2007. The longest time without any episode has been 2-3 months only. Stress is a major trigger. She reports that in 2007 she had three episodes while sleeping. She was told she was shaking. She did not have TB or UI. She had an EEG in [facility] reported as abnormal showing generalized discharges and started on Keppra. She has also been tried on other medications for migraine and epilepsy. She is back on Keppra since 1-2 weeks ago by [facility] physician. She is taking 750 mg BID but she continues to have events. The last one was yesterday. No side effects from Keppra. She is scheduled to come in to EMU on 08/24/22. Total # of Current Anti-seizure Medications: 1 Side Effects to Current Anti-seizure Medications: none Seizure Frequency at First Visit: 1 per day Longest Seizure-free Interval: 3 months Number of seizure types: 2 Hx of generalized tonic-clonic seizures: Yes Tongue bite: No Urine or Bowel Incontinence: No Triggers: stress Postictal Deficits: No Memory complaints: none Status Epilepticus or clusters: No Postictal Agitation: No Significant Injuries from Seizures: falls Seizure-related driving accidents: No Driving: No Lives Alone: No ED Visits in Last 3 Months: No Hospitalizations in Last 3 Months: No Highest Level of Education: High school graduate (includes GED) 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 gabapentin (NEURONTIN) 600 mg tablet (Taking) Take 1 tablet by mouth every morning AND 2 tablets daily at bedtime. Do all this for 180 days. Do not start before August 14, 2022. Prior Anti-seizure Therapies: Trial Adequacy: Max Daily Dose Achieved: Side Effects: Effectiveness: Comments: Gabapentin, other use Lamotrigine Levetiracetam None Topiramate, other use Valproate, other use Comorbidities: Minor: Hypertension, Migraine, Depression Episode Description: SEIZURE TYPE 1: black out Onset: 2007 Aura: yes Vision goes black Description: Unable to see Able to hear No LOC Loss of awareness: Duration: Frequency: Last occurred: no less than a minute 1 per day August 19 2022 SEIZURE TYPE 2: seizure Onset: 2007 Aura: no Description: Happened three times while sleeping Been told she shakes Loss of awareness: Duration: Frequency: Last occurred: yes less than a minute 2007 Patient Entered Data: EPILEPSY SCORE 09/25/2020 3:28 PM PHQ-9 SCORE 1 [None-Minimal Depression] JASMEET 2 SCORE - JASMEET 7 SCORE - QOLIE-10 SCORE (0=worst; 100=best QoL - higher scores represent better function) - LSSS SCORE (0- no seizures 100- most severe possible seizures) - C-SSRS SCREEN - On average, how many hours of sleep do you get in a 24-hour period? - PROMIS Sleep Disturbance T-SCORE - Have you been diagnosed with Sleep Apnea? - Seizure risk factors: Brain Tumor No EMR TRAINER Infections No Developmental Delay No Family history of seizures No Febrile Seizure No Complications No Stroke No Traumatic Brain Injury No Previous Epilepsy Evaluations Impression: Review of records for Migdalia Zurita, a 32 year old female, being referred by Angeles Bryant PA-C [[facility] Neurology] to Any Epileptologist for further evaluation and treatment. Patient has previously diagnosed seizure like activity. EEG from 2007 reported generalized findings. MRI from 2 (more content not included)...[facility]03-02-2023 Miscellaneous Notes* Telephone Encounter - CHRISTIAN Paulino - 08/20/2022 12:52 PM EST Patient has an appointment set up with a jewelry mechanic at [facility] in October. * Telephone Encounter - Misha Cespedes MD - 08/20/2022 8:25 AM EST ASSESSMENT/PLAN: 1. Diarrhea, unspecified type - ICD9: 787.91, ICD10: R19.7 - CONSULT TO GASTROENTEROLOGY Misha Cespedes MD documented [facility] Miscellaneous Notes* Telephone Encounter - Stephy Zazueta LPN - 08/11/2022 1:57 PM EST Forwarded to Dr. Cespedes to review. Stephy Zazueta LPN * Telephone Encounter - Patricia Paredes RN - 08/10/2022 2:41 PM EST Pt called in and reports she can in to picker / packer kit for stool sample and provider hasn't put in orders yet. Please call Pt once orders placed. documented in this encounterW[facility]23 NoteHNO ID: [id number] Author: Talita Ruby APRN.PROGRAM AND RESEARCH COORDINATOR Service: ? Author Type: Nurse Practitioner Type: Progress Notes Filed: 08/05/2022 12:00 PM Note Text: [facility] Review of Records Patient: Migdalia Zurita Address: [address] [place] [address] Impression: Review of records for Migdalia Zurita, a 32 year old female, being referred by Angeles Bryant PA-C [[facility] Neurology] to Any Epileptologist for further evaluation and treatment. Patient has previously diagnosed seizure like activity. EEG from 2007 reported generalized findings. 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 Patient has trialed 5 AEDs (3 in the course of migraine treatment). As these have recurred over the last several weeks and are occurring weekly, VEEG is indicated for event characterization and diagnostic evaluation to determine best treatment options. Summary: Onset: 2007 Recent Seizure Frequency: A few weeks ago, episodes began happening weekly Seizure Description(s) Available: Type A: Feels them coming on, vision goes black, but can hear everything that is happening Duration: 20 seconds Current AED(s): Levetiracetam Gabapentin Previous AED(s): Topiramate (migraine) Valproic acid (migraine) Lamotrigine PMH: HTN, symptomatic PVCs, nonsustained SVT, arachnoid cyst, migraine, restless leg syndrome PRIOR EVALUATIONS: [facility] [address] [place] [address] EEG ([facility], 04/18/2008): This is an abnormal EEG due to generalized spike and wave abnormalities, consistent with an epileptic abnormality MRI brain wo/w contrast ([facility], 08/22/2021): Normal MRI brain. No pathologic enhancement. No evidence of seizure focus. No cystic lesions identified in the brain. 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 Within the limits the study and amygdala and hippocampal formations are symmetric and normal in appearance. There is no evidence of heterotopic lucero. Sulcation pattern is normal. CAMERON Recommendations: - Admit to EMU for VEEG monitoring, diagnostic evaluation Location: [facility] - Visit with epileptologist prior to admission - Additional testing to be considered by epilepsy clinicians Signed: Talita Ruby APRN.PROGRAM AND RESEARCH COORDINATOR August 05, [address] Mckeon for review and recommendations. MD Recommendations (as discussed with Dr. Mckeon): - Please proceed with the above plan. Please route this encounter to the EMU Scheduling Pool ( P EMU ) or PMU Scheduling Pool ( P PMU ) through LOS AND Follow up PHASE 1.0 AND 1.5 ORDER SYNOPSIS Patient: Migdalia Zurita ([id number]) Best contact number: [phone] Insurance: Payor: [employer] MEDICA[employer] / Plan: [employer]ICA[employer] / Product Type: Medicaid / ----- Scheduling Team: Please call for adult patients: Dixie Travis ([phone]) Barbara Triana ([phone]) Roxanne Farias([phone]) Lula De Dios([phone]) Please call for pediatric patients: Barbara Triana ([phone]) Roxanne Farias ([phone]) Dixie Travis ([phone]) Lula De Dios([phone]) ----- 08/05/2022 Admission Type EMU Adult Number of Days requested 4 Location [facility] Admit Priority Routine PURPOSE 08/05/2022 Patient Being Considered for Epilepsy Surgery? No VEEG recommended to assess seizure burden, address new AND concerning syymptom-sign complex, and/or clarify syndromic epilepsy diagnosis? Yes 08/05/2022 Sphenoidal monitoring No Electrode placement Standard Appointments and Tests PRE-PROCEDURE AND PRE-OPERATIVE COVID (AMB COVID PRE-PROCEDURE TESTING PANEL) EPIL EEG LEAD PLACEMENT EPIL VEEG ADMIT TO EMU/PMU Consultations None Please route this encounter to the EMU Scheduling pool ( P EMU ) or PMU Scheduling pool ( P PMU ) through LOS AND Follow up Scheduling coordinators: For all VNS patients being scheduled for SERINA, please schedule VNS off/on office visits.[facility]02-15-2023 History of Present illness Narrative* Talita Ruby APRN.PROGRAM AND RESEARCH COORDINATOR - 08/05/2022 9:12 AM EST [facility] Review of Records Patient: Migdalia Zurita Address: [address] [id number] Impression: Review of records for Migdalia Zurita, a 32 year old female, being referred by Angeles Bryant PA-C [[facility] Neurology] to Any Epileptologist for further evaluation and treatment. Patient has previouslydiagnosed seizure like activity. EEG from 2007 reported generalized findings. 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 Patient has trialed 5 AEDs (3 in the course of migraine treatment). As these have recurred over the last several weeks and are occurring weekly, VEEG is indicated for event characterization and diagnostic evaluation to determine best treatment options. Summar y: Onset: 2007 Recent Seizure Frequency: A few weeks ago, episodes began happening weekly Seizure Description(s) Available: Type A: Feels them coming on, vision goes black, but can hear everything that is happening Duration: 20 seconds Current AED(s): Levetiracetam Gabapentin Previous AED(s): Topiramate (migraine) Valproic acid (migraine) Lamotrigine PMH: HTN, symptomatic PVCs, nonsustained SVT, arachnoid cyst, migraine, restless leg syndrome PRIOR EVALUATIONS: [address] [place] [address] EEG ([facility], 04/18/2008): This is an abnormal EEG due to generalized spike and wave abnormalities, consistent with an epileptic abnormality MRI brain wo/w contrast ([facility], 08/22/2021): Normal MRI brain. No pathologic enhancement. No evidence of seizure focus. No cystic lesions identified in the brain. 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 Within the limits the study and amygdala and hippocampal formations are symmetric and normal in appearance. There is no evidence of heterotopic lucero. Sulcation pattern is normal. CAMERON Recommendations: - Admit to EMU for VEEG monitoring, diagnostic evaluation Location: [facility] - Visit with epileptologist prior to admission - Additional testing to be considered by epilepsy clinicians Signed: Talita Ruby APRN.CNP August 05, [address] Mckeon for review and recommendations. Recommendations (as discussed with Dr. Mckoen): - Please proceed with the above plan. Please route this encounter to the EMU Scheduling Pool ( P EMU ) or PMU Scheduling Pool ( P PMU ) through LOS & Follow up PHASE 1.0 AND 1.5 ORDER SYNOPSIS Patient: Migdalia Zurita ([id number]) Best contact number: [phone] Insurance: Payor: [employer] MEDICAID / Plan: [employer] MEDICAID / Product Type: Medicaid / Scheduling Team: Please call for adult patients: Dixie Travis ([phone]) Barbara Triana ([phone]) Roxanne Farias([phone]) Lula De Dios([phone]) Please call for pediatric patients: Barbara Triana ([phone]) Roxanne Farias ([phone]) Dixie Travis ([phone]) Lula De Dios([phone]) 08/05/2022 Admission Type EMU Adult Number of Days requested [address] [facility] Admit Priority Routine PURPOSE 08/05/2022 Patient Being Considered for Epilepsy Surgery? No VEEG recommended to assess seizure burden, address new & concerning syymptom- sign complex, and/or clarify syndromic epilepsy diagnosis? Yes 08/05/2022 Sphenoidal monitoring No Electrode placement Standard Appointments and Tests PRE-PROCEDURE & PRE-OPERATIVE COVID (AMB COVID PRE-PROCEDURE TESTING PANEL) EPIL EEG LEAD PLACEMENT EPIL VEEG ADMIT TO EMU/PMU Consultations None Please route this encounter to the EMU Scheduling pool ( P EMU ) or PMU Scheduling pool ( P PMU ) through LOS & Follow up Scheduling coordinators: For all VNS patients being scheduled for SERINA, please schedule VNS off/on office visits. [facility] Miscellaneous Notes* Telephone Encounter - Liz Warner - 08/03/2022 3:46 PM EST 1st attempt. Called patient and left message on VM to call back and schedule appointment with Dr. Calle. * Telephone Encounter - Charu Garcia MA - 08/03/2022 3:26 PM EST Patient hasn't been seen since 2020. Needs appt w/ Dr Calle. documented in this encounterW[facility]02-13-2023 Miscellaneous Notes* Telephone Encounter - Lula Lopezchelojameel - 08/03/2022 1:13 PM EST Images from the original note were not included. documented in this encounterWvumed[facility]02-10-2023 NoteHNO ID: [id number] Author: Angeles Bryant PA-C Service: ? Author Type: Physician Bulk Sugar Handler Type: Progress Notes Filed: 07/31/2022 12:43 PM Note Text: ESTABLISHED PATIENT VISIT Last visit: 09/04/21 with Jenelle Carson PROGRAM AND RESEARCH COORDINATOR G25.81 RLS (restless legs syndrome) (primary encounter diagnosis) M54.17 Lumbosacral radiculopathy M54.50 Lumbar pain Comment: Patient previously seen for reported history of RLS. Has taken Mirapex and Requip in the past and currently taking gabapentin. As per previous visit, patient reporting discomfort at night but not relieved by movement, raising concern for possible alternative dx. As pt reported lumbar pain with radiation as well as history of degenerative changes of lumbar spine, MRI lumbar spine ordered to evaluate for spinal etiology of symptoms. However, pt unable to complete lumbar MRI at this time. Today she notes lumbar pain is less severe but still present and still with bilateral LE pain. Continues to take gabapentin and VPA. At this time will proceed with PT for lumbar and LE pain as well as XR of lumbar spine. Pending results as well as level of improvement with PT, may again consider further imaging with MRI. R51.9, G89.29 Chronic intractable headache, unspecified headache type Comment: Patient previously reporting chronic daily headache thought to be related to medication overuse as well as increased caffeine intake. She reports headaches as being located frontally with radiation around temporal region bilaterally, by description possibly tension in nature. Denies associated photophobia, phonophobia, or visual disturbances but does report nausea and vomiting with headaches. As previously noted, would still recommend follow up with PCP regarding vomiting as uncertain if this is related to headaches or possible separate condition. At today's visit she reports roughly four headaches per week. Has previously failed multiple medications for headaches and was started on VPA ER 500mg QHS as headache preventative. Note, she is also currently taking gabapentin 600mg in AM and 1200mg QHS as well as Keppra 750mg BID. At this time as there has only been minimal improvement in headaches with use of VPA, will place referral to [facility]. Pt agreeable. G93.0 Cerebral cysts G40.919 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 status epilepticus, unspecified epilepsy type (HCC) Comment: History of seizures previously reported as occurring roughly two per week. Today she reports no further seizures since last OV. MRI of brain completed in interim to evaluate reported history of brain cyst. Results unremarkable and without evidence of cystic lesion. EEG also ordered but not yet completed. Appointment scheduled for September. Note that consult also previously placed to epilepsy clinic and she will be having follow up appointment in September as well with possible EMU admit. Note that she currently remains on gabapentin, Keppra, and VPA which would act as seizure preventative. Again, patient should not drive or operate heavy machinery until cleared by epilepsy. Keep follow up appointments as scheduled. Office Visit on 09/04/21 XR LUMBAR GENERAL 3V AP/LAT/L5-S1 CONSULT TO NEUROLOGY CONSULT TO HEADACHE CLINIC CONSULT TO PHYSICAL THERAPY CHIEF COMPLAINT: Follow-up HISTORY OF PRESENT ILLNESS: Migdalia Zurita is a 32 year old female, There were no vitals taken for this visit. with a PMH significant for Migraine, Seizures, RLS, depression, SVT. Since last visit, patient has gone to physical therapy for lumbar pain since last visit, notes that her symptoms had completely resolved. Patient referred to headache clinic since last appointment, notes that she is started Ajovy and her headaches have resolved with this medication and with cessation of smoking. Per last note, patient was instructed to follow-up with epilepsy, obtain EEG but patient notes that she was unaware of this and did not follow up with epilepsy. She notes that she stopped taking her Keppra to 3 months ago, did not have a refill so she stopped. She notes that she has not had any seizures since then, but notes that she has had to blackout episodes. This was one of her previous seizure types and she notes that she was told that these were seizures. She notes that these occurred when she was ill last week with GI illness, occurred twice with standing, were brief in nature, no postictal state. No other complaint at this time. REVIEW OF SYSTEMS GENERAL:No weight loss, malaise or fevers. HEENT:Negative for frequent or significant headaches, No changes in hearing or vision, no nose bleeds or other nasal problems NECK:Negative for lumps, goiter, pain and significant neck swelling RESPIRATORY: Negative for cough, wheezing or shortness of breath. CARDIOVASCULAR: Negative for chest pain, leg swelling or palpitations. GASTROINTESTINAL: Diarrhea and nausea GENITOURINARY: No history of dysuria, freq (more content not included)... [facility]01-30[facility] NoteHNO ID: [id number] Author: Misha Cespedes MD Service: ? Author Type: Physician Type: Progress Notes Filed: 07/20/2022 7:43 PM Note Text: This note was created using [employer]. Subjective Diarrhea is described as nonbloody and profuse watery occuring 3 times in the past 12 hours, for 5 days. With symptoms improving. Associated with nausea and vomiting. Imodium did not help. There was no contact with any one ill, no Covid exposure, no unusual food intake. Spouse was not ill. Mild abdominal discomfort with diarrhea, relieved by bowel movement. She took one Zofran which helped nausea. Review of Systems Constitutional: Positive for appetite change. Negative for chills and fever. HENT: Negative for congestion, rhinorrhea and sore throat. Respiratory: Negative for cough and shortness of breath. Gastrointestinal: Negative for blood in stool. ACTIVE PROBLEM LIST Depressive Disorder NSVT (nonsustained ventricular tachycardia) Seizure (Hcc) Rls (Restless Legs Syndrome) Migraine Without Aura and Without Status Migrainosus, Not Intractable Menstrual Irregularity Visual Field Defect of Left Eye Obesity, Class III, BMI >= 40 Gastroesophageal Reflux Disease Obesity, Class I, Bmi 30-34.9 Chronic Pain of Left Knee Current Outpatient Medications Medication Sig doxylamine succinate (SLEEP AID ORAL) Take 1 tablet by mouth daily at bedtime. Etonogestrel-Ethinyl Estradiol (NUVARING) 0.12-0.015 mg/24 hr vaginal ring Use 1 Each vaginally as directed. INSERT ONE(1) RING VAGINALLY AND LEAVE IN PLACE FOR THREE WEEKS, THEN REMOVE FOR 1 WEEK. hydrocortisone (ANUSOL-HC) 2.5 % rectal cream by RECTAL route twice daily. [START ON 08/14/2022] gabapentin (NEURONTIN) 600 mg tablet Take 1 tablet by mouth every morning AND 2 tablets daily at bedtime. Do all this for 180 days. Do not start before August 14, 2022. venlafaxine ER (EFFEXOR XR) 150 mg 24 hr capsule Take 1 capsule by mouth once daily. ondansetron orally disintegrating (ZOFRAN ODT) 4 mg disintegrating tablet Take 1 tablet by mouth every 8 hours as needed for nausea/vomiting. No current facility-administered medications for this visit. Objective BP 96/58 (BP Site: Right Arm, BP Position: Sitting, BP Cuff Size: Large Adult) Pulse 68 Temp 36.6 ?C (97.8 ?F) (Temporal) Resp 16 Wt 79.4 kg (175 lb) LMP 06/21/2022 (Approximate) BMI 31.00 kg/m? Physical Exam Constitutional: General: She is not in acute distress. Appearance: She is not ill-appearing. HENT: Mouth/Throat: Mouth: Mucous membranes are moist. Eyes: Conjunctiva/sclera: Conjunctivae normal. Cardiovascular: Rate and Rhythm: Normal rate and regular rhythm. Pulmonary: Breath sounds: Normal breath sounds. Abdominal: General: Abdomen is flat. Bowel sounds are normal. Palpations: Abdomen is soft. Tenderness: There is no abdominal tenderness. Musculoskeletal: Right lower leg: No edema. Left lower leg: No edema. Skin: General: Skin is warm and dry. Neurological: Mental Status: She is alert. Assessment and Plan 1. Viral gastroenteritis - ICD9: 008.8, ICD10: A08.4 Hydration stressed. Pepto Bismol as needed. Imodium as needed. Misha Cespedes [facility]01-30-2023 History of Present illness Narrative* Misha Cespedes MD - 07/20/2022 6:54 PM EST This note was created using [employer]. Subjective Diarrhea is described as nonbloody and profuse watery occuring 3 times in the past 12 hours, for 5 days. With symptoms improving. Associated with nausea and vomiting. Imodium did not help. There was no contact with any one ill, no Covid exposure, no unusual food intake. Spouse was not ill. Mild abdominal discomfort with diarrhea, relieved by bowel movement. She took one Zofran which helped nausea. Review of Systems Constitutional: Positive for appetite change. Negative for chills and fever. HENT: Negative for congestion, rhinorrhea and sore throat. Respiratory: Negative for cough and shortness of breath. Gastrointestinal: Negative for blood in stool. ACTIVE PROBLEM LIST Depressive Disorder NSVT (nonsustained ventricular tachycardia) Seizure (Hcc) Rls (Restless Legs Syndrome) Migraine Without Aura and Without Status Migrainosus, Not Intractable Menstrual Irregularity Visual Field Defect of Left Eye Obesity, Class III, BMI >= 40 Gastroesophageal Reflux Disease Obesity, Class I, Bmi 30-34.9 Chronic Pain of Left Knee Current Outpatient Medications Medication Sig doxylamine succinate (SLEEP AID ORAL) Take 1 tablet by mouth daily at bedtime. Etonogestrel-Ethinyl Estradiol (NUVARING) 0.12-0.015 mg/24 hr vaginal ring Use 1 Each vaginally as directed. INSERT ONE(1) RING VAGINALLY AND LEAVE IN PLACE FOR THREE WEEKS, THEN REMOVE FOR 1 WEEK. hydrocortisone (ANUSOL-HC) 2.5 % rectal cream by RECTAL route twice daily. [START ON 08/14/2022] gabapentin (NEURONTIN) 600 mg tablet Take 1 tablet by mouth every morning AND 2 tablets daily at bedtime. Do all this for 180 days. Do not start before August 14, 2022. venlafaxine ER (EFFEXOR XR) 150 mg 24 hr capsule Take 1 capsule by mouth once daily. ondansetron orally disintegrating (ZOFRAN ODT) 4 mg disintegrating tablet Take 1 tablet by mouth every 8 hours as needed for nausea/vomiting. No current facility-administered medications for this visit. Objective BP 96/58 (BP Site: Right Arm, BP Position: Sitting, BP Cuff Size: Large Adult) Pulse 68 Temp 36.6 C (97.8 F) (Temporal) Resp 16 Wt 79.4 kg (175 lb) LMP 06/21/2022 (Approximate) BMI 31.00 kg/m Physical Exam Constitutional: General: She is not in acute distress. Appearance: She is not ill-appearing. HENT: Mouth/Throat: Mouth: Mucous membranes are moist. Eyes: Conjunctiva/sclera: Conjunctivae normal. Cardiovascular: Rate and Rhythm: Normal rate and regular rhythm. Pulmonary: Breath sounds: Normal breath sounds. Abdominal: General: Abdomen is flat. Bowel sounds are normal. Palpations: Abdomen is soft. Tenderness: There is no abdominal tenderness. Musculoskeletal: Right lower leg: No edema. Left lower leg: No edema. Skin: General: Skin is warm and dry. Neurological: Mental Status: She is alert. Assessment and Plan 1. Viral gastroenteritis - ICD9: 008.8, ICD10: A08.4 Hydration stressed. Pepto Bismol as needed. Imodium as needed. Misha Cespedes MD documented in this encounterW[facility]01-30-2023 Miscellaneous Notes* Telephone Encounter - Stephy Zazueta LPN - 07/20/2022 12:25 PM EST Patient scheduled appt using [employer]. Stephy Zazueta LPN * Telephone Encounter - Carola Blandon APRN.CNP - 07/20/2022 11:52 AM EST Patient needs to be seen, either Express Care or office visit. Not appropriate for virtual visit Carola Blandon APRN.CNP documented in this encounterW[facility]01-27-2023 NoteHNO ID: [id number] Author: Beverly Babin APRN.CNP Service: ? Author Type: Nurse Practitioner Type: Progress Notes Filed: 07/17/2022 10:19 AM Note Text: Adjustment Examiner offered: Patient declines. Migdalia is a 32 year old who presents for an annual gynecologic exam with complaints, rectal itching x 2 months . She sweats and goes up and down stairs a lot - wonders if that is the cause. Sometimes she scratches so much she has bleeding. Menses: cycles every 14-28 days and 5 days of flow. History of frequent menses as often as 3/month. Flow has not changed. Has used Nuvaring in the past to control menses but is not now and can not remember if it helped. Contraception: tubal sterilization Essure HPV vaccine: No [facility] HPV: 2019 negative History of abnormal pap: No Last mammogram: Yes, lumpy breasts Sexually active: No History of STDS: chlamydia and trichomonas Patient concerns for STD exposure: No. 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) History LMP: 09/01/2021 (Approximate), Having periods Age at Menarche: Age at First : Age at Menopause: Quality Improvement Coordinator (Rn) History Comments: Sexual Activity: Yes; Male Contraception: Tubal Ligation PAST MEDICAL HISTORY Diagnosis Date Abnormal Pap smear 10/21/2009 LGSIL Anemia in 12/24/2011 Continue daily folate and Fe Monitor H/H Depressive disorder, not elsewhere classified 09/02/2007 Hx overdose Intracranial arachnoid cysts 2008 Migraine 1998 NSVT (nonsustained ventricular tachycardia) 02/05/2012 Patient noncompliance history of AMA/no shows PMH - PAST MEDICAL HISTORY OF LEARNING DISABILITY Pre-syncope 02/04/2012 RLS (restless legs syndrome) Seizure (HCC) Dr Morocho PAST SURGICAL HISTORY Procedure Laterality Date COLONOSCOPY FLX DX W/COLLJ SPEC WHEN PFRMD 03/04/2016 Colonoscopy DILATION AND CURETTAGE DXAND/THER NONOBSTETRIC 04/15/2011 Dilation AND curettage ESOPHAGOGASTRODUODENOSCOPY TRANSORAL DIAGNOSTIC 03/04/2016 EGD ESSURE 05/25/2012 Dr Mckenzie Medrano PAST SURGICAL HISTORY OF dental extractions VAGINOSCOPY November 19, 2009 VAGINOSCOPY November 07, 2008 FAMILY HISTORY Problem Relation Age of Onset Heart Mother alive but 3 times and resusitated Seizures Mother Diabetes Mother Diabetes Maternal Grandmother Cancer Maternal Grandfather ?TYPE Asthma Sister Seizures Brother SOCIAL HISTORY Social History Tobacco Use Smoking status: Former Packs/day: 0.75 Years: 13.00 Pack years: 9.75 Types: Cigarettes Start date: 02/20/1999 Quit date: 10/28/2021 Years since quittin.7 Smokeless tobacco: Never Vaping Use Vaping Use: Never used Substance Use Topics Alcohol use: No Drug use: Never REVIEW OF SYSTEMS Abdomen: No abdominal pain, nausea, vomiting, diarrhea, or constipation. No bloating, early satiety, indigestion, or increased flatulence. Bladder: No dysuria, gross hematuria, urinary frequency, urinary urgency, or incontinence. Breast: No breast lumps, nipple d/c, overlying skin changes, redness or skin retraction. Allergies and current medication updated:Yes EXAM: BP 92/62 Ht 5' 3 (1.60m) Wt 179 lb (81.2kg) LMP 06/21/2022 BMI 31.72 kg/(m2). GENERAL: pleasant, female in no apparent distress HEENT: Normocephalic, atraumatic, mucus membranes moist, and no lesions NECK: Supple, full range of motion, no adenopathy, and thyroid normal DERMATOLOGY: Normal, without lesions, non-icteric, and non-hirsute BREAST: soft, non-tender, symmetric, no dominant mass, normal nipple-areolar complex, no lymphadenopathy, and no nipple discharge CHEST: Normal inspiratory effort ABDOMEN: soft, non-tender, and no masses PELVIC: external genitalia normal, normal Bartholin's glands, urethra, [place]'s glands, no vulvar lesions, no cervical lesions, small amount white discharge present, normal appearing perineal body and perianal region BIMANUAL: uterus normal size, shape and consistency, no adnexal masses, and non-tender RECTOVAGINAL: perirectal erythema extending 2 cm around. No induration. NEURO: alert and oriented x3,exam grossly non-focal EXTREMITIES: normal ASSESSMENT/PLAN: 1) Health maintenance: Pap done with HPV. Nutrition, exercise and routine health maintenance exams reviewed. Patient encouraged to avoid smoking- stopped 04/2022 2. Vaginal discharge - ICD9: 623.5, ICD10: N89.8 - JO ANN / TRICHOMONAS AMPLIFICATION - BACTERIAL VAGINOSIS AMPLIFICATION 3. Perirectal skin irritation - ICD9: 569.49, ICD10: K62.89 - HYDROCORTISONE 2.5 % TOPICAL CREAM WITH PERINEAL APPLICATOR 4. Polymenorrhea - ICD9: 626.2, ICD10: N92.0 - long-standing. Pt used to it but would like to have only one menses per month. Past IUD caused pain. Would like to try Nuvaring again. Reviewed instructi (more content not included)...[facility] 07-17-2022 Instructions* Patient Instructions* Beverly Babin APRN.CNP - 07/17/2022 10:07 AM EST Insert Nuvaring Wednesday after you start your next menses. documented in this encounterW[facility]01-27-2023 History of Present illness Narrative* Beverly Babin APRN.CNP - 07/17/2022 9:21 AM EST Adjustment Examiner offered: Patient declines. Migdalia is a 32 year old who presents for an annual gynecologic exam with complaints, rectal itching x 2 months . She sweats and goes up and down stairs a lot - wonders if that is the cause. Sometimes she scratches so much she has bleeding. Menses: cycles every 14-28 days and 5 days of flow. History of frequent menses as often as 3/month.Flow has not changed. Has used Nuvaring in the past to control menses but is not now and can not remember if it helped. Contraception: tubal sterilization Essure HPV vaccine: No Last Pap: 2019 normal at [facility] HPV: 2019 negative History of abnormal pap: No Last mammogram: Yes, lumpy breasts Sexually active: No History of STDS: chlamydia and trichomonas Patient concerns for STD exposure: No. 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) History LMP: 09/01/2021 (Approximate), Having periods Age at Menarche: Age at First : Age at Menopause: Quality Improvement Coordinator (Rn) History Comments: Sexual Activity: Yes; Male Contraception: Tubal Ligation PAST MEDICAL HISTORY Diagnosis Date Abnormal Pap smear 10/21/2009 LGSIL Anemia in 12/24/2011 Continue daily folate and Fe Monitor H/H Depressive disorder, not elsewhere classified 09/02/2007 Hx overdose Intracranial arachnoid cysts 2008 Migraine 1998 NSVT (nonsustained ventricular tachycardia) 02/05/2012 Patient noncompliance history of AMA/no shows PMH - PAST MEDICAL HISTORY OF LEARNING DISABILITY Pre-syncope 02/04/2012 RLS (restless legs syndrome) Seizure (HCC) Dr Morocho PAST SURGICAL HISTORY Procedure Laterality Date COLONOSCOPY FLX DX W/COLLJ SPEC WHEN PFRMD 03/04/2016 Colonoscopy DILATION & CURETTAGE DX&/THER NONOBSTETRIC 04/15/2011 Dilation & curettage ESOPHAGOGASTRODUODENOSCOPY TRANSORAL DIAGNOSTIC 03/04/2016 EGD ESSURE 05/25/2012 Dr Mckenzie Medrano PAST SURGICAL HISTORY OF dental extractions VAGINOSCOPY November 19, 2009 VAGINOSCOPY November 07, 2008 FAMILY HISTORY Problem Relation Age of Onset Heart Mother alive but 3 times and resusitated Seizures Mother Diabetes Mother Diabetes Maternal Grandmother Cancer Maternal Grandfather ?TYPE Asthma Sister Seizures Brother SOCIAL HISTORY Social History Tobacco Use Smoking status: Former Packs/day: 0.75 Years: 13.00 Pack years: 9.75 Types: Cigarettes Start date: 02/20/1999 Quit date: 10/28/2021 Years since quittin.7 Smokeless tobacco: Never Vaping Use Vaping Use: Never used Substance Use Topics Alcohol use: No Drug use: Never REVIEW OF SYSTEMS Abdomen: No abdominal pain, nausea, vomiting, diarrhea, or constipation. No bloating, early satiety, indigestion, or increased flatulence. Bladder: No dysuria, gross hematuria, urinary frequency, urinary urgency, or incontinence. Breast: No breast lumps, nipple d/c, overlying skin changes, redness or skin retraction. Allergies and current medication updated:Yes EXAM: BP 92/62 Ht 5' 3 (1.60m) Wt 179 lb (81.2kg) LMP 06/21/2022 BMI 31.72 kg/(m^2). GENERAL: pleasant, female in no apparent distress HEENT: Normocephalic, atraumatic, mucus membranes moist, and no lesions NECK: Supple, full range of motion, no adenopathy, and thyroid normal DERMATOLOGY: Normal, without lesions, non-icteric, and non-hirsute BREAST: soft, non-tender, symmetric, no dominant mass, normal nipple-areolar complex, no lymphadenopathy, and no nipple discharge CHEST: Normal inspiratory effort ABDOMEN: soft, non-tender, and no masses PELVIC: external genitalia normal, normal Bartholin's glands, urethra, [place]'s glands, no vulvar lesions, no cervical lesions, small amount white discharge present, normal appearing perineal body andperianal region BIMANUAL: uterus normal size, shape and consistency, no adnexal masses, and non-tender RECTOVAGINAL: perirectal erythema extending 2 cm around. No induration. NEURO: alert and oriented x3,exam grossly non-focal EXTREMITIES: normal ASSESSMENT/PLAN: 1) Health maintenance: Pap done with HPV. Nutrition, exercise and routine health maintenance exams reviewed. Patient encouraged to avoid smoking- stopped 04/2022 2. Vaginal discharge - ICD9: 623.5, ICD10: N89.8 - JO ANN / TRICHOMONAS AMPLIFICATION - BACTERIAL VAGINOSIS AMPLIFICATION 3. Perirectal skin irritation - ICD9: 569.49, ICD10: K62.89 - HYDROCORTISONE 2.5 % TOPICAL CREAM WITH PERINEAL APPLICATOR 4. Polymenorrhea - ICD9: 626.2, ICD10: N92.0 - long-standing. Pt used to it but would like to have only one menses per month. Past IUD caused pain. Would like to try Nuvaring again. Reviewed instructions for use. - ETONOGESTREL 0.12 MG-ETHINYL ESTRADIOL 0.015 MG/24 HR VAGINAL RING 5) Contraception: tubal sterilization. 6) STD screening: Accepted STD check for Gonorrhea and Chlamydia. 7) Follow up one year or sooner as needed Beverly Babin APRN.DEREK documented in this encounterW[facility] NoteHNO ID: [id number] Author: Misha Cespedes MD Service: ? Author Type: Physician Type: Progress Notes Filed: 07/14/2022 12:40 PM Note Text: This note was created using Planwiseriter. Subjective Migdalia Zurita is a 32 year old female. She complained of ongoing left knee pain and popping, especially when getting up from sitting or going up or down steps. Xrays 8 months ago were normal. Knee supports including patellar support did not seem to help. She needed refills of venlafaxine and gabapentin. Restless legs and depression were stable. She stopped all her other medications. She stopped smoking in October and migraines and palpitations improved significantly. Review of Systems Constitutional: Negative. Respiratory: Negative. Cardiovascular: Negative for chest pain, palpitations and leg swelling. Gastrointestinal: Negative. Genitourinary: Negative. Neurological: Negative for seizures. Psychiatric/Behavioral: Negative. ACTIVE PROBLEM LIST Depressive Disorder NSVT (nonsustained ventricular tachycardia) Seizure (Hcc) Rls (Restless Legs Syndrome) Migraine Without Aura and Without Status Migrainosus, Not Intractable Menstrual Irregularity Visual Field Defect of Left Eye Obesity, Class III, BMI >= 40 Gastroesophageal Reflux Disease Social History Tobacco Use Smoking status: Former Packs/day: 0.75 Years: 13.00 Pack years: 9.75 Types: Cigarettes Start date: 02/20/1999 Quit date: 10/28/2021 Years since quittin.7 Smokeless tobacco: Never Vaping Use Vaping Use: Never used Substance Use Topics Alcohol use: No Drug use: Never Current Outpatient Medications Medication Sig ondansetron orally disintegrating (ZOFRAN ODT) 4 mg disintegrating tablet Take 1 tablet by mouth every 8 hours as needed for nausea/vomiting. [START ON 08/14/2022] gabapentin (NEURONTIN) 600 mg tablet Take 1 tablet by mouth every morning AND 2 tablets daily at bedtime. Do all this for 180 days. Do not start before August 14, 2022. venlafaxine ER (EFFEXOR XR) 150 mg 24 hr capsule Take 1 capsule by mouth once daily. No current facility-administered medications for this visit. Objective BP 96/64 (BP Site: Right Arm, BP Position: Sitting, BP Cuff Size: Large Adult) Pulse 72 Resp 16 Wt 83.5 kg (184 lb) LMP 09/01/2021 (Approximate) BMI 31.58 kg/m? Physical Exam Constitutional: General: She is not in acute distress. Appearance: She is not ill-appearing. Cardiovascular: Rate and Rhythm: Normal rate and regular rhythm. Heart sounds: No murmur heard. No gallop. Pulmonary: Effort: Pulmonary effort is normal. Breath sounds: Normal breath sounds. Musculoskeletal: Left knee: Swelling present. Normal range of motion. Tenderness present over the patellar tendon. Normal meniscus and normal patellar mobility. Right lower leg: No edema. Left lower leg: No edema. Neurological: General: No focal deficit present. Mental Status: She is alert. Gait: Gait normal. Psychiatric: Mood and Affect: Mood normal. Behavior: Behavior normal. Thought Content: Thought content normal. Assessment and Plan 1. Chronic pain of left knee - ICD9: 719.46, 338.29, ICD10: M25.562, G89.29 (primary diagnosis) - CONSULT TO ORTHOPAEDICS 2. Migraine without aura and without status migrainosus, not intractable - ICD9: 346.10, ICD10: G43.009 Controlled. - GABAPENTIN 600 MG TABLET 3. RLS (restless legs syndrome) - ICD9: 333.94, ICD10: G25.81 Controlled. - GABAPENTIN 600 MG TABLET 4. Seizure (HCC) - ICD9: 780.39, ICD10: R56.9 Controlled. 5. NSVT (nonsustained ventricular tachycardia) - ICD9: 427.1, ICD10: I47.29 No recurrence off medication. 6. Depressive disorder - ICD9: 311, ICD10: F32.A Controlled. - VENLAFAXINE ER 150 MG CAPSULE,EXTENDED RELEASE 24 HR 7. Screening for cervical cancer - ICD9: V76.2, ICD10: Z12.4 - CONSULT TO GYNECOLOGY 8. Obesity, Class I, BMI 30-34.9 - ICD9: 278.00, ICD10: E66.9 Weight decreasing Misha Cespedes [facility]01-24-2023 History of Present illness Narrative* Misha Cespedes MD - 07/14/2022 11:56 AM EST This note was created using NoteWriter. Subjective Migdalia Zurita is a 32 year old female. She complained of ongoing left knee pain and popping, especially when getting up from sitting or going up or down steps. Xrays 8 months ago were normal. Knee supports including patellar support did not seem to help. She needed refills of venlafaxine and gabapentin. Restless legs and depression were stable. She stopped all her other medications. She stopped smoking in October and migraines and palpitations improved significantly. Review of Systems Constitutional: Negative. Respiratory: Negative. Cardiovascular: Negative for chest pain, palpitations and leg swelling. Gastrointestinal: Negative. Genitourinary: Negative. Neurological: Negative for seizures. Psychiatric/Behavioral: Negative. ACTIVE PROBLEM LIST Depressive Disorder NSVT (nonsustained ventricular tachycardia) Seizure (Hcc) Rls (Restless Legs Syndrome) Migraine Without Aura and Without Status Migrainosus, Not Intractable Menstrual Irregularity Visual Field Defect of Left Eye Obesity, Class III, BMI >= 40 Gastroesophageal Reflux Disease Social History Tobacco Use Smoking status: Former Packs/day: 0.75 Years: 13.00 Pack years: 9.75 Types: Cigarettes Start date: 02/20/1999 Quit date: 10/28/2021 Years since quittin.7 Smokeless tobacco: Never Vaping Use Vaping Use: Never used Substance Use Topics Alcohol use: No Drug use: Never Current Outpatient Medications Medication Sig ondansetron orally disintegrating (ZOFRAN ODT) 4 mg disintegrating tablet Take 1 tablet by mouth every 8 hours as needed for nausea/vomiting. [START ON 08/14/2022] gabapentin (NEURONTIN) 600 mg tablet Take 1 tablet by mouth every morning AND 2 tablets daily at bedtime. Do all this for 180 days. Do not start before August 14, 2022. venlafaxine ER (EFFEXOR XR) 150 mg 24 hr capsule Take 1 capsule by mouth once daily. No current facility-administered medications for this visit. Objective BP 96/64 (BP Site: Right Arm, BP Position: Sitting, BP Cuff Size: Large Adult) Pulse 72 Resp 16 Wt 83.5 kg (184 lb) LMP 09/01/2021 (Approximate) BMI 31.58 kg/m Physical Exam Constitutional: General: She is not in acute distress. Appearance: She is not ill-appearing. Cardiovascular: Rate and Rhythm: Normal rate and regular rhythm. Heart sounds: No murmur heard. No gallop. Pulmonary: Effort: Pulmonary effort is normal. Breath sounds: Normal breath sounds. Musculoskeletal: Left knee: Swelling present. Normal range of motion. Tenderness present over the patellar tendon. Normal meniscus and normal patellar mobility. Right lower leg: No edema. Left lower leg: No edema. Neurological: General: No focal deficit present. Mental Status: She is alert. Gait: Gait normal. Psychiatric: Mood and Affect: Mood normal. Behavior: Behavior normal. Thought Content: Thought content normal. Assessment and Plan 1. Chronic pain of left knee - ICD9: 719.46, 338.29, ICD10: M25.562, G89.29 (primary diagnosis) - CONSULT TO ORTHOPAEDICS 2. Migraine without aura and without status migrainosus, not intractable - ICD9: 346.10, ICD10: G43.009 Controlled. - GABAPENTIN 600 MG TABLET 3. RLS (restless legs syndrome) - ICD9: 333.94, ICD10: G25.81 Controlled. - GABAPENTIN 600 MG TABLET 4. Seizure (HCC) - ICD9: 780.39, ICD10: R56.9 Controlled. 5. NSVT (nonsustained ventricular tachycardia) - ICD9: 427.1, ICD10: I47.29 No recurrence off medication. 6. Depressive disorder - ICD9: 311, ICD10: F32.A Controlled. - VENLAFAXINE ER 150 MG CAPSULE,EXTENDED RELEASE 24 HR 7. Screening for cervical cancer - ICD9: V76.2, ICD10: Z12.4 - CONSULT TO GYNECOLOGY 8. Obesity, Class I, BMI 30-34.9 - ICD9: 278.00, ICD10: E66.9 Weight decreasing Misha Cespedes MD documented in this encounterW[facility]01-24-2023 Miscellaneous Notes* Telephone Encounter - Tiff Medrano LPN - 07/14/2022 8:05 AM EST Patient scheduled 07/14/22 at 11:40am. documented in this encounterWv[facility]10-19-2022 Miscellaneous Notes* Telephone Encounter - Vic Lundberg RN - 04/08/2022 2:07 PM EDT Patient returned call and given provider's message below with verbalized understanding. Patient reports she is not having issues, someone just told her she should have mammogram done every year, * Telephone Encounter - Arnel Vail Ma - 04/08/2022 1:38 PM EDT Left message to call office. 04/08/2022 1:38 PM * Telephone Encounter - Carola Blandon APRN.CNP - 04/08/2022 12:36 PM EDT Routine screening mammograms start at age 40. If she has a specific issue that she feels she needs a mammogram for she will need to be seen Carola Blandon APRN.CNP * Telephone Encounter - Nicole Rushing RN - 04/08/2022 12:16 PM EDT Patient calls to ask if provider would place an order for a mammogram. Order pended. Nicole Rushing RN documented in this encounterWvumed[facility]08-01-2022 Miscellaneous Notes* Telephone Encounter - Arnel Vail Ma - 01/19/2022 9:56 AM EDT MARY: 11/11/2021 Last refill: 04/14/2021 QTY: 90 Refills: 5 documented in this encounterWvumed[facility]06-03-2022 Miscellaneous Notes* Telephone Encounter - Harper Myles RN - 11/21/2021 11:42 AM EDT Ambulatory Pharmacy Prior Authorization Note Provider Intervention Required?: No- Pharmacy completed on your behalf. Drug: AJOVY (fremanezumab-vfrm) injection 225MG/1.5ML auto-injectors Cover My Meds Posey: COLT Determination: Approved Prior Authorization/Case #: [id number] Prior Authorization Expiration: 05/22/22 Time to PA Submission in CMM: 15 min Time to PA Determination in CMM: Same day Additional Information: PLEASE NOTE: Pt will need follow up office visit to review/document efficacy and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 Mckenzie Medrano PAST SURGICAL HISTORY OF dental extractions VAGINOSCOPY November 19, 2009 VAGINOSCOPY November 07, 2008 ALLERGIES No Known Allergies Current Medications: levETIRAcetam (KEPPRA) 750 mg tablet Take 1 tablet by mouth twice daily. divalproex ER (DEPAKOTE ER) 500 mg 24 hr tablet Take 1 tablet by mouth daily at bedtime. metoprolol tartrate, short acting, (LOPRESSOR) 50 mg tablet Take 1 tablet by mouth twice daily. ondansetron orally disintegrating (ZOFRAN ODT) 4 mg disintegrating tablet Take 1 tablet by mouth every 8 hours as needed for nausea/vomiting. venlafaxine ER (EFFEXOR XR) 150 mg 24 hr capsule Take 1 capsule by mouth once daily. pramipexole (MIRAPEX) 0.5 mg tablet Take 1 tablet by mouth daily at bedtime. Restless legs. gabapentin (NEURONTIN) 600 mg tablet Take 1 tablet by mouth every morning AND 2 tablets daily at bedtime. Do all this for [address] (PROTONIX) 40 mg tablet Take 1 tablet by mouth daily before breakfast. Take on empty stomach, 1/2 hr before meal. methylPREDNISolone (MEDROL, NATALIE,) 4 mg Dose-Pack Take as directed on package. rimegepant (NURTEC ODT) 75 mg disintegrating tablet Take 1 tablet by mouth every other day in the morning. fluticasone (FLONASE) 50 mcg/actuation nasal spray Use 2 Sprays in each nostril once daily. Rinse mouth after use. Drospirenone-Ethinyl Estradiol (GIANVI, 28,) 3-0.02 mg per tablet Take 1 tablet by mouth once daily. PHQ-9 04/16/2018 09/07/2018 09/25/2020 Score 0 10 1 Family History: FAMILY HISTORY Problem Relation Age of Onset Heart Mother alive but 3 times and resusitated Seizures Mother Diabetes Mother Diabetes Maternal Grandmother Cancer Maternal Grandfather ?TYPE Asthma Sister Seizures Brother REVIEW OF SYSTEMS: Sleep: Not great Mood: Crappy Energy: low Stress: high GENERAL:No weight loss, malaise or fevers. HEENT:no change to hearing or vision. NECK:negative for neck pain or swelling RESPIRATORY: Negative for cough, wheezing or shortness of breath. CARDIOVASCULAR: Negative for chest pain, leg swelling or palpitations. GASTROINTESTINAL: Negative for abdominal discomfort, blood in stools or black stools or change in bowel habits GENITOURINARY: No history of dysuria, frequency or incontinence MUSKULOSKELETAL: Negative for joint pain or swelling, back pain or muscle pain. SKIN:Negative for lesions, rash, and itching. HEMATOLOGIC/LYMPHATIC/IMMUNOLOGIC:Negative for prolonged bleeding, bruising easily or swollen nodes. ENDOCRINE: Negative for cold or heat intolerance, polyuria, polydipsia NEUROLOGIC: + Headache, See HPI PHYSICAL EXAMINATION: BP 103/62 Pulse 94 Ht 162.6 cm (5' 4 ) Wt 92 kg (202 lb 12.8 oz) LMP 09/01/2021 (Approximate) BMI 34.81 kg/m Neurological Examination: Cognition: The patient is alert and oriented times three Lucid and organized in conversation Able to tell detailed medical hx Speech is Normal in fluency volume and clarity Content and Syntax: Normal Comprehension: Normal, able to follow several step commands Cranial Nerves: Pupils are equal and reactive to light. Pupils normal in size Extraocular movements are grossly intact Good saccades and pursuits No nystagmus Hearing intact Good upgaze Visual pope are full to confrontation. Facial, motor and sensory exam is symmetric Equal v1,V2, V3 Tongue is in midline. No tongue fasciculation. Palate is upgoing bilaterally SCM and trapezius are full. Shoulder shrug intact Motor Exam: Upper extremity motor exam is 5/5 in deltoid, 5/5 triceps 5/5biceps, 5/5 wrist extension, and 5/5 hand caustic cresylate shift superintendent. Finger extensor 5/5. Finger flexor 5/5. Pronation and Supination are full. Full interossei5/5 Lower extremity is 5/5 in IP, 5/5 quadriceps, 5/5 hamstrings, 5/5 EHL, 5/5 TA and 5/5 gastrocnemius. Hip abductors and adductors are 5/5 Toe extensors and flexors are full bilaterally. Foot evertors and inversions are full bilaterally Tone and bulk is normal and preserved bilaterally of arms Tone and bulk is normal and preserved bilaterally of legs No pes cavus, hammer toes, champagne legs The patient is without significant pronator drift. Sensation: Intact to light touch, temperature Romberg's sign absent Reflexes: 2/4triceps, 2/4biceps, 2/4brachioradialis, 2/4knee jerk, 2/4ankle jerk and symmetric Coordination: Finger-to- nose-finger and tckb-ym-idat intact bilaterally. No ataxia of arms. No limb dysmetria ofarms and legs or trunk. Finger and hand tapping intact.There is no asterixis of the hands. No rigidity, cog wheeling, no bradykinesia. No tremors No extrapyramidal findings Gait: Normal station and stride. Able to tandem. Able to heel and toe walk. Good arm swing and body turn rises from chair well Impression: Migdalia Zurita is a 31 year old female with history of Migraine, Seizures, RLS, depression, SVT . They are here today to establish care and treatment of headaches which began around age 9-10 year old. Headaches increased in severity and intensity over time and now occur daily. She had been startedon depakote 1-2 months ago and severity of headaches have decreased from 10/10 now to 3-4/10. Headaches have associated photophobia, phonophobia, nausea, vomiting. Exam today is unremarkable. The nature of migraine has been discussed. Various episodic and prophylactic choices have been explained. We will increase Depakote in hopes to further reduce total headache days. She is not interested in Botox given the location and amount of injections. If Depakote is ineffective will consider once monthly CGRP. Will try rizatriptan for abortive. Plan: All options for treatment discussed. 1. Preventative: Increase Depakote 1000mg at bedtime 2. Abortive: Rizatriptan 5 mg at onset of migraine. 3. Future consideration- CGRP monthly injectable. Follow-up: 3 months I spent a total of 60 minutes on the date of the service which included preparing to see the patient, [id number] patient care, completing clinical documentation, obtaining and/or reviewing separately obtained history, performing a medically appropriate examination, counseling and educating the pat ient/family/caregiver, and ordering medications, tests, or procedures. Heaven Reyes APRN.CNP General Neurology [address] [place]. [address] Appointment: [phone] documented in this encounterW[facility]04-05-2022 Miscellaneous Notes* Telephone Encounter - Beverly Rucker Pss - 09/23/2021 10:42 AM EDT Called the patient to go after-visit summary to instruct what appointments need to be scheduled. The patient will call [phone] to schedule the appointments for headache, epilepsy, EEG, and follow-up with the provider. The patient would like her EEG done at the [facility]. The patient will call and schedule the EEG and have the hospital fax the office to request the order. documented in this encounterW[facility]03-17-[facility] History of Present illness Narrative* Jenelle Carson APRN.CNP - 09/04/2021 3:30 PM EDT Images from the original note were not included. [facility] [place] Follow-up Visit Follow-up note September 04, 2021 HPI: Ms. Zurita presents today for a follow-up visit. Per her previous visit with Dr. Jimenez on 08/01/21: ASSESSMENT/PLAN: 1. RLS (restless legs syndrome) - ICD9: 333.94, ICD10: G25.81 (primary diagnosis) 2. Lumbosacral radiculopathy - ICD9: 724.4, ICD10: M54.17 Patient reports history of RLS. However, poor historian. Does not recall taking prior meds besides gabapentin (that has provided no relief), but there is record of attempts using Mirapex and Requip. Does describe discomfort at night, but not necessarily relieved with movement, raising question of whether truly RLS or other diagnosis. Significant in history is pt is complaining of lumbar pain running down RLE in radicular fashion and reports history of L spine disease. Thus, possible that symptoms endorsed are of spinal etiology. No med changes directly associated with RLS today although use of VPA and Medrol for below may alleviate symptoms (either RLS or radic). To further evaluate will get MRI of L spine. 3. Chronic intractable headache, unspecified headache type - ICD9: 784.0, ICD10: R51.9, G89.29 Patient reports chronic daily headaches that I suspect are due to medication overuse including caffeine resulting in rebound headaches. Poor historian, and initial description of headaches sound moreof a tension nature, but then endorses daily vomiting. That said, I am uncertain if the vomiting isdirectly related to the headaches or a separate condition and defer to PCP as pt may need GI workup. Failed multiple meds for headaches already. Declines botox. Will place on trial of VPA ER 500mg QHS as preventative as well as medrol dose natalie to attempt to break headache cycle. SE and ADRs d/w pt.There was question if patient was taking gabapentin as not showing up on PDMP but confirmed with [facility] by phone. If no improvement with above, and given extent of headaches, would recommend referral to the headache center if no relief with the above. 4. Cerebral cysts - ICD9: 348.0, ICD10: G93.0 5. 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 status epilepticus, unspecified epilepsy type (HCC) - ICD9: 345.91,ICD10: Patient reporting long standing history of seizures as above that are now worsening and occurring at least twice per week if not more often. Description of events today atypical for seizure with no postictal state. Risk factor of family history. Prior workups not available for review. Will get MRI brain to evaluate for etiology of headache including reported brain cyst . Will also get baseline EEG. However, given frequency, feel patient may benefit from EMU evaluation to clarify whether these events are seizures, PNES or other. Thus, will also refer to Epilepsy service for further evaluation. Already on Keppra and Gabapentin as above, and not changing dosage at this time. Adding VPA for Headaches, which if these are seizures, would act as preventative med. Advised pt of seizure risks andprecautions. Advised pt not to drive or operate heavy machinery until better understanding of seizures and only if cleared by epilepsy. She was unable to get MRI lumbar spine completed as her insurance would not cover the test. Had tried going through [facility] but was denied. Still having low back pain this is not as severe as it was before. Pain is still present on the sides of her legs. Pain is on the lateral aspect below the knees. No feelings of restlessness in legs throughout the day but sometimes can be bad at night. Currently taking gabapentin which helps during the day but not as much at night. Having about four headaches per week. Headaches are located temporally and can radiate frontally. Usually bilaterally. Denies associated light or sound sensitivity. Associated nausea and vomiting. Denies vision or speech changes associated with headaches. Denies numbness, tingling, weakness. Previously started on Depakote at last visit but states she never got medication from [employer]. States she only received Keppra. However, later she notes she started a large pill and states she takesit at night. States there has been no change in headaches since starting Depakote. States she does feel more energetic after starting the medication. Was taking Nurtec prn but stopped medication as it was not helping her symptoms. Has been taking Excedrin migraine prn. Can somewhat help. Takes thisabout four times per week. Took medrol dose pack and states no difference in headaches. Since her previous visit she has not had any seizures. She has not yet had EEG completed. States she could not get appointment until the end of September. She has appointment scheduled with epilepsy clinic for middle september. Considering extended EEG. Per epilepsy on 08/05/21: RIG WELDER Recommendations: - Admit to EMU for VEEG monitoring, diagnostic evaluation Location: main campus - Visit with epileptologist prior to admission - Brain MRI was ordered by Dr. Jimenez, scheduled for 08/08/2021 - Additional testing to be considered by epilepsy clinicians Signed: Lashonda Newby APRN.PROGRAM AND RESEARCH COORDINATOR August 05, [address] Mckeon for review and recommendations. Recommendations (as discussed with Dr. Mckeon): Long EEG Visit with Dr Gutierrez or Dr Zavaleta PAST MEDICAL HISTORY Diagnosis Date Abnormal Pap smear 10/21/2009 LGSIL Anemia in 12/24/2011 Continue daily folate and Fe Monitor H/H Depressive disorder, not elsewhere classified 09/02/2007 Hx overdose Intracranial arachnoid cysts 2008 Migraine 1998 NSVT (nonsustained ventricular tachycardia) 02/05/2012 Patient noncompliance history of AMA/no shows PMH - PAST MEDICAL HISTORY OF LEARNING DISABILITY Pre-syncope 02/04/2012 RLS (restless legs syndrome) Seizure (HCC) Dr Morocho PAST SURGICAL HISTORY Procedure Laterality Date COLONOSCOPY FLX DX W/COLLJ SPEC WHEN PFRMD 03/04/2016 Colonoscopy DILATION & CURETTAGE DX&/THER NONOBSTETRIC 04/15/2011 Dilation & curettage ESOPHAGOGASTRODUODENOSCOPY TRANSORAL DIAGNOSTIC 03/04/2016 EGD ESSURE 05/25/2012 Dr Mckenzie Medrano PAST SURGICAL HISTORY OF dental extractions VAGINOSCOPY November 19, 2009 VAGINOSCOPY November 07, 2008 Current Outpatient Medications on File Prior to Visit Medication Sig cephALEXin (KEFLEX) 500 mg capsule Take 1 capsule by mouth four times daily for 10 days. levETIRAcetam (KEPPRA) 750 mg tablet Take 1 tablet by mouth twice daily. divalproex ER (DEPAKOTE ER) 500 mg 24 hr tablet Take 1 tablet by mouth daily at bedtime. methylPREDNISolone (MEDROL, NATALIE,) 4 mg Dose-Pack Take as directed on package. rimegepant (NURTEC ODT) 75 mg disintegrating tablet Take 1 tablet by mouth every other day in the morning. (Patient not taking: Reported on 08/01/2021 ) metoprolol tartrate, short acting, (LOPRESSOR) 50 mg tablet Take 1 tablet by mouth twice daily. ondansetron orally disintegrating (ZOFRAN ODT) 4 mg disintegrating tablet Take 1 tablet by mouth every 8 hours as needed for nausea/vomiting. venlafaxine ER (EFFEXOR XR) 150 mg 24 hr capsule Take 1 capsule by mouth once daily. pramipexole (MIRAPEX) 0.5 mg tablet Take 1 tablet by mouth daily at bedtime. Restless legs. gabapentin (NEURONTIN) 600 mg tablet Take 1 tablet by mouth every morning AND 2 tablets daily at bedtime. Do all this for [address] (PROTONIX) 40 mg tablet Take 1 tablet by mouth daily before breakfast. Take on empty stomach, 1/2 hr before meal. fluticasone (FLONASE) 50 mcg/actuation nasal spray Use 2 Sprays in each nostril once daily. Rinse mouth after use. (Patient taking differently: Use 2 Sprays in each nostril as needed. Rinse mouth after use. ) Drospirenone-Ethinyl Estradiol (GIANVI, 28,) 3-0.02 mg per tablet Take 1 tablet by mouth once daily. Current Facility-Administered Medications on File Prior to Visit Medication perflutren lipid microspheres 1.3 mL in NaCl (PF) 0.9% 10 mL injection (DEFINITY) sodium chloride 0.9 % (flush) 10 mL (BD POSIFLUSH) Social History Tobacco Use Smoking status: Current Every Day Smoker Packs/day: 0.75 Years: 13.00 Pack years: 9.75 Types: Cigarettes Last attempt to quit: 07/22/2011 Years since quittin.1 Smokeless tobacco: Never Used Tobacco comment: restarted 1 month ago. Vaping Use Vaping Use: Never used Substance Use Topics Alcohol use: No Drug use: Never ALLERGIES No Known Allergies Review of Systems: Cardiopulmonary: denies chest pain, palpitations, or skipped heart beats Respiratory: denies shortness of breath GI/: denies recent + nausea, + vomiting, + diarrhea, constipation, incontinence Musculoskeletal: denies weakness, joint ache/pain Back/spine: denies + low back or cervical pains Neuro: denies tremors, loss of feeling, dizziness, seizure, blackout, paresthesia, facial paresthesia, facial weakness, difficulty in speech, slurring of words, dysarthria, dysphagia, memory loss, + headache, vision changes, loss of hearing Physical Exam: 09/04/21 1537 BP: 102/62 Pulse: 96 Resp: 18 Temp: 36.9 C (98.5 F) SpO2: 100% Weight: 92.5 kg (204 lb) Patient is alert and in no distress. Dress is appropriate. Mood is appropriate Breathing appears regular and unstressed Neurologic examination: Cognitively intact. No deficits. No formal MMSE performed. CN: Pupils equal and reactive to light, extraocular movements intact with no nystagmus, face is symmetric with no facial droop, facial sensation intact bilaterally to light touch. V1-3, hearing intact bilaterally, tongue is midline with no deviation, shoulder shrug is symmetric. Motor exam shows 5/5 strength symmetric through the upper and lower extremities in all groups tested. Sensory intact to light touch in all extremities. Vibratory sensation is intact and symmetric all extremities. Deep tendon reflexes are symmetric at the biceps, brachioradialis, triceps, and decreased at patella, and achilles bilaterally. Coordination: No dysmetria on finger to nose. No tremors noted. No drift seen. Gait normal in stance and pattern. Labs/studies: MRI Brain WO/W 08/22/21: Normal MRI brain. No pathologic enhancement. No evidence of seizure focus.No cystic lesions identified in the brain. Component Latest Ref Rng & Units 08/29/2021 Protein, Total 6.3 - 8.0 g/dL 6.6 Albumin 3.9 - 4.9 g/dL 4.0 Calcium 8.5 - 10.2 mg/dL 9.2 Bilirubin, Total 0.2 - 1.3 mg/dL 0.4 Alkaline Phosphatase 34 - 123 U/L 41 AST 13 - 35 U/L 12 (L) ALT 7 - 38 U/L 9 Glucose 74 - 99 mg/dL 75 BUN 7 - 21 mg/dL 17 Creatinine 0.58 - 0.96 mg/dL 0.85 Sodium 136 - 144 mmol/L 141 Potassium 3.7 - 5.1 mmol/L 3.7 Chloride 97 - 105 mmol/L 106 (H) CO2 22 - 30 mmol/L 25 Anion Gap 9 - 18 mmol/L 10 eGFR >=60 mL/min/1.73m 93 WBC 3.70 - 11.00 k/uL 4.30 RBC 3.90 - 5.20 m/uL 4.72 Hemoglobin 11.5 - 15.5 g/dL 14.6 Hematocrit 36.0 - 46.0 % 44.3 MCV 80.0 - 100.0 fL 93.9 MCH 26.0 - 34.0 pg 30.9 MCHC 30.5 - 36.0 g/dL 33.0 RDW-CV 11.5 - 15.0 % 12.0 Platelet Count 150 - 400 k/uL 276 MPV 9.0 - 12.7 fL 11.2 Absolute nRBC <0.01 k/uL <0.01 Vitamin B12 232-1,245 pg/mL 482 TSH 0.270 - 4.200 mIU/L 1.450 Assessment/Plan: G25.81 RLS (restless legs syndrome) (primary encounter diagnosis) M54.17 Lumbosacral radiculopathy M54.50 Lumbar pain Comment: Patient previously seen for reported history of RLS. Has taken Mirapex and Requip in the past and currently taking gabapentin. As per previous visit, patient reporting discomfort at night but not relieved by movement, raising concern for possible alternative dx. As pt reported lumbar pain with radiation as well as history of degenerative changes of lumbar spine, MRI lumbar spine ordered to evaluate for spinal etiology of symptoms. However, pt unable to complete lumbar MRI at this time.Today she notes lumbar pain is less severe but still present and still with bilateral LE pain. Continues to take gabapentin and VPA. At this time will proceed with PT for lumbar and LE pain as well as XR of lumbar spine. Pending results as well as level of improvement with PT, may again consider further imaging with MRI. R51.9, G89.29 Chronic intractable headache, unspecified headache type Comment: Patient previously reporting chronic daily headache thought to be related to medication overuse as well as increased caffeine intake. She reports headaches as being located frontally with radiation around temporal region bilaterally, by description possibly tension in nature. Denies associated photophobia, phonophobia, or visual disturbances but does report nausea and vomiting with headaches. As previously noted, would still recommend follow up with PCP regarding vomiting as uncertain if this is related to headaches or possible separate condition. At today's visit she reports roughlyfour headaches per week. Has previously failed multiple medications for headaches and was started on VPA ER 500mg QHS as headache preventative. Note, she is also currently taking gabapentin 600mg in AM and 1200mg QHS as well as Keppra 750mg BID. At this time as there has only been minimal improvement in headaches with use of VPA, will place referral to [facility]. Pt agreeable. G93.0 Cerebral cysts G40.919 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 status epilepticus, unspecified epilepsy type (HCC) Comment: History of seizures previously reported as occurring roughly two per week. Today she reports no further seizures since last OV. MRI of brain completed in interim to evaluate reported historyof brain cyst. Results unremarkable and without evidence of cystic lesion. EEG also ordered but notyet completed. Appointment scheduled for September. Note that consult also previously placed to epilepsy clinic and she will be having follow up appointment in September as well with possible EMU admit. Notethat she currently remains on gabapentin, Keppra, and VPA which would act as seizure preventative. Again, patient should not drive or operate heavy machinery until cleared by epilepsy. Keep follow up appointments as scheduled. Office Visit on 09/04/21 XR LUMBAR GENERAL 3V AP/LAT/L5-S1 CONSULT TO NEUROLOGY CONSULT TO HEADACHE CLINIC CONSULT TO PHYSICAL THERAPY Jenelle Carson APRN.PROGRAM AND RESEARCH COORDINATOR I spent a total of 45 minutes on the date of the service which included preparing to see the patient, [id number] patient care, completing clinical documentation, obtaining and/or reviewing separately obtained history, performing a medically appropriate examination, counseling and educating the pat ient/family/caregiver and ordering medications, tests, or procedures. documented in this encounter[facility] History of Past illness Narrative* Problem Noted Date Resolved Date Acute pain of left knee 12/15/2019 08/30/19 21 Acute pain of right knee 12/15/2019 021 Dysuria 09/09/2018 08/28/2021 Obesity, Class II, BMI 35-39.9 09/09/2018 0 08/28/2021 Moderate persistent asthma with acute exacerbati on 02/28/2016 12/16/2017 Mastodynia, female 09/25/2015 08/28/2021 SUMMARY 02/05/2012 08/14/2015 Overview: Ms. Zurita is a 21 year old female (, EGA 33w4d, JOSIE 03/21/2012, LMP c/w 19 wk US) transferred from [place] ED for evaluation of NSVT. Patient reports having a three year history of black out episodes with lightheadness but no loss of consciousness, falls, syncope or collapse. She seen by Dr. Cardozo and echocardiogram was performed and she was placed on Holter monitor. 48 hour Holter was returned and analysis showed frequent ventricular ectopy as mostly monomorphic singles, couplets, bigeminal and trigeminal cycles, non-sustained ventricular tachycardia runs up to 5 beats in length. Ventricular tachycardia rates range from 189 BPM to 234 BPM. TTE completed at the [place] [facility] on 02/02/12 showed EF 55-60%, trivial MR, trivial TR, trivial -1+ PI. She was instructed to present to her local ED. She is transferred to [facility] for further evaluation. 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 05/16/2010 11/27/2010 Unspecified symptom associated with female genit al organs 05/16/2010 10/22/2011 Anemia, antepartum(648.23) 02/18/200904/08 Trichomonal vulvovaginitis 11/09/200704/08 Chlamydia trachomatis infection of lower genitou rinary sites 09/02/2007 04/08/2010 Poor growth, affecting management of mother, antepartum condition or complication 09/02/2007 04/08/2010 Supervision of other high-risk (V23.89) 07/29/2007 04/08/2010 Supervision of normal first 08/13/2006 02/16/2007 Patient noncompliance 08/28/2021 Overview: history of AMA/no shows documented as of this encounter (statuses as of 09/09/2021) [facility] History of Past illness Narrative* Problem Noted Date Resolved Date Acute pain of left knee 12/15/2019 08/30/19 21 Acute pain of right knee 12/15/2019 021 Dysuria 09/09/2018 08/28/2021 Obesity, Class II, BMI 35-39.9 09/09/2018 0 08/28/2021 Moderate persistent asthma with acute exacerbati on 02/28/2016 12/16/2017 Mastodynia, female 09/25/2015 08/28/2021 SUMMARY 02/05/2012 08/14/2015 Overview: Ms. Zurita is a 21 year old female (, EGA 33w4d, JOSIE 03/21/2012, LMP c/w 19 wk US) transferred from [place] ED for evaluation of NSVT. Patient reports having a three year history of black out episodes with lightheadness but no loss of consciousness, falls, syncope or collapse. She seen by Dr. Cardozo and echocardiogram was performed and she was placed on Holter monitor. 48 hour Holter was returned and analysis showed frequent ventricular ectopy as mostly monomorphic singles, couplets, bigeminal and trigeminal cycles, non-sustained ventricular tachycardia runs up to 5 beats in length. Ventricular tachycardia rates range from 189 BPM to 234 BPM. TTE completed at the [facility] on 02/02/12 showed EF 55-60%, trivial MR, trivial TR, trivial -1+ PI. She was instructed to present to her local ED. She is transferred to [facility] for further evaluation. 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 05/16/2010 11/27/2010 Unspecified symptom associated with female genit al organs 05/16/2010 10/22/2011 Anemia, antepartum(648.23) 02/18/200904/08 Trichomonal vulvovaginitis 11/09/200704/08 Chlamydia trachomatis infection of lower genitou rinary sites 09/02/2007 04/08/2010 Poor growth, affecting management of mother, antepartum condition or complication 09/02/2007 04/08/2010 Supervision of other high-risk (V23.89) 07/29/2007 04/08/2010 Supervision of normal first 08/13/2006 02/16/2007 Patient noncompliance 08/28/2021 Overview: history of AMA/no shows documented as of this encounter (statuses as of 09/23/2021) [facility] of Past illness Narrative* Problem Noted Date Resolved Date Acute pain of left knee 12/15/2019 08/30/19 21 Acute pain of right knee 12/15/2019 021 Dysuria 09/09/2018 08/28/2021 Obesity, Class II, BMI 35-39.9 09/09/2018 0 08/28/2021 Moderate persistent asthma with acute exacerbati on 02/28/2016 12/16/2017 Mastodynia, female 09/25/2015 08/28/2021 SUMMARY 02/05/2012 08/14/2015 Overview: Ms. Zurita is a 21 year old female (, EGA 33w4d, JOSIE 03/21/2012, LMP c/w 19 wk US) transferred from [place] ED for evaluation of NSVT. Patient reports having a three year history of black out episodes with lightheadness but no loss of consciousness, falls, syncope or collapse. She seen by Dr. Cardzoo and echocardiogram was performed and she was placed on Holter monitor. 48 hour Holter was returned and analysis showed frequent ventricular ectopy as mostly monomorphic singles, couplets, bigeminal and trigeminal cycles, non-sustained ventricular tachycardia runs up to 5 beats in length. Ventricular tachycardia rates range from 189 BPM to 234 BPM. TTE completed at the [place] [facility] on 02/02/12 showed EF 55-60%, trivial MR, trivial TR, trivial -1+ PI. She was instructed to present to her local ED. She is transferred to [facility] for further evaluation. 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 05/16/2010 11/27/2010 Unspecified symptom associated with female genit al organs 05/16/2010 10/22/2011 Anemia, antepartum(648.23) 02/18/200904/08 Trichomonal vulvovaginitis 11/09/200704/08 Chlamydia trachomatis infection of lower genitou rinary sites 09/02/2007 04/08/2010 Poor growth, affecting management of mother, antepartum condition or complication 09/02/2007 04/08/2010 Supervision of other high-risk (V23.89) 07/29/2007 04/08/2010 Supervision of normal first 08/13/2006 02/16/2007 Patient noncompliance 08/28/2021 Overview: history of AMA/no shows documented as of this encounter (statuses as of 10/01/2021) [facility] of Past illness Narrative* Problem Noted Date Resolved Date Acute pain of left knee 12/15/2019 08/30/19 21 Acute pain of right knee 12/15/2019 021 Dysuria 09/09/2018 08/28/2021 Obesity, Class II, BMI 35-39.9 09/09/2018 0 08/28/2021 Moderate persistent asthma with acute exacerbati on 02/28/2016 12/16/2017 Mastodynia, female 09/25/2015 08/28/2021 SUMMARY 02/05/2012 08/14/2015 Overview: Ms. Zurita is a 21 year old female (, EGA 33w4d, JOSIE 03/21/2012, LMP c/w 19 wk US) transferred from [place] ED for evaluation of NSVT. Patient reports having a three year history of black out episodes with lightheadness but no loss of consciousness, falls, syncope or collapse. She seen by Dr. Cardozo and echocardiogram was performed and she was placed on Holter monitor. 48 hour Holter was returned and analysis showed frequent ventricular ectopy as mostly monomorphic singles, couplets, bigeminal and trigeminal cycles, non-sustained ventricular tachycardia runs up to 5 beats in length. Ventricular tachycardia rates range from 189 BPM to 234 BPM. TTE completed at the [facility] on 02/02/12 showed EF 55-60%, trivial MR, trivial TR, trivial -1+ PI. She was instructed to present to her local ED. She is transferred to [facility] for further evaluation. Pre-syncope 02/04/2012 08/14/2015 Pre-syncope 02/04/2012 02/05/2012 Anemia in 12/24/2011 09/03/2015 Overview: Continue daily folate and Fe Monitor H/H Quit smoking 12/21/2011 08/14/2015 Overview: 7/2 - no tobacco since 08/19/11 - [facility] HIGH RISK NEC [V23.89] 2 07/14/2013 Overview: packager hand has been consulted and will also follow patient Plan: - monitoring per [employer]. 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 05/16/2010 11/27/2010 Unspecified symptom associated with female genit al organs 05/16/2010 10/22/2011 Anemia, antepartum(648.23) 02/18/200904/08 Trichomonal vulvovaginitis 11/09/200704/08 Chlamydia trachomatis infection of lower genitou rinary sites 09/02/2007 04/08/2010 Poor growth, affecting management of mother, antepartum condition or complication 09/02/2007 04/08/2010 Supervision of other high-risk (V23.89) 07/29/2007 04/08/2010 Supervision of normal first 08/13/2006 02/16/2007 Patient noncompliance 08/28/2021 Overview: history of AMA/no shows documented as of this encounter (statuses as of 10/08/2021) [facility] of Past illness Narrative* Problem Noted Date Resolved Date Acute pain of left knee 12/15/2019 08/30/19 21 Acute pain of right knee 12/15/2019 021 Dysuria 09/09/2018 08/28/2021 Obesity, Class II, BMI 35-39.9 09/09/2018 0 08/28/2021 Moderate persistent asthma with acute exacerbati on 02/28/2016 12/16/2017 Mastodynia, female 09/25/2015 08/28/2021 SUMMARY 02/05/2012 08/14/2015 Overview: Ms. Zurita is a 21 year old female (, EGA 33w4d, JOSIE 03/21/2012, LMP c/w 19 wk US) transferred from [place] ED for evaluation of NSVT. Patient reports having a three year history of black out episodes with lightheadness but no loss of consciousness, falls, syncope or collapse. She seen by Dr. Cardozo and echocardiogram was performed and she was placed on Holter monitor. 48 hour Holter was returned and analysis showed frequent ventricular ectopy as mostly monomorphic singles, couplets, bigeminal and trigeminal cycles, non-sustained ventricular tachycardia runs up to 5 beats in length. Ventricular tachycardia rates range from 189 BPM to 234 BPM. TTE completed at the [facility] on 02/02/12 showed EF 55-60%, trivial MR, trivial TR, trivial -1+ PI. She was instructed to present to her local ED. She is transferred to [facility] for further evaluation. 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 05/16/2010 11/27/2010 Unspecified symptom associated with female genit al organs 05/16/2010 10/22/2011 Anemia, antepartum(648.23) 02/18/200904/08 Trichomonal vulvovaginitis 11/09/200704/08 Chlamydia trachomatis infection of lower genitou rinary sites 09/02/2007 04/08/2010 Poor growth, affecting management of mother, antepartum condition or complication 09/02/2007 04/08/2010 Supervision of other high-risk (V23.89) 07/29/2007 04/08/2010 Supervision of normal first 08/13/2006 02/16/2007 Patient noncompliance 08/28/2021 Overview: history of AMA/no shows documented as of this encounter (statuses as of 10/14/2021) [facility] of Past illness Narrative* Problem Noted Date Resolved Date Acute pain of left knee 12/15/2019 08/30/19 21 Acute pain of right knee 12/15/2019 021 Dysuria 09/09/2018 08/28/2021 Obesity, Class II, BMI 35-39.9 09/09/2018 0 08/28/2021 Moderate persistent asthma with acute exacerbati on 02/28/2016 12/16/2017 Mastodynia, female 09/25/2015 08/28/2021 SUMMARY 02/05/2012 08/14/2015 Overview: Ms. Zurita is a 21 year old female (, EGA 33w4d, JOSIE 03/21/2012, LMP c/w 19 wk US) transferred from [place] ED for evaluation of NSVT. Patient reports having a three year history of black out episodes with lightheadness but no loss of consciousness, falls, syncope or collapse. She seen by Dr. Cardozo and echocardiogram was performed and she was placed on Holter monitor. 48 hour Holter was returned and analysis showed frequent ventricular ectopy as mostly monomorphic singles, couplets, bigeminal and trigeminal cycles, non-sustained ventricular tachycardia runs up to 5 beats in length. Ventricular tachycardia rates range from 189 BPM to 234 BPM. TTE completed at the [place] [facility] on 02/02/12 showed EF 55-60%, trivial MR, trivial TR, trivial -1+ PI. She was instructed to present to her local ED. She is transferred to [facility] for further evaluation. Pre-syncope 02/04/2012 08/14/2015 Pre-syncope 02/04/2012 02/05/2012 Anemia in 12/24/2011 09/03/2015 Overview: Continue daily folate and Fe Monitor H/H Quit smoking 12/21/2011 08/14/2015 Overview: 7/2 - no tobacco since 08/19/11 - [facility] HIGH RISK NEC [V23.89] 2 07/14/2013 Overview: packager hand has been consulted and will also follow patient Plan: - monitoring per [employer]. 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 05/16/2010 11/27/2010 Unspecified symptom associated with female genit al organs 05/16/2010 10/22/2011 Anemia, antepartum(648.23) 02/18/200904/08 Trichomonal vulvovaginitis 11/09/200704/08 Chlamydia trachomatis infection of lower genitou rinary sites 09/02/2007 04/08/2010 Poor growth, affecting management of mother, antepartum condition or complication 09/02/2007 04/08/2010 Supervision of other high-risk (V23.89) 07/29/2007 04/08/2010 Supervision of normal first 08/13/2006 02/16/2007 Patient noncompliance 08/28/2021 Overview: history of AMA/no shows documented as of this encounter (statuses as of 10/14/2021) [facility] of Past illness Narrative* Problem Noted Date Resolved Date Acute pain of left knee 12/15/2019 08/30/19 21 Acute pain of right knee 12/15/2019 021 Dysuria 09/09/2018 08/28/2021 Obesity, Class II, BMI 35-39.9 09/09/2018 0 08/28/2021 Moderate persistent asthma with acute exacerbati on 02/28/2016 12/16/2017 Mastodynia, female 09/25/2015 08/28/2021 SUMMARY 02/05/2012 08/14/2015 Overview: Ms. Zurita is a 21 year old female (, EGA 33w4d, JOSIE 03/21/2012, LMP c/w 19 wk US) transferred from [place] ED for evaluation of NSVT. Patient reports having a three year history of black out episodes with lightheadness but no loss of consciousness, falls, syncope or collapse. She seen by Dr. Cardozo and echocardiogram was performed and she was placed on Holter monitor. 48 hour Holter was returned and analysis showed frequent ventricular ectopy as mostly monomorphic singles, couplets, bigeminal and trigeminal cycles, non-sustained ventricular tachycardia runs up to 5 beats in length. Ventricular tachycardia rates range from 189 BPM to 234 BPM. TTE completed at the [facility] on 02/02/12 showed EF 55-60%, trivial MR, trivial TR, trivial -1+ PI. She was instructed to present to her local ED. She is transferred to [facility] for further evaluation. 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 05/16/2010 11/27/2010 Unspecified symptom associated with female genit al organs 05/16/2010 10/22/2011 Anemia, antepartum(648.23) 02/18/200904/08 Trichomonal vulvovaginitis 11/09/200704/08 Chlamydia trachomatis infection of lower genitou rinary sites 09/02/2007 04/08/2010 Poor growth, affecting management of mother, antepartum condition or complication 09/02/2007 04/08/2010 Supervision of other high-risk (V23.89) 07/29/2007 04/08/2010 Supervision of normal first 08/13/2006 02/16/2007 Patient noncompliance 08/28/2021 Overview: history of AMA/no shows documented as of this encounter (statuses as of 10/28/2021) [facility] History of Past illness Narrative* Problem Noted Date Resolved Date Acute pain of left knee 12/15/2019 08/30/19 21 Acute pain of right knee 12/15/2019 021 Dysuria 09/09/2018 08/28/2021 Obesity, Class II, BMI 35-39.9 09/09/2018 0 08/28/2021 Moderate persistent asthma with acute exacerbati on 02/28/2016 12/16/2017 Mastodynia, female 09/25/2015 08/28/2021 SUMMARY 02/05/2012 08/14/2015 Overview: Ms. Zurita is a 21 year old female (, EGA 33w4d, JOSIE 03/21/2012, LMP c/w 19 wk US) transferred from [place] ED for evaluation of NSVT. Patient reports having a three year history of black out episodes with lightheadness but no loss of consciousness, falls, syncope or collapse. She seen by Dr. Cardozo and echocardiogram was performed and she was placed on Holter monitor. 48 hour Holter was returned and analysis showed frequent ventricular ectopy as mostly monomorphic singles, couplets, bigeminal and trigeminal cycles, non-sustained ventricular tachycardia runs up to 5 beats in length. Ventricular tachycardia rates range from 189 BPM to 234 BPM. TTE completed at the [place] [facility] on 02/02/12 showed EF 55-60%, trivial MR, trivial TR, trivial -1+ PI. She was instructed to present to her local ED. She is transferred to [facility] for further evaluation. 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 05/16/2010 11/27/2010 Unspecified symptom associated with female genit al organs 05/16/2010 10/22/2011 Anemia, antepartum(648.23) 02/18/200904/08 Trichomonal vulvovaginitis 11/09/200704/08 Chlamydia trachomatis infection of lower genitou rinary sites 09/02/2007 04/08/2010 Poor growth, affecting management of mother, antepartum condition or complication 09/02/2007 04/08/2010 Supervision of other high-risk (V23.89) 07/29/2007 04/08/2010 Supervision of normal first 08/13/2006 02/16/2007 Patient noncompliance 08/28/2021 Overview: history of AMA/no shows documented as of this encounter (statuses as of 11/12/2021) [facility] History of Past illness Narrative* Problem Noted Date Resolved Date Acute pain of left knee 12/15/2019 08/30/19 21 Acute pain of right knee 12/15/2019 021 Dysuria 09/09/2018 08/28/2021 Obesity, Class II, BMI 35-39.9 09/09/2018 0 08/28/2021 Moderate persistent asthma with acute exacerbati on 02/28/2016 12/16/2017 Mastodynia, female 09/25/2015 08/28/2021 SUMMARY 02/05/2012 08/14/2015 Overview: Ms. Zurita is a 21 year old female (, EGA 33w4d, JOSIE 03/21/2012, LMP c/w 19 wk US) transferred from [place] ED for evaluation of NSVT. Patient reports having a three year history of black out episodes with lightheadness but no loss of consciousness, falls, syncope or collapse. She seen by Dr. Cardozo and echocardiogram was performed and she was placed on Holter monitor. 48 hour Holter was returned and analysis showed frequent ventricular ectopy as mostly monomorphic singles, couplets, bigeminal and trigeminal cycles, non-sustained ventricular tachycardia runs up to 5 beats in length. Ventricular tachycardia rates range from 189 BPM to 234 BPM. TTE completed at the [facility] on 02/02/12 showed EF 55-60%, trivial MR, trivial TR, trivial -1+ PI. She was instructed to present to her local ED. She is transferred to [facility] for further evaluation. 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 05/16/2010 11/27/2010 Unspecified symptom associated with female genit al organs 05/16/2010 10/22/2011 Anemia, antepartum(648.23) 02/18/200904/08 Trichomonal vulvovaginitis 11/09/200704/08 Chlamydia trachomatis infection of lower genitou rinary sites 09/02/2007 04/08/2010 Poor growth, affecting management of mother, antepartum condition or complication 09/02/2007 04/08/2010 Supervision of other high-risk (V23.89) 07/29/2007 04/08/2010 Supervision of normal first 08/13/2006 02/16/2007 Patient noncompliance 08/28/2021 Overview: history of AMA/no shows documented as of this encounter (statuses as of 11/21/2021) [facility] History of Past illness Narrative* Problem Noted Date Resolved Date Acute pain of left knee 12/15/2019 03/11/20 21 Acute pain of right knee 12/15/2019 021 Dysuria 09/09/2018 08/28/2021 Obesity, Class II, BMI 35-39.9 09/09/2018 0 08/28/2021 Moderate persistent asthma with acute exacerbati on 02/28/2016 12/16/2017 Mastodynia, female 09/25/2015 08/28/2021 SUMMARY 02/05/2012 08/14/2015 Overview: Ms. Zurita is a 21 year old female (, EGA 33w4d, JOSIE 03/21/2012, LMP c/w 19 wk US) transferred from [place] ED for evaluation of NSVT. Patient reports having a three year history of black out episodes with lightheadness but no loss of consciousness, falls, syncope or collapse. She seen by Dr. Cardozo and echocardiogram was performed and she was placed on Holter monitor. 48 hour Holter was returned and analysis showed frequent ventricular ectopy as mostly monomorphic singles, couplets, bigeminal and trigeminal cycles, non-sustained ventricular tachycardia runs up to 5 beats in length. Ventricular tachycardia rates range from 189 BPM to 234 BPM. TTE completed at the [place] [facility] on 02/02/12 showed EF 55-60%, trivial MR, trivial TR, trivial -1+ PI. She was instructed to present to her local ED. She is transferred to [facility] for further evaluation. 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 05/16/2010 11/27/2010 Unspecified symptom associated with female genit al organs 05/16/2010 10/22/2011 Anemia, antepartum(648.23) 02/18/200904/08 Trichomonal vulvovaginitis 11/09/200704/08 Chlamydia trachomatis infection of lower genitou rinary sites 09/02/2007 04/08/2010 Poor growth, affecting management of mother, antepartum condition or complication 09/02/2007 04/08/2010 Supervision of other high-risk (V23.89) 07/29/2007 04/08/2010 Supervision of normal first 08/13/2006 02/16/2007 Patient noncompliance 08/28/2021 Overview: history of AMA/no shows documented as of this encounter (statuses as of 01/20/2022) [facility] History of Past illness Narrative* Problem Noted Date Resolved Date Acute pain of left knee 12/15/2019 08/30/19 21 Acute pain of right knee 12/15/2019 021 Dysuria 09/09/2018 08/28/2021 Obesity, Class II, BMI 35-39.9 09/09/2018 0 08/28/2021 Moderate persistent asthma with acute exacerbati on 02/28/2016 12/16/2017 Mastodynia, female 09/25/2015 08/28/2021 SUMMARY 02/05/2012 08/14/2015 Overview: Ms. Zurita is a 21 year old female (, EGA 33w4d, JOSIE 03/21/2012, LMP c/w 19 wk US) transferred from [place] ED for evaluation of NSVT. Patient reports having a three year history of black out episodes with lightheadness but no loss of consciousness, falls, syncope or collapse. She seen by Dr. Cardozo and echocardiogram was performed and she was placed on Holter monitor. 48 hour Holter was returned and analysis showed frequent ventricular ectopy as mostly monomorphic singles, couplets, bigeminal and trigeminal cycles, non-sustained ventricular tachycardia runs up to 5 beats in length. Ventricular tachycardia rates range from 189 BPM to 234 BPM. TTE completed at the [facility] on 02/02/12 showed EF 55-60%, trivial MR, trivial TR, trivial -1+ PI. She was instructed to present to her local ED. She is transferred to [facility] for further evaluation. 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 05/16/2010 11/27/2010 Unspecified symptom associated with female genit al organs 05/16/2010 10/22/2011 Anemia, antepartum(648.23) 02/18/200904/08 Trichomonal vulvovaginitis 11/09/200704/08 Chlamydia trachomatis infection of lower genitou rinary sites 09/02/2007 04/08/2010 Poor growth, affecting management of mother, antepartum condition or complication 09/02/2007 04/08/2010 Supervision of other high-risk (V23.89) 07/29/2007 04/08/2010 Supervision of normal first 08/13/2006 02/16/2007 Patient noncompliance 08/28/2021 Overview: history of AMA/no shows documented as of this encounter (statuses as of 04/08/2022) [facility] History of Past illness Narrative* Problem Noted Date Resolved Date Acute pain of left knee 12/15/2019 08/30/19 21 Acute pain of right knee 12/15/2019 021 Dysuria 09/09/2018 08/28/2021 Obesity, Class II, BMI 35-39.9 09/09/2018 0 08/28/2021 Moderate persistent asthma with acute exacerbati on 02/28/2016 12/16/2017 Mastodynia, female 09/25/2015 08/28/2021 SUMMARY 02/05/2012 08/14/2015 Overview: Ms. Zurita is a 21 year old female (, EGA 33w4d, JOSIE 03/21/2012, LMP c/w 19 wk US) transferred from [place] ED for evaluation of NSVT. Patient reports having a three year history of black out episodes with lightheadness but no loss of consciousness, falls, syncope or collapse. She seen by Dr. Cardozo and echocardiogram was performed and she was placed on Holter monitor. 48 hour Holter was returned and analysis showed frequent ventricular ectopy as mostly monomorphic singles, couplets, bigeminal and trigeminal cycles, non-sustained ventricular tachycardia runs up to 5 beats in length. Ventricular tachycardia rates range from 189 BPM to 234 BPM. TTE completed at the [place] [facility] on 02/02/12 showed EF 55-60%, trivial MR, trivial TR, trivial -1+ PI. She was instructed to present to her local ED. She is transferred to [facility] for further evaluation. 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 05/16/2010 11/27/2010 Unspecified symptom associated with female genit al organs 05/16/2010 10/22/2011 Anemia, antepartum(648.23) 02/18/200904/08 Trichomonal vulvovaginitis 11/09/200704/08 Chlamydia trachomatis infection of lower genitou rinary sites 09/02/2007 04/08/2010 Poor growth, affecting management of mother, antepartum condition or complication 09/02/2007 04/08/2010 Supervision of other high-risk (V23.89) 07/29/2007 04/08/2010 Supervision of normal first 08/13/2006 02/16/2007 Patient noncompliance 08/28/2021 Overview: history of AMA/no shows documented as of this encounter (statuses as of 07/14/2022) [facility] History of Past illness Narrative* Problem Noted Date Resolved Date Acute pain of left knee 12/15/2019 08/30/19 21 Acute pain of right knee 12/15/2019 021 Dysuria 09/09/2018 08/28/2021 Obesity, Class II, BMI 35-39.9 09/09/2018 0 08/28/2021 Moderate persistent asthma with acute exacerbati on 02/28/2016 12/16/2017 Mastodynia, female 09/25/2015 08/28/2021 SUMMARY 02/05/2012 08/14/2015 Overview: Ms. Zurita is a 21 year old female (, EGA 33w4d, JOSIE 03/21/2012, LMP c/w 19 wk US) transferred from [place] ED for evaluation of NSVT. Patient reports having a three year history of black out episodes with lightheadness but no loss of consciousness, falls, syncope or collapse. She seen by Dr. Cardozo and echocardiogram was performed and she was placed on Holter monitor. 48 hour Holter was returned and analysis showed frequent ventricular ectopy as mostly monomorphic singles, couplets, bigeminal and trigeminal cycles, non-sustained ventricular tachycardia runs up to 5 beats in length. Ventricular tachycardia rates range from 189 BPM to 234 BPM. TTE completed at the [facility] on 02/02/12 showed EF 55-60%, trivial MR, trivial TR, trivial -1+ PI. She was instructed to present to her local ED. She is transferred to [facility] for further evaluation. 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 05/16/2010 11/27/2010 Unspecified symptom associated with female genit al organs 05/16/2010 10/22/2011 Anemia, antepartum(648.23) 02/18/200904/08 Trichomonal vulvovaginitis 11/09/200704/08 Chlamydia trachomatis infection of lower genitou rinary sites 09/02/2007 04/08/2010 Poor growth, affecting management of mother, antepartum condition or complication 09/02/2007 04/08/2010 Supervision of other high-risk (V23.89) 07/29/2007 04/08/2010 Supervision of normal first 08/13/2006 02/16/2007 Patient noncompliance 08/28/2021 Overview: history of AMA/no shows documented as of this encounter (statuses as of 07/14/2022) [facility] History of Past illness Narrative* Problem Noted Date Resolved Date Acute pain of left knee 12/15/2019 08/30/19 21 Acute pain of right knee 12/15/2019 021 Dysuria 09/09/2018 08/28/2021 Obesity, Class II, BMI 35-39.9 09/09/2018 0 08/28/2021 Moderate persistent asthma with acute exacerbati on 02/28/2016 12/16/2017 Mastodynia, female 09/25/2015 08/28/2021 SUMMARY 02/05/2012 08/14/2015 Overview: Ms. Zurita is a 21 year old female (, EGA 33w4d, JOSIE 03/21/2012, LMP c/w 19 wk US) transferred from [place] ED for evaluation of NSVT. Patient reports having a three year history of black out episodes with lightheadness but no loss of consciousness, falls, syncope or collapse. She seen by Dr. Cardozo and echocardiogram was performed and she was placed on Holter monitor. 48 hour Holter was returned and analysis showed frequent ventricular ectopy as mostly monomorphic singles, couplets, bigeminal and trigeminal cycles, non-sustained ventricular tachycardia runs up to 5 beats in length. Ventricular tachycardia rates range from 189 BPM to 234 BPM. TTE completed at the [place] [facility] on 02/02/12 showed EF 55-60%, trivial MR, trivial TR, trivial -1+ PI. She was instructed to present to her local ED. She is transferred to [facility] for further evaluation. 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 05/16/2010 11/27/2010 Unspecified symptom associated with female genit al organs 05/16/2010 10/22/2011 Anemia, antepartum(648.23) 02/18/200904/08 Trichomonal vulvovaginitis 11/09/200704/08 Chlamydia trachomatis infection of lower genitou rinary sites 09/02/2007 04/08/2010 Poor growth, affecting management of mother, antepartum condition or complication 09/02/2007 04/08/2010 Supervision of other high-risk (V23.89) 07/29/2007 04/08/2010 Supervision of normal first 08/13/2006 02/16/2007 Patient noncompliance 08/28/2021 Overview: history of AMA/no shows documented as of this encounter (statuses as of 07/17/2022) [facility] History of Past illness Narrative* Problem Noted Date Resolved Date Acute pain of left knee 12/15/2019 08/30/19 21 Acute pain of right knee 12/15/2019 021 Dysuria 09/09/2018 08/28/2021 Obesity, Class II, BMI 35-39.9 09/09/2018 0 08/28/2021 Moderate persistent asthma with acute exacerbati on 02/28/2016 12/16/2017 Mastodynia, female 09/25/2015 08/28/2021 SUMMARY 02/05/2012 08/14/2015 Overview: Ms. Zurita is a 21 year old female (, EGA 33w4d, JOSIE 03/21/2012, LMP c/w 19 wk US) transferred from [place] ED for evaluation of NSVT. Patient reports having a three year history of black out episodes with lightheadness but no loss of consciousness, falls, syncope or collapse. She seen by Dr. Cardozo and echocardiogram was performed and she was placed on Holter monitor. 48 hour Holter was returned and analysis showed frequent ventricular ectopy as mostly monomorphic singles, couplets, bigeminal and trigeminal cycles, non-sustained ventricular tachycardia runs up to 5 beats in length. Ventricular tachycardia rates range from 189 BPM to 234 BPM. TTE completed at the [place] [facility] on 02/02/12 showed EF 55-60%, trivial MR, trivial TR, trivial -1+ PI. She was instructed to present to her local ED. She is transferred to [facility] for further evaluation. 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 05/16/2010 11/27/2010 Unspecified symptom associated with female genit al organs 05/16/2010 10/22/2011 Anemia, antepartum(648.23) 02/18/200904/08 Trichomonal vulvovaginitis 11/09/200704/08 Chlamydia trachomatis infection of lower genitou rinary sites 09/02/2007 04/08/2010 Poor growth, affecting management of mother, antepartum condition or complication 09/02/2007 04/08/2010 Supervision of other high-risk (V23.89) 07/29/2007 04/08/2010 Supervision of normal first 08/13/2006 02/16/2007 Patient noncompliance 08/28/2021 Overview: history of AMA/no shows documented as of this encounter (statuses as of 07/20/2022) [facility] History of Past illness Narrative* Problem Noted Date Resolved Date Acute pain of left knee 12/15/2019 08/30/19 21 Acute pain of right knee 12/15/2019 021 Dysuria 09/09/2018 08/28/2021 Obesity, Class II, BMI 35-39.9 09/09/2018 0 08/28/2021 Moderate persistent asthma with acute exacerbati on 02/28/2016 12/16/2017 Mastodynia, female 09/25/2015 08/28/2021 SUMMARY 02/05/2012 08/14/2015 Overview: Ms. Zurita is a 21 year old female (, EGA 33w4d, JOSIE 03/21/2012, LMP c/w 19 wk US) transferred from [place] ED for evaluation of NSVT. Patient reports having a three year history of black out episodes with lightheadness but no loss of consciousness, falls, syncope or collapse. She seen by Dr. Cardozo and echocardiogram was performed and she was placed on Holter monitor. 48 hour Holter was returned and analysis showed frequent ventricular ectopy as mostly monomorphic singles, couplets, bigeminal and trigeminal cycles, non-sustained ventricular tachycardia runs up to 5 beats in length. Ventricular tachycardia rates range from 189 BPM to 234 BPM. TTE completed at the [place] [facility] on 02/02/12 showed EF 55-60%, trivial MR, trivial TR, trivial -1+ PI. She was instructed to present to her local ED. She is transferred to [facility] for further evaluation. 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 05/16/2010 11/27/2010 Unspecified symptom associated with female genit al organs 05/16/2010 10/22/2011 Anemia, antepartum(648.23) 02/18/200904/08 Trichomonal vulvovaginitis 11/09/200704/08 Chlamydia trachomatis infection of lower genitou rinary sites 09/02/2007 04/08/2010 Poor growth, affecting management of mother, antepartum condition or complication 09/02/2007 04/08/2010 Supervision of other high-risk (V23.89) 07/29/2007 04/08/2010 Supervision of normal first 08/13/2006 02/16/2007 Patient noncompliance 08/28/2021 Overview: history of AMA/no shows documented as of this encounter (statuses as of 07/21/2022) [facility] History of Past illness Narrative* Problem Noted Date Resolved Date Acute pain of left knee 12/15/2019 08/30/19 21 Acute pain of right knee 12/15/2019 021 Dysuria 09/09/2018 08/28/2021 Obesity, Class II, BMI 35-39.9 09/09/2018 0 08/28/2021 Moderate persistent asthma with acute exacerbati on 02/28/2016 12/16/2017 Mastodynia, female 09/25/2015 08/28/2021 SUMMARY 02/05/2012 08/14/2015 Overview: Ms. Zurita is a 21 year old female (, EGA 33w4d, JOSIE 03/21/2012, LMP c/w 19 wk US) transferred from [place] ED for evaluation of NSVT. Patient reports having a three year history of black out episodes with lightheadness but no loss of consciousness, falls, syncope or collapse. She seen by Dr. Cardozo and echocardiogram was performed and she was placed on Holter monitor. 48 hour Holter was returned and analysis showed frequent ventricular ectopy as mostly monomorphic singles, couplets, bigeminal and trigeminal cycles, non-sustained ventricular tachycardia runs up to 5 beats in length. Ventricular tachycardia rates range from 189 BPM to 234 BPM. TTE completed at the [place] [facility] on 02/02/12 showed EF 55-60%, trivial MR, trivial TR, trivial -1+ PI. She was instructed to present to her local ED. She is transferred [facility] further evaluation. Pre-syncope 02/04/2012 08/14/2015 Pre-syncope 02/04/2012 02/05/2012 Anemia in 12/24/2011 09/03/2015 Overview: Continue daily folate and Fe Monitor H/H Quit smoking 12/21/2011 08/14/2015 Overview: / - no tobacco since 08/19/11 - [facility] [V23.89] 2 07/14/2013 Overview: packager hand has been consulted and will also follow patient Plan: - monitoring per [employer]. 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 05/16/2010 11/27/2010 Unspecified symptom associated with female genit al organs 05/16/2010 10/22/2011 Anemia, antepartum(648.23) 02/18/200904/08 Trichomonal vulvovaginitis 11/09/200704/08 Chlamydia trachomatis infection of lower genitou rinary sites 09/02/2007 04/08/2010 Poor growth, affecting management of mother, antepartum condition or complication 09/02/2007 04/08/2010 Supervision of other high-risk (V23.89) 07/29/2007 04/08/2010 Supervision of normal first 08/13/2006 02/16/2007 Patient noncompliance 08/28/2021 Overview: history of AMA/no shows documented as of this encounter (statuses as of 08/03/2022) [facility] History of Past illness Narrative* Problem Noted Date Resolved Date Acute pain of left knee 12/15/2019 08/30/19 21 Acute pain of right knee 12/15/2019 021 Dysuria 09/09/2018 08/28/2021 Obesity, Class II, BMI 35-39.9 09/09/2018 0 08/28/2021 Moderate persistent asthma with acute exacerbati on 02/28/2016 12/16/2017 Mastodynia, female 09/25/2015 08/28/2021 SUMMARY 02/05/2012 08/14/2015 Overview: Ms. Zurita is a 21 year old female (, EGA 33w4d, JOSIE 03/21/2012, LMP c/w 19 wk US) transferred from [place] ED for evaluation of NSVT. Patient reports having a three year history of black out episodes with lightheadness but no loss of consciousness, falls, syncope or collapse. She seen by Dr. Cardozo and echocardiogram was performed and she was placed on Holter monitor. 48 hour Holter was returned and analysis showed frequent ventricular ectopy as mostly monomorphic singles, couplets, bigeminal and trigeminal cycles, non-sustained ventricular tachycardia runs up to 5 beats in length. Ventricular tachycardia rates range from 189 BPM to 234 BPM. TTE completed at the [place] [facility] on 02/02/12 showed EF 55-60%, trivial MR, trivial TR, trivial -1+ PI. She was instructed to present to her local ED. She is transferred to [facility] for further evaluation. 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 05/16/2010 11/27/2010 Unspecified symptom associated with female genit al organs 05/16/2010 10/22/2011 Anemia, antepartum(648.23) 02/18/200904/08 Trichomonal vulvovaginitis 11/09/200704/08 Chlamydia trachomatis infection of lower genitou rinary sites 09/02/2007 04/08/2010 Poor growth, affecting management of mother, antepartum condition or complication 09/02/2007 04/08/2010 Supervision of other high-risk (V23.89) 07/29/2007 04/08/2010 Supervision of normal first 08/13/2006 02/16/2007 Patient noncompliance 08/28/2021 Overview: history of AMA/no shows documented as of this encounter (statuses as of 08/04/2022) [facility] History of Past illness Narrative* Problem Noted Date Resolved Date Acute pain of left knee 12/15/2019 08/30/19 21 Acute pain of right knee 12/15/2019 021 Dysuria 09/09/2018 08/28/2021 Obesity, Class II, BMI 35-39.9 09/09/2018 0 08/28/2021 Moderate persistent asthma with acute exacerbati on 02/28/2016 12/16/2017 Mastodynia, female 09/25/2015 08/28/2021 SUMMARY 02/05/2012 08/14/2015 Overview: Ms. Zurita is a 21 year old female (, EGA 33w4d, JOSIE 03/21/2012, LMP c/w 19 wk US) transferred from [place] ED for evaluation of NSVT. Patient reports having a three year history of black out episodes with lightheadness but no loss of consciousness, falls, syncope or collapse. She seen by Dr. Cardozo and echocardiogram was performed and she was placed on Holter monitor. 48 hour Holter was returned and analysis showed frequent ventricular ectopy as mostly monomorphic singles, couplets, bigeminal and trigeminal cycles, non-sustained ventricular tachycardia runs up to 5 beats in length. Ventricular tachycardia rates range from 189 BPM to 234 BPM. TTE completed at the [place] [facility] on 02/02/12 showed EF 55-60%, trivial MR, trivial TR, trivial -1+ PI. She was instructed to present to her local ED. She is transferred to [facility] for further evaluation. Pre-syncope 02/04/2012 08/14/2015 Pre-syncope 02/04/2012 02/05/2012 Anemia in 12/24/2011 09/03/2015 Overview: Continue daily folate and Fe Monitor H/H Quit smoking 12/21/2011 08/14/2015 Overview: 7/2 - no tobacco since 08/19/11 - [facility] [V23.89] 2 07/14/2013 Overview: packager hand has been consulted and will also follow patient Plan: - monitoring per [employer]. 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 05/16/2010 11/27/2010 Unspecified symptom associated with female genit al organs 05/16/2010 10/22/2011 Anemia, antepartum(648.23) 02/18/200904/08 Trichomonal vulvovaginitis 11/09/200704/08 Chlamydia trachomatis infection of lower genitou rinary sites 09/02/2007 04/08/2010 Poor growth, affecting management of mother, antepartum condition or complication 09/02/2007 04/08/2010 Supervision of other high-risk (V23.89) 07/29/2007 04/08/2010 Supervision of normal first 08/13/2006 02/16/2007 Patient noncompliance 08/28/2021 Overview: history of AMA/no shows documented as of this encounter (statuses as of 08/05/2022) [facility] History of Past illness Narrative* Problem Noted Date Resolved Date Acute pain of left knee 12/15/2019 08/30/19 21 Acute pain of right knee 12/15/2019 021 Dysuria 09/09/2018 08/28/2021 Obesity, Class II, BMI 35-39.9 09/09/2018 0 08/28/2021 Moderate persistent asthma with acute exacerbati on 02/28/2016 12/16/2017 Mastodynia, female 09/25/2015 08/28/2021 SUMMARY 02/05/2012 08/14/2015 Overview: Ms. Zurita is a 21 year old female (, EGA 33w4d, JOSIE 03/21/2012, LMP c/w 19 wk US) transferred from [place] ED for evaluation of NSVT. Patient reports having a three year history of black out episodes with lightheadness but no loss of consciousness, falls, syncope or collapse. She seen by Dr. Cardozo and echocardiogram was performed and she was placed on Holter monitor. 48 hour Holter was returned and analysis showed frequent ventricular ectopy as mostly monomorphic singles, couplets, bigeminal and trigeminal cycles, non-sustained ventricular tachycardia runs up to 5 beats in length. Ventricular tachycardia rates range from 189 BPM to 234 BPM. TTE completed at the [place] [facility] on 02/02/12 showed EF 55-60%, trivial MR, trivial TR, trivial -1+ PI. She was instructed to present to her local ED. She is transferred to [facility] for further evaluation. 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 05/16/2010 11/27/2010 Unspecified symptom associated with female genit al organs 05/16/2010 10/22/2011 Anemia, antepartum(648.23) 02/18/200904/08 Trichomonal vulvovaginitis 11/09/200704/08 Chlamydia trachomatis infection of lower genitou rinary sites 09/02/2007 04/08/2010 Poor growth, affecting management of mother, antepartum condition or complication 09/02/2007 04/08/2010 Supervision of other high-risk (V23.89) 07/29/2007 04/08/2010 Supervision of normal first 08/13/2006 02/16/2007 Patient noncompliance 08/28/2021 Overview: history of AMA/no shows documented as of this encounter (statuses as of 08/08/2022) [facility] History of Past illness Narrative* Problem Noted Date Resolved Date Acute pain of left knee 12/15/2019 08/30/19 21 Acute pain of right knee 12/15/2019 021 Dysuria 09/09/2018 08/28/2021 Obesity, Class II, BMI 35-39.9 09/09/2018 0 08/28/2021 Moderate persistent asthma with acute exacerbati on 02/28/2016 12/16/2017 Mastodynia, female 09/25/2015 08/28/2021 SUMMARY 02/05/2012 08/14/2015 Overview: Ms. Zurita is a 21 year old female (, EGA 33w4d, JOSIE 03/21/2012, LMP c/w 19 wk US) transferred from [place] ED for evaluation of NSVT. Patient reports having a three year history of black out episodes with lightheadness but no loss of consciousness, falls, syncope or collapse. She seen by Dr. Cardozo and echocardiogram was performed and she was placed on Holter monitor. 48 hour Holter was returned and analysis showed frequent ventricular ectopy as mostly monomorphic singles, couplets, bigeminal and trigeminal cycles, non-sustained ventricular tachycardia runs up to 5 beats in length. Ventricular tachycardia rates range from 189 BPM to 234 BPM. TTE completed at the [facility] on 02/02/12 showed EF 55-60%, trivial MR, trivial TR, trivial -1+ PI. She was instructed to present to her local ED. She is transferred to [facility] for further evaluation. Pre-syncope 02/04/2012 08/14/2015 Pre-syncope 02/04/2012 02/05/2012 Anemia in 12/24/2011 09/03/2015 Overview: Continue daily folate and Fe Monitor H/H Quit smoking 12/21/2011 08/14/2015 Overview: 7/2 - no tobacco since 08/19/11 - [facility]K [facility] [V23.89] 2 07/14/2013 Overview: packager hand has been consulted and will also follow patient Plan: - monitoring per [employer]. 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 05/16/2010 11/27/2010 Unspecified symptom associated with female genit al organs 05/16/2010 10/22/2011 Anemia, antepartum(648.23) 02/18/200904/08 Trichomonal vulvovaginitis 11/09/200704/08 Chlamydia trachomatis infection of lower genitou rinary sites 09/02/2007 04/08/2010 Poor growth, affecting management of mother, antepartum condition or complication 09/02/2007 04/08/2010 Supervision of other high-risk (V23.89) 07/29/2007 04/08/2010 Supervision of normal first 08/13/2006 02/16/2007 Patient noncompliance 08/28/2021 Overview: history of AMA/no shows documented as of this encounter (statuses as of 08/08/2022) [facility] History of Past illness Narrative* Problem Noted Date Resolved Date Acute pain of left knee 12/15/2019 08/30/19 21 Acute pain of right knee 12/15/2019 021 Dysuria 09/09/2018 08/28/2021 Obesity, Class II, BMI 35-39.9 09/09/2018 0 08/28/2021 Moderate persistent asthma with acute exacerbati on 02/28/2016 12/16/2017 Mastodynia, female 09/25/2015 08/28/2021 SUMMARY 02/05/2012 08/14/2015 Overview: Ms. Zurita is a 21 year old female (, EGA 33w4d, JOSIE 03/21/2012, LMP c/w 19 wk US) transferred from [place] ED for evaluation of NSVT. Patient reports having a three year history of black out episodes with lightheadness but no loss of consciousness, falls, syncope or collapse. She seen by Dr. Cardozo and echocardiogram was performed and she was placed on Holter monitor. 48 hour Holter was returned and analysis showed frequent ventricular ectopy as mostly monomorphic singles, couplets, bigeminal and trigeminal cycles, non-sustained ventricular tachycardia runs up to 5 beats in length. Ventricular tachycardia rates range from 189 BPM to 234 BPM. TTE completed at the [facility] on 02/02/12 showed EF 55-60%, trivial MR, trivial TR, trivial -1+ PI. She was instructed to present to her local ED. She is transferred to [facility] for further evaluation. 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 05/16/2010 11/27/2010 Unspecified symptom associated with female genit al organs 05/16/2010 10/22/2011 Anemia, antepartum(648.23) 02/18/200904/08 Trichomonal vulvovaginitis 11/09/200704/08 Chlamydia trachomatis infection of lower genitou rinary sites 09/02/2007 04/08/2010 Poor growth, affecting management of mother, antepartum condition or complication 09/02/2007 04/08/2010 Supervision of other high-risk (V23.89) 07/29/2007 04/08/2010 Supervision of normal first 08/13/2006 02/16/2007 Patient noncompliance 08/28/2021 Overview: history of AMA/no shows documented as of this encounter (statuses as of 08/11/2022) [facility] History of Past illness Narrative* Problem Noted Date Resolved Date Acute pain of left knee 12/15/2019 08/30/19 21 Acute pain of right knee 12/15/2019 021 Dysuria 09/09/2018 08/28/2021 Obesity, Class II, BMI 35-39.9 09/09/2018 0 08/28/2021 Moderate persistent asthma with acute exacerbati on 02/28/2016 12/16/2017 Mastodynia, female 09/25/2015 08/28/2021 SUMMARY 02/05/2012 08/14/2015 Overview: Ms. Zurita is a 21 year old female (, EGA 33w4d, JOSIE 03/21/2012, LMP c/w 19 wk US) transferred from [place] ED for evaluation of NSVT. Patient reports having a three year history of black out episodes with lightheadness but no loss of consciousness, falls, syncope or collapse. She seen by Dr. Cardozo and echocardiogram was performed and she was placed on Holter monitor. 48 hour Holter was returned and analysis showed frequent ventricular ectopy as mostly monomorphic singles, couplets, bigeminal and trigeminal cycles, non-sustained ventricular tachycardia runs up to 5 beats in length. Ventricular tachycardia rates range from 189 BPM to 234 BPM. TTE completed at the [facility] on 02/02/12 showed EF 55-60%, trivial MR, trivial TR, trivial -1+ PI. She was instructed to present to her local ED. She is transferred to [facility] for further evaluation. Pre-syncope 02/04/2012 08/14/2015 Pre-syncope 02/04/2012 02/05/2012 Anemia in 12/24/2011 09/03/2015 Overview: Continue daily folate and Fe Monitor H/H Quit smoking 12/21/2011 08/14/2015 Overview: 7/2 - no tobacco since 08/19/11 - [facility] [V23.89] 2 07/14/2013 Overview: packager hand has been consulted and will also follow patient Plan: - monitoring per [employer]. 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 05/16/2010 11/27/2010 Unspecified symptom associated with female genit al organs 05/16/2010 10/22/2011 Anemia, antepartum(648.23) 02/18/200904/08 Trichomonal vulvovaginitis 11/09/200704/08 Chlamydia trachomatis infection of lower genitou rinary sites 09/02/2007 04/08/2010 Poor growth, affecting management of mother, antepartum condition or complication 09/02/2007 04/08/2010 Supervision of other high-risk (V23.89) 07/29/2007 04/08/2010 Supervision of normal first 08/13/2006 02/16/2007 Patient noncompliance 08/28/2021 Overview: history of AMA/no shows documented as of this encounter (statuses as of 08/20/2022) [facility] [place] [facility] Diagnosis RLS (restless legs syndrome)- Primary Restless legs syndrome (RLS) Lumbosacral radiculopathy Thoracic or lumbosacral neuritis or radiculitis, unspecified Chronic intractable headache, unspecified headache type Cerebral cysts 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 status epilepticus, unspecified epilepsy type (HCC) Lumbar pain Lumbago documented in this encounter [facility] [place] [facility]* Diagnosis Chronic intractable headache, unspecified headache type [facility] this encounter [facility] [place] [facility]* Diagnosis Migraine without aura and without status migrainosus, not intractable Migraine without aura, without mention of intractable migraine without mention of status migrainosus RLS (restless legs syndrome) Restless legs syndrome (RLS) documented in this encounter [facility] [place] [facility]* Diagnosis Chronic pain of left knee- Primary Pain in joint, lower leg Migraine without aura and without status migrainosus, not intractable Migraine without aura, without mention of intractable migraine without mention of status migrainosus RLS (restless legs syndrome) Restless legs syndrome (RLS) Seizure (HCC) Other convulsions NSVT (nonsustained ventricular tachycardia) Paroxysmal ventricular tachycardia Depressive disorder Depressive disorder, not elsewhere classified Screening for cervical cancer Screening for malignant neoplasm of the cervix Obesity, Class I, BMI 30-34.9 Obesity, unspecified documented in this encounter [facility] [place] [facility]* Diagnosis Encounter for gynecological examination with abnormal finding- Primary Routine gynecological examination Polymenorrhea Excessive or frequent menstruation Vaginal discharge Leukorrhea, not specified as infective Perirectal skin irritation Other specified disorder of rectum and anus Screen for STD (sexually transmitted disease) Screening examination for venereal disease Screening for cervical cancer Screening for malignant neoplasm of the cervix Encounter for screening for human papillomavirus (HPV) Special screening examination for human papillomavirus (HPV) [facility] Viral gastroenteritis- Primary Intestinal infection due to other organism, not elsewhere classified documented [facility] this encounter [facility] [place] [facility]* Diagnosis Seizure disorder (HCC)- Primary Unspecified epilepsy without mention of intractable epilepsy [facility] Diagnosis Diarrhea, unspecified type- Primary [facility] [place] [facility] Diagnosis Diarrhea, unspecified type- Primary [facility] Diagnosis Seizures (HCC)- Primary Other convulsions [facility] Diagnosis Avulsion fracture of tibial tuberosity- Primary Chronic pain of left knee Pain in joint, lower leg Loose body in knee, left knee [facility] Diagnosis NSVT (nonsustained ventricular tachycardia)- Primary Paroxysmal ventricular tachycardia Essential hypertension Unspecified essential hypertension Palpitations [facility] [place] [facility]* Diagnosis Anxiety- Primary Anxiety state, unspecified [facility] Diagnosis NSVT (nonsustained ventricular tachycardia) (HCC)- Primary Paroxysmal ventricular tachycardia [facility] Diagnosis NSVT (nonsustained ventricular tachycardia) (HCC)- Primary Paroxysmal ventricular tachycardia [facility] Diagnosis Acute medial meniscus tear of left knee, subsequent encounter- Primary [facility] Diagnosis RLS (restless legs syndrome)- Primary Restless legs syndrome (RLS) Migraine without aura and without status migrainosus, not intractable Migraine without aura, without mention of intractable migraine without mention of status migrainosus [facility] [place] [facility] Diagnosis NSVT (nonsustained ventricular tachycardia) (HCC)- Primary Paroxysmal ventricular tachycardia Essential hypertension Unspecified essential hypertension Palpitations documented in this encounter [facility] [place] [facility]* Diagnosis Anxiety and depression- Primary Dysthymic disorder RLS (restless legs syndrome) Restless legs syndrome (RLS) Migraine without aura and without status migrainosus, not intractable Migraine without aura, without mention of intractable migraine without mention of status migrainosus Obesity, Class I, BMI 30-34.9 Obesity, unspecified Acute medial meniscus tear of right knee, initial encounter documented [facility] this encounter [facility] [place] [facility]* Diagnosis Bucket-handle tear of medial meniscus of left knee as current injury, subsequent encounter- Primary Acute medial meniscus tear of right knee, initial encounter Acute medial meniscus tear of right knee, initial encounter documented in this encounter [facility] [place] [facility]* Diagnosis Pre-operative examination- Primary Preoperative examination, unspecified Anxiety and depression Dysthymic disorder Gastroesophageal reflux disease, unspecified whether esophagitis present Migraine without aura and without status migrainosus, not intractable Migraine without aura, without mention of intractable migraine without mention of status migrainosus RLS (restless legs syndrome) Restless legs syndrome (RLS) Seizures (HCC) Other convulsions NSVT (nonsustained ventricular tachycardia) Paroxysmal ventricular tachycardia Former smoker Personal history of tobacco use, presenting hazards to health Obesity, Class I, BMI 30-34.9 Obesity, unspecified Acute medial meniscus tear of right knee, initial encounter documented [facility] this encounter [facility] [place] [facility]* Diagnosis Functional diarrhea- Primary Nausea vomiting and diarrhea chronic Diarrhea Acute medial meniscus tear of right knee, initial encounter [facility] [place] [facility] Diagnosis Acute medial meniscus tear of right knee, initial encounter- Primary [facility] [place] [facility] Diagnosis Anxiety and depression Dysthymic disorder [facility] [place] [facility] Diagnosis Impacted cerumen of right ear- Primary Impacted cerumen [facility] [place] [facility] Diagnosis Acute medial meniscus tear of right knee, subsequent encounter- Primary [facility] [place] [facility] Diagnosis Acute medial meniscus tear of right knee, subsequent encounter- Primary [facility] [place] [facility] Diagnosis Chronic pain of right knee- Primary [facility] [place] [facility] Diagnosis Right hand pain- Primary Pain in limb [facility] [place] [facility] Diagnosis Numbness of right hand- Primary [facility] [place] [facility]* Diagnosis Anxiety and depression Dysthymic disorder documented [facility] [place] [facility]* Diagnosis Anxiety and depression- Primary Dysthymic disorder RLS (restless legs syndrome) Restless legs syndrome (RLS) Migraine without aura and without status migrainosus, not intractable Migraine without aura, without mention of intractable migraine without mention of status migrainosus Difficulty controlling anger Need for COVID-19 vaccine Weight gain Abnormal weight gain [facility] this [facility] [place] [facility] Diagnosis Symptomatic PVCs- Primary Other premature beats [facility] [place] [facility]* Diagnosis Episodic lightheadedness- Primary Dizziness and giddiness Anxiety and depression Dysthymic disorder Tobacco use Tobacco use disorder Difficulty controlling anger documented in this encounter [facility] note* Diagnosis Major depressive disorder, recurrent episode, moderate (HCC)- Primary Major depressive disorder, recurrent episode, moderate documented in this encounter [facility] for referral (narrative)* Outpatient Procedure (Routine) - Pending Review Specialty Diagnoses / Procedures Referred By Contac Referred To Contact [facility] Diagnoses Seizure disorder (HCC) Procedures EPIL EEG LEAD PLACEMENT EEG EXTENDED MONITORING 61-119 MINUTES ELECTROENCEPHALOGRAM REC COMA/SLEEP ONLY Talita Ruby APRN.CNP [address] [place] [address] [id number] [place] [address] Referral ID Status Reason Start Date Expiration Date Visits Requested Visits Authorized [id number] Pending Review Auto-Generat ed Referral 08/05/2022 08/05/2023 1 1 [facility] for referral (narrative)* Outpatient Procedure (Routine) - Pending Review Specialty Diagnoses / Procedures Referred By Contac t Referred To Contact [facility] Diagnoses Seizures (HCC) Procedures EPIL AMBULATORY EEG EEG COMPLETE STD PHYS/QHP&GT;84 HR W/O Phoenix Avina MD [address] [facility] Desk [address] [place] [address] [place] [address] Referral ID Status Reason Start Date Expiration Date Visits Requested Visits Authorized [id number] Pending Review Auto-Generat ed Referral 08/27/2022 08/28/2023 1 1 * Outpatient Procedure (Routine) - Pending Review Specialty Diagnoses / Procedures Referred By Contac t Referred To Contact [facility] Diagnoses Seizures (HCC) Procedures EPIL EEG ROUTINE ELECTROENCEPHALOGRAM REC COMA/SLEEP ONLY Phoenix Zavaleta MD [address] [facility] [place] [address] [place] [address] Referral ID Status Reason Start Date Expiration Date Visits Requested Visits Authorized [id number] Pending Review Auto-Generat ed Referral 08/27/2022 08/28/2023 1 1 [facility] for referral (narrative)* Outpatient Procedure (Routine) - Closed Specialty Diagnoses / Procedures Referred By Contac t Referred To [facility] Diagnoses Pre-operative examination Procedures ECG COMPLETE ECG ROUTINE ECG W/LEAST 12 LDS W/I&R Adilia Contreras APRN.CNP [address] [place] [address] [facility] [place] [address] Referral ID Status Reason Start Date Expiration Date V isits Requested Visits Authorized [id number] Closed Auto-Generate d Referral 01/29/2023 01/29/2024 1 1 [facility] for referral (narrative)* Diagnostic Procedure Only (Routine) - Pending Review Specialty Diagnoses / Procedures Referred By Contac t Referred To Contact XR IMAGING Diagnoses Right hand pain Procedures XR HAND GENERAL 3V PA/LAT/OBL RIGHT RADEX HAND MINIMUM 3 VIEWS Paulina Duong PA-C [address] [place] [address] [place] [id number] Referral ID Status Reason Start Date Expiration Date Visits Requested Visits Authorized [id number] Pending Review Auto-Generat ed Referral 05/12/2024 1 1 [facility] Summary Purpose Family History No Family History Records FoundNo Family History Records FoundNo Family History Records FoundNo Family History Records FoundNo Family History Records Found Advance Directives No Advanced Directives Records FoundDocuments on File Type Date Recorded 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 Expl 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 Advance Directive(s) 03/04/2016 12:29 PM Documents on File Type Date Recorded 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 Expl anation Advance Directive(s) 03/04/2016 12:29 PM Reason for Referral Specialty Diagnoses / Procedures Referred By Contac t Referred To Contact [facility] Diagnoses Lumbosacral radiculopathy Lumbar pain Procedures CONSULT TO PHYSICAL THERAPY PHYSICAL THERAPY EVALUATION HIGH COMPLEX 45 MINS Jenelle Carson, BECKI.PROGRAM AND RESEARCH COORDINATOR [id number] [facility] [place] [address] [place] [address] Referral ID Status Reason Start Date Expiration Date Visits Requested Visits Authorized [id number] Pending Review Auto-Generat ed Referral 09/04/2021 09/04/2022 1 1 Specialty Diagnoses / Procedures Referred By Contac t Referred To Contact XR IMAGING Diagnoses Lumbosacral radiculopathy Lumbar pain Procedures XR LUMBAR GENERAL 3V AP/LAT/L5-S1 RADEX SPINE LUMBOSACRAL 2/3 VIEWS Jenelle Carson, BECKI.PROGRAM AND RESEARCH COORDINATOR [address] [place] [address] Xr Imaging Referral ID Status Reason Start Date Expiration Date V isits Requested Visits Authorized [id number] Closed Auto-Generate d Referral 09/04/2021 10/04/2022 1 1 Specialty Diagnoses / Procedures Referred By Contac t Referred To Contact Diagnoses Chronic intractable headache, unspecified headache type Procedures CONSULT TO HEADACHE CLINIC OFFICE/OUTPATIENT [facility] 60-74 MINUTES Jenelle Carson APRN.PROGRAM AND RESEARCH COORDINATOR [address] [place] [address] Referral ID Status Reason Start Date Expiration Date Visits Requested Visits Authorized [id number] Authorized PCP Requested Referral 09/04/2021 09/04/2022 1 1 Specialty Diagnoses / Procedures Referred By Contac t Referred To Contact Orthopedics Diagnoses Chronic pain of left knee Procedures CONSULT TO ORTHOPAEDICS OFFICE/OUTPATIENT [facility] 60-74 MINUTES Misha Cespedes MD [address] [place] [id number] Referral ID Status Reason Start Date Expiration Date Visits Requested Visits Authorized [id number] Authorized PCP Requested Referral 07/14/2022 07/14/2023 1 1 Specialty Diagnoses / Procedures Referred By Contac t Referred To Contact Gynecology Diagnoses Screening for cervical cancer Procedures CONSULT TO GYNECOLOGY OFFICE/OUTPATIENT [facility] 60-74 MINUTES Misha Cespedes MD [address] [place] [id number] Referral ID Status Reason Start Date Expiration Date Visits Requested Visits Authorized [id number] Authorized PCP Requested Referral Auto-Generate d Referral 07/14/2022 07/14/2023 1 1 Specialty Diagnoses / Procedures Referred By Contac t Referred To Contact Gastroenterology Diagnoses Diarrhea, unspecified type Procedures CONSULT TO GASTROENTEROLOGY OFFICE/OUTPATIENT [facility] 60-74 MINUTES Misha Cespedes MD [address] [place] [phone] Referral ID Status Reason Start Date Expiration Date Visits Requested Visits Authorized [id number] Authorized PCP Requested Referral 08/20/2022 08/20/2023 1 1 Specialty Diagnoses / Procedures Referred By Contac t Referred To Contact MR IMAGING Diagnoses Chronic pain of left knee Procedures MRI KNEE WO IVCON LEFT MRI ANY JT LOWER EXTREM W/O CONTRAST Paulina Moise PA-C [address] [place] [address] Mr Imaging Referral ID Status Reason Start Date Expiration Date Visits Requested Visits Authorized [id number] Pending Review Auto-Generat ed Referral 09/21/2022 10/21/2023 1 1 Medications Administered Section Inactive Administered Medications - up to 3 most recent administrations Medication Order MAR Action Action Date Dose Rate Site fentaNYL 50 mcg/mL 50 mcg injection (SUBLIMAZE) 50 mcg, INTRAVENOUS, EVERY 10 MINUTES NEEDED, 4 doses, Starting on Wed11/18/22 at 0909, Until [place] 11/19/22 at 0302, FIRST LINE THERAPY for mild, moderate, or severe pain, USE FOR MILD PAIN ONLY IF PATIENT IS UNABLE TO TOLERATE ORAL THERAPY, Recovery or Phase I (only) HYDROmorphone 0.2 mg injection (DILAUDID) 0.2 mg, INTRAVENOUS, EVERY 5 MINUTES NEEDED, 5 doses, Starting on Wed11/18/22 at 0909, Until [place] 11/19/22 at 0302, SECOND LINE THERAPY for mild, moderate, or severe pain, USE FOR MILD PAIN ONLY IF PATIENT IS UNABLE TO TOLERATE ORAL THERAPY, Recovery or Phase I (only) lactated ringers iv infusion 50 mL/hr, INTRAVENOUS, CONTINUOUS, Starting on Wed11/18/22 at 0930, Until Wed11/19/22 at 0302, Recovery or Phase I (only) ondansetron (PF) 4 mg injection (ZOFRAN) 4 mg, INTRAVENOUS, EVERY 6 HOURS NEEDED, Starting on Wed11/18/22 at 0909, Until [place] 11/19/22 at 0302, Nausea/Vomiting - First Line - Parenteral, Shivering, EVERY 6 HOURS NEEDED Give IV push over 2 minutes. Use when patient unable to take medications by mouth., Recovery or Phase I (only) Given 11/18/2022 9:15 AM EDT 4 mg ondansetron orally disintegrating 4 mg tab(s) (ZOFRAN ODT) 4 mg, ORAL, EVERY 6 HOURS NEEDED, Starting on Wed11/18/22 at 0909, Until [place] 11/19/22 at 0302, Nausea/Vomiting - First Line - Enteral, EVERY 6 HOURS NEEDED Use when patient able to take medications by mouth. Place tablet on tongue and allow to dissolve; do not chew. Open packaging using dry hands; do not push tablet through packaging., Recovery or Phase I (only) oxyCODONE IR 5 mg tab(s) (ROXICODONE) 5 mg, ORAL, NEEDED, 1 dose, Starting on Wed11/18/22 at 0909, Until [place] 11/19/22 at 0302, Moderate Pain (4-6) - Enteral, Recovery or Phase I (only) scopolamine - REMOVE PATCH ONCE, Recovery or Phase I (only), THIS IS USED ONLY TO DOCUMENT PATCH REMOVAL. Use Remvd Patch action. scopolamine 1 mg over 3 days 1 Patch (TRANSDERM-SCOP) 1 Patch, TRANSDERMAL, Administer over 24 Hours, NEEDED, 1 dose, Starting on Wed11/18/22 at 0909, Until [place] 11/19/22 at 0302, Nausea/Vomiting - Second Line - Topical, Allow 4 hours to achieve onset Apply patch behind ear. Each time a new patch is needed it should be placed behind the alternate ear from the previous patch. Remove old patch. Each 1.5 mg patch delivers 1 mg of scopolamine over 3 days., Recovery or Phase I (only) Additional Source Comments INFORMATION SOURCE (unrecogn ized section and content) DATE CREATED AUTHOR AUTHOR'S ORGANIZ ATION 08/28/2022 [facility] DATE CREATED AUTHOR AUTHOR'S ORGANIZ ATION 02/13/2023 [facility] DATE CREATED AUTHOR AUTHOR'S ORGANIZ ATION 02/13/2023 [facility] DATE CREATED AUTHOR AUTHOR'S ORGANIZ ATION 06/12/2023 [facility] Source Comments (unrecognize d section and content) In the event this informatio n is protected by the Federal Confidentiality of Alcohol and Drug Abuse Patient Records regulations: The Federal rules restrict any use of the information to criminally investigate or prosecute any alcohol or drug abuse patient.[facility] the event this information is protected by the Federal Confidentiality of Alcohol and Drug Abuse Patient Records regulations: The Federal rules restrict any use of the information to criminally investigate or prosecute any alcohol or drug abuse patient.[facility] the event this information is protected by the Federal Confidentiality of Alcohol and Drug Abuse Patient Records regulations: The Federal rules restrict any use of the information to criminally investigate or prosecute any alcohol or drug abuse patient.[facility] the event this information is protected by the Federal Confidentiality of Alcohol and Drug Abuse Patient Records regulations: The Federal rules restrict any use of the information to criminally investigate or prosecute any alcohol or drug abuse patient.[facility] the event this information is protected by the Federal Confidentiality of Alcohol and Drug Abuse Patient Records regulations: The Federal rules restrict any use of the information to criminally investigate or prosecute any alcohol or drug abuse patient.[facility] the event this information is protected by the Federal Confidentiality of Alcohol and Drug Abuse Patient Records regulations: The Federal rules restrict any use of the information to criminally investigate or prosecute any alcohol or drug abuse patient.[facility] the event this information is protected by the Federal Confidentiality of Alcohol and Drug Abuse Patient Records regulations: The Federal rules restrict any use of the information to criminally investigate or prosecute any alcohol or drug abuse patient.[facility] the event this information is protected by the Federal Confidentiality of Alcohol and Drug Abuse Patient Records regulations: The Federal rules restrict any use of the information to criminally investigate or prosecute any alcohol or drug abuse patient.[facility] the event this information is protected by the Federal Confidentiality of Alcohol and Drug Abuse Patient Records regulations: The Federal rules restrict any use of the information to criminally investigate or prosecute any alcohol or drug abuse patient.[facility] the event this information is protected by the Federal Confidentiality of Alcohol and Drug Abuse Patient Records regulations: The Federal rules restrict any use of the information to criminally investigate or prosecute any alcohol or drug abuse patient.[facility] the event this information is protected by the Federal Confidentiality of Alcohol and Drug Abuse Patient Records regulations: The Federal rules restrict any use of the information to criminally investigate or prosecute any alcohol or drug abuse patient.[facility] the event this information is protected by the Federal Confidentiality of Alcohol and Drug Abuse Patient Records regulations: The Federal rules restrict any use of the information to criminally investigate or prosecute any alcohol or drug abuse patient.[facility] the event this information is protected by the Federal Confidentiality of Alcohol and Drug Abuse Patient Records regulations: The Federal rules restrict any use of the information to criminally investigate or prosecute any alcohol or drug abuse patient.[facility] the event this information is protected by the Federal Confidentiality of Alcohol and Drug Abuse Patient Records regulations: The Federal rules restrict any use of the information to criminally investigate or prosecute any alcohol or drug abuse patient.[facility] the event this information is protected by the Federal Confidentiality of Alcohol and Drug Abuse Patient Records regulations: The Federal rules restrict any use of the information to criminally investigate or prosecute any alcohol or drug abuse patient.[facility] the event this information is protected by the Federal Confidentiality of Alcohol and Drug Abuse Patient Records regulations: The Federal rules restrict any use of the information to criminally investigate or prosecute any alcohol or drug abuse patient.[facility] the event this information is protected by the Federal Confidentiality of Alcohol and Drug Abuse Patient Records regulations: The Federal rules restrict any use of the information to criminally investigate or prosecute any alcohol or drug abuse patient.[facility] the event this information is protected by the Federal Confidentiality of Alcohol and Drug Abuse Patient Records regulations: The Federal rules restrict any use of the information to criminally investigate or prosecute any alcohol or drug abuse patient.[facility] the event this information is protected by the Federal Confidentiality of Alcohol and Drug Abuse Patient Records regulations: The Federal rules restrict any use of the information to criminally investigate or prosecute any alcohol or drug abuse patient.[facility] the event this information is protected by the Federal Confidentiality of Alcohol and Drug Abuse Patient Records regulations: The Federal rules restrict any use of the information to criminally investigate or prosecute any alcohol or drug abuse patient.[facility] the event this information is protected by the Federal Confidentiality of Alcohol and Drug Abuse Patient Records regulations: The Federal rules restrict any use of the information to criminally investigate or prosecute any alcohol or drug abuse patient.[facility] HospitalIn the event this information is protected by the Federal Confidentiality of Alcohol and Drug Abuse Patient Records regulations: The Federal rules restrict any use of the information to criminally investigate or prosecute any alcohol or drug abuse patient.[facility] the event this information is protected by the Federal Confidentiality of Alcohol and Drug Abuse Patient Records regulations: The Federal rules restrict any use of the information to criminally investigate or prosecute any alcohol or drug abuse patient.[facility] the event this information is protected by the Federal Confidentiality of Alcohol and Drug Abuse Patient Records regulations: The Federal rules restrict any use of the information to criminally investigate or prosecute any alcohol or drug abuse patient.[facility] HospitalIn the event this information is protected by the Federal Confidentiality of Alcohol and Drug Abuse Patient Records regulations: The Federal rules restrict any use of the information to criminally investigate or prosecute any alcohol or drug abuse patient.[facility] the event this information is protected by the Federal Confidentiality of Alcohol and Drug Abuse Patient Records regulations: The Federal rules restrict any use of the information to criminally investigate or prosecute any alcohol or drug abuse patient.[facility]In the event this information is protected by the Federal Confidentiality of Alcohol and Drug Abuse Patient Records regulations: The Federal rules restrict any use of the information to criminally investigate or prosecute any alcohol or drug abuse patient.[facility] the event this information is protected by the Federal Confidentiality of Alcohol and Drug Abuse Patient Records regulations: The Federal rules restrict any use of the information to criminally investigate or prosecute any alcohol or drug abuse patient.[facility] HospitalIn the event this information is protected by the Federal Confidentiality of Alcohol and Drug Abuse Patient Records regulations: The Federal rules restrict any use of the information to criminally investigate or prosecute any alcohol or drug abuse patient.[facility] HospitalIn the event this information is protected by the Federal Confidentiality of Alcohol and Drug Abuse Patient Records regulations: The Federal rules restrict any use of the information to criminally investigate or prosecute any alcohol or drug abuse patient.[facility] HospitalIn the event this information is protected by the Federal Confidentiality of Alcohol and Drug Abuse Patient Records regulations: The Federal rules restrict any use of the information to criminally investigate or prosecute any alcohol or drug abuse patient.[facility] HospitalIn the event this information is protected by the Federal Confidentiality of Alcohol and Drug Abuse Patient Records regulations: The Federal rules restrict any use of the information to criminally investigate or prosecute any alcohol or drug abuse patient.[facility] HospitalIn the event this information is protected by the Federal Confidentiality of Alcohol and Drug Abuse Patient Records regulations: The Federal rules restrict any use of the information to criminally investigate or prosecute any alcohol or drug abuse patient.[facility] HospitalIn the event this information is protected by the Federal Confidentiality of Alcohol and Drug Abuse Patient Records regulations: The Federal rules restrict any use of the information to criminally investigate or prosecute any alcohol or drug abuse patient.[facility] HospitalIn the event this information is protected by the Federal Confidentiality of Alcohol and Drug Abuse Patient Records regulations: The Federal rules restrict any use of the information to criminally investigate or prosecute any alcohol or drug abuse patient.[facility] HospitalIn the event this information is protected by the Federal Confidentiality of Alcohol and Drug Abuse Patient Records regulations: The Federal rules restrict any use of the information to criminally investigate or prosecute any alcohol or drug abuse patient.[facility] HospitalIn the event this information is protected by the Federal Confidentiality of Alcohol and Drug Abuse Patient Records regulations: The Federal rules restrict any use of the information to criminally investigate or prosecute any alcohol or drug abuse patient.[facility] HospitalIn the event this information is protected by the Federal Confidentiality of Alcohol and Drug Abuse Patient Records regulations: The Federal rules restrict any use of the information to criminally investigate or prosecute any alcohol or drug abuse patient.[facility] HospitalIn the event this information is protected by the Federal Confidentiality of Alcohol and Drug Abuse Patient Records regulations: The Federal rules restrict any use of the information to criminally investigate or prosecute any alcohol or drug abuse patient.[facility] HospitalIn the event this information is protected by the Federal Confidentiality of Alcohol and Drug Abuse Patient Records regulations: The Federal rules restrict any use of the information to criminally investigate or prosecute any alcohol or drug abuse patient.[facility] HospitalIn the event this information is protected by the Federal Confidentiality of Alcohol and Drug Abuse Patient Records regulations: The Federal rules restrict any use of the information to criminally investigate or prosecute any alcohol or drug abuse patient.[facility] HospitalIn the event this information is protected by the Federal Confidentiality of Alcohol and Drug Abuse Patient Records regulations: The Federal rules restrict any use of the information to criminally investigate or prosecute any alcohol or drug abuse patient.[facility] HospitalIn the event this information is protected by the Federal Confidentiality of Alcohol and Drug Abuse Patient Records regulations: The Federal rules restrict any use of the information to criminally investigate or prosecute any alcohol or drug abuse patient.[facility] HospitalIn the event this information is protected by the Federal Confidentiality of Alcohol and Drug Abuse Patient Records regulations: The Federal rules restrict any use of the information to criminally investigate or prosecute any alcohol or drug abuse patient.[facility] HospitalIn the event this information is protected by the Federal Confidentiality of Alcohol and Drug Abuse Patient Records regulations: The Federal rules restrict any use of the information to criminally investigate or prosecute any alcohol or drug abuse patient.[facility] HospitalIn the event this information is protected by the Federal Confidentiality of Alcohol and Drug Abuse Patient Records regulations: The Federal rules restrict any use of the information to criminally investigate or prosecute any alcohol or drug abuse patient.[facility] HospitalIn the event this information is protected by the Federal Confidentiality of Alcohol and Drug Abuse Patient Records regulations: The Federal rules restrict any use of the information to criminally investigate or prosecute any alcohol or drug abuse patient.[facility] HospitalIn the event this information is protected by the Federal Confidentiality of Alcohol and Drug Abuse Patient Records regulations: The Federal rules restrict any use of the information to criminally investigate or prosecute any alcohol or drug abuse patient.[facility] HospitalIn the event this information is protected by the Federal Confidentiality of Alcohol and Drug Abuse Patient Records regulations: The Federal rules restrict any use of the information to criminally investigate or prosecute any alcohol or drug abuse patient.[facility] HospitalIn the event this information is protected by the Federal Confidentiality of Alcohol and Drug Abuse Patient Records regulations: The Federal rules restrict any use of the information to criminally investigate or prosecute any alcohol or drug abuse patient.[facility] HospitalIn the event this information is protected by the Federal Confidentiality of Alcohol and Drug Abuse Patient Records regulations: The Federal rules restrict any use of the information to criminally investigate or prosecute any alcohol or drug abuse patient.[facility] HospitalIn the event this information is protected by the Federal Confidentiality of Alcohol and Drug Abuse Patient Records regulations: The Federal rules restrict any use of the information to criminally investigate or prosecute any alcohol or drug abuse patient.[facility] HospitalIn the event this information is protected by the Federal Confidentiality of Alcohol and Drug Abuse Patient Records regulations: The Federal rules restrict any use of the information to criminally investigate or prosecute any alcohol or drug abuse patient.[facility] HospitalIn the event this information is protected by the Federal Confidentiality of Alcohol and Drug Abuse Patient Records regulations: The Federal rules restrict any use of the information to criminally investigate or prosecute any alcohol or drug abuse patient.[facility] HospitalIn the event this information is protected by the Federal Confidentiality of Alcohol and Drug Abuse Patient Records regulations: The Federal rules restrict any use of the information to criminally investigate or prosecute any alcohol or drug abuse patient.[facility] HospitalIn the event this information is protected by the Federal Confidentiality of Alcohol and Drug Abuse Patient Records regulations: The Federal rules restrict any use of the information to criminally investigate or prosecute any alcohol or drug abuse patient.[facility] HospitalIn the event this information is protected by the Federal Confidentiality of Alcohol and Drug Abuse Patient Records regulations: The Federal rules restrict any use of the information to criminally investigate or prosecute any alcohol or drug abuse patient.[facility] HospitalIn the event this information is protected by the Federal Confidentiality of Alcohol and Drug Abuse Patient Records regulations: The Federal rules restrict any use of the information to criminally investigate or prosecute any alcohol or drug abuse patient.[facility] HospitalIn the event this information is protected by the Federal Confidentiality of Alcohol and Drug Abuse Patient Records regulations: The Federal rules restrict any use of the information to criminally investigate or prosecute any alcohol or drug abuse patient.[facility] HospitalIn the event this information is protected by the Federal Confidentiality of Alcohol and Drug Abuse Patient Records regulations: The Federal rules restrict any use of the information to criminally investigate or prosecute any alcohol or drug abuse patient.[facility] HospitalIn the event this information is protected by the Federal Confidentiality of Alcohol and Drug Abuse Patient Records regulations: The Federal rules restrict any use of the information to criminally investigate or prosecute any alcohol or drug abuse patient.[facility] HospitalIn the event this information is protected by the Federal Confidentiality of Alcohol and Drug Abuse Patient Records regulations: The Federal rules restrict any use of the information to criminally investigate or prosecute any alcohol or drug abuse patient.[facility] HospitalIn the event this information is protected by the Federal Confidentiality of Alcohol and Drug Abuse Patient Records regulations: The Federal rules restrict any use of the information to criminally investigate or prosecute any alcohol or drug abuse patient.[facility] HospitalIn the event this information is protected by the Federal Confidentiality of Alcohol and Drug Abuse Patient Records regulations: The Federal rules restrict any use of the information to criminally investigate or prosecute any alcohol or drug abuse patient.[facility] HospitalIn the event this information is protected by the Federal Confidentiality of Alcohol and Drug Abuse Patient Records regulations: The Federal rules restrict any use of the information to criminally investigate or prosecute any alcohol or drug abuse patient.[facility] HospitalIn the event this information is protected by the Federal Confidentiality of Alcohol and Drug Abuse Patient Records regulations: The Federal rules restrict any use of the information to criminally investigate or prosecute any alcohol or drug abuse patient.[facility] Reason for Visit (unrecogniz ed section and content) Specialty Diagnoses / Procedures Referred By Contac t Referred To Contact Neurology Diagnoses Cerebral cysts 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 status epilepticus, unspecified epilepsy type (HCC) Procedures CONSULT TO NEUROLOGY OFFICE/OUTPATIENT [facility] 60-74 MINUTES Hardik Jimenez Jr., MD [address] [address] Referral ID Status Reason Start Date Expiration Date V isits Requested Visits Authorized [id number] Closed PCP Requested Referral 08/01/2021 08/01/2022 1 1 Reason Comments Needing follow up appt Reason Comments problem scheduling testing Reason Comments Chronic intractable headaches Specialty Diagnoses / Procedures Referred By Contac t Referred To Contact Diagnoses Chronic intractable headache, unspecified headache type Procedures CONSULT TO HEADACHE CLINIC OFFICE/OUTPATIENT [facility] 60-74 MINUTES Jenelle Carson, BECKI.PROGRAM AND RESEARCH COORDINATOR [address] [place] [address] Referral ID Status Reason Start Date Expiration Date V isits Requested Visits Authorized [id number] Closed PCP Requested Referral 09/04/2021 09/04/2022 1 1 Reason Comments Release Of Medical Records Reason Comments Insurance Authorization AJOVY (fremanezu [id number]) injection 225MG/1.5ML auto-injectors Reason Comments Orders Reason Comments Left Knee Pain Reason Comments Well Woman Specialty Diagnoses / Procedures Referred By Contac t Referred To Contact Gynecology Diagnoses Screening for cervical cancer Procedures CONSULT TO GYNECOLOGY OFFICE/OUTPATIENT [facility] 60-74 MINUTES Misha Cespedes MD [address] [place] [address] Referral ID Status Reason Start Date Expiration Date V isits Requested Visits Authorized [id number] Closed PCP Requested Referral Auto-Generated Referral 07/14/2022 07/14/2023 1 1 Reason Comments Nausea Reason Comments Future Appointment [place], [place], Any Reason Comments AEEG Reason Onset Date Comments Transition Of Care 08/28/2022 Hospital Disc harge 08/27/2022 Reason Comments New Patient Knee Pain Specialty Diagnoses / Procedures Referred By Contac t Referred To Contact Orthopedics Diagnoses Chronic pain of left knee Procedures CONSULT TO ORTHOPAEDICS OFFICE/OUTPATIENT [facility] 60-74 MINUTES Misha Cespedes MD [address] [place] [address] Referral ID Status Reason Start Date Expiration Date V isits Requested Visits Authorized [id number] Closed PCP Requested Referral 07/14/2022 07/14/2023 1 1 Reason Comments Cardiology Follow Up No new cardiac conc erns Reason Comments Patient Question Reason Comments Nurse Visit ZIO replacement Specialty Diagnoses / Procedures Referred By Diego quintana Referred To Contact Diagnoses Bucket-handle tear of medial meniscus of left knee as current injury, initial encounter Procedures ARTHRS KNE SURG W/MENISCECTOMY MED/LAT W/SHVG ARTHROSCOPY KNEE MENISCECTOMY MEDIAL OR LATERAL [facility] [address] [place] [address] Referral ID Status Reason Start Date Expiration Date Visits Re quested Visits Authorized [id number] 1 1 Reason Comments Patient Update Reason Comments Orders 3rd Zio Order Reason Comments Discussion Reason Comments Post Op Reason Comments Pre-Op Exam Reason Onset Date Comments Refill Request 02/19/2023 Reason Comments Acute Visit Cotton in right ear Reason Comments Post Op Follow Up Reason Comments Established Patient Post Op Reason Onset Date Comments Refill Request 04/24/2023 Reason Comments F/U 3 Month Reason Comments bh consult Reason Comments Follow Up Denies cardiac luis carlos rnsB Knee Surgeries CompletedLOV 02/02/23 Alva Symptomatic PVC's, Ess.HTN, Meniscus Pre Op exam Reason Comments allergy testing for cigarette smoke Naus eous, lightheaded and dizziness Reason Comments Depression Care Teams (unrecognized sec tion and content) Operations Research Director Relationship Specialty Start Date End Date Misha Cespedes MD [address] [place], [place] [address] PCP - General Internal Medicine 08/14/15 Roberto Fowler (Historic) Internal Medicine 02/01/12 [facility] ED [address] [place], [place] [id number] [employer] 08/24/19 Operations Research Director Relationship Specialty Start Date End Date Misha Cespedes MD [address] [place], [place] [address]331 PCP - General Internal Medicine 08/14/15 Roberto Fowler (Historic) Internal Medicine 02/01/12 [facility] ED [address] [place], [place] [id number] [employer] 08/24/19 Operations Research Director Relationship Specialty Start Date End Date Misha Cespedes MD [address] [place], [place] [address]591 PCP - General Internal Medicine 08/14/15 Roberto Fowler (Historic) Internal Medicine 02/01/12 [facility] [address] [place], [place] [id number] [employer] 08/24/19 Operations Research Director Relationship Specialty Start Date End Date Misha Cespedes MD [address] [place], [place] [address]2531 PCP - General Internal Medicine 08/14/15 Roberto Fowler (Historic) Internal Medicine 02/01/12 [facility] [address] [place] [address] [employer] 08/24/19 Operations Research Director Relationship Specialty Start Date End Date Misha Cespedes MD [address] [place], [place] [address]71 PCP - General Internal Medicine 08/14/15 Roberto Fowler (Historic) Internal Medicine 02/01/12 [facility] ED [address] [place] [address] [employer] 08/24/19 Operations Research Director Relationship Specialty Start Date End Date Misha Cespedes MD [address] [place], [place] [address]1681 PCP - General Internal Medicine 08/14/15 Roberto Fowler (Historic) Internal Medicine 02/01/12 [facility] ED [address] [place] [address] [employer] 08/24/19 Operations Research Director Relationship Specialty Start Date End Date Misha Cespedes MD [address] [place], [place] [address]371 PCP - General Internal Medicine 08/14/15 Roberto Fowlre (Historic) Internal Medicine 02/01/12 [facility] [address] [place], [place] [id number] [employer] 08/24/19 Operations Research Director Relationship Specialty Start Date End Date Misha Cespedes MD [address] [place], [place] [address]421 PCP - General Internal Medicine 08/14/15 Roberto Fowler (Historic) Internal Medicine 02/01/12 [facility] [address] [place] [address] [employer] 08/24/19 Operations Research Director Relationship Specialty Start Date End Date Misha Cespedes MD [address] [place], [place] [address]6831 PCP - General Internal Medicine 08/14/15 Roberto Fowler (Historic) Internal Medicine 02/01/12 [facility] ED [address] [place] [address] [employer] 08/24/19 Operations Research Director Relationship Specialty Start Date End Date Misha Cespedes MD [address] [place], [place] 789171 PCP - General Internal Medicine 08/14/15 Roberto Fowler (Historic) Internal Medicine 02/01/12 [facility] ED [address] [place] [address] [employer] 08/24/19 Operations Research Director Relationship Specialty Start Date End Date Misha Cespedes MD [address] [place], [place] 405291 PCP - General Internal Medicine 08/14/15 Roberto Fowler (Historic) Internal Medicine 02/01/12 [facility] [address] [place], [place] [id number] [employer] 08/24/19 Operations Research Director Relationship Specialty Start Date End Date Misha Cespedes MD [address] [place], [place] [address]32701 PCP - General Internal Medicine 08/14/15 Roberto Fowler (Historic) Internal Medicine 02/01/12 [facility] [address] [place] [address] [employer] 08/24/19 Operations Research Director Relationship Specialty Start Date End Date Misha Cespedes MD [address] [place], [place] 261451 PCP - General Internal Medicine 08/14/15 Roberto Fowler (Historic) Internal Medicine 02/01/12 [facility] ED [address] [place] [address] [employer] 08/24/19 Operations Research Director Relationship Specialty Start Date End Date Misha Cespedes MD [address] [place], [place] [address]85771 PCP - General Internal Medicine 08/14/15 Roberto Fowler (Historic) Internal Medicine 02/01/12 [facility] ED [address] [place] [address] [employer] 08/24/19 Operations Research Director Relationship Specialty Start Date End Date Misha Cespedes MD [address] [place], [place] [address]6401 PCP - General Internal Medicine 08/14/15 Roberto Fowler (Historic) Internal Medicine 02/01/12 [facility] [address] [place], [place] [id number] [employer] 08/24/19 Operations Research Director Relationship Specialty Start Date End Date Misha Cespedes MD [address] [place], [place] 446391 PCP - General Internal Medicine 08/14/15 Roberto Fowler (Historic) Internal Medicine 02/01/12 [facility] [address] [place], [place] [id number] [employer] 08/24/19 Operations Research Director Relationship Specialty Start Date End Date Misha Cespedes MD [address] [place], [place] [address]47101 PCP - General Internal Medicine 08/14/15 Roberto Fowler (Historic) Internal Medicine 02/01/12 [facility] ED [address] [place] [address] [employer] 08/24/19 Operations Research Director Relationship Specialty Start Date End Date Misha Cespedes MD [address] [place], [place] 165291 PCP - General Internal Medicine 08/14/15 Roberto Fowler (Historic) Internal Medicine 02/01/12 [facility] [address] [place], [place] [id number] [employer] 08/24/19 Operations Research Director Relationship Specialty Start Date End Date Misha Cespedes MD [address] [place], [place] 782361 PCP - General Internal Medicine 08/14/15 Roberto Fowler (Historic) Internal Medicine 02/01/12 [facility] [address] [place] [address] [employer] 08/24/19 Operations Research Director Relationship Specialty Start Date End Date Misha Cespedes MD [address] [place], [place] 257431 PCP - General Internal Medicine 08/14/15 Roberto Fowler (Historic) Internal Medicine 02/01/12 [facility] [address] [place] [address] [employer] 08/24/19 Operations Research Director Relationship Specialty Start Date End Date Misha Cespedes MD [address] [place], [place] 271651 PCP - General Internal Medicine 08/14/15 Roberto Fowler (Historic) Internal Medicine 02/01/12 [facility] [address] [place] [address] [employer] 08/24/19 Operations Research Director Relationship Specialty Start Date End Date Misha Cespedes MD [address] [place], [place] 488901 PCP - General Internal Medicine 08/14/15 Roberto Fowler (Historic) Internal Medicine 02/01/12 [facility] [address] [place], [place] [id number] [employer] 08/24/19 Operations Research Director Relationship Specialty Start Date End Date Misha Cespedes MD [address] [place], [place] 689531 PCP - General Internal Medicine 08/14/15 Roberto Fowler (Historic) Internal Medicine 02/01/12 [facility] [address] [place], [place] [id number] [employer] 08/24/19 Operations Research Director Relationship Specialty Start Date End Date Misha Cespedes MD [address] [place], [place] 749311 PCP - General Internal Medicine 08/14/15 Roberto Fowler (Historic) Internal Medicine 02/01/12 [facility] [address] [place] [address] [employer] 08/24/19 Operations Research Director Relationship Specialty Start Date End Date Misha Cespedes MD [address] [place], [place] 324161 PCP - General Internal Medicine 08/14/15 Roberto Fowler (Historic) Internal Medicine 02/01/12 [facility] [address] [place] [address] [employer] 08/24/19 Operations Research Director Relationship Specialty Start Date End Date Misha Cespedes MD [address] [place], [place] 671661 PCP - General Internal Medicine 08/14/15 Roberto Fowler (Historic) Internal Medicine 02/01/12 [facility] [address] [place] [address] [employer] 08/24/19 Operations Research Director Relationship Specialty Start Date End Date Misha Cespedes MD [address] [place], [place] 801371 PCP - General Internal Medicine 08/14/15 Roberto Fowler (Historic) Internal Medicine 02/01/12 [facility] [address] [place] [address] [employer] 08/24/19 Operations Research Director Relationship Specialty Start Date End Date Misha Cespedes MD [address] [place], [place] 164431 PCP - General Internal Medicine 08/14/15 Roberto Fowler (Historic) Internal Medicine 02/01/12 [facility] [address] [place] [address] [employer] 08/24/19 Operations Research Director Relationship Specialty Start Date End Date Misha Cespedes MD [address] [place], [place] 327441 PCP - General Internal Medicine 08/14/15 Roberto Fowler (Historic) Internal Medicine 02/01/12 [facility] [address] [place] [address] [employer] 08/24/19 Operations Research Director Relationship Specialty Start Date End Date Misha Cespedes MD [address] [place], [place] 106291 PCP - General Internal Medicine 08/14/15 Roberto Fowler (Historic) Internal Medicine 02/01/12 [facility] ED [address] [place], [place] [id number] [employer] 08/24/19 Operations Research Director Relationship Specialty Start Date End Date Misha Cespedes MD [address] [place], [place] 465061 PCP - General Internal Medicine 08/14/15 Roberto Fowler (Historic) Internal Medicine 02/01/12 [facility] [address] [place] [address] [employer] 08/24/19 Operations Research Director Relationship Specialty Start Date End Date Misha Cespedes MD [address] [place] [address] PCP - General Internal Medicine 08/14/15 Roberto Fowler (Historic) Internal Medicine 02/01/12 [facility] [address] [place] [address] [employer] 08/24/19 Operations Research Director Relationship Specialty Start Date End Date Misha Cespedes MD [address] [place] [address] PCP - General Internal Medicine 08/14/15 Roberto Fowler (Historic) Internal Medicine 02/01/12 [facility] ED [address] [place], [place] [id number] [employer] 08/24/19 Operations Research Director Relationship Specialty Start Date End Date Misha Cespedes MD [address] [place] [address] PCP - General Internal Medicine 08/14/15 Roberto Fowler (Historic) Internal Medicine 02/01/12 [facility] ED [address] [place], [place] [id number] [employer] 08/24/19 Operations Research Director Relationship Specialty Start Date End Date Misha Cespedes MD [address] [place], [place] 922751 PCP - General Internal Medicine 08/14/15 Roberto Fowler (Historic) Internal Medicine 02/01/12 [facility] ED [address] [place], [place] [id number] [employer] 08/24/19 Justin Mccain MD [address] [address] Orthopedics 02/02/23 Operations Research Director Relationship Specialty Start Date End Date Misha Cespedes MD [address] [place], [place] 408371 PCP - General Internal Medicine 08/14/15 Roberto Fowler (Historic) Internal Medicine 02/01/12 Formerly [facility] ED [address] [place] [address] [employer] 08/24/19 Justin Mccain MD [address] [address] Orthopedics 02/02/23 Operations Research Director Relationship Specialty Start Date End Date Misha Cespedes MD [address] [place] [address] PCP - General Internal Medicine 08/14/15 Roberto Fowler (Historic) Internal Medicine 02/01/12 [facility]ly [facility] ED [address] [place], [place] [id number] [employer] 08/24/19 Justin Mccain MD [address] [address] Orthopedics 02/02/23 Operations Research Director Relationship Specialty Start Date End Date Misha Cespedes MD [address] [place] [address] PCP - General Internal Medicine 08/14/15 Roberto Fowler (Historic) Internal Medicine 02/01/12 [facility]ly [facility] ED [address] [place] [address] [employer] 08/24/19 Justin Mccain MD [address] [address] Orthopedics 02/02/23 Operations Research Director Relationship Specialty Start Date End Date Misha Cespedes MD [address] [place], [place] [id number] PCP - General Internal Medicine 08/14/15 Roberto Fowler (Historic) Internal Medicine 02/01/12 [facility]ly [facility] ED [address] [place], [place] [id number] [employer] 08/24/19 Justin Mccain MD [address] [address] Orthopedics 02/02/23 Operations Research Director Relationship Specialty Start Date End Date Misha Cespedes MD [address] [place] [address] PCP - General Internal Medicine 08/14/15 Roberto Fowler (Historic) Internal Medicine 02/01/12 [facility] ED [address] [place] [address] [employer] 08/24/19 Justin Mccain MD [address] [address] Orthopedics 02/02/23 Operations Research Director Relationship Specialty Start Date End Date Misha Cespedes MD [address] [place] [address] PCP - General Internal Medicine 08/14/15 Roberto Fowler (Historic) Internal Medicine 02/01/12 [facility] ED [address] [place] [address] [employer] 08/24/19 Justin Mccain MD [address] [address] Orthopedics 02/02/23 Operations Research Director Relationship Specialty Start Date End Date Misha Cespedes MD [address] [place] [address] PCP - General Internal Medicine 08/14/15 Roberto Fowler (Historic) Internal Medicine 02/01/12 [facility] ED [address] [place], [place] [id number] [employer] 08/24/19 Justin Mccain MD [address] [address] Orthopedics 02/02/23 Operations Research Director Relationship Specialty Start Date End Date Misha Cespedes MD [address] [place] [address] PCP - General Internal Medicine 08/14/15 Roberto Fowler (Historic) Internal Medicine 02/01/12 [facility] ED [address] [place], [place] [id number] [employer] 08/24/19 Justin Mccain MD [address] [address] Orthopedics 02/02/23 Operations Research Director Relationship Specialty Start Date End Date Misha Cespedes MD [address] [place] [address] PCP - General Internal Medicine 08/14/15 Roberto Fowler (Historic) Internal Medicine 02/01/12 [facility] ED [address] [place], [place] [id number] [employer] 08/24/19 Justin Mccain MD [address] [address] Orthopedics 02/02/23 Operations Research Director Relationship Specialty Start Date End Date Misha Cespedes MD [address] [place] [address] PCP - General Internal Medicine 08/14/15 Roberto Fowler (Historic) Internal Medicine 02/01/12 [facility] ED [address] [place] [address] [employer] 08/24/19 Justin Mccain MD [address] [address] Orthopedics 02/02/23 Scheduled Active and Recently Administ ered Medications (unrecognized section and content) Continuous Medication Order 11/16/2022 11/17/2022 11/18/2022 lactated ringers iv infusion (CANCELED) 5-30 mL/hr, INTRAVENOUS, CONTINUOUS, Starting on Wed11/18/22 at 0630, Until Wed11/18/22 at 0904, Preprocedure 0734 (New Bag/Syring e/Bottle - Provider: Emilee Edwards APRN.CRNA)0824 (New Bag/Syringe/Bottle - Provider: Emilee Edwards APRN.CRNA)0847 (Infusion Complete - Provider: Emilee Edwards APRN.CRNA) lactated ringers iv infusion 50 mL/hr, INTRAVENOUS, CONTINUOUS, Starting on Wed11/18/22 at 0930, Until Elda 11/19/22 at 0302, Recovery or Phase I (only) 0930 (Due) PRN Medication Order 11/16/2022 11/17/2022 11/18/2022 fentaNYL 50 mcg/mL 50 mcg injection (SUBLIMAZE) 50 mcg, INTRAVENOUS, EVERY 10 MINUTES NEEDED, 4 doses, Starting on Wed11/18/22 at 0909, Until Elda 11/19/22 at 0302, FIRST LINE THERAPY for mild, moderate, or severe pain, USE FOR MILD PAIN ONLY IF PATIENT IS UNABLE TO TOLERATE ORAL THERAPY, Recovery or Phase I (only) HYDROmorphone 0.2 mg injection (DILAUDID) 0.2 mg, INTRAVENOUS, EVERY 5 MINUTES NEEDED, 5 doses, Starting on Wed11/18/22 at 0909, Until Elda 11/19/22 at 0302, SECOND LINE THERAPY for mild, moderate, or severe pain, USE FOR MILD PAIN ONLY IF PATIENT IS UNABLE TO TOLERATE ORAL THERAPY, Recovery or Phase I (only) lidocaine 2%-EPINEPHrine 1:100,000 10 mL, ROPivacaine (PF) 5 mL (CANCELED) X (OR/PROCEDURE) PRN, Starting on Wed11/18/22 at 0811, Until Wed11/18/22 at 0904, Intraprocedure 0811 (Given - Provid er: Justin Mccain MD) morphine 2 mg, ROPivacaine (PF) 20 mL (CANCELED) X (OR/PROCEDURE) PRN, Starting on Wed11/18/22 at 0810, Until Wed11/18/22 at 0904, Intraprocedure 0810 (Given - Provid er: Justin Mccain MD) ondansetron (PF) 4 mg injection (ZOFRAN)(Linked Group 2) 4 mg, INTRAVENOUS, EVERY 6 HOURS NEEDED, Starting on Wed11/18/22 at 0909, Until Elda 11/19/22 at 0302, Nausea/Vomiting - First Line - Parenteral, Shivering, EVERY 6 HOURS NEEDED Give IV push over 2 minutes. Use when patient unable to take medications by mouth., Recovery or Phase I (only) 914 (Given - Provid er: Jaleesa Montano RN) ondansetron orally disintegrating 4 mg tab(s) (ZOFRAN ODT)(Linked Group 2) 4 mg, ORAL, EVERY 6 HOURS NEEDED, Starting on Wed11/18/22 at 0909, Until Elda 11/19/22 at 0302, Nausea/Vomiting - First Line - Enteral, EVERY 6 HOURS NEEDED Use when patient able to take medications by mouth. Place tablet on tongue and allow to dissolve; do not chew. Open packaging using dry hands; do not push tablet through packaging., Recovery or Phase I (only) 914 (See Alternativ e - Provider: Jaleesa Montano RN) oxyCODONE IR 5 mg tab(s) (ROXICODONE) 5 mg, ORAL, NEEDED, 1 dose, Starting on Wed11/18/22 at 0909, Until Elda 11/19/22 at 0302, Moderate Pain (4-6) - Enteral, Recovery or Phase I (only) scopolamine 1 mg over 3 days 1 Patch (TRANSDERM-SCOP)(Linked Group 1) 1 Patch, TRANSDERMAL, Administer over 24 Hours, NEEDED, 1 dose, Starting on Wed11/18/22 at 0909, Until Elda 11/19/22 at 0302, Nausea/Vomiting - Second Line - Topical, Allow 4 hours to achieve onset Apply patch behind ear. Each time a new patch is needed it should be placed behind the alternate ear from the previous patch. Remove old patch. Each 1.5 mg patch delivers 1 mg of scopolamine over 3 days., Recovery or Phase I (only) Linked Groups Order Group 1: scopolamine 1 mg over 3 days 1 Patch (TRANSDERM-SCOP)Jump to med 1 Patch, TRANSDERMAL, Administer over 24 Hours, NEEDED, 1 dose, Starting on Wed11/18/22 at 0909, Until Elda 11/19/22 at 0302, Nausea/Vomiting - Second Line - Topical
Allow 4 hours to achieve onset Apply patch behind ear. Each time a new patch is needed it should be placed behind the alternate ear from the previous patch. Remove old patch. Each 1.5 mg patch delivers 1 mg of scopolamine over 3 days.
Recovery or Phase I (only) And scopolamine - VERIFY patchJump to med EVERY 8 HOURS, Recovery or Phase I (only)
THIS IS USED ONLY TO DOCUMENT THAT THE PATCH IS VERIFIED ON OR OFF PER ORDER. Use Patch On or Patch Off action.
And scopolamine - REMOVE PATCHJump to med ONCE, Recovery or Phase I (only)
THIS IS USED ONLY TO DOCUMENT PATCH REMOVAL. Use Remvd Patch action.
Group 2: ondansetron orally disintegrating 4 mg tab(s) (ZOFRAN ODT)Jump to med 4 mg, ORAL, EVERY 6 HOURS NEEDED, Starting on Wed11/18/22 at 0909, Until Wed11/19/22 at 0302, Nausea/Vomiting - First Line - Enteral
EVERY 6 HOURS NEEDED Use when patient able to take medications by mouth. Place tablet on tongue and allow to dissolve; do not chew. Open packaging using dry hands; do not push tablet through packaging.
Recovery or Phase I (only) Or ondansetron (PF) 4 mg injection (ZOFRAN)Jump to med 4 mg, INTRAVENOUS, EVERY 6 HOURS NEEDED, Starting on Wed11/18/22 at 0909, Until Elda 11/19/22 at 0302, Nausea/Vomiting - First Line - Parenteral, Shivering
EVERY 6 HOURS NEEDED Give IV push over 2 minutes. Use when patient unable to take medications by mouth.
Recovery or Phase I (only) FOR RECORDS PERTAINING TO PATIENTS WHO ARE OR HAVE BEEN ENROLLED IN A CHEMICAL DEPENDENCY/SUBSTANCEABUSE PROGRAM, SOME INFORMATION MAY BE OMITTED. This clinical summary was aggregated from multiple sources. Caution should be exercised in using it in the provision of clinical care. This summary normalizes information from multiple sources, and as a consequence, information in this document may materially change the coding, format and clinical context of patient data. In addition, data may be omitted in some cases. CLINICAL DECISIONS SHOULD BE BASED ON THE PRIMARY CLINICAL RECORDS. [employer] provides no warranty or guarantee of the accuracy or completeness of information in this document.
[2023-06-18 15:46] LABS: Absolute Lymphocyte Count 0.96 X10^3/uL (0.83-4.51); Absolute Neutrophil Count 4.3 X10^3/uL (2.0-7.7); Basophil# 0.03 X10^3/uL; Basophil% 0.5 % (0-1); Eosinophil# 0.05 X10^3/uL; Eosinophils% 0.9 % (0-5); Hematocrit 40.5 % (37-47); Hemoglobin 13.4 g/dL (12.0-15.0); Lymphocyte # 0.96 X10^3/ul (0.83-4.51); Lymphocyte % 16.7 % (19-41); Mean Corp Hgb Conc 33.1 g/dL (32-36); Mean Corpuscular Hgb 30.9 pg (27.0-32.0); Mean Corpuscular Volume 93.3 fL (81-99); Mean Platelet Vol. 10.5 fl (6.2-12.0); Monocyte# 0.35 X10^3/uL; Monocyte% 6.1 % (0-10); NRBC Flagged by Analyzer 0 % (0-5); Neutrophil # 4.33 X10^3/uL (2.7-7.7); Neutrophil % 75.5 % (47-70); Platelet Count 268 K/mm3 (150-450); RBC Distribution Width SD 41.8 fl (35.1-43.9); Red Blood Count 4.34 M/mm3 (4.2-5.4); White Blood Count 5.7 K/mm3 (4.4-11.0)
[2023-06-18 16:17] LABS: Hemoglobin A1c 4.8 % (3.8-5.6)
[2023-06-18 16:24] LABS: Erythrocyte Sedimentation Rate 6 mm/hr (0-30)
[2023-06-18 17:14] LABS: ALB/GLOB Ratio 1.1 RATIO (0.9-2.4); AST(SGOT) 15 U/L (15-37); Alanine Aminotransfer ALT/SGPT 19 U/L (13-56); Albumin, Serum 3.5 g/dL (3.2-5.0); Alkaline Phosphatase 53 U/L (45-117); Amylase 50 U/L (25-115); Anion Gap 5 (5-15); BUN 15 mg/dL (7-18); BUN/Creat Ratio 20.1 RATIO (10-20); CRP < 2.90 mg/L (0.0-3.0); Calcium,Total 8.8 mg/dL (8.5-10.1); Chloride 109 mmol/L (98-107); Creatinine, Serum 0.75 mg/dL (0.55-1.02); EST Glomerular Filtration Rate 94 mL/min (>60); Est Glom Filt Rate - Afr Amer 114 mL/min (>60); Ferritin 16 ng/mL (8-252); Free T3 2.3 pg/mL (2.18-3.98); Globulin 3.3 g/dL (2.2-4.2); Glucose 86 mg/dL (74-106); Iron Binding Capacity,Total 350 ug/dL (250-450); Lipase 36 U/L (13-75); Potassium 3.9 mmol/L (3.5-5.1); Protein, Total 6.8 g/dL (6.4-8.2); Sodium Level 137 mmol/L (136-145); T4 Free Direct 0.82 ng/dL (0.76-1.46); Triglycerides 88 mg/dL
[2023-06-18 17:32] LABS: HIV - WCH Non-Reactive (Nonreactive); Vitamin B12 302 pg/mL (211-911)
[2023-06-24 06:08] LABS: Albumin 3.7 g/dL (2.9-4.4); Alpha-1-Globulins 0.2 g/dL (0.0-0.4); Alpha-2-Globulins 0.6 g/dL (0.4-1.0); Chromogranin A 96.2 ng/mL (0.0-101.8); Cytoplasmic Ab (C-ANCA) <1:20 titer (Neg:<1:20); Endomysial Antibody IgA Negative (Negative); Gastrin, Serum 16 pg/mL (0-115); HEPATITIS B SURFACE AG Negative (Negative); Hep C Antibodies Non Reactive (Non Reactive); Hepatitis A IgM Antibody Negative (Negative); Hepatitis B Core AB IgM Negative (Negative); IgG, Quant 916 mg/dL (586-1602); Immunoglobulin A 107 mg/dL (87-352); Immunoglobulin E 9 IU/mL (6-495); Immunoglobulin G, Subclass 1 483 mg/dL (248-810); Immunoglobulin G, Subclass 2 262 mg/dL (130-555); Immunoglobulin G, Subclass 3 61 mg/dL (15-102); Immunoglobulin G, Subclass 4 119 mg/dL (2-96); Immunoglobulin M 101 mg/dL (26-217); PROEL- TOTAL PROTEIN 6.3 g/dL (6.0-8.5); Perinuclear Ab (P-ANCA) <1:20 titer (Neg:<1:20); QNTFERON TB Mitogen Value > 10.00 IU/mL (.); QNTFERON TB Nil Value 0 IU/mL (.); QNTFERON TB1+ Ag Value 0.01 IU/mL (.); QNTFERON TB2+ Ag Value 0.02 IU/mL (.); QNTIFERON TB Positive Criteria Negative (Negative); t-Transglutaminase IgA <2 U/mL (0-3)
[2023-06-24 10:08] LABS: Alternaria alternata <0.10 kU/L (Class 0); Anti-Centromere B Ab <0.2 AI (0.0-0.9); Anti-Chromatin <0.2 AI (0.0-0.9); Anti-Jo <0.2 AI (0.0-0.9); Anti-Scleroderma-70 AB <0.2 AI (0.0-0.9); Anti-dsDNA Ab <1 IU/mL (0-9); Aspergillus fumigatus <0.10 kU/L (Class 0); Bahia Grass <0.10 kU/L (Class 0); Beef <0.10 kU/L (Class 0); Bermuda Grass <0.10 kU/L (Class 0); Bluegrass, Kentucky <0.10 kU/L (Class 0); Cat Hair/Dander, Standard <0.10 kU/L (Class 0); Cedar, Mountain <0.10 kU/L (Class 0); Chocolate <0.10 kU/L (Class 0); Cladosporium herbarum <0.10 kU/L (Class 0); Cockroach, American <0.10 kU/L (Class 0); Codfish <0.10 kU/L (Class 0); Corn <0.10 kU/L (Class 0); D farinae Mite <0.10 kU/L (Class 0); D pteronyssinus <0.10 kU/L (Class 0); Dog Epithelia <0.10 kU/L (Class 0); Egg, Whole <0.10 kU/L (Class 0); Elm, American White <0.10 kU/L (Class 0); Hazelnut Tree <0.10 kU/L (Class 0); Hickory, White <0.10 kU/L (Class 0); Johnson Grass <0.10 kU/L (Class 0); Maple/Box Elder <0.10 kU/L (Class 0); Milk (Cow) <0.10 kU/L (Class 0); Mucor racemosus <0.10 kU/L (Class 0); Mugwort <0.10 kU/L (Class 0); Mulberry, White <0.10 kU/L (Class 0); Mussels <0.10 kU/L (Class 0); Nettle <0.10 kU/L (Class 0); Oak, White <0.10 kU/L (Class 0); Peanut <0.10 kU/L (Class 0); Penicillium chrysogen <0.10 kU/L (Class 0); Pigweed, Rough <0.10 kU/L (Class 0); Plantain, English <0.10 kU/L (Class 0); Pork <0.10 kU/L (Class 0); RNP Ab 0.3 AI (0.0-0.9); Ragweed, Short/Common <0.10 kU/L (Class 0); SJOGREN'S Anti-SS-A test < 0.2 AI (0.0-0.9); SJOGREN'S Anti-SS-B test < 0.2 AI (0.0-0.9); Salmon <0.10 kU/L (Class 0); Sheep Sorrel(Dock) <0.10 kU/L (Class 0); Shrimp <0.10 kU/L (Class 0); Smith Ab <0.2 AI (0.0-0.9); Soybean <0.10 kU/L (Class 0); Stemphylium herbarum <0.10 kU/L (Class 0); Sweet Gum <0.10 kU/L (Class 0); Sycamore, American <0.10 kU/L (Class 0); Tuna <0.10 kU/L (Class 0); Vitamin D 1,25-Dihydroxy 38.2 pg/mL (24.8-81.5); Wheat <0.10 kU/L (Class 0)
== END | disposition home or self-care (01) ==
PROVIDERS: PCP Internal Medicine; Referring Provider Internal Medicine Gastroenterology; Visit Provider Internal Medicine Gastroenterology
DX: D73.89 Other diseases of spleen (principal); K86.89 Other specified diseases of pancreas; R19.7 Diarrhea, unspecified; K31.84 Gastroparesis
CPT/HCPCS: 36415; 80053; 80074; 82150; 82607; 82652; 82728; 82784; 82785; 82787; 82941; 83036; 83516; 83550; 83690; 84110; 84165; 84439; 84443; 84478; 84481; 85025; 85652; 86003; 86005; 86140; 86225; 86235; 86255; 86256; 86316; 86334; 86480; 86703

== ENCOUNTER → 2023-06-30 | Outpatient (CLI) | payer MEDICAID, SELFPAY ==
--- NOTE | 2023-06-30 09:14 | NM_ITS ---
CLINICAL: 33-year-old female with history of clinical gastroparesis. SOLID PHASE 99m Tc SULFUR COLLOID GASTRIC EMPTYING STUDY COMPARISON: Semisolid phase gastric emptying report 12/21/2022 FINDINGS: The patient was administered 1.0 mCi of 99m Tc sulfur colloid mixed with egg and consumed per os. Image acquisitions in the anterior projection were obtained for 240 minutes following meal consumption. There is prompt visualization of the stomach. There is no gastroesophageal reflux identified. First order kinetics are maintained throughout the duration of the acquisitions. The T ? raw data emptying was calculated to be 109.93 minutes, (Normal 65-110 minutes). 91 % emptying and 9 % retention are defined at 4 hours post meal ingestion. NM/Gastric Emptying Study - 4 HR IMPRESSION: 1. NORMAL 99m Tc sulfur colloid solid phase gastric emptying imaging examination. A. Greater than 90% emptying of the initial gastric contents at 4 hours post dose is consistent with normal solid phase gastric emptying which correlates with the results of the T ? emptying calculation. (Venessa et al, J Nucl Med 48: 568, 2007). B. Overall compared to the examination dated 12/21/2022, there is current normal gastric emptying as defined above. Electronically Signed: Brice Kelly DO at 23:05 EST ,
--- OUTSIDE RECORDS SUMMARY | 2023-06-30 09:50 | XMS RPT_ITS | CCD ---
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 encounter [facility] 04-29-2023 Miscellaneous Notes Behavioral Health Social Work Progress Note Patient identified for [facility] from: PCP Reason for referral: [facility] Assessment Behavioral Health Resources: Psychiatry med management [facility] encounter type: Telephone Encounter Attempts to Outreach: 1 attempt Patient Discharged?: No Patient reported that caregiver was able to meet their needs today?: N/A Phone call placed today that went to [employer]. Left my contact information and brief nature of call. Initial outreach also completed via [employer] sending list of in network providers with insurance. DONG Montero-Molina April 29, 2023 documented in this encounter [facility] 04-28-2023 Note HNO ID: [id number] Author: Misha Cespedes MD Service: ? Author Type: Physician Type: Progress Notes Filed: 04/28/2023 11:49 PM Note Text: This note was created using [employer]. Subjective Migdalia Zurita is a 33 year [...] vaccine - ICD9: V04.89, ICD10: Z23 - [employer] COVID-19 VACCINE (2022- SEASON) AGE 12+ YR 6. Weight gain - ICD9: 783.1, ICD10: R63.5 - Probably multifactorial. Mood disorder, medications. I reviewed labs done last year including TSH which were normal. - Diet. Misha Cespedes MD [facility] 04-28-2023 History of Presen t illness Narrative This note was created using [employer]. Subjective Migdalia Zurita is a 33 year [...] Misha Cespedes MD documented in this encounter [facility] 04-26-2023 Miscellaneous Notes Patient has been [...] Stephy Zazueta LPN. documented in this encounter [facility] 04-19-2023 Note HNO ID: [id number] Author: Paulina Duong PA-C Service: ? Author Type: Physician Lime Boiler Type: Progress Notes Filed: 04/20/2023 8:47 AM Note Text: Paulina Duong PA-C Department of Orthopaedics Orthopaedics [facility] [address] [facility] [address] Dept: [phone] Dept April 19, 2023 CHIEF COMPLAINT: Established [...] erosions. IMPRESSION IMPRESSION: No acute osseous abnormality Heat Treat Supervisor: [facility] Transcribe Date/Time: Apr 20 2023 8:32A Dictated by : MARIYA BISWAS MD This examination was interpreted and the report reviewed and electronically signed by: MARIYA BISWAS MD on Apr 20 2023 8:33AM EST IMPRESSION: Moderate foraminal encroachment on the right at C3-4. OTHERWISE NORMAL CERVICAL SPINE Heat Treat Supervisor: [facility] Transcribe Date/Time: Apr 19 2023 4:13P Dictated [...] VAGINOSCOPY 11/19/2009 VAGIN (more content not included)... [facility] 04-19-2023 Note HNO ID: [id number] Author: Jami Loo RT(R) Service: ? Author Type: Cuprous Chloride Helper Type: Progress Notes Filed: 04/19/2023 10:41 AM [...] Loo RT(R) April 19, 2023 10:31 AM [facility] 04-19-2023 Note HNO ID: [id number] Author: Leonor Roman RN Service: ? Author Type: Registered Nurse Type: Progress Notes Filed: 04/20/2023 8:47 AM Note Text: Patient presents with: Right Wrist - Established Patient, Pain Pt here for right wrist into finger pain. Pt denies having pain currently. Pt is right hand dominant. [facility] 04-19-2023 Note HNO ID: [id number] Author: Laly Roman RT(R) Service: ? Author [...] Roman RT(R) April 19, 2023 10:15 AM [facility] 03-25-2023 Note HNO ID: [id number] Author: Justin Mccain MD Service: ? Author Type: Physician Type: Progress Notes Filed: 03/25/2023 11:59 PM Note Text: Justin Mccain MD Department of Orthopaedics Orthopaedics [address] [place] [address] Dept: [phone] Dept March 25, 2023 CHIEF COMPLAINT: Established [...] has no known allergies. Justin Mccain MD [facility] 03-25-2023 History of Presen t illness Narrative Justin Mccain MD Department of Orthopaedics Orthopaedics [address] [facility] [address] Dept: [phone] Dept March 25, 2023 CHIEF COMPLAINT: Established [...] visit. Allergies: Patient has no known allergies. Justni Mccain MD documented in this encounter [facility] 02-25-2023 Note HNO ID: [id number] Author: Justin Mccain MD Service: ? Author Type: Physician Type: Progress Notes Filed: 03/23/2023 9:46 AM Note Text: Justin Mccain MD Department of Orthopaedics Orthopaedics [address] [place] [address] Dept: [phone] Dept February 25, 2023 CHIEF COMPLAINT: Post [...] has no known allergies. Justin Mccain MD [facility] 02-25-2023 History of Presen t illness Narrative Justin Mccain MD Department of Orthopaedics Orthopaedics [address] [facility] [address] Dept: [phone] Dept February 25, 2023 CHIEF COMPLAINT: Post [...] Justin Mccain MD documented in this encounter [facility] 02-24-2023 Note HNO ID: [id number] Author: Misha Cespedes MD Service: ? Author Type: Physician Type: Progress Notes Filed: 02/24/2023 3:37 PM Note Text: This note was created using [employer]. Subjective Migdalia Zurita is a 33 year [...] - AMBULATORY EAR LAVAGE/IRRIGATION Misha Cespedes MD [facility] 02-24-2023 Nurse Note Ambulatory Ear Lavage Pre-treatment: No pre-treatment Treatment: Right ear Equipment and Irrigation solution and Volume used: Single use syringe with single use irrigation tip Water Total Irrigation Volume: 500 mL Return flow appearance: Brown Debris Patient tolerated procedure: yes Tympanic membrane assessment: Tympanic membrane assessed by LIP pre and post procedure documented in this encounter [facility] 02-24-2023 History of Presen t illness Narrative This note was created using [employer]. Subjective Migdalia Zurita is a 33 year [...] Misha Cespedes MD documented in this encounter [facility] 02-19-2023 Miscellaneous Notes MARY: 01/18/2023 Last refill: 01/18/2023 QTY: 30 Refills: 0 documented in this encounter [facility] 02-12-2023 Note HNO ID: [id number] Author: Addison Hoffman APRN.REGULATORY ASSISTANT Service: Anesthesiology Author Type: Nurse Parts Counter Representative Type: Anesthesia Procedure Notes Filed: 02/12/2023 4:32 PM Note Text: ANESTHESIOLOGY PROCEDURE NOTE Airway General Information Procedure Start Time/Medication Administration: 02/12/2023 4:12 PM Patient location during procedure: OR Timeout Performed Pre-procedure: timeout performed Consent Obtained: Yes Patient identity confirmed: arm band and patient Staffing REGULATORY ASSISTANT: Addison Hoffman APRN.REGULATORY ASSISTANT Performed by: BRIAN Indications and Patient Condition [...] February 12, 2023 TIME: 4:30 PM CSN: [id number] [facility] 02-02-2023 Note HNO ID: [id number] Author: Meryl Calle, DO Service: ? Author Type: Physician Type: Progress Notes Filed: 02/02/2023 3:40 PM Note Text: [facility] SECTION OF REGIONAL CARDIOLOGY [facility] OUTPATIENT VISIT DATE February 02, 2023 PRIMARY CARE PHYSICIAN: Misha Cespedes [address] [place] [address] HISTORY OF PRESENT ILLNESS: Ms. Zurita is [...] whether or not we will place another director of philanthropy. Should she develop any symptoms in the [...] 01/18/2023 Depressive disorder, (more content not included)... [facility] 01-29-2023 Instructions Adilia Contreras, BECKI.CLINICAL PARTNER - 01/29/2023 1:57 PM EDT PATIENT PREOPERATIVE INSTRUCTIONS No ref. provider found has scheduled you for your procedure at this surgery center: [facility]: [phone] -- [address] [address]. Please read below carefully for your personalized [...] Procedures: - YOU MUST HAVE A RESPONSIBLE PINSETTER MECHANIC HELPER TAKE YOU HOME. A SUBMARINE DIVER OR TITLE ONE TEACHER CANNOT BE MADE A RESPONSIBLE PINSETTER MECHANIC HELPER. - We recommend that a responsible person [...] Advance Directive, please fax a copy to [phone] or email to for it to be [...] into your chart that day. Adilia Contreras APRN.DEREK documented in this encounter [facility] 01-29-2023 History and physical note Images [...] seizures (on rx). Negative for: cerebral palsy, BRILLIANDEER LOOPER tumor, dementia, multiple sclerosis, Parkinson's disease, peripheral [...] > 1 time per night or hematuria. HIDE MILL MAN: Negative for abnormal vaginal bleeding, abnormal vaginal [...] 396 QTC Calculation (Bazett) 427 Calculated P [place] 36 Calculated R [place] 28 Calculated T [place] 55 Impression SINUS RHYTHM WITH FREQUENT PREMATURE VENTRICULAR COMPLEXES IN A PATTERN OF BIGEMINY POSSIBLE LEFT ATRIAL ENLARGEMENT BORDERLINE ECG Recent Results (from the past 62417 hour(s)) ECHO Collection Time: 06/12/21 8:25 AM [...] s/p Zio monitor, following cardiology, TE to tissue specialist for cardiac optimization 11/06/2022 Zio patch 10/12/2022 [...] for which we will place a 14-day director of philanthropy. We will review this independently and should [...] large neck Non-male patient STOP-Bang Score: 0 [id number] Score: Age: <65 Sex: female CHF history: No Hypertension history: No Stroke/TIA/thromboembolism history: No Vascular disease history: No Diabetes history: No [id number] Score: 1 ARISCAT Score: Age: <=50 Preoperative [...] and consent discussed: yes. Patient / Responsible Alliance Party agrees to proceed: yes Patient / Surrogate [...] PM PAGER/CONTACT #: documented in this encounter [facility] 01-18-2023 Note HNO ID: [id number] Author: Misha Cespedes MD Service: ? Author Type: Physician Type: Progress Notes Filed: 01/18/2023 2:29 PM Note Text: This note was created using [employer]. Subjective Patient presents with: Discussion Migdalia Zurita [...] opinion about this. (more content not included)... [facility] 01-18-2023 History of Presen t illness Narrative This note was created using [employer]. Subjective Patient presents with: Discussion Migdalia Zurita [...] Misha Cespedes MD documented in this encounter [facility] 01-05-2023 Note HNO ID: [id number] Author: Roxanne Boateng RT(Cristian) Service: ? Author [...] IV DATA: Not applicable SIGNED BY: RT Vu(Cristian) January 05, 2023 2:55 PM [facility] 12-28-2022 Note HNO ID: [id number] Author: Justin Mccain MD Service: ? Author [...] MD Department of Orthopaedics Orthopaedics [address] [facility] [address] Dept: [phone] Dept December 28, 2022 CHIEF COMPLAINT: Post [...] LATERAL MENISCAL TEAR OF THE RIGHT KNEE. Heat Treat Supervisor: [facility] Transcribe Date/Time: Jan 05 2023 3:38P Dictated by : ASHLEY BRADSHAW MD This examination was interpreted and the report reviewed and electronically signed by: ASHLEY BRADSHAW MD on Jan 05 2023 3:58PM EST Results-Findings * * *Final Report* * * DATE OF EXAM: Jan 05 2023 3:17PM [facility] 0213 - MRI KNEE WO [...] daily. ondansetron oral (more content not included)... [facility] 12-28-2022 History of Presen t illness [...] MD Department of Orthopaedics Orthopaedics [address] [facility] [address] Dept: [phone] Dept December 28, 2022 CHIEF COMPLAINT: Post [...] LATERAL MENISCAL TEAR OF THE RIGHT KNEE. Heat Treat Supervisor: ROSE Transcribe Date/Time: Jan 05 2023 3:38P Dictated by : ASHLEY BRADSHAW MD This examination was interpreted and the report reviewed and electronically signed by: ASHLEY BRADSHAW MD on Jan 05 2023 3:58PM EST Results-Findings * * *Final Report* * * DATE OF EXAM: Jan 05 2023 3:17PM [facility] 0213 - MRI KNEE WO [...] Justin Mccain MD documented in this encounter [facility] 11-30-2022 Note HNO ID: [id number] Author: Paulina Duong PA-C Service: ? Author Type: Physician Lime Boiler Type: Progress Notes Filed: 11/30/2022 4:04 PM Note Text: Paulina Duong PA-C Department of Orthopaedics Orthopaedics [address] [place] [address] Dept: [phone] Dept November 30, 2022 CHIEF COMPLAINT: Established [...] allergies. This note was partially generated using [employer] voice recognition system, and there may be some incorrect words, spellings, and punctuation that were not noted in checking the note before saving. Paulina Duong PA-C [facility] 11-30-2022 Note HNO ID: [id number] Author: Beverly Llamas Ma Service: ? Author Type: ? Type: Progress Notes Filed: 11/30/2022 4:04 PM Note Text: AMB ROOMING INTAKE FLOWSHEET DATA Pain Pain Level: 4 Pain Location: Knee-Left Description: Aching, Burning, Sharp Duration Units: Days Frequency: Intermittent Intervention/Comfort measure: Medication, Cold Patient here today 1 week 5 days post op Left knee arthroscopic lateral menisectomy. [facility] 11-25-2022 Miscellaneous Notes Per message yesterday from Hardik Hensley RN. PT brought her unused mailed Zio into the office I called [facility] gave them the ID number [id number] the PT will not be charged. They said just mail it back, I put in our outgoing mail to be sent back to [facility]. documented in this encounter [facility] 11-24-2022 Miscellaneous Notes PT brought her unused mailed Zio into the office I called [facility] gave them the ID number [id number] the PT will not be charged. They said just mail it back, I put in our outgoing mail to be sent back to [facility]. documented in this encounter [facility] 11-23-2022 Miscellaneous Notes This patient gave [...] seven days of my reply. See the [employer] message reply for my assessment and plan. [...] Misha Cespedes MD documented in this encounter [facility] 11-18-2022 Note HNO ID: [id number] Author: Emilee Edwards APRN.REGULATORY ASSISTANT Service: Anesthesiology Author Type: Nurse Parts Counter Representative Type: Anesthesia Procedure Notes Filed: 11/18/2022 7:49 AM Note Text: ANESTHESIOLOGY PROCEDURE NOTE Airway General Information Procedure Start Time/Medication Administration: 11/18/2022 7:39 AM Patient location during procedure: OR Timeout Performed Pre-procedure: timeout performed Consent Obtained: Yes Patient identity confirmed: arm band and patient Staffing REGULATORY ASSISTANT: Emilee Edwards APRN.REGULATORY ASSISTANT Performed by: BRIAN Indications and Patient Condition [...] no Airway not difficult SIGNATURE: Emilee Edwards APRN.REGULATORY ASSISTANT PATIENT NAME: Migdalia Zurita DATE: November 18, 2022 TIME: 7:49 AM CSN: [id number] [facility] 11-18-2022 Nurse Note 0912 Patient noted to have multiple missed beats on cardiac exercise specialist. Strip printed and presented to Dr. Virgen who stated patient has known arrhythmia. No new orders at this time patient denies CP will continue to monitor. documented in this encounter [facility] 11-18-2022 Surgical operatio n note OPERATIVE/PROCEDURE REPORT LOG ID: [id number] Surgery/Procedure Date: 11/18/2022 Incision/Procedure Start Time: 8:02 AM Incision Close/Procedure End Time: Surgeon(s)/Proceduralist(s) and Lime Boiler(s): Surgeon(s) and Role: * Justin Mccain MD - Primary Physician Lime Boiler: Paulina Duong PA-C Registered Nurse Pr Specialist: Elizabeth Saleh RN Procedure(s): left knee, arthroscopic [...] AM PAGER/CONTACT #: documented in this encounter [facility] 11-18-2022 History and physical note UPDATED [...] 7:29 AM Source Note - Adilia Contreras APRN.CLINICAL PARTNER - 11/02/2022 3:01 PM EDT Images from [...] seizures (on rx). Negative for: cerebral palsy, BRILLIANDEER LOOPER tumor, dementia, multiple sclerosis, Parkinson's disease, peripheral [...] congenital heart defect, DVT/PE, hyperlipidemia, hypertension, recent OR, murmur/valvular heart disease, open heart surgery and [...] > 1 time per night or hematuria. HIDE MILL MAN: Negative for abnormal vaginal bleeding, abnormal vaginal [...] Pre-syncope 02/04/2012 RLS (restless legs syndrome) Seizure ([facility]) Dr Morocho Seizures ([facility]) PAST SURGICAL HISTORY Procedure Laterality Date COLONOSCOPY [...] 390 QTC Calculation (Bazett) 392 Calculated P [place] 33 Calculated R [place] 51 Calculated T [place] 35 Impression NORMAL SINUS RHYTHM NORMAL ECG Confirmed by MD ALVA MERYL () on 10/15/2022 4:16:59 PM Recent Results (from the past 88505 hour(s)) ECHO Collection Time: 06/12/21 8:25 AM [...] patch currently in place 10/12/2022 Dr. Calle, [facility] Cardiology HISTORY OF PRESENT ILLNESS: [...] for which we will place a 14-day director of philanthropy. We will review this independently and should [...] large neck Non-male patient STOP-Bang Score: 0 [id number] Score: Age: <65 Sex: female CHF history: No Hypertension history: No Stroke/TIA/thromboembolism history: No Vascular disease history: No Diabetes history: No [id number] Score: 1 ARISCAT Score: Age: <=50 Preoperative [...] and consent discussed: yes. Patient / Responsible Alliance Party agrees to proceed: yes Patient / Surrogate [...] PM PAGER/CONTACT #: documented in this encounter [facility] 11-13-2022 Note HNO ID: [id number] Author: Meryl Calle DO Service: ? Author [...] were present. Isolated VEs were occasional (3.1%, [id number]), VE Couplets were rare (<1.0%, 94), and no VE Triplets were present. Ventricular Bigeminy and Trigeminy were present. Conclusion: 1. Average heart rate of 75 bpm with a minimum of 42 bpm, predominant sinus rhythm. 2. Rare PACs and occasional PVCs were present. 3. Symptoms associated with sinus rhythm or sinus tachycardia with PVCs. [facility] 11-13-2022 Note HNO ID: [id number] Author: Altagracia Kaur Service: ? Author Type: ? Type: Progress Notes Filed: 11/13/2022 10:13 AM Note Text: 1163 [facility] 10-29-2022 Note HNO ID: [id number] Author: Justin Mccain MD Service: ? Author Type: Physician Type: Progress Notes Filed: 11/10/2022 6:36 PM Note Text: Justin Mccain MD Department of Orthopaedics Orthopaedics [address] [facility] [address] Dept: [phone] Dept October 29, 2022 CHIEF COMPLAINT: Pre-Op [...] IMPRESSION: LATERAL MENISCUS BUCKET-HANDLE TEAR. INTACT LIGAMENTS. Heat Treat Supervisor: P[facility] Transcribe Date/Time: Oct 15 2022 12:41P Dictated by : WILMER NAVARRETE MD This examination was interpreted and the report reviewed and electronically signed by: MIAH BETTENCOURT MD on Oct 15 2022 2:40PM EST Results-Findings * * *Final Report* * * DATE OF EXAM: Oct 15 2022 12:08PM [facility] 0212 - MRI KNEE WO [...] History: FAMILY HISTORY (more content not included)... [facility] 10-26-2022 Miscellaneous Notes Notified by STEVEN Main, in need of Zio order. 10/12/22-1st Zio-malfunctions 10/16/22-2nd Zio -ordered and mailed to pt-lost? 10/23/22- Zio -Nurse visit to place monitor documented in this encounter [facility] 10-23-2022 Nurse Note Patient came in for replacement ZIO. Patient was not able to placed previously ZIO on properly, so a new one was applied today in office. EVENT MONITOR DISPOSABLE PATCH INSTRUCTIONS Patient Name: Migdalia Zurita [facility] Number: [id number] Skin prepped and cleansed with alcohol Patch secured to prepped area Monitor Activated Serial #: [id number] Patient Instructed: Prescribed order timeframe Bathing guidelines Usage of event button and diary documentation Return of monitor at the end of prescribed order Call with problems [phone] or [phone]. [phone] Patient expresses a good understanding of instructions Charu Garcia MA documented in this encounter [facility] 10-19-2022 Miscellaneous Notes Patient has been scheduled Patient messaging asking about what next steps are based on MRI results. Maribel Goldstein MA October 16, 2022 11:36 AM documented in this encounter [facility] 10-16-2022 Miscellaneous Notes Patient is scheduled Patient called back to schedule. Patient states she does not know what is a good day to schedule since she lives in [place]. Advised to call [place] to see if they can do it there and said she didn't care . States that she will call back when she knows First attempt; left voicemail for patient to call back and schedule appointment Order placed Dona Mitchell APRN.CNP Pended a replacement order for Zio Called PT she states the adhesive would not stick at all said the light started blinking green, but now blinks red. It has no recording time. Patient called stating that she thinks her Zio was defective and did not start. please advise documented in this encounter [facility] 10-15-2022 Note HNO ID: [id number] Author: RT Vu(Cristian) Service: ? Author Type: [...] IV DATA: Not applicable SIGNED BY: RT Vu(Cristian) October 15, 2022 11:53 AM [facility] 10-12-2022 Note HNO ID: [id number] Author: Meryl Calle, Service: ? Author Type: Physician Type: Progress Notes Filed: 10/12/2022 2:41 PM Note Text: [facility] SECTION OF [facility] CARDIOLOGY [facility] OUTPATIENT VISIT DATE October 12, 2022 PRIMARY CARE PHYSICIAN: Misha Cespedes [address] [id number] HISTORY OF PRESENT ILLNESS: Ms. Zurita is [...] for which we will place a 14-day director of philanthropy. We will review this independently and should [...] Use: Never used (more content not included)... [facility] 10-12-2022 Nurse Note EVENT MONITOR DISPOSABLE PATCH INSTRUCTIONS Patient Name: Migdalia Zurita [facility] Number: [id number] Serial #: [id number] Patient Instructed: Prescribed order timeframe Bathing guidelines Usage of event button and diary documentation Return of monitor at the end of prescribed order Call with problems [phone] or [phone] ext. [phone] Patient expresses a good understanding of instructions Laly Ramirez MA Pt to place monitor after MRI on 10/15/22. documented in this encounter [facility] 10-12-2022 History of Presen t illness Narrative Images from the original note were not included. [facility] SECTION OF REGIONAL CARDIOLOGY [facility] OUTPATIENT VISIT DATE October 12, 2022 PRIMARY CARE PHYSICIAN: Misha Cespedes [address] [place] [address] HISTORY OF PRESENT ILLNESS: Ms. Zurita is [...] for which we will place a 14-day director of philanthropy. We will review this independently and should [...] Pre-syncope 02/04/2012 RLS (restless legs syndrome) Seizure ([facility]) Dr Morocho Seizures (HCC) PAST SURGICAL HISTORY [...] Department of Medicine and Division of Cardiology, [facility] Mold Burn[facility] Mold Burner of Congestive Heart Failure Clinic [facility] Cardiology Office Mold [facility] Staff Public Records Researcher, Norberto and Keyla Greene Department of Cardiovascular Medicine/Heart and Vascular [place], [facility] Clinical Lime Boiler Profressor of Medicine, [facility] Please note: This note has been produced using speech recognition software and may contain errors related to that system including bidr, punctuation, spelling, words, gender and phrases that may be inappropriate. documented in this encounter [facility] 09-21-2022 Note HNO ID: [id number] Author: Paulina Duong PA-C Service: ? Author Type: Physician Lime Boiler Type: Progress Notes Filed: 09/21/2022 2:25 PM Note Text: Paulina Duong PA-C Department of Orthopaedics Orthopaedics [address] [facility] [address] Dept: [phone] Dept September 21, 2022 Consultation requested by [...] ankle up AND down Imaging: IMPRESSION: Negative. Heat Treat Supervisor: [facility] Transcribe Date/Time: Nov 11 2021 10:23A Dictated [...] hydrocortisone (ANUSOL-HC) 2.5 (more content not included)... [facility] 09-21-2022 Note HNO ID: [id number] Author: Paradise Muse RN Service: ? Author [...] months. No recent injury. XR on 11/11/21. [facility] 09-21-2022 History of Presen t illness Narrative Paulina Duong PA-C Department of Orthopaedics Orthopaedics [address] [facility] [address] Dept: [phone] Dept September 21, 2022 Consultation requested by [...] ankle up & down Imaging: IMPRESSION: Negative. Heat Treat Supervisor: ROSE Transcribe Date/Time: Nov 11 2021 10:23A [...] anxiety) This note was partially generated using [employer] voice recognition system, and there may be [...] XR on 11/11/21. documented in this encounter [facility] 09-09-2022 Miscellaneous Notes Please see similar My Chart message from 09/07, closing this one Carola Blandon APRN.CNP documented in this encounter [facility] 08-28-2022 Note HNO ID: [id number] Author: Rogelio Vazquez RN Service: ? Author [...] 3 day EEG SUMMARY: Pt discharged from [facility] on 08/27/2022. Admitted for : Continuous EEG Contact made with patient: No - 2nd unsuccessful attempt - end outreach and close encounter Outreach ended [facility] 08-28-2022 History of Presen t illness Narrative TRANSITIONAL CARE MANAGEMENT ([facility]) COMMUNITY MONITORING PROGRAM Provider Action/FYI: 2nd attempt Called patient, no answer. Message was left on VM- encouraged to scheduled PCP follow up appt Transitions of Care Critical Issues: SPECIALIST FOLLOW-UP: Dr. Zavaleta PROCEDURES SCHEDULED: [facility] 3 day EEG SUMMARY: Pt discharged from [facility] on 08/27/2022. Admitted for : Continuous EEG Contact made with patient: No - 2nd unsuccessful attempt - end outreach and close encounter Outreach ended TRANSITIONAL CARE MANAGEMENT ([facility]) COMMUNITY MONITORING PROGRAM Provider Action/FYI: Called patient, no answer. Message was left on VM informing I will try reaching out again later today or tomorrow. CB# provided. Black outs? Questions regarding effexor - needs to follow up with PCP Transitions of Care Critical Issues: SPECIALIST FOLLOW-UP: Dr. Zavaleta PROCEDURES SCHEDULED: [facility] 3 day EEG SUMMARY: Pt discharged from [facility] on 08/27/2022. Admitted for : Continuous EEG Contact made with patient: No - next outreach attempt will be on next day Outreach ended TCM Home Visit Referral Source of Stratification: [facility] Hospital Admission Status: Discharged Readmission Risk Score: 8 BRENDA Score: 2 Patient meets program referral criteria: No documented in this encounter [facility] 08-28-2022 Note Patient Outreach ([facility] MIGDALIA ZURITA ([id number]) 1990 F Date Time Provider Department 08/28/22 ROGELIO VAZQUEZ During your visit today, we recorded the following information about you: Rogelio Vazquez RN 08/28/2022 11:35 AM Signed TRANSITIONAL CARE MANAGEMENT ([facility]) COMMUNITY MONITORING PROGRAM Provider Action/FYI: Called patient, no answer. Message was left on VM informing I will try reaching out again later today or tomorrow. CB# provided. Black outs? Questions regarding effexor - needs to follow up with PCP Transitions of Care Critical Issues: SPECIALIST FOLLOW-UP: Dr. Zavaleta PROCEDURES SCHEDULED: [facility] 3 day EEG SUMMARY: Pt discharged from [facility] on 08/27/2022. Admitted for : Continuous EEG Contact made with patient: No - next outreach attempt will be on next business day Outreach ended TCM Home Visit Referral Source of Stratification: [facility] Hospital Admission Status: Discharged Readmission Risk Score: 8 BRENDA Score: 2 Patient meets program referral criteria: No Rogelio Vazquez RN 08/28/2022 3:40 PM Signed TRANSITIONAL CARE MANAGEMENT ([facility]) COMMUNITY MONITORING PROGRAM Provider Action/FYI: 2nd attempt Called patient, no answer. Message was left on VM- encouraged to scheduled PCP follow up appt Transitions of Care Critical Issues: SPECIALIST FOLLOW-UP: Dr. Zavaleta PROCEDURES SCHEDULED: [facility] home 3 day EEG SUMMARY: Pt discharged from [facility] on 08/27/2022. Admitted for : Continuous EEG Contact made with patient: No - 2nd unsuccessful attempt - end outreach and close encounter Outreach ended Allergies As of Date: 08/28/2022 (No Known Allergies) Date Reviewed: 08/27/2022 Reviewed by: Chris Crowder RN - Fully Assessed Reason for Visit: Transition Of Care [4074] Cmt: Hospital Discharge 08/27/2022 Prescriptions as of [...] flori*05/16/2010 10/22/2011 Backache, unspecified [M54.9] 07/29/2010 [facility] [V23.89[facility] [O09.899]09/17/2011 07/14/2013 Quit [...] Encounter Status:Closed by ROGELIO VAZQUEZ on 08/28/22 [facility] 08-28-2022 Note HNO ID: [id number] Author: Rogelio Vazquez RN Service: ? Author [...] 2 Patient meets program referral criteria: No [facility] 08-27-2022 Miscellaneous Notes Home EEG request sent to [facility] for scheduling documented in this encounter [facility] 08-27-2022 Note HNO ID: [id number] Author: Carlene Javed RN Service: Care Management [...] Physician Primary Care Physician Name/Phone: Dr Cespedes [phone] TRANSPORTATION ARRANGEMENTS: Transportation Arrangements: Car Destination: home ADDITIONAL CONTACT RESOURCES: NA Patient is being discharged home with self care. Family to transport at discharge. SIGNATURE: Carlene Javed RN PATIENT NAME: Migdalia Zurita DATE: August 27, 2022 TIME: 12:34 PM PAGER/CONTACT #: [phone] [facility] documented as of this encounter (statuses as of 08/27/2022) [facility] History of Past illness Narrative* Problem [...] LMP c/w 19 wk US) transferred from [place] [facility] for evaluation of NSVT. Patient reports [...] to 234 BPM. TTE completed at the [facility] on 02/02/12 showed EF 55-60%, trivial MR, trivial TR, trivial -1+ PI. She was instructed to present to her local ED. She is transferred to [facility] for further evaluation. Pre-syncope 02/04/2012 08/14/2015 Pre-syncope 02/04/2012 02/05/2012 Anemia in 12/24/2011 09/03/2015 Overview: Continue daily folate and Fe Monitor H/H Quit smoking 12/21/2011 08/14/2015 Overview: 12/20 - no tobacco since 08/19/11 - [facility] HIGH RISK NEC [V23.89] 2 07/14/2013 Overview: outside maintenance worker has been consulted and will also follow patient Plan: - monitoring per CORE RESCUER. Backache, unspecified 07/29/2010 08/14/2015 Complete spontaneous abortio [...] of this encounter (statuses as of 08/28/2022) [facility] History of Past illness Narrative* Problem [...] LMP c/w 19 wk US) transferred from [place] ED for evaluation of NSVT. Patient reports [...] to 234 BPM. TTE completed at the [facility] on 02/02/12 showed EF 55-60%, trivial MR, trivial TR, trivial -1+ PI. She was instructed to present to her local ED. She is transferred to [facility] for further evaluation. Pre-syncope 02/04/2012 08/14/2015 Pre-syncope 02/04/2012 02/05/2012 Anemia in 12/24/2011 09/03/2015 Overview: Continue daily folate and Fe Monitor H/H Quit smoking 12/21/2011 08/14/2015 Overview: 7/ - no tobacco since 08/19/11 - [facility] HIGH RISK NEC [V23.89] 2 07/14/2013 Overview: outside maintenance worker has been consulted and will also follow patient Plan: - monitoring per CORE RESCUER. Backache, unspecified 07/29/2010 08/14/2015 Complete spontaneous abortio [...] of this encounter (statuses as of 09/02/2022) [facility] History of Past illness Narrative* Problem [...] LMP c/w 19 wk US) transferred from [place] ED for evaluation of NSVT. Patient reports [...] to 234 BPM. TTE completed at the [facility] on 02/02/12 showed EF 55-60%, trivial MR, trivial TR, trivial -1+ PI. She was instructed to present to her local ED. She is transferred to [facility] for further evaluation. Pre-syncope 02/04/2012 08/14/2015 Pre-syncope 02/04/2012 02/05/2012 Anemia in 12/24/2011 09/03/2015 Overview: Continue daily folate and Fe Monitor H/H Quit smoking 12/21/2011 08/14/2015 Overview: 12/20 - no tobacco since 08/19/11 - [facility] HIGH RISK NEC [V23.89] 2 07/14/2013 Overview: outside maintenance worker has been consulted and will also follow patient Plan: - monitoring per CORE RESCUER. Backache, unspecified 07/29/2010 08/14/2015 Complete spontaneous abortio [...] of this encounter (statuses as of 09/04/2022) [facility] History of Past illness Narrative* Problem [...] LMP c/w 19 wk US) transferred from [place] [facility] for evaluation of NSVT. Patient reports [...] to 234 BPM. TTE completed at the [facility] [place] [facility] on 02/02/12 showed EF 55-60%, trivial MR, trivial TR, trivial -1+ PI. She was instructed to present to her local ED. She is transferred to [facility] for further evaluation. Pre-syncope 02/04/2012 08/14/2015 Pre-syncope 02/04/2012 02/05/2012 Anemia in 12/24/2011 09/03/2015 Overview: Continue daily folate and Fe Monitor H/H Quit smoking 12/21/2011 08/14/2015 Overview: 7/ - no tobacco since 08/19/11 - [facility] HIGH RISK NEC [V23.89] 2 07/14/2013 Overview: outside maintenance worker has been consulted and will also follow patient Plan: - monitoring per CORE RESCUER. Backache, unspecified 07/29/2010 08/14/2015 Complete spontaneous abortio [...] of this encounter (statuses as of 09/09/2022) [facility] History of Past illness Narrative* Problem [...] LMP c/w 19 wk US) transferred from [place] [facility] for evaluation of NSVT. Patient reports [...] to 234 BPM. TTE completed at the [facility] [place] [facility] on 02/02/12 showed EF 55-60%, trivial MR, trivial TR, trivial -1+ PI. She was instructed to present to her local ED. She is transferred to [facility] for further evaluation. Pre-syncope 02/04/2012 08/14/2015 Pre-syncope 02/04/2012 02/05/2012 Anemia in 12/24/2011 09/03/2015 Overview: Continue daily folate and Fe Monitor H/H Quit smoking 12/21/2011 08/14/2015 Overview: 12/20 - no tobacco since 08/19/11 - [facility] HIGH RISK NEC [V23.89] 2 07/14/2013 Overview: outside maintenance worker has been consulted and will also follow patient Plan: - monitoring per CORE RESCUER. Backache, unspecified 07/29/2010 08/14/2015 Complete spontaneous abortio [...] of this encounter (statuses as of 09/21/2022) [facility] History of Past illness Narrative* Problem [...] LMP c/w 19 wk US) transferred from [place] [facility] for evaluation of NSVT. Patient reports [...] to 234 BPM. TTE completed at the [facility] [place] [facility] on 02/02/12 showed EF 55-60%, trivial MR, trivial TR, trivial -1+ PI. She was instructed to present to her local ED. She is transferred to [facility] for further evaluation. Pre-syncope 02/04/2012 08/14/2015 Pre-syncope 02/04/2012 02/05/2012 Anemia in 12/24/2011 09/03/2015 Overview: Continue daily folate and Fe Monitor H/H Quit smoking 12/21/2011 08/14/2015 Overview: 7/ - no tobacco since 08/19/11 - [facility] HIGH RISK NEC [V23.89] 2 07/14/2013 Overview: outside maintenance worker has been consulted and will also follow patient Plan: - monitoring per CORE RESCUER. Backache, unspecified 07/29/2010 08/14/2015 Complete spontaneous abortio [...] of this encounter (statuses as of 09/23/2022) [facility] History of Past illness Narrative* Problem [...] LMP c/w 19 wk US) transferred from [place] [facility] for evaluation of NSVT. Patient reports [...] to 234 BPM. TTE completed at the [facility] on 02/02/12 showed EF 55-60%, trivial MR, trivial TR, trivial -1+ PI. She was instructed to present to her local ED. She is transferred to [facility] for further evaluation. Pre-syncope 02/04/2012 08/14/2015 Pre-syncope 02/04/2012 02/05/2012 Anemia in 12/24/2011 09/03/2015 Overview: Continue daily folate and Fe Monitor H/H Quit smoking 12/21/2011 08/14/2015 Overview: 12/20 - no tobacco since 08/19/11 - [facility] HIGH RISK NEC [V23.89] 2 07/14/2013 Overview: outside maintenance worker has been consulted and will also follow patient Plan: - monitoring per CORE RESCUER. Backache, unspecified 07/29/2010 08/14/2015 Complete spontaneous abortio [...] of this encounter (statuses as of 10/13/2022) [facility] History of Past illness Narrative* Problem [...] LMP c/w 19 wk US) transferred from [place] [facility] for evaluation of NSVT. Patient reports [...] to 234 BPM. TTE completed at the [place] [place] [facility] on 02/02/12 showed EF 55-60%, trivial MR, trivial TR, trivial -1+ PI. She was instructed to present to her local ED. She is transferred to [facility] for further evaluation. Pre-syncope 02/04/2012 08/14/2015 Pre-syncope 02/04/2012 02/05/2012 Anemia in 12/24/2011 09/03/2015 Overview: Continue daily folate and Fe Monitor H/H Quit smoking 12/21/2011 08/14/2015 Overview: 7/ - no tobacco since 08/19/11 - [facility] HIGH RISK NEC [V23.89] 2 07/14/2013 Overview: outside maintenance worker has been consulted and will also follow patient Plan: - monitoring per CORE RESCUER. Backache, unspecified 07/29/2010 08/14/2015 Complete spontaneous abortio [...] of this encounter (statuses as of 10/13/2022) [facility] History of Past illness Narrative* Problem [...] LMP c/w 19 wk US) transferred from [place] [facility] for evaluation of NSVT. Patient reports [...] to 234 BPM. TTE completed at the [facility] [place] [facility] on 02/02/12 showed EF 55-60%, trivial MR, trivial TR, trivial -1+ PI. She was instructed to present to her local ED. She is transferred to [facility] for further evaluation. Pre-syncope 02/04/2012 08/14/2015 Pre-syncope 02/04/2012 02/05/2012 Anemia in 12/24/2011 09/03/2015 Overview: Continue daily folate and Fe Monitor H/H Quit smoking 12/21/2011 08/14/2015 Overview: 12/20 - no tobacco since 08/19/11 - [facility] HIGH RISK NEC [V23.89] 2 07/14/2013 Overview: outside maintenance worker has been consulted and will also follow patient Plan: - monitoring per CORE RESCUER. Backache, unspecified 07/29/2010 08/14/2015 Complete spontaneous abortio [...] of this encounter (statuses as of 10/16/2022) [facility] History of Past illness Narrative* Problem [...] LMP c/w 19 wk US) transferred from [place] [facility] for evaluation of NSVT. Patient reports [...] to 234 BPM. TTE completed at the [facility] [place] [facility] on 02/02/12 showed EF 55-60%, trivial MR, trivial TR, trivial -1+ PI. She was instructed to present to her local ED. She is transferred to [facility] for further evaluation. Pre-syncope 02/04/2012 08/14/2015 Pre-syncope 02/04/2012 02/05/2012 Anemia in 12/24/2011 09/03/2015 Overview: Continue daily folate and Fe Monitor H/H Quit smoking 12/21/2011 08/14/2015 Overview: 7/ - no tobacco since 08/19/11 - [facility] HIGH RISK NEC [V23.89] 2 07/14/2013 Overview: outside maintenance worker has been consulted and will also follow patient Plan: - monitoring per CORE RESCUER. Backache, unspecified 07/29/2010 08/14/2015 Complete spontaneous abortio [...] of this encounter (statuses as of 10/19/2022) [facility] History of Past illness Narrative* Problem [...] LMP c/w 19 wk US) transferred from [place] [facility] for evaluation of NSVT. Patient reports having a three year history of black out episodes with lightheadness but no loss of consciousness, falls, syncope or collapse. She seen by Dr. Cardooz and echocardiogram was performed and she was placed on Holter monitor. 48 hour Holter was returned and analysis showed frequent ventricular ectopy as mostly monomorphic singles, couplets, bigeminal and trigeminal cycles, non-sustained ventricular tachycardia runs up to 5 beats in length. Ventricular tachycardia rates range from 189 BPM to 234 BPM. TTE completed at the [facility] on 02/02/12 showed EF 55-60%, trivial MR, trivial TR, trivial -1+ PI. She was instructed to present to her local ED. She is transferred to [facility] for further evaluation. Pre-syncope 02/04/2012 08/14/2015 Pre-syncope 02/04/2012 02/05/2012 Anemia in 12/24/2011 09/03/2015 Overview: Continue daily folate and Fe Monitor H/H Quit smoking 12/21/2011 08/14/2015 Overview: 12/20 - no tobacco since 08/19/11 - [facility] HIGH RISK NEC [V23.89] 2 07/14/2013 Overview: outside maintenance worker has been consulted and will also follow patient Plan: - monitoring per CORE RESCUER. Backache, unspecified 07/29/2010 08/14/2015 Complete spontaneous abortio [...] of this encounter (statuses as of 10/23/2022) [facility] History of Past illness Narrative* Problem [...] LMP c/w 19 wk US) transferred from [place] [facility] for evaluation of NSVT. Patient reports [...] to 234 BPM. TTE completed at the [facility] on 02/02/12 showed EF 55-60%, trivial MR, trivial TR, trivial -1+ PI. She was instructed to present to her local ED. She is transferred to [facility] for further evaluation. Pre-syncope 02/04/2012 08/14/2015 Pre-syncope 02/04/2012 02/05/2012 Anemia in 12/24/2011 09/03/2015 Overview: Continue daily folate and Fe Monitor H/H [facility] HIGH RISK NEC [V23.89] 2 07/14/2013 Overview: outside maintenance worker has been consulted and will also follow patient Plan: - monitoring per CORE RESCUER. Backache, unspecified 07/29/2010 08/14/2015 Complete spontaneous abortio [...] of this encounter (statuses as of 11/19/2022) [facility] History of Past illness Narrative* Problem [...] LMP c/w 19 wk US) transferred from [place] [facility] for evaluation of NSVT. Patient reports [...] to 234 BPM. TTE completed at the [facility] [place] [facility] on 02/02/12 showed EF 55-60%, trivial MR, trivial TR, trivial -1+ PI. She was instructed to present to her local ED. She is transferred to [facility] for further evaluation. Pre-syncope 02/04/2012 08/14/2015 Pre-syncope 02/04/2012 02/05/2012 Anemia in 12/24/2011 09/03/2015 Overview: Continue daily folate and Fe Monitor H/H [facility] HIGH RISK NEC [V23.89] 2 07/14/2013 Overview: outside maintenance worker has been consulted and will also follow patient Plan: - monitoring per CORE RESCUER. Backache, unspecified 07/29/2010 08/14/2015 Complete spontaneous abortio [...] of this encounter (statuses as of 11/19/2022) [facility] History of Past illness Narrative* Problem [...] LMP c/w 19 wk US) transferred from [place] [facility] for evaluation of NSVT. Patient reports [...] to 234 BPM. TTE completed at the [facility] on 02/02/12 showed EF 55-60%, trivial MR, trivial TR, trivial -1+ PI. She was instructed to present to her local ED. She is transferred to [facility] [place] for further evaluation. Pre-syncope 02/04/2012 08/14/2015 Pre-syncope 02/04/2012 02/05/2012 Anemia in 12/24/2011 09/03/2015 Overview: Continue daily folate and Fe Monitor H/H [facility] HIGH RISK NEC [V23.89] 2 07/14/2013 Overview: outside maintenance worker has been consulted and will also follow patient Plan: - monitoring per CORE RESCUER. Backache, unspecified 07/29/2010 08/14/2015 Complete spontaneous abortio [...] of this encounter (statuses as of 11/23/2022) [facility] History of Past illness Narrative* Problem [...] LMP c/w 19 wk US) transferred from [place] [facility] for evaluation of NSVT. Patient reports [...] to 234 BPM. TTE completed at the [facility] on 02/02/12 showed EF 55-60%, trivial MR, trivial TR, trivial -1+ PI. She was instructed to present to her local ED. She is transferred to [facility] for further evaluation. Pre-syncope 02/04/2012 08/14/2015 Pre-syncope 02/04/2012 02/05/2012 Anemia in 12/24/2011 09/03/2015 Overview: Continue daily folate and Fe Monitor H/H [facility] HIGH RISK NEC [V23.89] 2 07/14/2013 Overview: outside maintenance worker has been consulted and will also follow patient Plan: - monitoring per CORE RESCUER. Backache, unspecified 07/29/2010 08/14/2015 Complete spontaneous abortio [...] of this encounter (statuses as of 11/24/2022) [facility] History of Past illness Narrative* Problem [...] LMP c/w 19 wk US) transferred from [place] [facility] for evaluation of NSVT. Patient reports [...] to 234 BPM. TTE completed at the [facility] on 02/02/12 showed EF 55-60%, trivial MR, trivial TR, trivial -1+ PI. She was instructed to present to her local ED. She is transferred to [facility] for further evaluation. Pre-syncope 02/04/2012 08/14/2015 Pre-syncope 02/04/2012 02/05/2012 Anemia in 12/24/2011 09/03/2015 Overview: Continue daily folate and Fe Monitor H/H [facility] HIGH RISK NEC [V23.89] 2 07/14/2013 Overview: outside maintenance worker has been consulted and will also follow patient Plan: - monitoring per CORE RESCUER. Backache, unspecified 07/29/2010 08/14/2015 Complete spontaneous abortio [...] of this encounter (statuses as of 11/25/2022) [facility] History of Past illness Narrative* Problem [...] LMP c/w 19 wk US) transferred from [place] [facility] for evaluation of NSVT. Patient reports [...] to 234 BPM. TTE completed at the [facility] on 02/02/12 showed EF 55-60%, trivial MR, trivial TR, trivial -1+ PI. She was instructed to present to her local ED. She is transferred to [facility] for further evaluation. Pre-syncope 02/04/2012 08/14/2015 Pre-syncope 02/04/2012 02/05/2012 Anemia in 12/24/2011 09/03/2015 Overview: Continue daily folate and Fe Monitor H/H [facility] NEC [V23.89] 2 07/14/2013 Overview: outside maintenance worker has been consulted and will also follow patient Plan: - monitoring per CORE RESCUER. Backache, unspecified 07/29/2010 08/14/2015 Complete spontaneous abortio [...] of this encounter (statuses as of 12/14/2022) [facility]03-08-2023 History of Past illness Narrative* Problem [...] LMP c/w 19 wk US) transferred from [place] [facility] for evaluation of NSVT. Patient reports [...] to 234 BPM. TTE completed at the [facility] on 02/02/12 showed EF 55-60%, trivial MR, trivial TR, trivial -1+ PI. She was instructed to present to her local ED. She is transferred to [facility] for further evaluation. Pre-syncope 02/04/2012 08/14/2015 Pre-syncope 02/04/2012 02/05/2012 Anemia in 12/24/2011 09/03/2015 Overview: Continue daily folate and Fe Monitor H/H [facility] NEC [V23.89] 2 07/14/2013 Overview: outside maintenance worker has been consulted and will also follow patient Plan: - monitoring per CORE RESCUER. Backache, unspecified 07/29/2010 08/14/2015 Complete spontaneous abortio [...] of this encounter (statuses as of 12/16/2022) [facility]03-08-2023 History of Past illness Narrative* Problem [...] LMP c/w 19 wk US) transferred from [place] ED for evaluation of NSVT. Patient reports [...] to 234 BPM. TTE completed at the [facility] on 02/02/12 showed EF 55-60%, trivial MR, trivial TR, trivial -1+ PI. She was instructed to present to her local ED. She is transferred to [facility] for further evaluation. Pre-syncope 02/04/2012 08/14/2015 Pre-syncope 02/04/2012 02/05/2012 Anemia in 12/24/2011 09/03/19 16 Overview: Continue daily folate and Fe Monitor H/H [facility] NEC [V23.89] 09/17/2011 07/14/2013 Overview: outside maintenance worker has been consulted and will also follow patient Plan: - monitoring per CORE RESCUER. Backache, unspecified 07/29/20102015 Complete spontaneous abortio n [...] of this encounter (statuses as of 12/29/2022) [facility]03-08-2023 History of Past illness Narrative* Problem [...] LMP c/w 19 wk US) transferred from [place] ED for evaluation of NSVT. Patient reports [...] to 234 BPM. TTE completed at the [facility] on 02/02/12 showed EF 55-60%, trivial MR, trivial TR, trivial -1+ PI. She was instructed to present to her local ED. She is transferred to [facility] for further evaluation. Pre-syncope 02/04/2012 08/14/2015 Pre-syncope 02/04/2012 02/05/2012 Anemia in 12/24/2011 09/03/19 16 Overview: Continue daily folate and Fe Monitor H/[facility] NEC [V23.89] 09/17/2011 07/14/2013 Overview: outside maintenance worker has been consulted and will also follow patient Plan: - monitoring per CORE RESCUER. Backache, unspecified 07/29/20102015 Complete spontaneous abortio n [...] of this encounter (statuses as of 01/19/2023) [facility]03-08-2023 History of Past illness Narrative* Problem [...] LMP c/w 19 wk US) transferred from [place] ED for evaluation of NSVT. Patient reports [...] to 234 BPM. TTE completed at the [facility] [place] [facility] on 02/02/12 showed EF 55-60%, trivial MR, trivial TR, trivial -1+ PI. She was instructed to present to her local ED. She is transferred to [facility] for further evaluation. Pre-syncope 02/04/2012 08/14/2015 Pre-syncope 02/04/2012 02/05/2012 Anemia in 12/24/2011 09/03/19 16 Overview: Continue daily folate and Fe Monitor H/[facility] NEC [V23.89] 09/17/2011 07/14/2013 Overview: outside maintenance worker has been consulted and will also follow patient Plan: - monitoring per CORE RESCUER. Backache, unspecified 07/29/20102015 Complete spontaneous abortio n [...] of this encounter (statuses as of 01/20/2023) [facility]03-08-2023 History of Past illness Narrative* Problem [...] LMP c/w 19 wk US) transferred from [place] ED for evaluation of NSVT. Patient reports [...] to 234 BPM. TTE completed at the [facility] on 02/02/12 showed EF 55-60%, trivial MR, trivial TR, trivial -1+ PI. She was instructed to present to her local ED. She is transferred to [facility] for further evaluation. Pre-syncope 02/04/2012 08/14/2015 Pre-syncope 02/04/2012 02/05/2012 Anemia in 12/24/2011 09/03/19 16 Overview: Continue daily folate and Fe Monitor H/[facility] NEC [V23.89] 09/17/2011 07/14/2013 Overview: outside maintenance worker has been consulted and will also follow patient Plan: - monitoring per CORE RESCUER. Backache, unspecified 07/29/20102015 Complete spontaneous abortio n [...] of this encounter (statuses as of 02/01/2023) [facility]03-08-2023 History of Past illness Narrative* Problem [...] LMP c/w 19 wk US) transferred from [place] ED for evaluation of NSVT. Patient reports [...] to 234 BPM. TTE completed at the [facility] on 02/02/12 showed EF 55-60%, trivial MR, trivial TR, trivial -1+ PI. She was instructed to present to her local ED. She is transferred to [facility] for further evaluation. Pre-syncope 02/04/2012 08/14/2015 Pre-syncope 02/04/2012 02/05/2012 Anemia in 12/24/2011 09/03/19 16 Overview: Continue daily folate and Fe Monitor H/[facility] NEC [V23.89] 09/17/2011 07/14/2013 Overview: outside maintenance worker has been consulted and will also follow patient Plan: - monitoring per CORE RESCUER. Backache, unspecified 07/29/20102015 Complete spontaneous abortio n [...] of this encounter (statuses as of 02/01/2023) [facility]03-08-2023 History of Past illness Narrative* Problem [...] LMP c/w 19 wk US) transferred from [place] ED for evaluation of NSVT. Patient reports [...] to 234 BPM. TTE completed at the [facility] on 02/02/12 showed EF 55-60%, trivial MR, trivial TR, trivial -1+ PI. She was instructed to present to her local ED. She is transferred to [facility] for further evaluation. Pre-syncope 02/04/2012 08/14/2015 Pre-syncope 02/04/2012 02/05/2012 Anemia in 12/24/2011 09/03/19 16 Overview: Continue daily folate and Fe Monitor H/[facility] NEC [V23.89] 09/17/2011 07/14/2013 Overview: outside maintenance worker has been consulted and will also follow patient Plan: - monitoring per CORE RESCUER. Backache, unspecified 07/29/20102015 Complete spontaneous abortio n [...] of this encounter (statuses as of 02/04/2023) [facility]03-08-2023 History of Past illness Narrative* Problem [...] LMP c/w 19 wk US) transferred from [place] ED for evaluation of NSVT. Patient reports [...] to 234 BPM. TTE completed at the [facility] [place] [facility] on 02/02/12 showed EF 55-60%, trivial MR, trivial TR, trivial -1+ PI. She was instructed to present to her local ED. She is transferred to [facility] for further evaluation. Pre-syncope 02/04/2012 08/14/2015 Pre-syncope 02/04/2012 02/05/2012 Anemia in 12/24/2011 09/03/19 16 Overview: Continue daily folate and Fe Monitor H/[facility] NEC [V23.89] 09/17/2011 07/14/2013 Overview: outside maintenance worker has been consulted and will also follow patient Plan: - monitoring per CORE RESCUER. Backache, unspecified 07/29/20102015 Complete spontaneous abortio n [...] of this encounter (statuses as of 02/13/2023) [facility]03-08-2023 History of Past illness Narrative* Problem [...] LMP c/w 19 wk US) transferred from [place] ED for evaluation of NSVT. Patient reports [...] to 234 BPM. TTE completed at the [facility] on 02/02/12 showed EF 55-60%, trivial MR, trivial TR, trivial -1+ PI. She was instructed to present to her local ED. She is transferred to [facility] for further evaluation. Pre-syncope 02/04/2012 08/14/2015 Pre-syncope 02/04/2012 02/05/2012 Anemia in 12/24/2011 09/03/19 16 Overview: Continue daily folate and Fe Monitor H/[facility] NEC [V23.89] 09/17/2011 07/14/2013 Overview: outside maintenance worker has been consulted and will also follow patient Plan: - monitoring per CORE RESCUER. Backache, unspecified 07/29/20102015 Complete spontaneous abortio n [...] of this encounter (statuses as of 02/23/2023) [facility]03-08-2023 History of Past illness Narrative* Problem [...] LMP c/w 19 wk US) transferred from [place] ED for evaluation of NSVT. Patient reports [...] to 234 BPM. TTE completed at the [facility] on 02/02/12 showed EF 55-60%, trivial MR, trivial TR, trivial -1+ PI. She was instructed to present to her local ED. She is transferred to [facility] [place] for further evaluation. Pre-syncope 02/04/2012 08/14/2015 Pre-syncope 02/04/2012 02/05/2012 Anemia in 12/24/2011 09/03/19 16 Overview: Continue daily folate and Fe Monitor H/[facility] NEC [V23.89] 09/17/2011 07/14/2013 Overview: outside maintenance worker has been consulted and will also follow patient Plan: - monitoring per CORE RESCUER. Backache, unspecified 07/29/20102015 Complete spontaneous abortio n [...] of this encounter (statuses as of 02/25/2023) [facility]03-08-2023 History of Past illness Narrative* Problem [...] LMP c/w 19 wk US) transferred from [place] ED for evaluation of NSVT. Patient reports [...] to 234 BPM. TTE completed at the [facility] on 02/02/12 showed EF 55-60%, trivial MR, trivial TR, trivial -1+ PI. She was instructed to present to her local ED. She is transferred to [facility] for further evaluation. Pre-syncope 02/04/2012 08/14/2015 Pre-syncope 02/04/2012 02/05/2012 Anemia in 12/24/2011 09/03/19 16 Overview: Continue daily folate and Fe Monitor H/[facility] NEC [V23.89] 09/17/2011 07/14/2013 Overview: outside maintenance worker has been consulted and will also follow patient Plan: - monitoring per CORE RESCUER. Backache, unspecified 07/29/20102015 Complete spontaneous abortio n [...] of this encounter (statuses as of 03/08/2023) [facility]03-08-2023 History of Past illness Narrative* Problem [...] LMP c/w 19 wk US) transferred from [place] ED for evaluation of NSVT. Patient reports [...] to 234 BPM. TTE completed at the [facility] on 02/02/12 showed EF 55-60%, trivial MR, trivial TR, trivial -1+ PI. She was instructed to present to her local ED. She is transferred to [facility] for further evaluation. Pre-syncope 02/04/2012 08/14/2015 Pre-syncope 02/04/2012 02/05/2012 Anemia in 12/24/2011 09/03/19 16 Overview: Continue daily folate and Fe Monitor H/[facility] NEC [V23.89] 09/17/2011 07/14/2013 Overview: outside maintenance worker has been consulted and will also follow patient Plan: - monitoring per CORE RESCUER. Backache, unspecified 07/29/20102015 Complete spontaneous abortio n [...] of this encounter (statuses as of 03/24/2023) [facility]03-08-2023 History of Past illness Narrative* Problem [...] LMP c/w 19 wk US) transferred from [place] ED for evaluation of NSVT. Patient reports [...] to 234 BPM. TTE completed at the [facility] on 02/02/12 showed EF 55-60%, trivial MR, trivial TR, trivial -1+ PI. She was instructed to present to her local ED. She is transferred to [facility] for further evaluation. Pre-syncope 02/04/2012 08/14/2015 Pre-syncope 02/04/2012 02/05/2012 Anemia in 12/24/2011 09/03/19 16 Overview: Continue daily folate and Fe Monitor H/[facility] NEC [V23.89] 09/17/2011 07/14/2013 Overview: outside maintenance worker has been consulted and will also follow patient Plan: - monitoring per CORE RESCUER. Backache, unspecified 07/29/20102015 Complete spontaneous abortio n [...] of this encounter (statuses as of 03/27/2023) [facility]03-08-2023 History of Past illness Narrative* Problem Noted Date Diagnosed Date Resolved Date Seizure 08/26/2022 08/27/2022 Obesity, Class III, BMI >= 40 08/29/2020 01/18/2023 Acute pain of left knee 12/15/2019 0306/2020 Acute pain of right knee 12/15/201904/2021 Dysuria 09/09/2018 08/28/2021 Obesity, Class II, BMI 35-39.9 09/09/2018 08/28/2021 Moderate persistent asthma w ith acute exacerbation 02/28/2016 12/16/2017 Mastodynia, female 09/25/2015 2 SUMMARY 02/05/2012 08/14/2015 Overview: Ms. Zurita is a 21 year old female (, EGA 33w4d, JOSIE 03/21/2012, LMP c/w 19 wk US) transferred from [place] [facility] for evaluation of NSVT. Patient reports [...] to 234 BPM. TTE completed at the [facility] on 02/02/12 showed EF 55-60%, trivial MR, trivial TR, trivial -1+ PI. She was instructed to present to her local ED. She is transferred to [facility] for further evaluation. Pre-syncope 02/04/2012 08/14/2015 Pre-syncope 02/04/2012 02/05/2012 Anemia in 12/24/2011 09/03/19 16 Overview: Continue daily folate and Fe Monitor H/[facility] NEC [V23.89] 09/17/2011 07/14/2013 Overview: outside maintenance worker has been consulted and will also follow patient Plan: - monitoring per CORE RESCUER. Backache, unspecified 07/29/20102015 Complete spontaneous abortio n [...] of this encounter (statuses as of 04/13/2023) [facility]03-08-2023 History of Past illness Narrative* Problem [...] LMP c/w 19 wk US) transferred from [place] [facility] for evaluation of NSVT. Patient reports [...] to 234 BPM. TTE completed at the [facility] [place] [facility] on 02/02/12 showed EF 55-60%, trivial MR, trivial TR, trivial -1+ PI. She was instructed to present to her local ED. She is transferred to [facility] for further evaluation. Pre-syncope 02/04/2012 08/14/2015 Pre-syncope 02/04/2012 02/05/2012 Anemia in 12/24/2011 09/03/19 16 Overview: Continue daily folate and Fe Monitor H/[facility] NEC [V23.89] 09/17/2011 07/14/2013 Overview: outside maintenance worker has been consulted and will also follow patient Plan: - monitoring per CORE RESCUER. Backache, unspecified 07/29/20102015 Complete spontaneous abortio n [...] of this encounter (statuses as of 04/20/2023) [facility]03-08-2023 History of Past illness Narrative* Problem [...] LMP c/w 19 wk US) transferred from [place] [facility] for evaluation of NSVT. Patient reports [...] to 234 BPM. TTE completed at the [facility] [place] [facility] on 02/02/12 showed EF 55-60%, trivial MR, trivial TR, trivial -1+ PI. She was instructed to present to her local ED. She is transferred to [facility] for further evaluation. Pre-syncope 02/04/2012 08/14/2015 Pre-syncope 02/04/2012 02/05/2012 Anemia in 12/24/2011 09/03/19 16 Overview: Continue daily folate and Fe Monitor H/[facility] NEC [V23.89] 09/17/2011 07/14/2013 Overview: outside maintenance worker has been consulted and will also follow patient Plan: - monitoring per CORE RESCUER. Backache, unspecified 07/29/20102015 Complete spontaneous abortio n [...] of this encounter (statuses as of 04/27/2023) [facility]03-08-2023 History of Past illness Narrative* Problem [...] LMP c/w 19 wk US) transferred from [place] [facility] for evaluation of NSVT. Patient reports [...] to 234 BPM. TTE completed at the [place] [place] [facility] on 02/02/12 showed EF 55-60%, trivial MR, trivial TR, trivial -1+ PI. She was instructed to present to her local ED. She is transferred to [facility] for further evaluation. Pre-syncope 02/04/2012 08/14/2015 Pre-syncope 02/04/2012 02/05/2012 Anemia in 12/24/2011 09/03/19 16 Overview: Continue daily folate and Fe Monitor H/H [facility] NEC [V23.89] 09/17/2011 07/14/2013 Overview: outside maintenance worker has been consulted and will also follow patient Plan: - monitoring per CORE RESCUER. Backache, unspecified 07/29/20102015 Complete spontaneous abortio n [...] of this encounter (statuses as of 04/27/2023) [facility]03-08-2023 History of Past illness Narrative* Problem [...] LMP c/w 19 wk US) transferred from [place] [facility] for evaluation of NSVT. Patient reports [...] to 234 BPM. TTE completed at the [facility] [place] [facility] on 02/02/12 showed EF 55-60%, trivial MR, trivial TR, trivial -1+ PI. She was instructed to present to her local ED. She is transferred to [facility] for further evaluation. Pre-syncope 02/04/2012 08/14/2015 Pre-syncope 02/04/2012 02/05/2012 Anemia in 12/24/2011 09/03/19 16 Overview: Continue daily folate and Fe Monitor H/[facility] NEC [V23.89] 09/17/2011 07/14/2013 Overview: outside maintenance worker has been consulted and will also follow patient Plan: - monitoring per CORE RESCUER. Backache, unspecified 07/29/20102015 Complete spontaneous abortio n [...] of this encounter (statuses as of 04/29/2023) [facility]03-08-2023 History of Past illness Narrative* Problem [...] LMP c/w 19 wk US) transferred from [place] [facility] for evaluation of NSVT. Patient reports [...] to 234 BPM. TTE completed at the [facility] [place] [facility] on 02/02/12 showed EF 55-60%, trivial MR, trivial TR, trivial -1+ PI. She was instructed to present to her local ED. She is transferred to [facility] for further evaluation. Pre-syncope 02/04/2012 08/14/2015 Pre-syncope 02/04/2012 02/05/2012 Anemia in 12/24/2011 09/03/19 16 Overview: Continue daily folate and Fe Monitor H/H [facility] NEC [V23.89] 09/17/2011 07/14/2013 Overview: outside maintenance worker has been consulted and will also follow patient Plan: - monitoring per CORE RESCUER. Backache, unspecified 07/29/20102015 Complete spontaneous abortio n [...] of this encounter (statuses as of 04/29/2023) [facility]03-08-2023 History of Past illness Narrative* Problem [...] LMP c/w 19 wk US) transferred from [place] [facility] for evaluation of NSVT. Patient reports [...] to 234 BPM. TTE completed at the [facility] [place] [facility] on 02/02/12 showed EF 55-60%, trivial MR, trivial TR, trivial -1+ PI. She was instructed to present to her local ED. She is transferred to [facility] for further evaluation. Pre-syncope 02/04/2012 08/14/2015 Pre-syncope 02/04/2012 02/05/2012 Anemia in 12/24/2011 09/03/19 16 Overview: Continue daily folate and Fe Monitor H/[facility] R[facility] NEC [V23.89] 09/17/2011 07/14/2013 Overview: outside maintenance worker has been consulted and will also follow patient Plan: - monitoring per CORE RESCUER. Backache, unspecified 07/29/20102015 Complete spontaneous abortio n [...] of this encounter (statuses as of 05/07/2023) [facility]03-08-2023 History of Past illness Narrative* Problem [...] LMP c/w 19 wk US) transferred from [place] [facility] for evaluation of NSVT. Patient reports [...] to 234 BPM. TTE completed at the [facility] on 02/02/12 showed EF 55-60%, trivial MR, trivial TR, trivial -1+ PI. She was instructed to present to her local ED. She is transferred to [facility] for further evaluation. Pre-syncope 02/04/2012 08/14/2015 Pre-syncope 02/04/2012 02/05/2012 Anemia in 12/24/2011 09/03/19 16 Overview: Continue daily folate and Fe Monitor H/H [facility] NEC [V23.89] 09/17/2011 07/14/2013 Overview: outside maintenance worker has been consulted and will also follow patient Plan: - monitoring per CORE RESCUER. Backache, unspecified 07/29/20102015 Complete spontaneous abortio n [...] of this encounter (statuses as of 06/03/2023) [facility]03-08-2023 History of Past illness Narrative* Problem [...] LMP c/w 19 wk US) transferred from [place] [facility] for evaluation of NSVT. Patient reports [...] to 234 BPM. TTE completed at the [facility] on 02/02/12 showed EF 55-60%, trivial MR, trivial TR, trivial -1+ PI. She was instructed to present to her local ED. She is transferred to [facility] for further evaluation. Pre-syncope 02/04/2012 08/14/2015 Pre-syncope 02/04/2012 02/05/2012 Anemia in 12/24/2011 09/03/19 16 Overview: Continue daily folate and Fe Monitor H/[facility] R[facility] NEC [V23.89] 09/17/2011 07/14/2013 Overview: outside maintenance worker has been consulted and will also follow patient Plan: - monitoring per CORE RESCUER. Backache, unspecified 07/29/20102015 Complete spontaneous abortio n [...] of this encounter (statuses as of 06/05/2023) [facility]03-08-2023 NoteHNO ID: [id number] Author: Dixie Brannon APRN.CNP Service: Neurology Adult Epilepsy Author Type: Nurse Practitioner Type: Progress Notes Filed: 08/26/2022 11:44 AM Note Text: Attestation signed by Phoenix Zavaleta MD at 08/26/2022 1:16 PM (Updated) EPILEPSY CENTER ATTENDING NOTE [facility] Epilepsy Monitoring Unit Progress Note Date of Service: August 26, 2022 [facility] STAFF PHYSICIAN NOTE OF PERSONAL INVOLVEMENT IN CARE Patient was interviewed and examined by me on separate attending rounds this morning with nurse practitioner, Dixie Brannon CNP. I have reviewed the history, exam, diagnosis, and plan obtained and documented by the nurse practitioner as above. I performed my own [id number] assessment and personally participated in the posey [...] treatment plan. Phoenix Zavaleta MD Staff Physician [facility] Epilepsy Center Personal Pager and Cell Office: [phone] For urgent EEG review, call the Epilepsy Continuous Monitoring Unit (ECMU) at [facility] [phone] or [phone]. For overnight issues, 7pm to 7am, [place] [phone]. For in house night coverage of emergencies, call [facility] pager [phone]. NEUROLOGY EPILEPSY MONITORING UNIT (EMU) PROGRESS NOTE NIGHT AND WEEKEND COVERAGE: After 5 pm and over the weekends, please page the epilepsy provider production scheduler Subjective C/O pain overnight related to her [...] Remains standing. SEIZURE DETECTION SOFTWARE ON: Yes medical equipment repair technician has been notified: (more content not included)...[facility]03-08-2023 NoteHNO ID: [id number] Author: Carlene Javed RN Service: Care Management Author Type: Registered Nurse Type: Care Mgt Progress Note Filed: 08/26/2022 9:19 AM Note Text: CARE MANAGEMENT PROGRESS NOTE SERVICE DATE: 08/26/2022 SERVICE TIME: 9:18 AM LOS: 0 days Needs Prior to Discharge: To Be Determined;Discharge Prescriptions Chart reviewed. Patient from home with family. IND INVENTORY AUDIT CLERK. Family to transport at discharge. Planned admission. No CM needs at this time. Will follow for transitional care planning. SIGNATURE: Carlene Javed RN PATIENT NAME: Migdalia Zurita DATE: August 26, 2022 TIME: 9:17 AM PAGER/CONTACT #: [phone] NoteHNO ID: [id number] Author: Dixie Brannon APRN.CNP Service: Neurology Adult Epilepsy Author Type: Nurse Practitioner Type: Progress Notes Filed: 08/25/2022 10:10 AM Note Text: Attestation signed by Phoenix Zavaleta MD at 08/25/2022 12:53 PM (Updated) EPILEPSY CENTER ATTENDING NOTE [facility] Epilepsy Monitoring Unit Progress Note Date of Service: August 25, 2022 [facility] STAFF PHYSICIAN NOTE OF PERSONAL INVOLVEMENT IN CARE Patient was interviewed and examined by me on separate attending rounds this morning with nurse practitioner, Dixie Brannon CNP. I have reviewed the history, exam, diagnosis, and plan obtained and documented by the nurse practitioner as above. I performed my own skoj-jc-udqp assessment and personally participated in the posey [...] treatment plan. Phoenix Zavaleta MD Staff Physician [facility] Personal Pager and Cell Office: [phone] For urgent EEG review, call the Epilepsy Continuous Monitoring Unit (ECMU) at [facility] [phone] or [phone]. For overnight issues, 7pm to 7am, [place] [phone]. For in house night coverage of emergencies, call NPCS pager [phone]. NEUROLOGY EPILEPSY MONITORING UNIT (EMU) PROGRESS NOTE NIGHT AND WEEKEND COVERAGE: After 5 pm and over the weekends, please page the epilepsy provider production scheduler Subjective C/o pain overnight related to her RLS Feels episode/sz's are triggered by lack of food No seizures overnight. HOME ANTI EPILEPTIC DRUGS: LEV 750/750 GBP 1200 mg qHS (takes for RLS) +600 every day prn ANTI EPILEPTIC DRUGS HERE: GBP 600 mg QHS Objective 08/24/22 0900 08/24/22 1635 08/24/22 2053 08/25/22 0600 BP: 100/69 104/74 103/85 98/65 Pulse: 80 84 78 61 Resp: 15 15 24 16 Temp: 36.5 ?C (97.7 ?F) 36.9 ?C (98.4 ?F) 36.6 ?C (97.9 ?F) 36.4 ?C (97.6 ?F) TempSrc: Oral Oral Oral SpO2: 99% 99% 98% 99% EKG, TELEMETRY, EEG, MONITORS AND ALARMS ARE ON: Yes ? Written order: Remains standing. SEIZURE DETECTION SOFTWARE ON: Yes ? medical equipment repair technician has been notified: Yes ? printing services coordinator has been notified: Yes EXAM: Mental Status: [...] 12.0 - 46.0 ug/mL (more content not included)...[facility]03-06-2023 NoteHNO ID: [id number] Author: Carlene Javed RN Service: Care Management Author Type: Registered Nurse Type: Care Mgt Initial Assessment Filed: 08/24/2022 11:34 AM Note Text: CARE MANAGEMENT: ASSESSMENT AND DISCHARGE PLAN SERVICE DATE: August 24, 2022 SERVICE TIME: 11:32 AM PRIMARY CARE PHYSICIAN: Misha Cespedes MD Primary Contact: Extended Emergency Contact Information Primary Emergency Contact: BlancaWilmer Mobile Relation: Significant other ADMISSION STATUS: Observation [...] Seizure's ADVANCE DIRECTIVES Current Advance Directive: None Telemarketing Supervisor Attempted to Assist with AD Completion: Yes [...] discharge within 30 days: No PATIENT SCREEN Patient/Guest Experience Specialist Stated Goals: To have reduction in pain, [...] Mostly I feel financially burdened by my yua-oj-gnpxep expenses for my prescription medication:: 0 - [...] None Has the Patient Been in a Detention Facility in the Past 30 days?: No No medical discharge barriers identified at this time. No social discharge barriers identified at this time. No behavioral/cognitive discharge barriers identified at this time. No functional discharge barriers iden (more content not included)...[facility]03-02-2023 NoteHNO ID: [id number] Author: Phoenix Zavaleta MD Service: ? Author Type: Physician Type: Progress Notes Filed: 08/20/2022 12:56 PM Note Text: [facility] Patient Name: Migdalia HORNER Date of : 1990 Referring Provider: Angeles Bryant [address] [facility] [address] INITIAL EPILEPSY CLINIC NOTE 08/20/2022 12:00 PM CHIEF COMPLAINT: New Patient (I black out) HISTORY OF PRESENT ILLNESS Ms. Zurita is a 32 year old right-handed female seen in [facility] for initial [...] or UI. She had an EEG in [facility] reported as abnormal showing generalized discharges and started on Keppra. She has also been tried on other medications for migraine and epilepsy. She is back on Keppra since 1-2 weeks ago by [facility] physician. She is taking 750 [...] - Seizure risk factors: Brain Tumor No BRILLIANDEER LOOPER Infections No Developmental Delay No Family history of seizures No Febrile Seizure No Complications No Stroke No Traumatic Brain Injury No Previous Epilepsy Evaluations Impression: Review of records for Migdalia Zurita, a 32 year old female, being referred by Angeles Bryant PA-C [[facility] Neurology] to Any Epileptologist for further evaluation and treatment. Patient has previously diagnosed seizure like activity. EEG from 2008 reported generalized findings. MRI from 2 (more content not included)...[facility]03-02-2023 Miscellaneous Notes* Telephone Encounter - CHRISTIAN Paulino - 08/20/2022 12:52 PM EST Patient has an appointment set up with a sap manager at [facility] in October. * Telephone Encounter - Misha Cespedes MD - 08/20/2022 8:25 AM EST ASSESSMENT/PLAN: 1. Diarrhea, unspecified type - ICD9: 787.91, ICD10: R19.7 - CONSULT TO GASTROENTEROLOGY Misha Cespedes MD documented in this encounterWestern [facility] Hospital2023 Miscellaneous Notes* Telephone Encounter - Stephy Zazueta LPN - 08/11/2022 1:57 PM EST Forwarded to Dr. Cespedes to review. Stephy Zazueta LPN * Telephone Encounter - Patricia Paredes RN - 08/10/2022 2:41 PM EST Pt called in and reports she can in to hand picker kit for stool sample and provider hasn't put in orders yet. Please call Pt once orders placed. documented in this encounterWestern Reserve Hospital02-15-2023 NoteHNO ID: [id number] Author: Talita Ruby APRN.CLINICAL PARTNER Service: ? Author Type: Nurse Practitioner Type: Progress Notes Filed: 08/05/2022 12:00 PM Note Text: [facility] Review of Records Patient: Migdalia Zurita Address: [address] [place] [address] Impression: Review of records for Migdalia Zurita, a 32 year old female, being referred by Angeles Bryant PA-C [[facility] Neurology] to Any Epileptologist for [...] cyst, migraine, restless leg syndrome PRIOR EVALUATIONS: [facility] [address] [place] [address] EEG ([facility], 04/18/2008): This is an abnormal EEG due to generalized spike and wave abnormalities, consistent with an epileptic abnormality MRI brain wo/w contrast ([facility], 08/22/2021): Normal MRI brain. No pathologic enhancement. No evidence of seizure focus. No cystic lesions identified in the brain. 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 Within the limits the study and amygdala and hippocampal formations are symmetric and normal in appearance. There is no evidence of heterotopic lucero. Sulcation pattern is normal. CAMERON Recommendations: - Admit to [facility] for VEEG monitoring, diagnostic evaluation Location: [facility] [place] - Visit with epileptologist prior to admission - Additional testing to be considered by epilepsy clinicians Signed: Talita Ruby APRN.CLINICAL PARTNER August 05, [address] Mkceon for review and recommendations. MD Recommendations (as discussed with Dr. Mckeon): - Please proceed with the above plan. Please route this encounter to the EMU Scheduling Pool ( P EMU ) or PMU Scheduling Pool ( P PMU ) through LOS AND Follow up PHASE 1.0 AND 1.5 ORDER SYNOPSIS Patient: Migdalia Zurita ([id number]) Best contact number: [phone] Insurance: Payor: [employer] MEDICAID / Plan: [facility] / Product Type: Medicaid / ----- Scheduling Team: Please call for adult patients: Dixie Travis ([phone]) Barbara Triana ([phone]) Roxanne Farias([phone]) Lula De Dios([phone]) Please call for pediatric patients: Barbara Triana ([phone]) Roxanne Farias ([phone]) Dixie Travis ([phone]) Lula De Dios([phone]) ----- 08/05/2022 Admission Type EMU Adult Number of Days requested 4 Location [facility] [place] Admit Priority Routine PURPOSE 08/05/2022 Patient Being [...] for SERINA, please schedule VNS off/on office visits.[facility]02-15-2023 History of Present illness Narrative* Talita Ruby APRN.CLINICAL PARTNER - 08/05/2022 9:12 AM EST [facility] Review of Records Patient: Migdalia Zurita Address: [address] [id number] Impression: Review of records for Migdalia Zurita, a 32 year old female, being referred by Angeles Bryant PA-C [[facility] Neurology] to Any Epileptologist for [...] cyst, migraine, restless leg syndrome PRIOR EVALUATIONS: [address] [place] [address] EEG ([facility], 04/18/2008): This is an abnormal EEG due to generalized spike and wave abnormalities, consistent with an epileptic abnormality MRI brain wo/w contrast ([facility], 08/22/2021): Normal MRI brain. No pathologic enhancement. [...] for VEEG monitoring, diagnostic evaluation Location: [facility] [place] - Visit with epileptologist prior to admission - Additional testing to be considered by epilepsy clinicians Signed: Talita Ruby APRN.CLINICAL PARTNER August 05, [address] Mckeon for review and recommendations. MD Recommendations (as discussed with Dr. Mckeon): - Please proceed with the above plan. Please route this encounter to the EMU Scheduling Pool ( P EMU ) or PMU Scheduling Pool ( P PMU ) through LOS & Follow up PHASE 1.0 AND 1.5 ORDER SYNOPSIS Patient: Migdalia Zurita ([id number]) Best contact number: [phone] Insurance: Payor: [employer]ICA[employer] / Plan: [employer]ICA[employer] / Product Type: Medicaid / Scheduling Team: Please call for adult patients: Dixie Travis ([phone]) Barbara Triana ([phone]) Roxanne Farias([phone]) Lula De Dios([phone]) Please call for pediatric patients: Barbara Triana ([phone]) Roxanne Farias ([phone]) Dixie Travis ([phone]) Lula De Dios([phone]) 08/05/2022 Admission Type EMU Adult Number of Days requested 4 Location [facility] Admit Priority Routine PURPOSE 08/05/2022 Patient [...] VNS off/on office visits. documented in this encounterWestern Reserve Hospital02-13-2023 Miscellaneous Notes* Telephone Encounter - Liz Warner - 08/03/2022 3:46 PM EST 1st attempt. Called patient and left message on to call back and schedule appointment with Dr. Calle. * Telephone Encounter - Charu Garcia MA - 08/03/2022 3:26 PM EST Patient hasn't been seen since 2020. Needs appt w/ Dr Calle. documented in this encounterWestern Reserve Hospital02-13-2023 Miscellaneous Notes* Telephone Encounter - Lula De Dios - 08/03/2022 1:13 PM EST Images from the original note were not included. documented in this encounterWestern Reserve Hospital02-10-2023 NoteHNO ID: [id number] Author: Angeles Bryant PA-C Service: ? Author Type: Physician Lime Boiler Type: Progress Notes Filed: 07/31/2022 12:43 PM Note Text: ESTABLISHED PATIENT VISIT Last visit: 09/04/21 with Jenelle Carson CLINICAL PARTNER G25.81 RLS (restless legs syndrome) (primary encounter [...] of dysuria, freq (more content not included)... [facility]01-30-2023 NoteHNO ID: [id number] Author: Misha Cespedes MD Service: ? Author Type: Physician Type: Progress Notes Filed: 07/20/2022 7:43 PM Note Text: This note was created using [employer]. Subjective Diarrhea is described as nonbloody and [...] as needed. Imodium as needed. Misha Cespedes [facility]01-30-2023 History of Present illness Narrative* Misha Cespedes [...] needed. Misha Cespedes MD documented in this encounterWestern Reserve Hospital01-30-2023 Miscellaneous Notes* Telephone Encounter - Stephy Zazueta LPN - 07/20/2022 12:25 PM EST Patient scheduled appt using ShinyBytehart. Stephy Zazueta LPN * Telephone Encounter - Carola Blandon APRN.CNP - 07/20/2022 11:52 AM EST Patient needs to be seen, either Express Care or office visit. Not appropriate for virtual visit Carola Blandon APRN.CNP documented in this encounterWestern Reserve Hospital01-27-2023 NoteHNO ID: [id number] Author: Beverly Babin APRN.CNP Service: ? Author Type: Nurse Practitioner Type: Progress Notes Filed: 07/17/2022 10:19 AM Note Text: Freelance Director offered: Patient declines. Migdalia is a 32 [...] No Last Pap: 2019 normal at [facility] HPV: 2019 negative History of abnormal pap: No Last mammogram: Yes, lumpy breasts Sexually active: No History of STDS: chlamydia and trichomonas Patient concerns for STD exposure: No. 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 Reviewed instructi (more content not included)...[facility] 07-17-2022 Instructions* Patient Instructions* Beverly Babin APRN.CNP - 07/17/2022 10:07 AM EST Insert Nuvaring Wednesday after you start your next menses. documented in this encounterWestern Reserve Hospital01-27-2023 History of Present illness Narrative* Beverly Babin APRN.CNP - 07/17/2022 9:21 AM EST Freelance Director offered: Patient declines. Migdalia is a 32 [...] vaccine: No Last Pap: 2019 normal at [facility] HPV: 2019 negative History of abnormal pap: No Last mammogram: Yes, lumpy breasts Sexually active: No History of STDS: chlamydia and trichomonas Patient concerns for STD exposure: No. Time with current partner: 11 years Pain with intercourse: No Postcoital bleeding: No OB History T4 L4 SAB2 IAB0 Ectopic1 Multiple0 Live Births1 Groundskeeper Supervisor History LMP: 09/01/2021 (Approximate), Having periods Age at Menarche: Age at First : Age at Menopause: Groundskeeper Supervisor History Comments: Sexual Activity: Yes; Male Contraception: [...] external genitalia normal, normal Bartholin's glands, urethra, [place]'s glands, no vulvar lesions, no cervical lesions, [...] needed Beverly Babin APRN.DEREK documented in this encounterWestern Reserve Hospital01-24-2023 NoteHNO ID: [id number] Author: Misha Cespedes MD Service: ? Author Type: Physician Type: Progress Notes Filed: 07/14/2022 12:40 PM Note Text: This note was created using NoteWriter. Subjective [...] ICD9: 278.00, ICD10: E66.9 Weight decreasing Misha Cespedes, [facility]01-24-2023 History of Present illness Narrative* Misha Cespedes MD - 07/14/2022 11:56 AM EST This note was created using [employer]. Subjective Migdalia Zurita is a 32 year [...] decreasing Misha Cespedes MD documented in this encounterWestern Reserve Hospital01-24-2023 Miscellaneous Notes* Telephone Encounter - Tiff Medrano LPN - 07/14/2022 8:05 AM EST Patient scheduled 07/14/22 at 11:40am. documented in this encounterWestern Reserve Hospital10-19-2022 Miscellaneous Notes* Telephone Encounter - Vic [...] pended. Nicole Rushing RN documented in this encounterWestern Reserve Hospital08-01-2022 Miscellaneous Notes* Telephone Encounter - Arnel Vail Ma - 01/19/2022 9:56 AM EDT MARY: 11/11/2021 Last refill: 04/14/2021 QTY: 90 Refills: 5 documented in this encounterWestern Reserve Hospital06-03-2022 Miscellaneous Notes* Telephone Encounter - Harper Myles RN - 11/21/2021 11:42 AM EDT Ambulatory Pharmacy Prior Authorization Note Provider Intervention Required?: No- Pharmacy completed on your behalf. Drug: AJOVY (fremanezumab-vfrm) injection 225MG/1.5ML auto-injectors Cover My Meds Posey: COLT Determination: Approved Prior Authorization/Case #: [id number] Prior Authorization Expiration: 05/22/22 Time to PA [...] refills. Prescriptions will now be processed through [facility] for determination of next steps. For questions relating to this submission, please contact [facility] [phone] * Telephone Encounter - Harper Myles RN - 11/20/2021 1:31 PM EDT [facility] received prescription(s) for AJOVY (fremanezumab-vfrm) injection 225MG/1.5ML auto-injectors . Benefits investigation was conducted, indicating that a prior authorization is required. PA was initiated and pending review through [employer]. All pertinent clinical information was submitted to insurance. [facility] Posey: COLT Ordering Provider: Heaven Reyes APRN.CLINICAL PARTNER Harper Myles RN [facility] P: , F: documented in this encounterWestern Reserve Hospital05-25-2022 History of Present illness Narrative* Cody [...] PA-C November 12, 2021 documented in this encounterWestern Reserve Hospital05-10-2022 Miscellaneous Notes* Telephone Encounter - Heaven Reyes APRN.DEREK - 10/28/2021 1:26 PM EDT We will [...] lead toMedication Overuse Headache: Sumatriptan- ineffective Rizatriptan Nurtec- ineffective * Telephone Encounter - Bridget Babin RN - 10/28/2021 9:25 AM EDT Called patient to discuss her medications. Left generic message on non- identifying voicemail to return call or send Owlin message. Jennifer Babin RN * Telephone Encounter - Bridget Babin RN - 10/27/2021 10:28 AM EDT Patient asking to try a different medication. Jennifer Babin RN documented in this encounterWestern Reserve Hospital04-26-2022 Miscellaneous Notes* Telephone Encounter - Arnel Vail Ma - 10/14/2021 9:36 AM EDT Patient notified and taken to medical records/mail distributor as requested. Arnel Yared Ma * Telephone Encounter - Misha Cespedes MD - 10/13/2021 4:01 PM EDT Letter printed. documented in this encounterWestern Reserve Hospital04-26-2022 Miscellaneous Notes* Telephone Encounter - Cheli Souza LPN - 10/14/2021 8:56 AM EDT Kristen with [facility] called for copy of MRI of brain on pt. Identified pt with name and dateof . Fax number [phone]. Done. Cheli Souza LPN documented in this encounterWestern Reserve Hospital04-13-2022 Miscellaneous Notes* Telephone Encounter - Beverly [...] the patient another voice message to call [phone] so we can help get her appointments scheduled. * Telephone Encounter - Beverly Rucker Pss - 09/23/2021 12:22 PM EDT Left the patient voice message that the [place] location only has one time for an EEG Long test. Previously the patient stated she wanted her test done at [facility]. The message was requesting the patient to call the office for clarification. * Telephone Encounter - Cheli Souza LPN - 09/23/2021 10:51 AM EDT Pt calling and states she tried to schedule an EEG in [place] and per pt was told 10-16-21 at [...] do. Cheli Souza LPN documented in this encounterWestern Reserve Hospital04-07-2022 Instructions* Patient Instructions* Heaven Reyes APRN.CLINICAL PARTNER - 09/25/2021 1:55 PM EDT 1. Preventative: [...] Feverfew: Feverfew is a common garden herb [place] to [place] and popular in [place] [...] pepperoni, Pickled martinez Pods of broad sanford (Croatian beans, Danish pea pods, Indonesian (janay) beans, scott and navy beans Ripe [...] too muchlight. These can be obtained at [employer] or [employer]: see list above. 2. Limit use of acute treatments (cqaa-kfy-gsaoypu medications, triptans, etc.) to no more than [...] and quiet environment. Relax and reduce stress. Bdhtvnh6Elzkz is a free cameron that can instruct you on some simple relaxtionand breathing techniques. Http://Twingly is a free website that provides teaching [...] and will be handling your phone calls, Owlin Messages and inquiries, if any. Unless explicitly told otherwise at the time of your office visit, your study results and ensuing treatment plans will be released via Owlin and discussed during your follow-up appointment. Owlin: Please ask the schedulers to give you an activation code. The main way of communication isby Owlin rather than phone lines, so if you have not signed up, please do so. Owlin is also theway that you can review your labs and testing. We are not able to contact everyone to tell them results are normal. If you do not hear back from us regarding testing you have had, it should be considered normal or within normal range. If you have any questions about the results, you are free to message us. ShinyBytehart is meant for simple questions regarding medications, possible side effects, or other simplestraight forward questions in limited sentences, rather than multiple paragraphs of discussion. Shiny[employer]hart is not meant for, or efficient for [...] do not comment on most testing on Luluhart in a message or commentary unless there [...] you with this process. documented in this encounterWestern Reserve Hospital04-07-2022 History of Present illness Narrative* Heaven Reyes APRN.CLINICAL PARTNER - 09/25/2021 1:26 PM EDT Images from the original note were not included. [facility] New Patient visit CC: [...] 5/5biceps, 5/5 wrist extension, and 5/5 hand fish cleaner. Finger extensor 5/5. Finger flexor 5/5. Pronation [...] jerk and symmetric Coordination: Finger-to- nose-finger and vzvc-vi-skek intact bilaterally. No ataxia of arms. No [...] which included preparing to see the patient, waki-ib-apxt patient care, completing clinical documentation, obtaining and/or reviewing separately obtained history, performing a medically appropriate examination, counseling and educating the pat ient/family/caregiver, and ordering medications, tests, or procedures. Heaven Reyes APRN.CNP General Neurology [address] [place]. [address] Appointment: [phone] documented in this encounterWestern Reserve Hospital04-05-2022 Miscellaneous Notes* Telephone Encounter - Beverly Rucker Pss - 09/23/2021 10:42 AM EDT Called the patient to go after-visit summary to instruct what appointments need to be scheduled. The patient will call [phone] to schedule the appointments for headache, epilepsy, EEG, and follow-up with the provider. The patient would like her EEG done at the [facility]. The patient will call and schedule the EEG and have the hospital fax the office to request the order. documented in this encounterWestern Reserve Hospital03-17-2022 History of Present illness Narrative* Jenelle Carson APRN.CNP - 09/04/2021 3:30 PM EDT Images from the original note were not included. [facility] [place] Follow-up Visit Follow-up note September 04, 2021 [...] showing up on PDMP but confirmed with Asya Barrera by phone. If no improvement with above, [...] cover the test. Had tried going through [facility] but was denied. Still having low back [...] but states she never got medication from [employer]. States she only received Keppra. However, later [...] appointment scheduled with epilepsy clinic for middle of September. Considering extended EEG. Per epilepsy on 08/05/21: CAN CLEANER Recommendations: - Admit to EMU for VEEG monitoring, diagnostic evaluation Location: main campus - Visit with epileptologist prior to admission - Brain MRI was ordered by Dr. Jimenez, scheduled for 08/08/2021 - Additional testing to be considered by epilepsy clinicians Signed: Lashonda Newby APRN.CLINICAL PARTNER August 05, [address] Mckeon for review and recommendations. Recommendations (as discussed with Dr. Mckeon): Long EEG Visit with Dr Gutierrez or Dr Zavaleta PAST MEDICAL HISTORY Diagnosis Date Abnormal Pap smear 10/21/2009 LGSIL Anemia in 12/24/2011 Continue daily folate and Fe Monitor H/H Depressive disorder, not elsewhere classified 09/02/2007 Hx overdose Intracranial arachnoid cysts 2008 Migraine 1997 NSVT [...] CLINIC CONSULT TO PHYSICAL THERAPY Jenelle Carson APRN.CLINICAL PARTNER I spent a total of 45 minutes on the date of the service which included preparing to see the patient, koab-ow-dvzq patient care, completing clinical documentation, obtaining and/or reviewing separately obtained history, performing a medically appropriate examination, counseling and educating the pat ient/family/caregiver and ordering medications, tests, or procedures. documented in this encounterWestern Reserve Hospital06-26-2020 History of Past illness Narrative* Problem [...] LMP c/w 19 wk US) transferred from [place] ED for evaluation of NSVT. Patient reports [...] to 234 BPM. TTE completed at the [facility] on 02/02/12 showed EF 55-60%, trivial MR, trivial TR, trivial -1+ PI. She was instructed to present to her local ED. She is transferred to [facility] for further evaluation. Pre-syncope 02/04/2012 08/14/2015 Pre-syncope 02/04/2012 02/05/2012 Anemia in 12/24/2011 09/03/2015 Overview: Continue daily folate and Fe Monitor H/H Quit smoking 12/21/2011 08/14/2015 Overview: 12/20 - no tobacco since 08/19/11 - [facility] HIGH RISK NEC [V23.89] 2 07/14/2013 Overview: outside maintenance worker has been consulted and will also follow patient Plan: - monitoring per C[employer]CUER. Backache, unspecified 07/29/2010 08/14/2015 Complete spontaneous abortio [...] of this encounter (statuses as of 09/09/2021) [facility] History of Past illness Narrative* Problem [...] LMP c/w 19 wk US) transferred from [place] [facility] for evaluation of NSVT. Patient reports [...] to 234 BPM. TTE completed at the [facility] on 02/02/12 showed EF 55-60%, trivial MR, trivial TR, trivial -1+ PI. She was instructed to present to her local ED. She is transferred to [facility] for further evaluation. Pre-syncope 02/04/2012 08/14/2015 Pre-syncope 02/04/2012 02/05/2012 Anemia in 12/24/2011 09/03/2015 Overview: Continue daily folate and Fe Monitor H/H Quit smoking 12/21/2011 08/14/2015 Overview: 7/2 - no tobacco since 08/19/11 - [facility] HIGH RISK NEC [V23.89] 2 07/14/2013 Overview: outside maintenance worker has been consulted and will also follow patient Plan: - monitoring per C[employer]. Backache, unspecified 07/29/2010 08/14/2015 Complete spontaneous abortio [...] of this encounter (statuses as of 09/23/2021) [facility] History of Past illness Narrative* Problem [...] LMP c/w 19 wk US) transferred from [place] [facility] for evaluation of NSVT. Patient reports [...] to 234 BPM. TTE completed at the [facility] on 02/02/12 showed EF 55-60%, trivial MR, trivial TR, trivial -1+ PI. She was instructed to present to her local ED. She is transferred to [facility] for further evaluation. Pre-syncope 02/04/2012 08/14/2015 Pre-syncope 02/04/2012 02/05/2012 Anemia in 12/24/2011 09/03/2015 Overview: Continue daily folate and Fe Monitor H/H Quit smoking 12/21/2011 08/14/2015 Overview: 12/20 - no tobacco since 08/19/11 - [facility] HIGH RISK NEC [V23.89] 2 07/14/2013 Overview: outside maintenance worker has been consulted and will also follow patient Plan: - monitoring per C[employer] RESCUER. Backache, unspecified 07/29/2010 08/14/2015 Complete spontaneous abortio [...] of this encounter (statuses as of 10/01/2021) [facility] History of Past illness Narrative* Problem [...] LMP c/w 19 wk US) transferred from [place] [facility] for evaluation of NSVT. Patient reports [...] to 234 BPM. TTE completed at the [facility] on 02/02/12 showed EF 55-60%, trivial MR, trivial TR, trivial -1+ PI. She was instructed to present to her local ED. She is transferred to [facility] [place] for further evaluation. Pre-syncope 02/04/2012 08/14/2015 Pre-syncope 02/04/2012 02/05/2012 Anemia in 12/24/2011 09/03/2015 Overview: Continue daily folate and Fe Monitor H/H Quit smoking 12/21/2011 08/14/2015 Overview: 7/2 - no tobacco since 08/19/11 - [facility]IGH RISK NEC [V23.89] 2 07/14/2013 Overview: outside maintenance worker has been consulted and will also follow patient Plan: - monitoring per C[employer] RESCUER. Backache, unspecified 07/29/2010 08/14/2015 Complete spontaneous abortio [...] of this encounter (statuses as of 10/08/2021) [facility] History of Past illness Narrative* Problem [...] LMP c/w 19 wk US) transferred from [place] [facility] for evaluation of NSVT. Patient reports [...] to 234 BPM. TTE completed at the [facility] on 02/02/12 showed EF 55-60%, trivial MR, trivial TR, trivial -1+ PI. She was instructed to present to her local ED. She is transferred to [facility] for further evaluation. Pre-syncope 02/04/2012 08/14/2015 Pre-syncope 02/04/2012 02/05/2012 Anemia in 12/24/2011 09/03/2015 Overview: Continue daily folate and Fe Monitor H/H Quit smoking 12/21/2011 08/14/2015 Overview: 12/20 - no tobacco since 08/19/11 - [facility] HIGH RISK NEC [V23.89] 2 07/14/2013 Overview: outside maintenance worker has been consulted and will also follow patient Plan: - monitoring per C[employer]. Backache, unspecified 07/29/2010 08/14/2015 Complete spontaneous abortio [...] of this encounter (statuses as of 10/14/2021) [facility] History of Past illness Narrative* Problem [...] LMP c/w 19 wk US) transferred from [place] [facility] for evaluation of NSVT. Patient reports [...] to 234 BPM. TTE completed at the [facility] on 02/02/12 showed EF 55-60%, trivial MR, trivial TR, trivial -1+ PI. She was instructed to present to her local ED. She is transferred to [facility] for further evaluation. Pre-syncope 02/04/2012 08/14/2015 Pre-syncope 02/04/2012 02/05/2012 Anemia in 12/24/2011 09/03/2015 Overview: Continue daily folate and Fe Monitor H/H Quit smoking 12/21/2011 08/14/2015 Overview: 7/2 - no tobacco since 08/19/11 - [facility] HIGH RISK NEC [V23.89] 2 07/14/2013 Overview: outside maintenance worker has been consulted and will also follow patient Plan: - monitoring per C[employer] RESCUER. Backache, unspecified 07/29/2010 08/14/2015 Complete spontaneous abortio [...] of this encounter (statuses as of 10/14/2021) [facility] History of Past illness Narrative* Problem [...] LMP c/w 19 wk US) transferred from [place] [facility] for evaluation of NSVT. Patient reports [...] to 234 BPM. TTE completed at the [facility] on 02/02/12 showed EF 55-60%, trivial MR, trivial TR, trivial -1+ PI. She was instructed to present to her local ED. She is transferred to [facility] for further evaluation. Pre-syncope 02/04/2012 08/14/2015 Pre-syncope 02/04/2012 02/05/2012 Anemia in 12/24/2011 09/03/2015 Overview: Continue daily folate and Fe Monitor H/H Quit smoking 12/21/2011 08/14/2015 Overview: 12/20 - no tobacco since 08/19/11 - [facility] HIGH RISK NEC [V23.89] 2 07/14/2013 Overview: outside maintenance worker has been consulted and will also follow patient Plan: - monitoring per C[employer] RESCUER. Backache, unspecified 07/29/2010 08/14/2015 Complete spontaneous abortio [...] of this encounter (statuses as of 10/28/2021) [facility] History of Past illness Narrative* Problem [...] LMP c/w 19 wk US) transferred from [place] [facility] for evaluation of NSVT. Patient reports [...] to 234 BPM. TTE completed at the [facility] on 02/02/12 showed EF 55-60%, trivial MR, trivial TR, trivial -1+ PI. She was instructed to present to her local ED. She is transferred to [facility] for further evaluation. Pre-syncope 02/04/2012 08/14/2015 Pre-syncope 02/04/2012 02/05/2012 Anemia in 12/24/2011 09/03/2015 Overview: Continue daily folate and Fe Monitor H/H Quit smoking 12/21/2011 08/14/2015 Overview: 12/20 - no tobacco since 08/19/11 - [facility] HIGH RISK NEC [V23.89] 2 07/14/2013 Overview: outside maintenance worker has been consulted and will also follow patient Plan: - monitoring per C[employer]CUER. Backache, unspecified 07/29/2010 08/14/2015 Complete spontaneous abortio [...] of this encounter (statuses as of 11/12/2021) [facility] History of Past illness Narrative* Problem [...] LMP c/w 19 wk US) transferred from [place] [facility] for evaluation of NSVT. Patient reports [...] to 234 BPM. TTE completed at the [facility] on 02/02/12 showed EF 55-60%, trivial MR, trivial TR, trivial -1+ PI. She was instructed to present to her local ED. She is transferred to [facility] for further evaluation. Pre-syncope 02/04/2012 08/14/2015 Pre-syncope 02/04/2012 02/05/2012 Anemia in 12/24/2011 09/03/2015 Overview: Continue daily folate and Fe Monitor H/H Quit smoking 12/21/2011 08/14/2015 Overview: 12/20 - no tobacco since 08/19/11 - [facility] HIGH RISK NEC [V23.89] 2 07/14/2013 Overview: outside maintenance worker has been consulted and will also follow patient Plan: - monitoring per C[employer] RESCUER. Backache, unspecified 07/29/2010 08/14/2015 Complete spontaneous abortio [...] of this encounter (statuses as of 11/21/2021) [facility] History of Past illness Narrative* Problem [...] LMP c/w 19 wk US) transferred from [place] [facility] for evaluation of NSVT. Patient reports [...] to 234 BPM. TTE completed at the [facility] on 02/02/12 showed EF 55-60%, trivial MR, trivial TR, trivial -1+ PI. She was instructed to present to her local ED. She is transferred to [facility] for further evaluation. Pre-syncope 02/04/2012 08/14/2015 Pre-syncope 02/04/2012 02/05/2012 Anemia in 12/24/2011 09/03/2015 Overview: Continue daily folate and Fe Monitor H/H Quit smoking 12/21/2011 08/14/2015 Overview: 12/20 - no tobacco since 08/19/11 - [facility] HIGH RISK NEC [V23.89] 2 07/14/2013 Overview: outside maintenance worker has been consulted and will also follow patient Plan: - monitoring per C[employer] RESCUER. Backache, unspecified 07/29/2010 08/14/2015 Complete spontaneous abortio [...] of this encounter (statuses as of 01/20/2022) [facility] of Past illness Narrative* Problem [...] LMP c/w 19 wk US) transferred from [place] [facility] for evaluation of NSVT. Patient reports [...] to 234 BPM. TTE completed at the [facility] on 02/02/12 showed EF 55-60%, trivial MR, trivial TR, trivial -1+ PI. She was instructed to present to her local ED. She is transferred to [facility] for further evaluation. Pre-syncope 02/04/2012 08/14/2015 Pre-syncope 02/04/2012 02/05/2012 Anemia in 12/24/2011 09/03/2015 Overview: Continue daily folate and Fe Monitor H/H Quit smoking 12/21/2011 08/14/2015 Overview: 12/20 - no tobacco since 08/19/11 - [facility] HIGH RISK NEC [V23.89] 2 07/14/2013 Overview: outside maintenance worker has been consulted and will also follow patient Plan: - monitoring per C[employer] RESCUER. Backache, unspecified 07/29/2010 08/14/2015 Complete spontaneous abortio [...] of this encounter (statuses as of 04/08/2022) [facility] History of Past illness Narrative* Problem [...] LMP c/w 19 wk US) transferred from [place] [facility] for evaluation of NSVT. Patient reports [...] to 234 BPM. TTE completed at the [facility] on 02/02/12 showed EF 55-60%, trivial MR, trivial TR, trivial -1+ PI. She was instructed to present to her local ED. She is transferred to [facility] for further evaluation. Pre-syncope 02/04/2012 08/14/2015 Pre-syncope 02/04/2012 02/05/2012 Anemia in 12/24/2011 09/03/2015 Overview: Continue daily folate and Fe Monitor H/H Quit smoking 12/21/2011 08/14/2015 Overview: 7 - no tobacco since 08/19/11 - [facility] HIGH RISK NEC [V23.89] 2 07/14/2013 Overview: outside maintenance worker has been consulted and will also follow patient Plan: - monitoring per CORE RESCUER. Backache, unspecified 07/29/2010 08/14/2015 Complete spontaneous abortio [...] of this encounter (statuses as of 07/14/2022) [facility] History of Past illness Narrative* Problem [...] LMP c/w 19 wk US) transferred from [place] [facility] for evaluation of NSVT. Patient reports [...] to 234 BPM. TTE completed at the [facility] on 02/02/12 showed EF 55-60%, trivial MR, trivial TR, trivial -1+ PI. She was instructed to present to her local ED. She is transferred to [facility] for further evaluation. Pre-syncope 02/04/2012 08/14/2015 Pre-syncope 02/04/2012 02/05/2012 Anemia in 12/24/2011 09/03/2015 Overview: Continue daily folate and Fe Monitor H/H Quit smoking 12/21/2011 08/14/2015 Overview: 12/20 - no tobacco since 08/19/11 - [facility] HIGH RISK NEC [V23.89] 2 07/14/2013 Overview: outside maintenance worker has been consulted and will also follow patient Plan: - monitoring per CORE RESCUER. Backache, unspecified 07/29/2010 08/14/2015 Complete spontaneous abortio [...] of this encounter (statuses as of 07/14/2022) [facility] of Past [facility] Narrative* Problem [...] LMP c/w 19 wk US) transferred from [place] [facility] for evaluation of NSVT. Patient reports [...] to 234 BPM. TTE completed at the [facility] on 02/02/12 showed EF 55-60%, trivial MR, trivial TR, trivial -1+ PI. She was instructed to present to her local ED. She is transferred to [facility] for further evaluation. Pre-syncope 02/04/2012 08/14/2015 Pre-syncope 02/04/2012 02/05/2012 Anemia in 12/24/2011 09/03/2015 Overview: Continue daily folate and Fe Monitor H/H Quit smoking 12/21/2011 08/14/2015 Overview: 12/20 - no tobacco since 08/19/11 - [facility] HIGH RISK NEC [V23.89] 2 07/14/2013 Overview: outside maintenance worker has been consulted and will also follow patient Plan: - monitoring per CORE RESCUER. Backache, unspecified 07/29/2010 08/14/2015 Complete spontaneous abortio [...] of this encounter (statuses as of 07/17/2022) [facility] History of Past illness Narrative* Problem [...] LMP c/w 19 wk US) transferred from [place] [facility] for evaluation of NSVT. Patient reports [...] to 234 BPM. TTE completed at the [facility] on 02/02/12 showed EF 55-60%, trivial MR, trivial TR, trivial -1+ PI. She was instructed to present to her local ED. She is transferred to [facility] for further evaluation. Pre-syncope 02/04/2012 08/14/2015 Pre-syncope 02/04/2012 02/05/2012 Anemia in 12/24/2011 09/03/2015 Overview: Continue daily folate and Fe Monitor H/H Quit smoking 12/21/2011 08/14/2015 Overview: 12/20 - no tobacco since 08/19/11 - [facility] HIGH RISK NEC [V23.89] 2 07/14/2013 Overview: outside maintenance worker has been consulted and will also follow patient Plan: - monitoring per CORE RESCUER. Backache, unspecified 07/29/2010 08/14/2015 Complete spontaneous abortio [...] of this encounter (statuses as of 07/20/2022) [facility] of Past [facility] Narrative* Problem [...] LMP c/w 19 wk US) transferred from [place] [facility] for evaluation of NSVT. Patient reports [...] to 234 BPM. TTE completed at the [facility] on 02/02/12 showed EF 55-60%, trivial MR, trivial TR, trivial -1+ PI. She was instructed to present to her local ED. She is transferred to [facility] for further evaluation. Pre-syncope 02/04/2012 08/14/2015 Pre-syncope 02/04/2012 02/05/2012 Anemia in 12/24/2011 09/03/2015 Overview: Continue daily folate and Fe Monitor H/H Quit smoking 12/21/2011 08/14/2015 Overview: 12/20 - no tobacco since 08/19/11 - [facility] HIGH RISK NEC [V23.89] 2 07/14/2013 Overview: outside maintenance worker has been consulted and will also follow patient Plan: - monitoring per CORE RESCUER. Backache, unspecified 07/29/2010 08/14/2015 Complete spontaneous abortio [...] of this encounter (statuses as of 07/21/2022) [facility] Past [facility] Narrative* Problem [...] LMP c/w 19 wk US) transferred from [place] [facility] for evaluation of NSVT. Patient reports [...] to 234 BPM. TTE completed at the [facility] on 02/02/12 showed EF 55-60%, trivial MR, trivial TR, trivial -1+ PI. She was instructed to present to her local ED. She is transferred to [facility] for further evaluation. Pre-syncope 02/04/2012 08/14/2015 Pre-syncope 02/04/2012 02/05/2012 Anemia in 12/24/2011 09/03/2015 Overview: Continue daily folate and Fe Monitor H/H Quit smoking 12/21/2011 08/14/2015 Overview: 7/ - no tobacco since 08/19/11 - [facility] HIGH RISK NEC [V23.89] 2 07/14/2013 Overview: outside maintenance worker has been consulted and will also follow patient Plan: - monitoring per CORE RESCUER. Backache, unspecified 07/29/2010 08/14/2015 Complete spontaneous abortio [...] of this encounter (statuses as of 08/03/2022) [facility] Past [facility] Narrative* Problem [...] LMP c/w 19 wk US) transferred from [place] [facility] for evaluation of NSVT. Patient reports [...] to 234 BPM. TTE completed at the [facility] on 02/02/12 showed EF 55-60%, trivial MR, trivial TR, trivial -1+ PI. She was instructed to present to her local ED. She is transferred to [facility] for further evaluation. Pre-syncope 02/04/2012 08/14/2015 Pre-syncope 02/04/2012 02/05/2012 Anemia in 12/24/2011 09/03/2015 Overview: Continue daily folate and Fe Monitor H/H Quit smoking 12/21/2011 08/14/2015 Overview: 12/20 - no tobacco since 08/19/11 - [facility] HIGH RISK NEC [V23.89] 2 07/14/2013 Overview: outside maintenance worker has been consulted and will also follow patient Plan: - monitoring per CORE RESCUER. Backache, unspecified 07/29/2010 08/14/2015 Complete spontaneous abortio [...] of this encounter (statuses as of 08/04/2022) [facility] Narrative* Problem [...] LMP c/w 19 wk US) transferred from [place] [facility] for evaluation of NSVT. Patient reports [...] to 234 BPM. TTE completed at the [facility] on 02/02/12 showed EF 55-60%, trivial MR, trivial TR, trivial -1+ PI. She was instructed to present to her local ED. She is transferred to [facility] [place] for further evaluation. Pre-syncope 02/04/2012 08/14/2015 Pre-syncope 02/04/2012 02/05/2012 Anemia in 12/24/2011 09/03/2015 Overview: Continue daily folate and Fe Monitor H/H Quit smoking 12/21/2011 08/14/2015 Overview: 7/ - no tobacco since 08/19/11 - [facility] HIGH RISK NEC [V23.89] 2 07/14/2013 Overview: outside maintenance worker has been consulted and will also follow patient Plan: - monitoring per CORE RESCUER. Backache, unspecified 07/29/2010 08/14/2015 Complete spontaneous abortio [...] of this encounter (statuses as of 08/05/2022) [facility] Narrative* Problem [...] LMP c/w 19 wk US) transferred from [place] [facility] for evaluation of NSVT. Patient reports [...] to 234 BPM. TTE completed at the [facility] on 02/02/12 showed EF 55-60%, trivial MR, trivial TR, trivial -1+ PI. She was instructed to present to her local ED. She is transferred to [facility] for further evaluation. Pre-syncope 02/04/2012 08/14/2015 Pre-syncope 02/04/2012 02/05/2012 Anemia in 12/24/2011 09/03/2015 Overview: Continue daily folate and Fe Monitor H/H Quit smoking 12/21/2011 08/14/2015 Overview: 12/20 - no tobacco since 08/19/11 - [facility] HIGH RISK NEC [V23.89] 2 07/14/2013 Overview: outside maintenance worker has been consulted and will also follow patient Plan: - monitoring per CORE RESCUER. Backache, unspecified 07/29/2010 08/14/2015 Complete spontaneous abortio [...] of this encounter (statuses as of 08/08/2022) [facility] Narrative* Problem [...] LMP c/w 19 wk US) transferred from [place] [facility] for evaluation of NSVT. Patient reports [...] to 234 BPM. TTE completed at the [facility] on 02/02/12 showed EF 55-60%, trivial MR, trivial TR, trivial -1+ PI. She was instructed to present to her local ED. She is transferred to [facility] for further evaluation. Pre-syncope 02/04/2012 08/14/2015 Pre-syncope 02/04/2012 02/05/2012 Anemia in 12/24/2011 09/03/2015 Overview: Continue daily folate and Fe Monitor H/H Quit smoking 12/21/2011 08/14/2015 Overview: 12/20 - no tobacco since 08/19/11 - [facility] [V23.89] 2 07/14/2013 Overview: outside maintenance worker has been consulted and will also follow patient Plan: - monitoring per CORE RESCUER. Backache, unspecified 07/29/2010 08/14/2015 Complete spontaneous abortio [...] of this encounter (statuses as of 08/08/2022) [facility] Narrative* Problem [...] LMP c/w 19 wk US) transferred from [place] [facility] for evaluation of NSVT. Patient reports [...] to 234 BPM. TTE completed at the [facility] on 02/02/12 showed EF 55-60%, trivial MR, trivial TR, trivial -1+ PI. She was instructed to present to her local ED. She is transferred to [facility] for further evaluation. Pre-syncope 02/04/2012 08/14/2015 Pre-syncope 02/04/2012 02/05/2012 Anemia in 12/24/2011 09/03/2015 Overview: Continue daily folate and Fe Monitor H/H Quit smoking 12/21/2011 08/14/2015 Overview: 12/20 - no tobacco since 08/19/11 - [facility] HIGH RISK NEC [V23.89] 2 07/14/2013 Overview: outside maintenance worker has been consulted and will also follow patient Plan: - monitoring per C[employer] RESCUER. Backache, unspecified 07/29/2010 08/14/2015 Complete spontaneous abortio [...] of this encounter (statuses as of 08/11/2022) [facility] Narrative* Problem Noted Date Resolved Date Acute pain of left knee 12/15/2019 08/30/19 Acute pain of right knee 12/15/2019 021 Dysuria 09/09/2018 08/28/2021 Obesity, Class II, BMI 35-39.9 09/09/2018 0 08/28/2021 Moderate persistent asthma with acute exacerbati on 02/28/2016 12/16/2017 Mastodynia, female 09/25/2015 08/28/2021 SUMMARY 02/05/2012 08/14/2015 Overview: Ms. Zurita is a 21 year old female (, EGA 33w4d, JOSIE 03/21/2012, LMP c/w 19 wk US) transferred from [place] [facility] for evaluation of NSVT. Patient reports [...] to 234 BPM. TTE completed at the [facility] on 02/02/12 showed EF 55-60%, trivial MR, trivial TR, trivial -1+ PI. She was instructed to present to her local ED. She is transferred to [facility] for further evaluation. Pre-syncope 02/04/2012 08/14/2015 Pre-syncope 02/04/2012 02/05/2012 Anemia in 12/24/2011 09/03/2015 Overview: Continue daily folate and Fe Monitor H/H Quit smoking 12/21/2011 08/14/2015 Overview: 7/2 - no tobacco since 08/19/11 - [facility] HIGH RISK NEC [V23.89] 2 07/14/2013 Overview: outside maintenance worker has been consulted and will also follow patient Plan: - monitoring per CORE RESCUER. Backache, unspecified 07/29/2010 08/14/2015 Complete spontaneous abortio [...] of this encounter (statuses as of 08/20/2022) [facility] [place] [facility] Diagnosis RLS (restless legs syndrome)- Primary Restless legs syndrome (RLS) Lumbosacral radiculopathy Thoracic or lumbosacral neuritis or radiculitis, unspecified Chronic intractable headache, unspecified headache type Cerebral cysts 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 status epilepticus, unspecified epilepsy type (HCC) Lumbar pain Lumbago [facility] Chronic intractable headache, unspecified headache type [facility] [place] [facility] Diagnosis Migraine without aura and without status migrainosus, not intractable Migraine without aura, without mention of intractable migraine without mention of status migrainosus RLS (restless legs syndrome) Restless legs syndrome (RLS) [facility] [place] [facility] Diagnosis Chronic pain of left knee- [...] 30-34.9 Obesity, unspecified [facility] [place] [facility] Diagnosis Encounter for gynecological examination with [...] human papillomavirus (HPV) [facility] [place] [facility] Diagnosis Viral gastroenteritis- Primary Intestinal infection due to other organism, not elsewhere classified [facility] Diagnosis Seizure disorder (HCC)- Primary Unspecified epilepsy without mention of intractable epilepsy [facility] [place] [facility] Diagnosis Diarrhea, unspecified type- Primary [facility] [place] [facility] Diagnosis Diarrhea, unspecified type- Primary [facility]* Diagnosis Seizures (HCC)- Primary Other convulsions [facility] [place] [facility]* Diagnosis Avulsion fracture of tibial tuberosity- Primary Chronic pain of left knee Pain in joint, lower leg Loose body in knee, left knee [facility] Diagnosis NSVT (nonsustained ventricular tachycardia)- Primary Paroxysmal ventricular tachycardia Essential hypertension Unspecified essential hypertension Palpitations [facility] [place] [facility]* Diagnosis Anxiety- Primary Anxiety state, unspecified [facility] Diagnosis NSVT (nonsustained ventricular tachycardia) (HCC)- Primary Paroxysmal ventricular tachycardia [facility] Diagnosis NSVT (nonsustained ventricular tachycardia) (HCC)- Primary Paroxysmal ventricular tachycardia [facility]* Diagnosis Acute medial meniscus tear of left knee, subsequent encounter- Primary [facility] [place] [facility]* Diagnosis RLS (restless legs syndrome)- Primary Restless legs syndrome (RLS) Migraine without aura and without status migrainosus, not intractable Migraine without aura, without mention of intractable migraine without mention of status migrainosus [facility] Diagnosis NSVT (nonsustained ventricular tachycardia) (HCC)- Primary Paroxysmal ventricular tachycardia Essential hypertension Unspecified essential hypertension Palpitations [facility]* Diagnosis Anxiety and depression- Primary Dysthymic disorder RLS (restless legs syndrome) Restless legs syndrome (RLS) Migraine without aura and without status migrainosus, not intractable Migraine without aura, without mention of intractable migraine without mention of status migrainosus Obesity, Class I, BMI 30-34.9 Obesity, unspecified Acute medial meniscus tear of right knee, initial encounter [facility] [place] [facility]* Diagnosis Bucket-handle tear of medial meniscus of left knee as current injury, subsequent encounter- Primary Acute medial meniscus tear of right knee, initial encounter Acute medial meniscus tear of right knee, initial encounter [facility] Diagnosis Pre-operative examination- Primary Preoperative examination, [...] knee, initial encounter [facility] [place] [facility]* Diagnosis Functional diarrhea- Primary Nausea vomiting and diarrhea chronic Diarrhea Acute medial meniscus tear of right knee, initial encounter [facility] Diagnosis Acute medial meniscus tear of right knee, initial encounter- Primary [facility]* Diagnosis Anxiety and depression Dysthymic disorder [facility]* Diagnosis Impacted cerumen of right ear- Primary Impacted cerumen [facility]* Diagnosis Acute medial meniscus tear of right knee, subsequent encounter- Primary [facility] [place] [facility]* Diagnosis Acute medial meniscus tear of right knee, subsequent encounter- Primary [facility] Diagnosis Chronic pain of right knee- Primary [facility] [place] [facility] Diagnosis Right hand pain- Primary Pain in limb [facility] [place] [facility]* Diagnosis Numbness of right hand- Primary [facility] [place] [facility]* Diagnosis Anxiety and depression Dysthymic disorder documented in this encounter [facility] note* Diagnosis Anxiety and depression- Primary Dysthymic disorder RLS (restless legs syndrome) Restless legs syndrome (RLS) Migraine without aura and without status migrainosus, not intractable Migraine without aura, without mention of intractable migraine without mention of status migrainosus Difficulty controlling anger Need for COVID-19 vaccine Weight gain Abnormal weight gain [facility] [place] [facility]* Diagnosis Symptomatic PVCs- Primary Other premature beats [facility] [place] [facility]* Diagnosis Episodic lightheadedness- Primary Dizziness and giddiness Anxiety and depression Dysthymic disorder Tobacco use Tobacco use disorder Difficulty controlling anger documented in this encounter [facility] note* Diagnosis Major depressive disorder, recurrent episode, moderate (HCC)- Primary Major depressive disorder, recurrent episode, moderate [facility] Outpatient Procedure (Routine) - Pending Review Specialty Diagnoses / Procedures Referred By Diego quintana Referred To Contact [facility] [place] Diagnoses Seizure disorder (HCC) Procedures EPIL EEG LEAD PLACEMENT EEG EXTENDED MONITORING 61-119 MINUTES ELECTROENCEPHALOGRAM REC COMA/SLEEP ONLY Talita Ruby APRN.CNP [address] [place] [address] [place] [address] Referral ID Status Reason Start Date Expiration Date Visits Requested Visits Authorized [id number] Pending Review Auto-Generat ed Referral 08/05/2022 08/05/2023 1 1 [facility] Outpatient Procedure (Routine) - Pending Review Specialty Diagnoses / Procedures Referred By Contac t Referred To Contact [facility] [place] Diagnoses Seizures (HCC) Procedures EPIL AMBULATORY EEG EEG COMPLETE STD PHYS/QHP&GT;84 HR W/O VID Phoenix Zavaleta MD [address] [facility] [address] [place] [address] [address] Referral ID Status Reason Start Date Expiration Date Visits Requested Visits Authorized [id number] Pending Review Auto-Generat ed Referral 08/27/2022 08/28/2023 1 1 * Outpatient Procedure (Routine) - Pending Review Specialty Diagnoses / Procedures Referred By Contac t Referred To Contact [facility] [place] Diagnoses Seizures (HCC) Procedures EPIL EEG ROUTINE ELECTROENCEPHALOGRAM REC COMA/SLEEP ONLY Phoenix Zavaleta MD [address] [facility] - [facility] [address] [place] [address] [place] [address] Referral ID Status Reason Start Date Expiration Date Visits Requested Visits Authorized [id number] Pending Review Auto-Generat ed Referral 08/27/2022 08/28/2023 1 1 [facility] for referral (narrative)* Outpatient Procedure (Routine) - Closed Specialty Diagnoses / Procedures Referred By Contac t Referred To Contact [facility] Diagnoses Pre-operative examination Procedures ECG COMPLETE ECG ROUTINE ECG W/LEAST 12 LDS W/I&R Adilia Contreras APRN.CLINICAL PARTNER [address] [place] [address] [facility] [place] [address] Referral ID Status Reason Start Date Expiration Date V isits Requested Visits Authorized [id number] Closed Auto-Generate d Referral 01/29/2023 01/29/2024 1 1 [facility] for referral (narrative)* Diagnostic Procedure Only (Routine) - Pending Review Specialty Diagnoses / Procedures Referred By Contac t Referred To Contact XR IMAGING Diagnoses Right hand pain Procedures XR HAND GENERAL 3V PA/LAT/OBL RIGHT RADEX HAND MINIMUM 3 VIEWS Paulina Duong PA-C [address] [place] [address] [place] [address] Referral ID Status Reason Start Date Expiration Date Visits Requested Visits Authorized [id number] Pending Review Auto-Generat ed Referral 3 05/12/2024 1 1 [facility] Summary Purpose Family History No Family History Records FoundNo Family History Records FoundNo Family History Records FoundNo Family History Records FoundNo Family History Records Found Advance Directives No Advanced Directives Records FoundDocuments on File Type Date Recorded Patient Guest Experience Specialist Expl anation Advance Directive(s) 03/04/2016 12:29 PM Documents on File Type Date Recorded Patient Guest Experience Specialist Expl anation Advance Directive(s) 03/04/2016 12:29 PM Reason for Referral Specialty Diagnoses / Procedures Referred By Contac t Referred To Contact [facility] Diagnoses Lumbosacral radiculopathy Lumbar pain Procedures CONSULT TO PHYSICAL THERAPY PHYSICAL THERAPY EVALUATION HIGH COMPLEX 45 MINS Jenelle Carson, SIGNAL SYSTEM TESTING MAINTAINER.CLINICAL PARTNER [address] [place] [id number] [facility] [place] [address] [place] [address] Referral ID Status Reason Start Date Expiration Date Visits Requested Visits Authorized [id number] Pending Review Auto-Generat ed Referral 09/04/2021 09/04/2022 1 1 Specialty Diagnoses / Procedures Referred By Contac t Referred To Contact XR IMAGING Diagnoses Lumbosacral radiculopathy Lumbar pain Procedures XR LUMBAR GENERAL 3V AP/LAT/L5-S1 RADEX SPINE LUMBOSACRAL 2/3 VIEWS Jenelle Carson, BECKI.CLINICAL PARTNER [address] [id number] Xr Imaging Referral ID Status Reason Start Date Expiration Date V isits Requested Visits Authorized [id number] Closed Auto-Generate d Referral 09/04/2021 10/04/2022 1 1 Specialty Diagnoses / Procedures Referred By Contac t Referred To Contact Diagnoses Chronic intractable headache, unspecified headache type Procedures CONSULT TO HEADACHE CLINIC OFFICE/OUTPATIENT [facility] 60-74 MINUTES Jenelle Carson APRN.CLINICAL PARTNER [address] [id number] Referral ID Status Reason Start Date Expiration Date Visits Requested Visits Authorized [id number] Authorized PCP Requested Referral 09/04/2021 09/04/2022 1 1 Specialty Diagnoses / Procedures Referred By Contac t Referred To Contact Orthopedics Diagnoses Chronic pain of left knee Procedures CONSULT TO ORTHOPAEDICS OFFICE/OUTPATIENT [facility] 60-74 MINUTES Misha Cespedes MD [address] [place] [address] Referral ID Status Reason Start Date Expiration Date Visits Requested Visits Authorized [id number] Authorized PCP Requested Referral 07/14/2022 07/14/2023 1 1 Specialty Diagnoses / Procedures Referred By Contac t Referred To Contact Gynecology Diagnoses Screening for cervical cancer Procedures CONSULT TO GYNECOLOGY OFFICE/OUTPATIENT [facility] 60-74 MINUTES Misha Cespedes MD [address] [place] [address] Referral ID Status Reason Start Date Expiration Date Visits Requested Visits Authorized [id number] Authorized PCP Requested Referral Auto-Generate d Referral 07/14/2022 07/14/2023 1 1 Specialty Diagnoses / Procedures Referred By Contac t Referred To Contact Gastroenterology Diagnoses Diarrhea, unspecified type Procedures CONSULT TO GASTROENTEROLOGY OFFICE/OUTPATIENT [facility] 60-74 MINUTES Misha Cespedes MD [facility] [place] [address] Referral ID Status Reason Start Date Expiration Date Visits Requested Visits Authorized [id number] Authorized PCP Requested Referral 08/20/2022 08/20/2023 1 1 Specialty Diagnoses / Procedures Referred By Contac t Referred To Contact MR IMAGING Diagnoses Chronic pain of left knee Procedures MRI KNEE WO IVCON LEFT MRI ANY JT LOWER EXTREM W/O CONTRAST MATRL Vetovitz, Paulina, PA-C [address] [place] [address] Mr Imaging Referral ID Status Reason Start Date Expiration Date Visits Requested Visits Authorized [id number] Pending Review Auto-Generat ed Referral 09/21/2022 10/21/2023 [...] doses, Starting on Wed11/18/22 at 0909, Until Wed11/19/22 at 0302, [facility] for mild, [...] AUTHOR AUTHOR'S ORGANIZ ATION 08/28/2022 [facility] DATE CREATED AUTHOR AUTHOR'S ORGANIZ ATION 02/13/2023 [facility] DATE CREATED AUTHOR AUTHOR'S ORGANIZ ATION 02/13/2023 [facility] DATE CREATED AUTHOR AUTHOR'S ORGANIZ ATION 06/26/2023 [facility] Source Comments (unrecognize d section and content) In the event this informatio n is protected by the Federal Confidentiality of Alcohol and Drug Abuse Patient Records regulations: The Federal rules restrict any use of the information to criminally investigate or prosecute any alcohol or drug abuse patient.[facility] the event this information is protected by the Federal Confidentiality of Alcohol and Drug Abuse Patient Records regulations: The Federal rules restrict any use of the information to criminally investigate or prosecute any alcohol or drug abuse patient.[facility] the event this information is protected by the Federal Confidentiality of Alcohol and Drug Abuse Patient Records regulations: The Federal rules restrict any use of the information to criminally investigate or prosecute any alcohol or drug abuse patient.[facility]In the event this information is protected by the Federal Confidentiality of Alcohol and Drug Abuse Patient Records regulations: The Federal rules restrict any use of the information to criminally investigate or prosecute any alcohol or drug abuse patient.[facility] the event this information is protected by the Federal Confidentiality of Alcohol and Drug Abuse Patient Records regulations: The Federal rules restrict any use of the information to criminally investigate or prosecute any alcohol or drug abuse patient.[facility] the event this information is protected by the Federal Confidentiality of Alcohol and Drug Abuse Patient Records regulations: The Federal rules restrict any use of the information to criminally investigate or prosecute any alcohol or drug abuse patient.[facility] HospitalIn the event this information is protected by the Federal Confidentiality of Alcohol and Drug Abuse Patient Records regulations: The Federal rules restrict any use of the information to criminally investigate or prosecute any alcohol or drug abuse patient.[facility]In the event this information is protected by the Federal Confidentiality of Alcohol and Drug Abuse Patient Records regulations: The Federal rules restrict any use of the information to criminally investigate or prosecute any alcohol or drug abuse patient.[facility] the event this information is protected by the Federal Confidentiality of Alcohol and Drug Abuse Patient Records regulations: The Federal rules restrict any use of the information to criminally investigate or prosecute any alcohol or drug abuse patient.[facility] HospitalIn the event this information is protected by the Federal Confidentiality of Alcohol and Drug Abuse Patient Records regulations: The Federal rules restrict any use of the information to criminally investigate or prosecute any alcohol or drug abuse patient.[facility]In the event this information is protected by the Federal Confidentiality of Alcohol and Drug Abuse Patient Records regulations: The Federal rules restrict any use of the information to criminally investigate or prosecute any alcohol or drug abuse patient.[facility] HospitalIn the event this information is protected by the Federal Confidentiality of Alcohol and Drug Abuse Patient Records regulations: The Federal rules restrict any use of the information to criminally investigate or prosecute any alcohol or drug abuse patient.[facility]In the event this information is protected by the Federal Confidentiality of Alcohol and Drug Abuse Patient Records regulations: The Federal rules restrict any use of the information to criminally investigate or prosecute any alcohol or drug abuse patient.[facility] HospitalIn the event this information is protected by the Federal Confidentiality of Alcohol and Drug Abuse Patient Records regulations: The Federal rules restrict any use of the information to criminally investigate or prosecute any alcohol or drug abuse patient.[facility] HospitalIn the event this information is protected by the Federal Confidentiality of Alcohol and Drug Abuse Patient Records regulations: The Federal rules restrict any use of the information to criminally investigate or prosecute any alcohol or drug abuse patient.[facility] HospitalIn the event this information is protected by the Federal Confidentiality of Alcohol and Drug Abuse Patient Records regulations: The Federal rules restrict any use of the information to criminally investigate or prosecute any alcohol or drug abuse patient.[facility] HospitalIn the event this information is protected by the Federal Confidentiality of Alcohol and Drug Abuse Patient Records regulations: The Federal rules restrict any use of the information to criminally investigate or prosecute any alcohol or drug abuse patient.[facility] HospitalIn the event this information is protected by the Federal Confidentiality of Alcohol and Drug Abuse Patient Records regulations: The Federal rules restrict any use of the information to criminally investigate or prosecute any alcohol or drug abuse patient.[facility] HospitalIn the event this information is protected by the Federal Confidentiality of Alcohol and Drug Abuse Patient Records regulations: The Federal rules restrict any use of the information to criminally investigate or prosecute any alcohol or drug abuse patient.[facility] HospitalIn the event this information is protected by the Federal Confidentiality of Alcohol and Drug Abuse Patient Records regulations: The Federal rules restrict any use of the information to criminally investigate or prosecute any alcohol or drug abuse patient.[facility] HospitalIn the event this information is protected by the Federal Confidentiality of Alcohol and Drug Abuse Patient Records regulations: The Federal rules restrict any use of the information to criminally investigate or prosecute any alcohol or drug abuse patient.[facility] HospitalIn the event this information is protected by the Federal Confidentiality of Alcohol and Drug Abuse Patient Records regulations: The Federal rules restrict any use of the information to criminally investigate or prosecute any alcohol or drug abuse patient.[facility] HospitalIn the event this information is protected by the Federal Confidentiality of Alcohol and Drug Abuse Patient Records regulations: The Federal rules restrict any use of the information to criminally investigate or prosecute any alcohol or drug abuse patient.[facility] HospitalIn the event this information is protected by the Federal Confidentiality of Alcohol and Drug Abuse Patient Records regulations: The Federal rules restrict any use of the information to criminally investigate or prosecute any alcohol or drug abuse patient.[facility] HospitalIn the event this information is protected by the Federal Confidentiality of Alcohol and Drug Abuse Patient Records regulations: The Federal rules restrict any use of the information to criminally investigate or prosecute any alcohol or drug abuse patient.[facility] HospitalIn the event this information is protected by the Federal Confidentiality of Alcohol and Drug Abuse Patient Records regulations: The Federal rules restrict any use of the information to criminally investigate or prosecute any alcohol or drug abuse patient.[facility] HospitalIn the event this information is protected by the Federal Confidentiality of Alcohol and Drug Abuse Patient Records regulations: The Federal rules restrict any use of the information to criminally investigate or prosecute any alcohol or drug abuse patient.[facility] HospitalIn the event this information is protected by the Federal Confidentiality of Alcohol and Drug Abuse Patient Records regulations: The Federal rules restrict any use of the information to criminally investigate or prosecute any alcohol or drug abuse patient.[facility] HospitalIn the event this information is protected by the Federal Confidentiality of Alcohol and Drug Abuse Patient Records regulations: The Federal rules restrict any use of the information to criminally investigate or prosecute any alcohol or drug abuse patient.[facility] HospitalIn the event this information is protected by the Federal Confidentiality of Alcohol and Drug Abuse Patient Records regulations: The Federal rules restrict any use of the information to criminally investigate or prosecute any alcohol or drug abuse patient.[facility] HospitalIn the event this information is protected by the Federal Confidentiality of Alcohol and Drug Abuse Patient Records regulations: The Federal rules restrict any use of the information to criminally investigate or prosecute any alcohol or drug abuse patient.[facility] HospitalIn the event this information is protected by the Federal Confidentiality of Alcohol and Drug Abuse Patient Records regulations: The Federal rules restrict any use of the information to criminally investigate or prosecute any alcohol or drug abuse patient.[facility] HospitalIn the event this information is protected by the Federal Confidentiality of Alcohol and Drug Abuse Patient Records regulations: The Federal rules restrict any use of the information to criminally investigate or prosecute any alcohol or drug abuse patient.[facility] HospitalIn the event this information is protected by the Federal Confidentiality of Alcohol and Drug Abuse Patient Records regulations: The Federal rules restrict any use of the information to criminally investigate or prosecute any alcohol or drug abuse patient.[facility] HospitalIn the event this information is protected by the Federal Confidentiality of Alcohol and Drug Abuse Patient Records regulations: The Federal rules restrict any use of the information to criminally investigate or prosecute any alcohol or drug abuse patient.[facility] HospitalIn the event this information is protected by the Federal Confidentiality of Alcohol and Drug Abuse Patient Records regulations: The Federal rules restrict any use of the information to criminally investigate or prosecute any alcohol or drug abuse patient.[facility] HospitalIn the event this information is protected by the Federal Confidentiality of Alcohol and Drug Abuse Patient Records regulations: The Federal rules restrict any use of the information to criminally investigate or prosecute any alcohol or drug abuse patient.[facility] HospitalIn the event this information is protected by the Federal Confidentiality of Alcohol and Drug Abuse Patient Records regulations: The Federal rules restrict any use of the information to criminally investigate or prosecute any alcohol or drug abuse patient.[facility] HospitalIn the event this information is protected by the Federal Confidentiality of Alcohol and Drug Abuse Patient Records regulations: The Federal rules restrict any use of the information to criminally investigate or prosecute any alcohol or drug abuse patient.[facility] HospitalIn the event this information is protected by the Federal Confidentiality of Alcohol and Drug Abuse Patient Records regulations: The Federal rules restrict any use of the information to criminally investigate or prosecute any alcohol or drug abuse patient.[facility] HospitalIn the event this information is protected by the Federal Confidentiality of Alcohol and Drug Abuse Patient Records regulations: The Federal rules restrict any use of the information to criminally investigate or prosecute any alcohol or drug abuse patient.[facility] HospitalIn the event this information is protected by the Federal Confidentiality of Alcohol and Drug Abuse Patient Records regulations: The Federal rules restrict any use of the information to criminally investigate or prosecute any alcohol or drug abuse patient.[facility] HospitalIn the event this information is protected by the Federal Confidentiality of Alcohol and Drug Abuse Patient Records regulations: The Federal rules restrict any use of the information to criminally investigate or prosecute any alcohol or drug abuse patient.[facility] HospitalIn the event this information is protected by the Federal Confidentiality of Alcohol and Drug Abuse Patient Records regulations: The Federal rules restrict any use of the information to criminally investigate or prosecute any alcohol or drug abuse patient.[facility] HospitalIn the event this information is protected by the Federal Confidentiality of Alcohol and Drug Abuse Patient Records regulations: The Federal rules restrict any use of the information to criminally investigate or prosecute any alcohol or drug abuse patient.[facility] HospitalIn the event this information is protected by the Federal Confidentiality of Alcohol and Drug Abuse Patient Records regulations: The Federal rules restrict any use of the information to criminally investigate or prosecute any alcohol or drug abuse patient.[facility] HospitalIn the event this information is protected by the Federal Confidentiality of Alcohol and Drug Abuse Patient Records regulations: The Federal rules restrict any use of the information to criminally investigate or prosecute any alcohol or drug abuse patient.[facility] HospitalIn the event this information is protected by the Federal Confidentiality of Alcohol and Drug Abuse Patient Records regulations: The Federal rules restrict any use of the information to criminally investigate or prosecute any alcohol or drug abuse patient.[facility] HospitalIn the event this information is protected by the Federal Confidentiality of Alcohol and Drug Abuse Patient Records regulations: The Federal rules restrict any use of the information to criminally investigate or prosecute any alcohol or drug abuse patient.[facility] HospitalIn the event this information is protected by the Federal Confidentiality of Alcohol and Drug Abuse Patient Records regulations: The Federal rules restrict any use of the information to criminally investigate or prosecute any alcohol or drug abuse patient.[facility] HospitalIn the event this information is protected by the Federal Confidentiality of Alcohol and Drug Abuse Patient Records regulations: The Federal rules restrict any use of the information to criminally investigate or prosecute any alcohol or drug abuse patient.[facility] HospitalIn the event this information is protected by the Federal Confidentiality of Alcohol and Drug Abuse Patient Records regulations: The Federal rules restrict any use of the information to criminally investigate or prosecute any alcohol or drug abuse patient.[facility] HospitalIn the event this information is protected by the Federal Confidentiality of Alcohol and Drug Abuse Patient Records regulations: The Federal rules restrict any use of the information to criminally investigate or prosecute any alcohol or drug abuse patient.[facility] HospitalIn the event this information is protected by the Federal Confidentiality of Alcohol and Drug Abuse Patient Records regulations: The Federal rules restrict any use of the information to criminally investigate or prosecute any alcohol or drug abuse patient.[facility] HospitalIn the event this information is protected by the Federal Confidentiality of Alcohol and Drug Abuse Patient Records regulations: The Federal rules restrict any use of the information to criminally investigate or prosecute any alcohol or drug abuse patient.[facility] HospitalIn the event this information is protected by the Federal Confidentiality of Alcohol and Drug Abuse Patient Records regulations: The Federal rules restrict any use of the information to criminally investigate or prosecute any alcohol or drug abuse patient.[facility] HospitalIn the event this information is protected by the Federal Confidentiality of Alcohol and Drug Abuse Patient Records regulations: The Federal rules restrict any use of the information to criminally investigate or prosecute any alcohol or drug abuse patient.[facility] HospitalIn the event this information is protected by the Federal Confidentiality of Alcohol and Drug Abuse Patient Records regulations: The Federal rules restrict any use of the information to criminally investigate or prosecute any alcohol or drug abuse patient.[facility] HospitalIn the event this information is protected by the Federal Confidentiality of Alcohol and Drug Abuse Patient Records regulations: The Federal rules restrict any use of the information to criminally investigate or prosecute any alcohol or drug abuse patient.[facility] HospitalIn the event this information is protected by the Federal Confidentiality of Alcohol and Drug Abuse Patient Records regulations: The Federal rules restrict any use of the information to criminally investigate or prosecute any alcohol or drug abuse patient.[facility] HospitalIn the event this information is protected by the Federal Confidentiality of Alcohol and Drug Abuse Patient Records regulations: The Federal rules restrict any use of the information to criminally investigate or prosecute any alcohol or drug abuse patient.[facility] HospitalIn the event this information is protected by the Federal Confidentiality of Alcohol and Drug Abuse Patient Records regulations: The Federal rules restrict any use of the information to criminally investigate or prosecute any alcohol or drug abuse patient.[facility] HospitalIn the event this information is protected by the Federal Confidentiality of Alcohol and Drug Abuse Patient Records regulations: The Federal rules restrict any use of the information to criminally investigate or prosecute any alcohol or drug abuse patient.[facility] HospitalIn the event this information is protected by the Federal Confidentiality of Alcohol and Drug Abuse Patient Records regulations: The Federal rules restrict any use of the information to criminally investigate or prosecute any alcohol or drug abuse patient.[facility] HospitalIn the event this information is protected by the Federal Confidentiality of Alcohol and Drug Abuse Patient Records regulations: The Federal rules restrict any use of the information to criminally investigate or prosecute any alcohol or drug abuse patient.[facility] HospitalIn the event this information is protected by the Federal Confidentiality of Alcohol and Drug Abuse Patient Records regulations: The Federal rules restrict any use of the information to criminally investigate or prosecute any alcohol or drug abuse patient.[facility] Reason for Visit (unrecogniz ed section and content) Specialty Diagnoses / Procedures Referred By Diego t Referred To Contact Neurology Diagnoses Cerebral cysts 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 status epilepticus, unspecified epilepsy type (HCC) Procedures CONSULT TO NEUROLOGY OFFICE/OUTPATIENT [facility] 60-74 MINUTES Hardik Jimenez Jr., MD [address] [address] Referral ID Status Reason Start Date Expiration Date V isits Requested Visits Authorized [id number] Closed PCP Requested Referral 08/01/2021 08/01/2022 1 1 Reason Comments Needing follow up appt Reason Comments problem scheduling testing Reason Comments Chronic intractable headaches Specialty Diagnoses / Procedures Referred By Contac t Referred To Contact Diagnoses Chronic intractable headache, unspecified headache type Procedures CONSULT TO HEADACHE CLINIC OFFICE/OUTPATIENT [facility] 60-74 MINUTES Jenelle Carson, BECKI.CLINICAL PARTNER [address] [place] [address] Referral ID Status Reason Start Date Expiration Date V isits Requested Visits Authorized [id number] Closed PCP Requested Referral 09/04/2021 09/04/2022 1 1 Reason Comments Release Of Medical Records Reason Comments Insurance Authorization AJOVY (fremanezu [id number]) injection 225MG/1.5ML auto-injectors Reason Comments Orders Reason Comments Left Knee Pain Reason Comments Well Woman Specialty Diagnoses / Procedures Referred By Contac t Referred To Contact Gynecology Diagnoses Screening for cervical cancer Procedures CONSULT TO GYNECOLOGY OFFICE/OUTPATIENT [facility] 60-74 MINUTES Misha Cespedes MD [address] [place] [address] Referral ID Status Reason Start Date Expiration Date V isits Requested Visits Authorized [id number] Closed PCP Requested Referral Auto-Generated Referral 07/14/2022 [...] left knee Procedures CONSULT TO ORTHOPAEDICS OFFICE/OUTPATIENT [facility] 60-74 MINUTES Misha Cespedes MD [address] [place] [address] Referral ID Status Reason Start Date Expiration Date V isits Requested Visits Authorized [id number] Closed PCP Requested Referral 07/14/2022 07/14/2023 1 1 Reason Comments Cardiology Follow Up No new cardiac conc erns Reason Comments Patient Question Reason Comments Nurse Visit ZIO replacement Specialty Diagnoses / Procedures Referred By Diego t Referred To Contact Diagnoses Bucket-handle tear of medial meniscus of left knee as current injury, initial encounter Procedures ARTHRS KNE SURG W/MENISCECTOMY MED/LAT W/SHVG ARTHROSCOPY KNEE MENISCECTOMY MEDIAL OR LATERAL [facility] [address] [place] [address] Referral ID Status Reason Start Date Expiration Date Visits Re quested Visits Authorized [id number] 1 1 Reason Comments Patient Update Reason [...] Care Teams (unrecognized sec tion and content) It Communications Manager Relationship Specialty Start Date End Date Misha Cespedes MD [address] [place] [address] PCP - General Internal Medicine 08/14/15 Roberto Fowler (Historic) Internal Medicine 02/01/12 [facility] [address] [place] [address] [facility] [employer] [facility] 08/24/19 It Communications Manager Relationship Specialty Start Date End Date Misha Cespedes MD [address] [place], [place] 258361 PCP - General Internal Medicine 08/14/15 Roberto Fowler (Historic) Internal Medicine 02/01/12 [facility] [address] [place] [address] [facility] [employer] [facility] 08/24/19 It Communications Manager Relationship Specialty Start Date End Date Misha Cespedes MD [address] [place], [place] 471031 PCP - General Internal Medicine 08/14/15 Roberto Fowler (Historic) Internal Medicine 02/01/12 [facility] [address] [place], [place] [id number] [facility] [employer] [facility] 08/24/19 It Communications Manager Relationship Specialty Start Date End Date Mihsa Cespedes MD [address] [place], [place] 997991 PCP - General Internal Medicine 08/14/15 Roberto Fowler (Historic) Internal Medicine 02/01/12 [facility] [address] [place], [place] [id number] [facility] [employer] [facility] 08/24/19 It Communications Manager Relationship Specialty Start Date End Date Misha Cespedes MD [address] [place], [place] 111591 PCP - General Internal Medicine 08/14/15 Roberto Fowler (Historic) Internal Medicine 02/01/12 [facility] [address] [place] [address] [facility] [employer] [facility] 08/24/19 It Communications Manager Relationship Specialty Start Date End Date Misha Cespedes MD [address] [place], [place] 920571 PCP - General Internal Medicine 08/14/15 Roberto Fowler (Historic) Internal Medicine 02/01/12 [facility] [address] [place], [place] [id number] [facility] [employer] [facility] 08/24/19 It Communications Manager Relationship Specialty Start Date End Date Misha Cespedes MD [address] [place], [place] 705341 PCP - General Internal Medicine 08/14/15 Roberto Fowler (Historic) Internal Medicine 02/01/12 [facility] [address] [place] [address] [facility] [employer] [facility] 08/24/19 It Communications Manager Relationship Specialty Start Date End Date Misha Cespedes MD [address] [place], [place] 868401 PCP - General Internal Medicine 08/14/15 Roberto Fowler (Historic) Internal Medicine 02/01/12 [facility] [address] [place] [address] [facility] [employer] [facility] 08/24/19 It Communications Manager Relationship Specialty Start Date End Date Misha Cespedes MD [address] [place], [place] 940201 PCP - General Internal Medicine 08/14/15 Roberto Fowler (Historic) Internal Medicine 02/01/12 [facility] [address] [place] [address] [facility] [employer] [facility] 08/24/19 It Communications Manager Relationship Specialty Start Date End Date Misha Cespedes MD [address] [place], [place] 0[address]191 PCP - General Internal Medicine 08/14/15 Roberto Fowler (Historic) Internal Medicine 02/01/12 [facility] [address] [place], [place] [id number] [facility] [employer] [facility] 08/24/19 It Communications Manager Relationship Specialty Start Date End Date Misha Cespedes MD [address] [place], [place] 860111 PCP - General Internal Medicine 08/14/15 Roberto Fowler (Historic) Internal Medicine 02/01/12 [facility] [address] [place], [place] 0327995 [facility] [employer] [facility] 08/24/19 It Communications Manager Relationship Specialty Start Date End Date Misha Cespedes MD [address] [place], [place] 264321 PCP - General Internal Medicine 08/14/15 Roberto Fowler (Historic) Internal Medicine 02/01/12 [facility] [address] [place] [address] [facility] [employer] [facility] 08/24/19 It Communications Manager Relationship Specialty Start Date End Date Misha Cespedes MD [address] [place], [place] 342701 PCP - General Internal Medicine 08/14/15 Roberto Fowler (Historic) Internal Medicine 02/01/12 [facility] [address] [place] [address] [facility] [employer] [facility] 08/24/19 It Communications Manager Relationship Specialty Start Date End Date Misha Cespedes MD [address] [place], [place] 479341 PCP - General Internal Medicine 08/14/15 Roberto Fowler (Historic) Internal Medicine 02/01/12 [facility] [address] [place], [place] 5512295 [facility] [employer] [facility] 08/24/19 It Communications Manager Relationship Specialty Start Date End Date Misha Cespedes MD [address] [place], [place] 175421 PCP - General Internal Medicine 08/14/15 Roberto Fowler (Historic) Internal Medicine 02/01/12 [facility] [address] [place] [address] [facility] [employer] [facility] 08/24/19 It Communications Manager Relationship Specialty Start Date End Date Misha Cespedes MD [address] [place], [place] 129971 PCP - General Internal Medicine 08/14/15 Roberto Fowler (Historic) Internal Medicine 02/01/12 [facility] [address] [place] [address] [facility] [employer] [facility] 08/24/19 It Communications Manager Relationship Specialty Start Date End Date Misha Cespedes MD [address] [place], [place] 074081 PCP - General Internal Medicine 08/14/15 Roberto Fowler (Historic) Internal Medicine 02/01/12 [facility] [address] [place] [address] [facility] [employer] [facility] 08/24/19 It Communications Manager Relationship Specialty Start Date End Date Misha Cespedes MD [address] [place], [place] 913971 PCP - General Internal Medicine 08/14/15 Roberto Fowler (Historic) Internal Medicine 02/01/12 [facility] [address] [place], [place] 3542595 [facility] [employer] [facility] 08/24/19 It Communications Manager Relationship Specialty Start Date End Date Misha Cespedes MD [address] [place], [place] 677221 PCP - General Internal Medicine 08/14/15 Roberto Fowler (Historic) Internal Medicine 02/01/12 [facility] [address] [place], [place] 1984595 [facility] [employer] [facility] 08/24/19 It Communications Manager Relationship Specialty Start Date End Date Misha Cespedes MD [address] [place], [place] 620231 PCP - General Internal Medicine 08/14/15 Roberto Fowler (Historic) Internal Medicine 02/01/12 [facility] [address] [place], [place] 4921695 [facility] [employer] [facility] 08/24/19 It Communications Manager Relationship Specialty Start Date End Date Misha Cespedes MD [address] [place], [place] 164381 PCP - General Internal Medicine 08/14/15 Roberto Fowler (Historic) Internal Medicine 02/01/12 [facility] [address] [place] [address] [facility] [employer] [facility] 08/24/19 It Communications Manager Relationship Specialty Start Date End Date Misha Cespedes MD [address] [place], [place] 053951 PCP - General Internal Medicine 08/14/15 Roberto Fowler (Historic) Internal Medicine 02/01/12 [facility] [address] [place] [address] [facility] [employer] [facility] 08/24/19 It Communications Manager Relationship Specialty Start Date End Date Misha Cespedes MD [address] [place] [address] PCP - General Internal Medicine 08/14/15 Roberto Fowler (Historic) Internal Medicine 02/01/12 [facility] [address] [place] [address] [facility] [employer] [facility] 08/24/19 It Communications Manager Relationship Specialty Start Date End Date Misha Cespedes MD [address] [place] [address] PCP - General Internal Medicine 08/14/15 Roberto Fowler (Historic) Internal Medicine 02/01/12 [facility] [address] [place], [place] 9143295 [facility] [employer] [facility] 08/24/19 It Communications Manager Relationship Specialty Start Date End Date Misha Cespedes MD [address] [place] [address] PCP - General Internal Medicine 08/14/15 Roberto Fowler (Historic) Internal Medicine 02/01/12 [facility] [address] [place] [address] [facility] [employer] [facility] 08/24/19 It Communications Manager Relationship Specialty Start Date End Date Misha Cespedes MD [address] [place], [place] 655691 PCP - General Internal Medicine 08/14/15 Roberto Fowler (Historic) Internal Medicine 02/01/12 [facility] [address] [place], [place] 1498195 [facility] [employer] [facility] 08/24/19 It Communications Manager Relationship Specialty Start Date End Date Misha Cespedes MD [address] [place] [address] PCP - General Internal Medicine 08/14/15 Roberto Fowler (Historic) Internal Medicine 02/01/12 [facility] [address] [place], [place] 5706395 [facility] [employer] [facility] 08/24/19 It Communications Manager Relationship Specialty Start Date End Date Misha Cespedes MD [address] [place] [address] PCP - General Internal Medicine 08/14/15 Roberto Fowler (Historic) Internal Medicine 02/01/12 [facility] [address] [place] [address] [facility] [employer] [facility] 08/24/19 It Communications Manager Relationship Specialty Start Date End Date Misha Cespedes MD [address] [place] [address] PCP - General Internal Medicine 08/14/15 Roberto Fowler (Historic) Internal Medicine 02/01/12 [facility] [address] [place] [address] [facility] [employer] [facility] 08/24/19 It Communications Manager Relationship Specialty Start Date End Date Misha Cespedes MD [address] [place] [address] PCP - General Internal Medicine 08/14/15 Roberto Fowler (Historic) Internal Medicine 02/01/12 [facility] [address] [place] [address] [facility] [employer] [facility] 08/24/19 It Communications Manager Relationship Specialty Start Date End Date Misha Cespedes MD [address] [place], [place] 984441 PCP - General Internal Medicine 08/14/15 Roberto Fowler (Historic) Internal Medicine 02/01/12 [facility] [address] [place] [address] [facility] [employer] [facility] 08/24/19 It Communications Manager Relationship Specialty Start Date End Date Misha Cespedes MD [address] [place] [address] PCP - General Internal Medicine 08/14/15 Roberto Fowler (Historic) Internal Medicine 02/01/12 [facility] [address] [place] [address] [facility] [employer] [facility] 08/24/19 It Communications Manager Relationship Specialty Start Date End Date Misha Cespedes MD [address] [place], [place] 266751 PCP - General Internal Medicine 08/14/15 Roberto Fowler (Historic) Internal Medicine 02/01/12 [facility] [address] [place], [place] 0333795 [facility] [employer] [facility] 08/24/19 It Communications Manager Relationship Specialty Start Date End Date Misha Cespedes MD [address] [place] [address] PCP - General Internal Medicine 08/14/15 Roberto Fowler (Historic) Internal Medicine 02/01/12 [facility] [address] [place], [place] 9537395 [facility] [employer] [facility] 08/24/19 It Communications Manager Relationship Specialty Start Date End Date Misha Cespedes MD [address] [place], [place] 108961 PCP - General Internal Medicine 08/14/15 Roberto Fowler (Historic) Internal Medicine 02/01/12 [facility] [address] [place], [place] 7067495 [facility] [employer] [facility] 08/24/19 Justin Mccain MD [address] [address] Orthopedics 02/02/23 It Communications Manager Relationship Specialty Start Date End Date Misha Cespedes MD [address] [place], [place] 363471 PCP - General Internal Medicine 08/14/15 Roberto Fowler (Historic) Internal Medicine 02/01/12 [facility] [address] [place] [address] [facility] [employer] [facility] 08/24/19 Justin Mccain MD [address] [address] Orthopedics 02/02/23 It Communications Manager Relationship Specialty Start Date End Date Misha Cespedes MD [address] [place] [address] PCP - General Internal Medicine 08/14/15 Roberto Fowler (Historic) Internal Medicine 02/01/12 [facility] [address] [place], [place] 48[address] [facility] [employer] [facility] 08/24/19 Justin Mccain MD [address] [address] Orthopedics 02/02/23 It Communications Manager Relationship Specialty Start Date End Date Misha Cespedes MD [address] [place] [address] PCP - General Internal Medicine 08/14/15 Roberto Fowler (Historic) Internal Medicine 02/01/12 [facility] [address] [place] [address] [facility] [employer] [facility] 08/24/19 Justin Mccain MD [address] [address] Orthopedics 02/02/23 It Communications Manager Relationship Specialty Start Date End Date Misha Cespedes MD [address] [place] [address] PCP - General Internal Medicine 08/14/15 Roberto Fowler (Historic) Internal Medicine 02/01/12 [facility] [address] [place], [place] 0776[address] [facility] [employer] [facility] 08/24/19 Justin Mccain MD [address] [id number] Orthopedics 02/02/23 It Communications Manager Relationship Specialty Start Date End Date Misha Cespedes MD [address] [place] [address] PCP - General Internal Medicine 08/14/15 Roberto Fowler (Historic) Internal Medicine 02/01/12 [facility] [address] [place] [address] [facility] [employer] [facility] 08/24/19 Justin Mccain MD [address] [address] Orthopedics 02/02/23 It Communications Manager Relationship Specialty Start Date End Date Misha Cespedes MD [address] [place] [address] PCP - General Internal Medicine 08/14/15 Roberto Fowler (Historic) Internal Medicine 02/01/12 [facility] [address] [place] [address] [facility] [employer] [facility] 08/24/19 Justin Mccain MD [address] [address] Orthopedics 02/02/23 It Communications Manager Relationship Specialty Start Date End Date Misha Cespedes MD [address] [place] [address] PCP - General Internal Medicine 08/14/15 Roberto Fowler (Historic) Internal Medicine 02/01/12 [facility] [address] [place], [place] [address] [facility] [employer] [facility] 08/24/19 Justin Mccain MD [address] [id number] Orthopedics 02/02/23 It Communications Manager Relationship Specialty Start Date End Date Misha Cespedes MD [address] [place] [address] PCP - General Internal Medicine 08/14/15 Roberto Fowler (Historic) Internal Medicine 02/01/12 [facility] [address] [place] [address] [facility] [employer] [facility] 08/24/19 Justin Mccain MD [address] [address] Orthopedics 02/02/23 It Communications Manager Relationship Specialty Start Date End Date Misha eCspedes MD [address] [place] [address] PCP - General Internal Medicine 08/14/15 Roberto Fowler (Historic) Internal Medicine 02/01/12 [facility] [address] [place], [place] [address] [facility] [employer] [facility] 08/24/19 Justin Mccain MD [address] [address] Orthopedics 02/02/23 It Communications Manager Relationship Specialty Start Date End Date Misha Cespedes MD [address] [place] [address] PCP - General Internal Medicine 08/14/15 Roberto Fowler (Historic) Internal Medicine 02/01/12 [facility] [address] [place] [address] [facility] [employer] [employer] [facility] 08/24/19 Justin Mccain MD [address] [address] Orthopedics 02/02/23 Scheduled Active and Recently Administ [...] dose, Starting on Wed11/18/22 at 0909, Until Wed11/19/22 at 0302, Moderate Pain (4-6) - Enteral, Recovery or Phase I (only) scopolamine 1 mg over 3 days 1 Patch (TRANSDERM-SCOP)(Linked Group 1) 1 Patch, TRANSDERMAL, Administer over 24 Hours, NEEDED, 1 dose, Starting on Wed11/18/22 at 0909, Until Wed11/19/22 at 0302, Nausea/Vomiting - Second Line - [...] dose, Starting on Wed11/18/22 at 0909, Until Wed11/19/22 at 0302, Nausea/Vomiting - Second Line - [...] BE BASED ON THE PRIMARY CLINICAL RECORDS. [facility]. provides no warranty or guarantee of the accuracy or completeness of information in this document.
== END | disposition home or self-care (01) ==
LOC: NM 09:13
PROVIDERS: PCP Internal Medicine; Referring Provider Internal Medicine Gastroenterology; Visit Provider Internal Medicine Gastroenterology
DX: K31.84 Gastroparesis (principal)
CPT/HCPCS: 78264; A9541

== ENCOUNTER → 2024-01-19 | Outpatient (CLI) | payer MEDICAID, SELFPAY ==
[2024-01-19 16:58] LABS: Absolute Lymphocyte Count 1.21 X10^3/uL (0.83-4.51); Absolute Neutrophil Count 4.3 X10^3/uL (2.0-7.7); Basophil# 0.06 X10^3/uL; Eosinophil# 0.07 X10^3/uL; Eosinophils% 1.1 % (0-5); Hematocrit 43.6 % (37-47); Hemoglobin 14.4 g/dL (12.0-15.0); Lymphocyte # 1.21 X10^3/ul (0.83-4.51); Lymphocyte % 19.9 % (19-41); Mean Corpuscular Hgb 30.3 pg (27.0-32.0); Mean Corpuscular Volume 91.6 fL (81-99); Mean Platelet Vol. 10.5 fl (6.2-12.0); Monocyte# 0.47 X10^3/uL; Monocyte% 7.7 % (0-10); NRBC Flagged by Analyzer 0 % (0-5); Neutrophil # 4.25 X10^3/uL (2.7-7.7); Neutrophil % 69.8 % (47-70); Platelet Count 287 K/mm3 (150-450); RBC Distribution Width CV 12.3 % (11.6-14.6); RBC Distribution Width SD 41.3 fl (35.1-43.9); Red Blood Count 4.76 M/mm3 (4.2-5.4); White Blood Count 6.1 K/mm3 (4.4-11.0)
[2024-01-19 17:19] LABS: CRP < 2.90 mg/L (0.0-3.0)
[2024-01-19 17:43] LABS: Erythrocyte Sedimentation Rate 3 mm/hr (0-30)
== END | disposition home or self-care (01) ==
LOC: LAB 15:30
PROVIDERS: Student in an Organized Health Care Education/Training Program; PCP Internal Medicine; Referring Provider Internal Medicine Gastroenterology; Visit Provider Internal Medicine Gastroenterology
DX: K59.1 Functional diarrhea (principal)
CPT/HCPCS: 36415; 85025; 85652; 86140

== ENCOUNTER → 2024-01-20 | Outpatient (CLI) | payer MEDICAID, SELFPAY ==
[2024-01-25 15:09] LABS: Pancreatic Elastase, Fecal > 800 (>200)
[2024-01-25 21:07] LABS: Calprotectin, Stool 5 ug/g (0-120)
== END | disposition home or self-care (01) ==
LOC: LABSPEC 08:19
PROVIDERS: PCP Internal Medicine; Referring Provider Student in an Organized Health Care Education/Training Program; Visit Provider Student in an Organized Health Care Education/Training Program
DX: K58.9 Irritable bowel syndrome, unspecified (principal); K59.1 Functional diarrhea
CPT/HCPCS: 82653; 83630; 83993

== ENCOUNTER 2024-03-31 12:04 | Day surgery (SDC) | payer MEDICAID, SELFPAY ==
[2024-03-31] VITALS (8 sets, daily range): BP systolic 93–101; BP diastolic 62–74; PULSE 60–91; RESP 16–20; TEMP 36.3–36.8; O2SAT 95–100; BMI 39.4
[2024-03-31 12:53] LABS: Internal QC Validated? YES +Cl - CLEAR BKGD; Pregnancy, Serum, hCG Quali. NEGATIVE Negative
--- NOTE | 2024-03-31 12:53 | PCM.PRE.AN2 ---
ASA Classification* ASA Classification ASA Classification: 2 Assessment & Plan Anesthesia* Anesthesia Assessment Anesthesia Assessment: Discussed sedation and/or anesthesia options, risks, benefits, and alternatives with patient/parents/legal guardian/POA. Questions invited. The patient/parents/legal guardian/POA seems to understand and agrees to proceed with anesthesia plan. Reviewed the physical assessment, medical history, allergy history and patient home medications list prior to surgery/procedure/anesthetic and documented any changes. Performed airway and anesthesia risk assessments. Anesthesia Type Anesthesia Type: MAC Anesthesia Focused Assessment* Temperature: 97.3 F Pulse Rate: 91 Blood Pressure: 101/74 Respiratory Rate: 16 Pulse Ox: 100 Airway Assessment Mouth opens: >3 cm Mallampati Score: II Focused Labs Anesthesia Preop lab: CBC WBC 6.1 K/mm3 (4.4-11.0) 01/19/24 15:36 RBC 4.76 M/mm3 (4.2-5.4) 01/19/24 15:36 Hgb 14.4 g/dL (12.0-15.0) 01/19/24 15:36 Hct 43.6 % (37-47) 01/19/24 15:36 Plt Count 287 K/mm3 (150-450) 01/19/24 15:36 CHEMISTRY Potassium 3.9 mmol/L (3.5-5.1) 06/18/23 14:37 Sodium 137 mmol/L (136-145) 06/18/23 14:37 Magnesium 2.3 mg/dL (1.6-2.6) 09/04/22 14:11 Phosphorus 2.9 mg/dL (2.5-4.9) 09/04/22 14:11 BUN 15 mg/dL (7-18) 06/18/23 14:37 Creatinine 0.75 mg/dL (0.55-1.02) 06/18/23 14:37 Glucose 86 mg/dL (74-106) 06/18/23 14:37 TSH 1.20 uIU/mL (0.358-3.74) 06/18/23 14:37 COAG PT 12.1 SECONDS (11.7-14.9) 01/11/23 14:58 Pre-Assessment Diagnosis/Proposed Procedure Planned Operative Procedure(s): CSCOPE Anesthesia History 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 When Was Last Pacemaker Check QUESTION #4 FULL TEXT: You/Your Family Experience fever (hyperthermia) with Anesthesia Last Oral Intake Last Oral intake: Last Oral Intake NPO since 08:00 03/31/24 12:34 Meds taken in AM with sips of water? 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 Female Yes 03/29/24 10:58 HX of Motion Sickness No 03/29/24 10:58 HX of N/V After Surgery No 03/29/24 10:58 Non-Smoker Yes 03/29/24 10:58 Duration of Surgery greater No 03/29/24 10:58 than 60 minutes Number of Risk Factors 2 03/29/24 10:58 PONV Score Moderate Risk 03/29/24 10:58 Height & Weight Height & Weight: Anesthesia: Height & Weight Height 5 ft 2 in 03/31/24 12:34 Weight: 97.8 kg 03/31/24 12:34 Body Mass Index (BMI) 39.4 03/31/24 12:34 Respiratory Assessment Respiratory Assessment - sueding machine operator: Respiratory Tract Infection Hx - sueding machine operator Hx Respiratory Tract Infection No 03/29/24 10:58 STOP Sleep Apnea STOP Sleep Apnea - sueding machine operator: STOP Sleep Apnea - sueding machine operator Hx Hypertension No 03/29/24 10:58 Hx Sleep Apnea No 03/29/24 10:58 CPAP BIPAP Do you snore loudly (louder No 03/29/24 10:58 than talking or can be heard Do you often feel tired/ No 03/29/24 10:58 fatigued/ sleepy during daytime? Has anyone observed you stop No 03/29/24 10:58 breathing during sleep? STOP Results Negative 03/29/24 10:58 QUESTION #5 FULL TEXT : Do you snore loudly (louder than talking or can be heard through closed doors)? 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 Specify any problems Hx of Preganancy in last 3 N/A 03/29/24 10:58 Months Nurse Filling Out Transfusion NBUCHER 03/29/24 10:58 & Questions: Date: 03/29/24 03/29/24 10:58 Time: 10:59 03/29/24 10:58 Patient unable to answer at this time (ie. confused, unrespo /Reproduction History /Reproductive History - sueding machine operator: /Reproductive Hx- sueding machine operator Hx Now No 03/29/24 10:58 Gestational Age (in weeks): EDC: Hx Hx Para Hx Section SAB No 03/29/24 10:58 PFSH Medical History Wears glasses Low iron Blackout Restless legs History of IBS Gastric reflux Former smoker History of stress test Cardiology follow-up encounter Low blood pressure Epilepsy Nausea vomiting and diarrhea Anxiety Depression Irregular heart beat Seizures Home Medications ?Medication ?Instructions ?Recorded ?Last Taken ?Type gabapentin 600 mg tablet 600 mg PO QHS 11/09/19 Unknown History levetiracetam 750 mg tablet 750 mg PO BID 11/09/19 Unknown History metoprolol tartrate 25 mg tablet 25 mg PO BID 11/09/19 Unknown History ifaled-fakmgtie-potaewy See Rx Instructions PO .COMPLEX 09/16/22 Unknown Rx 36,000-114,000-180,000 unit #320 caps capsule,delay rel (Creon) dicyclomine 20 mg tablet 20 mg PO BID #30 tabs 01/21/23 Unknown Rx pramipexole 0.125 mg tablet 0.125 mg PO QHS 12/31/23 Unknown History omeprazole 20 mg capsule,delayed 20 mg PO DAILY #90 caps 01/19/24 Unknown Rx release colestipol 1 gram tablet 1 g PO QDAY #60 tabs 02/29/24 Unknown Rx Allergy/AdvReac Type Severity Reaction Status Date / Time prednisone AdvReac Intermediate Abd Verified 03/31/24 12:31 cramps/diarrhea Surgical History History of lateral meniscus repair of right knee (~2022) History of lateral meniscus repair of left knee (~2022) Hx of dilation and curettage Social History Smoking Status: Former smoker Review of Systems (Anesthesia) ROS Narrative System reviewed and no additional complaints, except as documented.
--- NOTE | 2024-03-31 13:30 | COLBX_PTH ---
PATIENT: JALEEL ZURITA LOC: EN U#:[id number] AGE/SX: 34/F ROOM: RE03/31/[address]: Dr. Michael Kitchen DO : 1990 BED: DIS: 03/31/2024 SPEC #: [id number] RECD: 03/31/24 16:49 STATUS: ZENA RIKI #: [id number] TAMIKO: 03/31/24 13:[address]: Michael Kitchen DEPT: SURGICAL PATHOLOGY RECD BY: Tess Patterson ENTERED: 04/03/24 08:18 SP TYPE: COLON BX FRANKIE DR: Dr. Misha Cespedes MD Tissues: A - Ileum, NOS B - COLON BIOPSY Procedures: Surgery Specimen Level IV HEADER OPERATION: Colonoscopy PRE-OP DIAGNOSIS: Diarrhea TISSUE SUBMITTED: A- Terminal ileum biopsy, B- Random colon biopsy MICROSCOPIC DIAGNOSIS A. Terminal ileum, biopsy: Fragments of small intestinal mucosa, no pathologic diagnosis. See comment. B. Colon, random biopsy: Fragments of colonic mucosa, no pathologic diagnosis. 04/04/2024 COMMENT A. Prominent lymphoid aggregates are noted. MICROSCOPIC DESCRIPTION Slides are reviewed. GROSS DESCRIPTION A. Received in fixative is one container labeled with the patient's name and designated Terminal ileum biopsy. The specimen consists of multiple irregular fragments of light barnes soft tissue that in aggregate measure 1.0 x 0.2 x 0.1 cm. The specimen is totally submitted in one cassette. B. Received in fixative is one container labeled with the patient's name and designated Random colon biopsy. The specimen consists of multiple irregular fragments of light barnes soft tissue that in aggregate measure 2.5 x 0.5 x 0.1 cm. The specimen is totally submitted in one cassette. 04/03/2024 TC:4 CPT:26312i9
--- NOTE | 2024-03-31 14:06 | PCM.HP.BLA ---
History and Physical Date of Admission: 03/31/24 JALEEL ZURITA, is a 33 F who presents to the office today for f/u of her abdominal pain and diarrhea. GI [facility] 2015 with referral from PCP for intermittent watery loose stools 4/day with worsening for two months?EGD and colonoscopy 03.09.16?pathology from stomach and colon without acute/chronic finding.? PCP Contact ?Stool 08.13.22?EP and C.difficile WNL? [facility] visit 08.17.22 with N/V/D and generalized abdominal discomfort for 7-8 years. Notes she was evaluated by her PCP and an outside GI who did testing and started medication which was ineffective. She was provided with supportive measures, no medication, and GI referral.? ? [facility] hospitalization 08.24.22-08.27.22 for epilepsy monitoring unit for two types of events: convulsion during sleep occurring 3 times since 2007 and loss of function (vision and ability to move) without LOC of MACEY occurring daily.? ? *[facility] established . with improvement of N/V for many years and continued postprandial loose/watery stools 4-5 times after eating with preceding abdominal cramping that resolves following BM for the last 3 months; if she doesn?t eat, she doesn?t have symptoms. ? Biochemical?CBC, ESR, CMP (k L3.4), LDH, CRP, Vit D25, Vit D1,25, Vit B12, folate, magnesium, phosphorus, T4, TSH, GAME, BRENT comp, celiac, ANCA, IBD profile, MICHAEL, hepatitis without pertinent abnormality? T3 L1.9, AST [id number] L39?Stool testing calprotectin, fats,?C.Diff, EP, lactoferrin, occult, O/P, giardia WNL? Elastase L198?Start Creon? Contact 11.27.22 with ongoing symptoms; Creon has been ineffective. Start doxycycline and dicyclomine?Gastric emptying study 12.21.22?not calculable. ?CT abd/pel?not performed?US abd 01.01.23?hepatic measurement 18.3cm with fatty infiltration; splenic cysts.? Contact 01.06.23 with results. Reports improvement of symptoms overall but has loose postprandial stools. Agreeable to liver biochemical workup?Biochemical?CBC, ESR, CMP, LFT, LDH, CRP, haptoglobin, ferritin, A1c, ammonia, VENUS, AFP, coag, ASM, AMA, hepatitis, HIV without pertinent abnormality? Ceruloplasmin H44.8, copper H206?Elastography 01.12.23?hepatic stiffness 5.8kPa? Contact 01.22.23 with results. 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 Contact 02.02.23 regarding splenic lesion; referred to [facility] for biopsy.? OV 06.18.23- Pt reports ongoing diarrhea with intermittent abdominal pain. Is having 4-5 loose stools a day with gas. Reports Lomotil, Dicyclomine and Creon have not been helpful. OV today 01.18. patient continues to have daily diarrhea and abdominal pain. She is having diarrhea 3 times per day and having two formed stools per week. She has been taking dicyclomine and Creon but neither have given her relief. She gets diarrhea shortly after she eats food. She has not had any weight loss thought she does feel she is eating less because she does not want to have pain. She also admits to having acid reflux daily. She denies nocturnal diarrhea, constipation, n/v or blood in her stool. ROS Const Constitutional: Positive for fatigue, headache(s) and weight change; No fever(s) ENT ENT: Positive for headache(s); No difficulty swallowing Gastro GI: Positive for abdominal pain, bloating, diarrhea, heartburn and excessive flatus; No belching, change in bowel habits, change in stool character, coffee ground emesis, constipation, cramping, difficulty swallowing, feeling full early, incontinent of stools, Vomiting blood/hematemesis, Blood in stool, loose stools, Black,tarry stools, nausea/dyspepsia, pain with swallowing, vomiting or other Musc Musculoskeletal: Positive for back pain, sciatica and restless legs; No joint pain Skin Skin: Positive for dry skin and itchy eyes; No yellowing of the eye Neuro Neurology: Positive for headache(s) and restless legs Psych Psychiatric: Positive for anxiety and Positive for depression Endo Endocrine: Positive for fatigue and weight change Aller/Imm Allergy/Immunologic: Positive for itchy eyes Sundeep/Lymp Hematologic/Lymphatic: Positive for easy bruising; No easy bleeding Exam Const General: cooperative and comfortable Nutritional Appearance: average body habitus and well nourished [facility] Head: normal to inspection Ears: hearing grossly normal bilaterally Nose: external nose normal Face and sinus: normal facial exam Mouth: oral mucosae normal Throat: posterior oropharynx normal Eyes General: appearance normal, both eyes and all related structures Neck Neck: normal visual inspection Chest Chest palpation & inspection: normal inspection of the chest and normal palpation of entire chest wall Resp Effort & Inspection: normal respiratory effort Auscultation: Bilateral: Clear to Auscultation Cardio Palpation: normal PMI Rate: regular rate Rhythm: regular rhythm GI Inspection: normal to inspection Auscultation: normal bowel sounds Percussion: normal to percussion Palpation: no hepatosplenomegaly Skin General: no rashes or lesions noted Neuro General: patient alert Extrem General: normal to inspection Psych Affect: normal affect Assessment and Plan Assessment and Plan (1) Diarrhea: Status: Acute Qualifiers: Diarrhea type: functional diarrhea Qualified Code(s): K59.1 - Functional diarrhea Plan: Patient is here today for f/u of abdominal pain and diarrhea. She has had work up in the past which revealed slight EPI -Her diarrhea has been refractory to Creon and she will try taking lomitol two pills in the morning and two pills at night just until the diarrhea is under control. -She will also start taking omeprazole 20 mg daily -We will order labs and inflammatory markers -Will discuss colonoscopy in the future if labs are abnormal -She will f/u in 3 months Orders: Orders CBC W/Diff, Automated Today K59.1 - Functional diarrhea Erythrocyte Sed Rate Today K59.1 - Functional diarrhea CRP Today K59.1 - Functional diarrhea Pancreatic Elastase, Fecal Today K59.1 - Functional diarrhea Stool Lactoferrin/WBC Today K58.9 - Irritable bowel syndrome without diarrhea Calprotectin, Stool Today K59.1 - Functional diarrhea Medications: New omeprazole 20 mg PO DAILY 90 caps 1RF Changed From diphenoxylate-atropine 2.5-0.025 mg (Lomotil) 1 TAB PO BID PRN 60 tabs 0RF diarrhea To diphenoxylate-atropine 2.5-0.025 mg (Lomotil) 2 tabs PO BID PRN 60 tabs 0RF diarrhea I have examined the patient and the H&P has been reviewed. There are no clinical changes since date of exam. Is
--- NOTE | 2024-03-31 14:38 | PCM.POST.ANE ---
Anesthesia: Postop Eval I Current Vital Signs Temperature: 98.2 F Pulse Rate: 74 Blood Pressure: 93/68 Respiratory Rate: 20 Pulse Ox: 99 Oxygen Delivery Method: Room Air Assessment Airway patent: Yes Spontaneous unlabored respirations: Yes Mental status: Asleep nausea: No Vomiting: No Anesthesia Complication: No Fluid Hydration Crystalloid volume administer (ml): 10 Total IV fluid infused: 10 Progress Note Anesthesia document: Postop Eval 1 completed: Yes
--- NOTE | 2024-03-31 14:42 | OP.COLON_ITS ---
Patient Name: Migdalia Aguiar Procedure Date: 03/31/2024 2:13 PM Date of : 1990 Age: 34 Procedure: Colonoscopy Indications: Clinically significant diarrhea of unexplained origin Providers: DO Yvon Naylor MD: Misha Cespedes Medicines: Monitored Anesthesia Care Patient Profile: This is a 34 year old female. Refer to note in patient chart for documentation of history and physical. Last Colonoscopy: none. The patient's first colonoscopy is today. Complications: No immediate complications. Procedure: Pre-Anesthesia Assessment: - Prior to the procedure, a History and Physical was performed, and patient medications and allergies were reviewed. The patient is competent. The risks and benefits of the procedure and the sedation options and risks were discussed with the patient. All questions were answered and informed consent was obtained. Patient identification and proposed procedure were verified by the physician in the pre-procedure area. Mental Status Examination: alert and oriented. Airway Examination: normal oropharyngeal airway and neck mobility. Respiratory Examination: clear to auscultation. CV Examination: normal. Prophylactic Antibiotics: The patient does not require prophylactic antibiotics. Prior Anticoagulants: The patient has taken no anticoagulant or antiplatelet agents except for NSAID medication. ASA Grade Assessment: II - A patient with mild systemic disease. After reviewing the risks and benefits, the patient was deemed in satisfactory condition to undergo the procedure. The anesthesia plan was to use monitored anesthesia care (MAC). Immediately prior to administration of medications, the patient was re-assessed for adequacy to receive sedatives. The heart rate, respiratory rate, oxygen saturations, blood pressure, adequacy of pulmonary ventilation, and response to care were monitored throughout the procedure. The physical status of the patient was re-assessed after the procedure. After I obtained informed consent, the scope was passed under direct vision. Throughout the procedure, the patient's blood pressure, pulse, and oxygen saturations were monitored continuously. The Colonoscope was introduced through the anus and advanced to the terminal ileum. The colonoscopy was performed without difficulty. The patient tolerated the procedure well. The quality of the bowel preparation was adequate. The ileocecal valve, appendiceal orifice, and rectum were photographed. Scope In: 2:21:51 PM Scope Withdrawal Time 0 hours 6 minutes 12 seconds Scope Out: 2:31:15 PM Total Procedure Duration Time 0 hours 9 minutes 24 seconds Findings: The colon (entire examined portion) appeared normal. Biopsies were taken with a cold forceps for histology. Verification of patient identification for the specimen was done. Estimated blood loss was minimal. The terminal ileum appeared normal. Biopsies were taken with a cold forceps for histology. Verification of patient identification for the specimen was done. Estimated blood loss was minimal. Impression: - The entire examined colon is normal. Biopsied. - The examined portion of the ileum was normal. Biopsied. Recommendation: - Discharge patient to home. - Resume previous diet. - Continue present medications. - Await pathology results. - Repeat colonoscopy for surveillance based on pathology results. - Return to GI office. Procedure Code(s): --- Professional --- 09540, Colonoscopy, flexible; with biopsy, single or multiple CPT copyright 2021 [employer]. All rights reserved. The codes documented in this report are preliminary and upon computer language coder review may be revised to meet current compliance requirements. Michael Kitchen DO 03/31/2024 2:41:59 PM This report has been signed electronically. Number of Addenda: 0 Note Initiated On: 03/31/2024 2:13 PM
--- NOTE | 2024-03-31 14:43 | OP.CCLET_ITS ---
03/31/2024 Misha Cespedes [address] [place] [address] Re : Colonoscopy procedure for Migdalia Aguiar Dear Dr. Cespedes This procedure was performed on Sunday, March 31, 2024. My impressions and recommendations are as follows: Impressions : - The entire examined colon is normal. Biopsied. - The examined portion of the ileum was normal. Biopsied. Recommendations : - Discharge patient to home. - Resume previous diet. - Continue present medications. - Await pathology results. - Repeat colonoscopy for surveillance based on pathology results. - Return to GI office. My findings are described in the full procedure note, which is enclosed. If I can be of further assistance, please feel free to contact me at . Sincerely, Michael Kitchen, 03/31/2024 2:41:59 PM This report has been signed electronically.
--- NOTE | 2024-03-31 16:34 | POSTOPAN2_ITS ---
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
--- NOTE | 2024-03-31 16:34 | PCM.POSTANE2 ---
Anesthesia Postop Eval I Sum Postop Eval Completion status Anesthesia document: Postop Eval 1 completed: Yes Anesthesia Postop Eval I Summary Anesthesia Postop Eval I Summary: Anesthesia Postop Eval I: Assessment Summary Airway patent Yes 03/31/24 14:39 HEBREW [email or web address] Spontaneous unlabored Yes 03/31/24 14:39 HEBREW [email or web address] respirations Mental status Asleep 03/31/24 14:39 HEBREW [email or web address] nausea No 03/31/24 14:39 HEBREW CANTOR.[email or web address] Vomiting No 03/31/24 14:39 HEBREW [email or web address] Anesthesia Postop Eval I: Fluid Summary Crystalloid volume administer 10 03/31/24 14:39 HEBREW [email or web address] (ml) Colloids volume administered ( ml) Blood Product volume administered (ml) Total IV fluid infused 10 03/31/24 14:39 HEBREW [email or web address] Anesthesia Postop Eval I: Summary Notes Anesthesia Complication No 03/31/24 14:39 HEBREW [email or web address].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
== END 2024-03-31 15:26 | disposition home or self-care (01) ==
LOC: EN 12:05 → AC 12:07
PROVIDERS: Anesthesiology; PCP Internal Medicine; Referring Provider Internal Medicine; Visit Provider Internal Medicine Gastroenterology
PROC: 0DJD8ZZ Inspection of Lower Intestinal Tract, Via Natural or Artificial Opening Endoscopic (ICD-10-PCS; CPT 45378; principal; 2024-03-31 13:25)
DX: K59.1 Functional diarrhea (principal)
CPT/HCPCS: 45380; 84703; 88305; A4216; J2405

== ENCOUNTER → 2024-08-18 | Outpatient (CLI) | payer MEDICAID, SELFPAY ==
[2024-08-18 11:25] LABS: HIV Nonreactive (Nonreactive); Magnesium 2.4 mg/dL (1.5-2.2); Syphilis Antibodies Nonreactive (Nonreactive)
[2024-08-22 04:07] LABS: KEPPRA (LEVETIRACETAM) 29.2 ug/mL (10.0-40.0)
== END | disposition home or self-care (01) ==
LOC: MTLAB 09:27
PROVIDERS: PCP Internal Medicine
DX: G40.909 Epilepsy, unspecified, not intractable, without status epilepticus (principal)
CPT/HCPCS: 36415; 80177; 82140; 83735; 86703; 86780

== ENCOUNTER → 2024-09-01 | Outpatient (CLI) | payer MEDICAID, SELFPAY | END | disposition home or self-care (01) | LOC: PSN 06:40 | PROVIDERS: PCP Internal Medicine | DX: G40.909 Epilepsy, unspecified, not intractable, without status epilepticus (principal) | CPT/HCPCS: 95819 ==

== ENCOUNTER → 2025-03-26 | Outpatient (CLI) | payer MEDICAID, SELFPAY ==
[2025-03-26 12:56] LABS: Hematocrit 40.2 % (37-47); Hemoglobin 13.5 g/dL (12.0-15.0); Immature Granulocytes Count 0.010 X10^3/uL (0.0-0.0); Mean Corp Hgb Conc 33.6 g/dL (32-36); Mean Corpuscular Volume 93.5 fL (81-99); Mean Platelet Vol. 11.4 fl (6.2-12.0); NRBC Flagged by Analyzer 0 % (0-5); Platelet Count 250 K/mm3 (150-450); RBC Distribution Width CV 11.9 % (11.6-14.6); RBC Distribution Width SD 40.5 fl (35.1-43.9); Red Blood Count 4.30 M/mm3 (4.2-5.4); White Blood Count 4.2 K/mm3 (4.4-11.0)
[2025-03-26 13:21] LABS: AST(SGOT) 16 U/L (<=31); Alanine Aminotransfer ALT/SGPT 12 U/L (<=34); Albumin, Serum 4.2 g/dL (3.5-5.0); Alkaline Phosphatase 40 U/L (35-104); Anion Gap 10 (5-15); BUN 14 mg/dL (4-19); BUN/Creat Ratio 17.0 RATIO (10-20); Calcium,Total 9.0 mg/dL (7.6-11.0); Carbon Dioxide 25.3 mmol/L (21.0-32.0); Chloride 106 mmol/L (98-108); Globulin 2.4 g/dL (2.2-4.2); Glucose 95 mg/dL (70-99); Potassium 3.9 mmol/L (3.3-5.1)
[2025-03-26 13:25] LABS: CRP < 3.00 mg/L (0.0-3.0); Magnesium 2.4 mg/dL (1.5-2.2)
== END | disposition home or self-care (01) ==
LOC: LAB 12:10
PROVIDERS: PCP Internal Medicine
DX: R51.9 Headache, unspecified (principal); G40.A09 Absence epileptic syndrome, not intractable, without status epilepticus; R42 Dizziness and giddiness
CPT/HCPCS: 36415; 80053; 83735; 84443; 85025; 85652; 86140

== ENCOUNTER → 2025-04-24 | Outpatient (CLI) | payer MEDICAID, SELFPAY ==
--- NOTE | 2025-04-24 11:09 | MRI_ITS ---
PROCEDURE: MRI/Brain W/WO Contrast
== END | disposition home or self-care (01) ==
LOC: MRI 11:05
PROVIDERS: PCP Internal Medicine
DX: G40.A09 Absence epileptic syndrome, not intractable, without status epilepticus (principal); R51.9 Headache, unspecified; R42 Dizziness and giddiness
CPT/HCPCS: 70553; A9575; A4216

== ENCOUNTER → 2025-05-16 | Outpatient (CLI) | payer MEDICAID, SELFPAY ==
[2025-05-16 11:57] LABS: CORTISOL AM 9.37 ug/dL (6.02-18.40); Follicle Stimulating Hormone 12.5 mIU/mL; Free T3 2.7 pg/mL (2.18-3.98); Vitamin B12 620 pg/mL (180-914)
[2025-05-17 04:07] LABS: PROGESTERONE 1.1 ng/mL (.)
[2025-05-22 11:08] LABS: Copper, Serum or Plasma 73 ug/dL (80-158); Estrogen, Total, Serum 275 pg/mL (.); PROLACTIN 14.8 ng/mL (4.8-33.4); Testosterone, % Free 1.67 % (0.50-2.80); Testosterone, Free 0.28 ng/dL (0.10-0.85)
== END | disposition home or self-care (01) ==
LOC: LAB 10:14
PROVIDERS: PCP Nurse Practitioner
DX: E23.7 Disorder of pituitary gland, unspecified (principal); R51.9 Headache, unspecified
CPT/HCPCS: 36415; 82024; 82525; 82533; 82607; 82672; 83001; 83002; 83003; 84144; 84146; 84305; 84402; 84403; 84439; 84443; 84481